=== PATIENT | male | born 1940 | race Caucasian/White ===

== ENCOUNTER 2018-02-25 00:27 | Inpatient (IN) | payer MEDICARE ==
--- NOTE | 2018-02-25 01:09 | ED ---
General Adult HPI - General Chief complaint: Chest Pain Stated complaint: Chest Pain Time Seen by Provider: 02/25/18 00:28 Source: patient, EMS, RN notes reviewed, old records reviewed Mode of arrival: EMS Limitations: no limitations - History of Present Illness Initial comments: This is a 77-year-old male to the ER today. Patient's surgery for evaluation regards to chest pain left-sided chest pain. Patient has a long medical history. Patient has history of heart disease. Patient's concern is having heart attack. No diaphoresis no shortness of breath. No recent travel history or sick contacts. No recent fevers cough or congestion. No modifying factors for patient's pain. Patient is continued pain here in the emergency room - Related Data Home Medications Medication Instructions Recorded Confirmed Digoxin [Lanoxin] 125 mcg PO DAILY 06/25/14 07/10/14 Levothyroxine Sodium [Synthroid] 275 mcg PO DAILY 06/25/14 07/10/14 Lisinopril [Zestril] 2.5 mg PO BID 06/25/14 07/10/14 Metoprolol Tartrate [Lopressor] 50 mg PO DAILY 06/25/14 07/10/14 Multivitamin [Children's 1 each PO DAILY 06/25/14 07/10/14 Multivitamins] Nitroglycerin [Nitro-Time] 2.5 mg PO BID 06/25/14 07/10/14 Warfarin [Coumadin] 7.5 mg PO DAILY 06/25/14 07/10/14 Allergies Allergy/AdvReac Type Severity Reaction Status Date / Time iodine Allergy Unknown Verified 07/10/14 10:05 Review of Systems ROS Statement: Those systems with pertinent positive or pertinent negative responses have been documented in the HPI. ROS Other: All systems not noted in ROS Statement are negative. Past Medical History Past Medical History: Atrial Fibrillation, Hyperlipidemia, Hypertension Additional Past Medical History / Comment(s): kidney cancer, atrial fibrillation History of Any Multi-Drug Resistant Organisms: None Reported Past Surgical History: Heart Catheterization With Stent Additional Past Surgical History / Comment(s): left nephrectomy Past Anesthesia/Blood Transfusion Reactions: No Reported Reaction Date of Last Stent Placement:: 2009 Past Psychological History: No Psychological Hx Reported Smoking Status: Current every day smoker Past Alcohol Use History: None Reported Past Drug Use History: None Reported General Exam Limitations: no limitations General appearance: alert, in no apparent distress Head exam: Present: atraumatic, normocephalic, normal inspection Eye exam: Present: normal appearance, PERRL, EOMI. Absent: scleral icterus, conjunctival injection, periorbital swelling ENT exam: Present: normal exam, mucous membranes moist Neck exam: Present: normal inspection. Absent: tenderness, meningismus, lymphadenopathy Respiratory exam: Present: normal lung sounds bilaterally. Absent: respiratory distress, wheezes, rales, rhonchi, stridor Cardiovascular Exam: Present: regular rate, normal rhythm, normal heart sounds. Absent: systolic murmur, diastolic murmur, rubs, gallop, clicks GI/Abdominal exam: Present: soft, normal bowel sounds. Absent: distended, tenderness, guarding, rebound, rigid Extremities exam: Present: normal inspection, full ROM, normal capillary refill. Absent: tenderness, pedal edema, joint swelling, calf tenderness Back exam: Present: normal inspection Neurological exam: Present: alert, oriented X3, CN II-XII intact Psychiatric exam: Present: normal affect, normal mood Skin exam: Present: warm, dry, intact, normal color. Absent: rash Course Vital Signs 02/25/18 02/25/18 02/25/18 00:33 01:00 02:18 Temperature 98.0 F 97.5 F L Pulse Rate 68 63 Pulse Rate [ 64 Bilateral Sitting Radial] Respiratory 18 20 18 Rate Blood Pressure 98/58 106/58 O2 Sat by Pulse 95 95 Oximetry - Reevaluation(s) Reevaluation #1: 02/25/18 03:10 Patient having noticeable EKG changes here in the ER, with continued chest pain. Reevaluation #2: 02/25/18 03:11 STEMI alert is paged EKG Findings - EKG Comments: EKG Findings:: EKG shows A. fib rate of 70, QRS 70, QTc 447 Medical Decision Making - Medical Decision Making 77 male the ER for evasive history of heart disease, history of A. fib, patient' s on anticoagulation. Patient does have history of heart attack and stent. Patient having positive EKG and is here in the ER. Will be admitted for cardiac observation and treatment - Lab Data Result diagrams: 02/25/18 00:44 02/25/18 00:44 Lab Results 02/25/18 02/25/18 02/25/18 Range/Units 00:44 00:44 00:44 WBC 10.3 (3.8-10.6) k/uL RBC 3.87 L (4.30-5.90) m/uL Hgb 12.9 L (13.0-17.5) gm/dL Hct 39.8 (39.0-53.0) % MCV 102.8 H (80.0-100.0) fL MCH 33.2 (25.0-35.0) pg MCHC 32.3 (31.0-37.0) g/dL RDW 13.3 (11.5-15.5) % Plt Count 216 (150-450) k/uL Neutrophils % 67 % Lymphocytes % 13 % Monocytes % 8 % Eosinophils % 9 % Basophils % 0 % Neutrophils # 6.9 (1.3-7.7) k/uL Lymphocytes # 1.4 (1.0-4.8) k/uL Monocytes # 0.9 (0-1.0) k/uL Eosinophils # 0.9 H (0-0.7) k/uL Basophils # 0.0 (0-0.2) k/uL Macrocytosis Slight PT (9.0-12.0) sec INR (<1.2) APTT (22.0-30.0) sec Sodium 142 (137-145) mmol/L Potassium 5.0 (3.5-5.1) mmol/L Chloride 108 H (98-107) mmol/L Carbon Dioxide 24 (22-30) mmol/L Anion Gap 10 mmol/L BUN 31 H (9-20) mg/dL Creatinine 1.50 H (0.66-1.25) mg/dL Est GFR (CKD-EPI)AfAm 51 (>60 ml/min/1.73 sqM) Est GFR (CKD-EPI)NonAf 44 (>60 ml/min/1.73 sqM) Glucose 168 H (74-99) mg/dL Calcium 8.5 (8.4-10.2) mg/dL Magnesium 2.0 (1.6-2.3) mg/dL Total Bilirubin 0.3 (0.2-1.3) mg/dL AST 14 L (17-59) U/L ALT 23 (21-72) U/L Alkaline Phosphatase 101 (38-126) U/L Total Creatine Kinase <20 L (55-170) U/L CK-MB (CK-2) 0.7 (0.0-2.4) ng/mL CK-MB (CK-2) Rel Index Troponin I <0.012 (0.000-0.034) ng/mL Total Protein 6.3 (6.3-8.2) g/dL Albumin 3.3 L (3.5-5.0) g/dL 02/25/18 Range/Units 00:44 WBC (3.8-10.6) k/uL RBC (4.30-5.90) m/uL Hgb (13.0-17.5) gm/dL Hct (39.0-53.0) % MCV (80.0-100.0) fL MCH (25.0-35.0) pg MCHC (31.0-37.0) g/dL RDW (11.5-15.5) % Plt Count (150-450) k/uL Neutrophils % % Lymphocytes % % Monocytes % % Eosinophils % % Basophils % % Neutrophils # (1.3-7.7) k/uL Lymphocytes # (1.0-4.8) k/uL Monocytes # (0-1.0) k/uL Eosinophils # (0-0.7) k/uL Basophils # (0-0.2) k/uL Macrocytosis PT 15.4 H (9.0-12.0) sec INR 1.7 H (<1.2) APTT 27.6 (22.0-30.0) sec Sodium (137-145) mmol/L Potassium (3.5-5.1) mmol/L Chloride (98-107) mmol/L Carbon Dioxide (22-30) mmol/L Anion Gap mmol/L BUN (9-20) mg/dL Creatinine (0.66-1.25) mg/dL Est GFR (CKD-EPI)AfAm (>60 ml/min/1.73 sqM) Est GFR (CKD-EPI)NonAf (>60 ml/min/1.73 sqM) Glucose (74-99) mg/dL Calcium (8.4-10.2) mg/dL Magnesium (1.6-2.3) mg/dL Total Bilirubin (0.2-1.3) mg/dL AST (17-59) U/L ALT (21-72) U/L Alkaline Phosphatase (38-126) U/L Total Creatine Kinase (55-170) U/L CK-MB (CK-2) (0.0-2.4) ng/mL CK-MB (CK-2) Rel Index Troponin I (0.000-0.034) ng/mL Total Protein (6.3-8.2) g/dL Albumin (3.5-5.0) g/dL - Radiology Data Radiology results: report reviewed (Chest x-rays negative for acute disease), image reviewed Critical Care Time Critical Care Time: Yes Total Critical Care Time: 31 Disposition Clinical Impression: Chest pain, Unstable angina pectoris, ACS (acute coronary syndrome) Disposition: ADMITTED IP TO THIS [facility] Condition: Serious Is patient prescribed a controlled substance at d/c from ED?: No Referrals: Teja Roche MD [Primary Care Provider] - 1-2 days
[2018-02-25] MEDS ORDERED: SODIUM CHLORIDE 0.9% 500 ML IV STA (01:25)
[2018-02-25 01:38] LABS: Basophils % (A) 0 %; Eosinophils # (A) 0.9 k/uL (0-0.7); Eosinophils % (A) 9 %; HCT 39.8 % (39.0-53.0); HGB 12.9 gm/dL (13.0-17.5); Lymphocytes # (A) 1.4 k/uL (1.0-4.8); Lymphocytes % (A) 13 %; MCH 33.2 pg (25.0-35.0); MCHC 32.3 g/dL (31.0-37.0); MCV 102.8 fL (80.0-100.0); Macrocytosis Slight; Mean Platelet Volume 7.7; Monocytes # (A) 0.9 k/uL (0-1.0); Monocytes % (A) 8 %; Neutrophils # (A) 6.9 k/uL (1.3-7.7); Neutrophils % (A) 67 %; Platelet Count 216 k/uL (150-450); RBC 3.87 m/uL (4.30-5.90); RDW 13.3 % (11.5-15.5); WBC 10.3 k/uL (3.8-10.6)
[2018-02-25 01:48] LABS: Albumin 3.3 g/dL (3.5-5.0); Calcium 8.5 mg/dL (8.4-10.2); Total Bilirubin 0.3 mg/dL (0.2-1.3); Total Protein 6.3 g/dL (6.3-8.2)
[2018-02-25 01:49] LABS: INR 1.7 (<1.2); Partial Thromboplastin Time 27.6 sec (22.0-30.0); Prothrombin Time 15.4 sec (9.0-12.0)
[2018-02-25 02:03] LABS: Creatine Kinase <20 U/L (55-170)
[2018-02-25 02:15] LABS: Creatine Kinase MB 0.7 ng/mL (0.0-2.4); Troponin I <0.012 ng/mL (0.000-0.034)
--- NOTE | 2018-02-25 02:15 | XR ---
EXAMINATION TYPE: XR chest 2V DATE OF EXAM: 02/25/2018 COMPARISON: 01/11/2011 HISTORY: Left side chest pain TECHNIQUE: Frontal and lateral views of the chest are obtained. FINDINGS: Heart is enlarged. There is pulmonary edema. There is some blunting of the costophrenic an gle on the right side. There is some fluid in the fissures on the right side. There are chest leads. IMPRESSION: Congestive heart failure. There is increased pleural fluid on the right side and signifi cant decreased fluid on the left side compared to old exam. Pneumonia is possible.
[2018-02-25] MEDS ORDERED: HEPARIN SODIUM,PORCINE 5,000 UNIT/ML 1 ML VIAL IV ONE (03:07)
[2018-02-25] MEDS ORDERED: HEPARIN SODIUM,PORCINE 5,000 UNIT/ML 1 ML VIAL IV PRN (03:07)
[2018-02-25] MEDS ORDERED: NITROGLYCERIN SL TABS 0.4 MG TAB SUBLINGUAL PRN ×2 (03:09→04:41)
[2018-02-25] MEDS ORDERED: HEPARIN SOD,PORK IN 0.45% NACL 25,000 UNIT in 0.45% NACL 1 500ML.BAG IV SCH (03:15)
[2018-02-25] MEDS ORDERED: IV FLUID CONTINUATION 1,000 ML IV ONE (03:35)
[2018-02-25] MEDS ORDERED: diphenhydrAMINE 50 MG/ML 1 ML VIAL ONE (03:40)
[2018-02-25] MEDS ORDERED: methylPREDNISolone SOD SUCCI 125 MG/2 ML VIAL ONE (03:40)
[2018-02-25] MEDS ORDERED: methylPREDNISolone SOD SUCCI 125 MG/2 ML VIAL IV ONE (03:45)
[2018-02-25] MEDS ORDERED: diphenhydrAMINE 50 MG/ML 1 ML VIAL IVP ONE (03:45)
[2018-02-25] MEDS ORDERED: fentaNYL (PF) 50 MCG/ML 2 ML AMP ONE (03:46)
[2018-02-25] MEDS ORDERED: LIDOCAINE 1% INJ 10MG/ML (20 ML MDV) ONE ×2 (03:46→03:50)
[2018-02-25] MEDS ORDERED: LIDOCAINE 1% INJ 10MG/ML (20 ML MDV) SQ ONE (03:48)
[2018-02-25] MEDS ORDERED: fentaNYL (PF) 50 MCG/ML 2 ML AMP IV ONE (03:49)
[2018-02-25] MEDS ORDERED: BIVALIRUDIN BOLUS 250 MG/50 ML IV ONE (04:00)
[2018-02-25] MEDS ORDERED: BIVALIRUDIN 250 MG in SODIUM CHLORIDE 0.9% 40 ML IV ONE (04:01)
[2018-02-25] MEDS ORDERED: CLOPIDOGREL 75 MG TAB ONE (04:01)
[2018-02-25] MEDS ORDERED: CLOPIDOGREL 75 MG TAB PO ONE (04:05)
--- NOTE | 2018-02-25 04:11 | P.CRDCN ---
History of Present Illness Consult date: 02/25/18 History of present illness: This is a 77-year-old gentleman with history of ischemic heart disease and previous stent placements, the last one being in 2009, being followed by Dr. Miranda, came to the emergency room with complaints of chest pain that started around 10:30 PM last night after he went to bed. The pain was precordial and fluctuating in nature. Initial EKG showed some ST elevations in the anterolateral leads and also inferior leads but less than 1 mm. Patient was treated with nitro with fluctuating chest pains. However by around 2.50 AM, his pain became more intense and repeat EKG showed more definite ST-T abnormalities suggestive of acute KS. Patient is advised to have a cardiac catheterization with the intention of percutaneous intervention. Patient doesn' t have any previous history of myocardial infarction. He is history of chronic atrial fibrillation and has been anticoagulated. His INR is 1.7. Review of Systems As per the chart Past Medical History Past Medical History: Atrial Fibrillation, Hyperlipidemia, Hypertension Additional Past Medical History / Comment(s): kidney cancer, atrial fibrillation History of Any Multi-Drug Resistant Organisms: None Reported Past Surgical History: Heart Catheterization With Stent Additional Past Surgical History / Comment(s): left nephrectomy Past Anesthesia/Blood Transfusion Reactions: No Reported Reaction Date of Last Stent Placement:: 2009 Past Psychological History: No Psychological Hx Reported Smoking Status: Current every day smoker Past Alcohol Use History: None Reported Past Drug Use History: None Reported Medications and Allergies Home Medications Medication Instructions Recorded Confirmed Type Digoxin [Lanoxin] 125 mcg PO DAILY 06/25/14 07/10/14 History Levothyroxine Sodium [Synthroid] 275 mcg PO DAILY 06/25/14 07/10/14 History Lisinopril [Zestril] 2.5 mg PO BID 06/25/14 07/10/14 History Metoprolol Tartrate [Lopressor] 50 mg PO DAILY 06/25/14 07/10/14 History Multivitamin [Children's 1 each PO DAILY 06/25/14 07/10/14 History Multivitamins] Nitroglycerin [Nitro-Time] 2.5 mg PO BID 06/25/14 07/10/14 History Warfarin [Coumadin] 7.5 mg PO DAILY 06/25/14 07/10/14 History Allergies Allergy/AdvReac Type Severity Reaction Status Date / Time iodine Allergy Unknown Verified 07/10/14 10:05 Physical Exam Vitals: Vital Signs Temp Pulse Pulse Resp BP Pulse Ox 02/25/18 03:42 77 17 110/63 96 02/25/18 03:18 64 18 110/63 96 02/25/18 03:15 81 18 115/75 94 L 02/25/18 02:18 97.5 F L 63 18 106/58 95 02/25/18 01:00 64 20 02/25/18 00:33 98.0 F 68 18 98/58 95 Intake and Output 02/24/18 02/24/18 02/25/18 14:59 22:59 06:59 Other: Weight 97.522 kg GENERAL EXAM: Patient is alert and oriented and doesn't appear to be in Mild to moderate axonal defaults accept default's distress HEENT: Normocephalic. Normal reaction of pupils, equal size, normal range of extraocular motion. No erythema or exudates in the throat. NECK: No masses, no nuchal rigidity. CHEST: No chest wall deformity. LUNGS: [Equal air entry with no crackles or wheeze.] HEART: [S1 and S2 normal with no audible mumurs or gallops. Regular rhythm, femorals equal on both sides..] ABDOMEN: No hepatosplenomegaly, normal bowel sounds, no guarding or rigidity. SKIN: No rashes CENTRAL NERVOUS SYSTEM: No focal deficits. EXTREMITIES: [No cyanosis, clubbing or edema.]Accept defaultA accept default's Results 02/25/18 00:44 02/25/18 00:44 Cardiac Enzymes 02/25/18 02/25/18 Range/Units 00:44 00:44 AST 14 L (17-59) U/L CK-MB (CK-2) 0.7 (0.0-2.4) ng/mL Troponin I <0.012 (0.000-0.034) ng/mL Coagulation 02/25/18 Range/Units 00:44 PT 15.4 H (9.0-12.0) sec APTT 27.6 (22.0-30.0) sec CBC 02/25/18 Range/Units 00:44 WBC 10.3 (3.8-10.6) k/uL RBC 3.87 L (4.30-5.90) m/uL Hgb 12.9 L (13.0-17.5) gm/dL Hct 39.8 (39.0-53.0) % Plt Count 216 (150-450) k/uL Comprehensive Metabolic Panel 02/25/18 Range/Units 00:44 Sodium 142 (137-145) mmol/L Potassium 5.0 (3.5-5.1) mmol/L Chloride 108 H (98-107) mmol/L Carbon Dioxide 24 (22-30) mmol/L BUN 31 H (9-20) mg/dL Creatinine 1.50 H (0.66-1.25) mg/dL Glucose 168 H (74-99) mg/dL Calcium 8.5 (8.4-10.2) mg/dL AST 14 L (17-59) U/L ALT 23 (21-72) U/L Alkaline Phosphatase 101 (38-126) U/L Total Protein 6.3 (6.3-8.2) g/dL Albumin 3.3 L (3.5-5.0) g/dL Current Medications Generic Name Dose Route Start Last Admin Trade Name Freq PRN Reason Stop Dose Admin Aspirin 325 mg 02/26/18 09:00 Aspirin PO DAILY [facility] Atorvastatin Calcium 80 mg 02/25/18 09:00 02/25/18 03:14 Lipitor PO 80 mg DAILY [facility] Administration Heparin Sodium (Porcine) 0 unit 02/25/18 03:07 Heparin IV PER PROTOCOL PRN Low PTT Protocol Heparin Sodium/Sodium Chloride 500 mls @ 19.5 mls/hr 02/25/18 03:15 25,000 unit/ Sodium Chloride IV .Q24H [facility] Protocol 10 UNITS/KG/HR Metoprolol Tartrate 25 mg 02/25/18 09:00 Lopressor PO BID [facility] Nitroglycerin 0.4 mg 02/25/18 03:09 02/25/18 03:18 Nitrostat SUBLINGUAL 0.4 mg Q5M PRN Administration Chest Pain Intake and Output 02/24/18 02/24/18 02/25/18 14:59 22:59 06:59 Other: Weight 97.522 kg Patient Weight 02/25/18 06:59 Weight 97.522 kg 02/25/18 00:44 02/25/18 00:44 EKG Interpretations (text) Sinus rhythm with ST elevations in inferior and also anterolateral leads Assessment and Plan (1) Acute myocardial infarction Current Visit: Yes Status: Acute Code(s): I21.9 - ACUTE MYOCARDIAL INFARCTION, UNSPECIFIED SNOMED Code(s): 11627690 (2) Hypertension Current Visit: Yes Status: Acute Code(s): I10 - ESSENTIAL (PRIMARY) HYPERTENSION SNOMED Code(s): 96828685 (3) Diabetes mellitus type 2 in nonobese Current Visit: Yes Status: Acute Code(s): E11.9 - TYPE 2 DIABETES MELLITUS WITHOUT COMPLICATIONS SNOMED Code(s): 872762670 (4) Diabetes mellitus type 2 in obese Current Visit: Yes Status: Acute Code(s): E11.69 - TYPE 2 DIABETES MELLITUS WITH OTHER SPECIFIED COMPLICATION; E66.9 - OBESITY, UNSPECIFIED SNOMED Code(s) : 73215918 (5) History of coronary artery disease Current Visit: Yes Status: Acute Code(s): Z86.79 - PERSONAL HISTORY OF OTHER DISEASES OF THE CIRCULATORY SYSTEM SNOMED Code(s): 332676208 (6) Chronic atrial fibrillation Current Visit: Yes Status: Acute Code(s): I48.2 - CHRONIC ATRIAL FIBRILLATION SNOMED Code(s): 880388736 Plan: Will proceed with cardiac catheterization with intention of primary intervention.
[2018-02-25] MEDS ORDERED: IOPAMIDOL-370 125ML BTL INJ ONE (04:12)
--- NOTE | 2018-02-25 04:17 | P.CARDCATH ---
Date of Procedure: 02/25/18 Preoperative Diagnosis: Acute anterolateral myocardial infarction and possible inferior wall MA Postoperative Diagnosis: The same Procedure(s) Performed: Left heart catheterization without left ventriculography Description of Procedure: HISTORY: This is a 77-year-old gentleman with history of hypertension, chronic atrial fibrillation and known ischemic heart disease with previous stent placement who came to the emergency room with complaints of chest pain and EKG changes of acute anterolateral lateral wall myocardial infarction and possibly inferior wall extension. Patient is explained the risks and benefits of the procedure. CONSENT:I have discussed the risks, benefits and alternative therapies for the above-mentioned procedure and for both sedation/analgesia as well as necessary blood product administration, if indicated, as they pertain to this patient. The patient has indicated understanding and acceptance of the risks and procedures discussed. PROCEDURE: Patient was brought to the lab in a fasting state. Patient was given some IV sedation. The right groin is infiltrated with lidocaine and right femoral artery was entered using Seldinger technique. A 6-Danish catheter was left in place and selective coronary arteriography was performed. Patient tolerated the procedure well. . No immediate complications were noted .Patient went on to have stent placement of the LAD by Dr. Kingston . Conscious Sedation: Versed 0mg Fentanyl 50 g Duration 14minutes HEMODYNAMICS: The aortic pressure is about 100/60. End-diastolic pressures are not measured SELECTIVE CORONARY ARTERIOGRAPHY: LEFT MAIN: Long and free of occlusive disease. THE LEFT ANTERIOR DESCENDING CORONARY ARTERY: This vessel is totally occluded in the midportion after the diagonal branch. The diagonal branch has moderate disease THE LEFT CIRCUMFLEX AND IS CORONARY ARTERY: This is a good caliber vessel which is totally occluded in the midportion after giving rise to good-sized OM branch. There are collaterals from the right coronary artery filling the distal circumflex THE RIGHT CORONARY ARTERY: Small to moderate caliber vessel free of occlusive disease. LEFT VENTRICULOGRAPHY: Not performed FINAL IMPRESSION: Total occlusion of the LAD in the midportion. Total occlusion of the circumflex in the midportion. Collateral from the right to the circumflex. PLAN: Stent placement of the LAD being done by Dr. Kingston. The circumflex stenosis appears to be chronic. PROGNOSIS:Guarded
[2018-02-25] MEDS ORDERED: IOPAMIDOL-370 100ML BTL INJ ONE (04:24)
[2018-02-25] MEDS ORDERED: HEPARIN SODIUM 1,000 UN/ML (10ML VL) ONE (04:29)
[2018-02-25] MEDS ORDERED: ZOLPIDEM 5 MG TAB PO PRN (04:41)
[2018-02-25] MEDS ORDERED: ATROPINE SULFATE 0.1 MG/ML 10ML SYRINGE IV PRN (04:41)
[2018-02-25] MEDS ORDERED: RX INFO: IV CONTRAST WAS GIVEN 1 EACH MISC MISCELLANE PRN (04:41)
[2018-02-25] MEDS ORDERED: MAG HYDROX/AL HYDROX/SIMETH 30 ML CUP PO PRN (04:41)
[2018-02-25] MEDS ORDERED: SODIUM CHLORIDE 0.9% 1,000 ML IV SCH (04:45)
--- NOTE | 2018-02-25 05:18 | PTCA ---
PERCUTANEOUSTRANS CORORONARY ANGIOGRAPHY Mr. Hill is a 77-year-old male with known history of coronary artery disease, status post percutaneous revascularization done by Dr. Medina, history of persistent atrial fibrillation, diabetes, chronic kidney disease, who presented with evidence of an acute anterior myocardial infarction, underwent cardiac catheterization by Dr. Sanchez, was found to have totally occluded proximal LAD. In view of that, recommendation was made regarding coronary angioplasty and stenting. The procedure as well as the risks and the complications were discussed with the patient who is in full understanding and agreement. PROCEDURE: A 6-Armenian FR4 guiding catheter was introduced in the system after cannulating the left main a 0.014 balanced medium weight J-wire was advanced across the lesion, positioned distally. Then a 2.5 x 12 mm Trek balloon was advanced and 3 inflations maximum of 8 atmospheres were done. Following that, the balloon was removed and an Guttenberg catheter was introduced and one pass was done with removal of thrombus from the distal segment of the artery. Following that, a 3.0 x 15 mm Xience Alpine stent was deployed, postdilated at 16 atmospheres. After the last inflation, after appropriate wait, the balloon and the guidewire were withdrawn back in the guiding catheter. Images were obtained and repeated. Those images reveal stable successful stenting. At that point, the guiding catheter, the balloon and the guidewire were removed and a 6-Armenian tight pigtail catheter was introduced left ventricle and pressures were calculated. Following that, catheter was removed. Sheath was sutured in place. The patient was returned to his room in stable condition. Of note, the patient received Angiomax per protocol as well as oral loading dose of clopidogrel. His chest discomfort and EKG changes improved at the end of the procedure. RESULTS: Successful stenting of the proximal left anterior descending artery with reduction of stenosis from 100% to 0%. RECOMMENDATION: Patient will be continued on clopidogrel and Coumadin. The findings as well as recommendation were discussed with the patient and he was in full understanding and agreement. Duration of procedure is 31 minutes. MMODL / IJN: [id number] /
[2018-02-25 05:21] LABS: Glucose,Whole Blood 163 mg/dL (75-99)
[2018-02-25] MEDS: LEVOTHYROXINE 100 MCG TAB PO SCH (06:52)
[2018-02-25] MEDS: LEVOTHYROXINE 75 MCG TAB PO SCH (06:53)
--- NOTE | 2018-02-25 07:05 | P.HPIM ---
History of Present Illness H&P Date: 02/25/18 Chief Complaint: chest pain 77 year old male with history of CAD s/p stents. patient presented due to sudden acute chest pain when he was about to go to bed , he did not feel well over the past few days, but could not identify any physical activity that could have precipitated his chest pain. he described left sided chest pain, dull pressure like 10/10 in severity non radiating, no associated N/V, or SOB, or diaphoresis , he decided to call 911 and go to the hospital and get evaluated as he was concerned for heart attack . In the emergency department he was found to have ST changes in the precordial leads and anterolateral, mineral ore processing labourer was activated for possible STEMI. Patient had the left heart cath through a right femoral approach, a stent was deployed in LAD. He was found to have total occlusion of the LAD and circumflex at the midportion. He tolerated procedure well currently denies any further chest pain or trouble breathing. Sheath was removed with no immediate complications. Currently patient denies any shortness of breath or chest pain, denies any nausea or vomiting, denies any headache or changes in his vision or hearing, denies any focal neurologic deficit. Patient denies any GI bleeding or abdominal pain. Patient takes Coumadin for chronic A. fib. Patient was diagnosed with diabetes with A1c in the range of 7, he takes oral hypoglycemic agent he could not identify it. He is refusing insulin while in the hospital. Review of Systems Pertinent positives as noted in HPI. All other systems were reviewed and are negative Past Medical History Past Medical History: Atrial Fibrillation, Diabetes Mellitus, Hyperlipidemia, Hypertension Additional Past Medical History / Comment(s): kidney cancer, atrial fibrillation History of Any Multi-Drug Resistant Organisms: None Reported Past Surgical History: Heart Catheterization With Stent Additional Past Surgical History / Comment(s): left nephrectomy Past Anesthesia/Blood Transfusion Reactions: No Reported Reaction Date of Last Stent Placement:: 2009 Past Psychological History: No Psychological Hx Reported Smoking Status: Current every day smoker Past Alcohol Use History: None Reported Past Drug Use History: None Reported - Past Family History Family Additional Family Medical History / Comment(s): Patient reports history of heart disease Medications and Allergies Home Medications Medication Instructions Recorded Confirmed Type Digoxin [Lanoxin] 125 mcg PO DAILY 06/25/14 07/10/14 History Levothyroxine Sodium [Synthroid] 275 mcg PO DAILY 06/25/14 07/10/14 History Lisinopril [Zestril] 2.5 mg PO BID 06/25/14 07/10/14 History Metoprolol Tartrate [Lopressor] 50 mg PO DAILY 06/25/14 07/10/14 History Multivitamin [Children's 1 each PO DAILY 06/25/14 07/10/14 History Multivitamins] Nitroglycerin [Nitro-Time] 2.5 mg PO BID 06/25/14 07/10/14 History Warfarin [Coumadin] 7.5 mg PO DAILY 06/25/14 07/10/14 History Allergies Allergy/AdvReac Type Severity Reaction Status Date / Time iodine Allergy Unknown Verified 07/10/14 10:05 Physical Exam Vitals: Vital Signs Temp Pulse Pulse Resp BP Pulse Ox 02/25/18 03:42 77 17 110/63 96 02/25/18 03:18 64 18 110/63 96 02/25/18 03:15 81 18 115/75 94 L 02/25/18 02:18 97.5 F L 63 18 106/58 95 02/25/18 01:00 64 20 02/25/18 00:33 98.0 F 68 18 98/58 95 Intake and Output 02/24/18 02/24/18 02/25/18 14:59 22:59 06:59 Intake Total 179.4 Balance 179.4 Intake: IV 179.4 Other: Weight 97.522 kg Constitutional: No acute distress, conversant, pleasant Eyes: Anicteric sclerae, moist conjunctiva, no lid-lag Pupils equal round reactive to light ENMT: NC/AT Oropharynx clear, no erythema, or exudates Neck: Supple, FROM, no masses, or JVD No carotid bruits No thyromegaly Lungs: Good breath sounds bilaterally, scattered expiratory wheezes Clear to percussion Normal respiratory effort, no accessory muscle use Cardiovascular: Heart irregular No murmurs, gallops, or rubs No peripheral edema Abdominal: Soft Nontender, no guarding, rebound or rigidity Abdomen moving with respiration Normoactive bowel sounds No hepatomegaly, No splenomegaly No palpable mass No abdominal wall hernia noted Skin: Normal temperature, tone, texture, turgor No induration No subcutaneous nodules No rash, lesions No ulcers Extremities: No digital cyanosis No clubbing Pedal pulses intact and symmetrical Radial pulses intact and symmetrical No calf tenderness Psychiatric: Alert and oriented to person, place and time Appropriate affect fair judgment Neuro Muscles Strength 5/5 in all 4 extremities Sensation to light touch grossly present throughout Cranial nerves II-XII grossly intact No focal sensory deficits Lymphatics: no palpable cervical or supraclavicular , or inguinal lymph nodes Results CBC & Chem 7: 02/25/18 00:44 02/25/18 00:44 Labs: Abnormal Lab Results - Last 24 Hours (Table) 02/25/18 02/25/18 02/25/18 Range/Units 00:44 00:44 00:44 RBC 3.87 L (4.30-5.90) m/uL Hgb 12.9 L (13.0-17.5) gm/dL MCV 102.8 H (80.0-100.0) fL Eosinophils # 0.9 H (0-0.7) k/uL PT (9.0-12.0) sec INR (<1.2) Chloride 108 H (98-107) mmol/L BUN 31 H (9-20) mg/dL Creatinine 1.50 H (0.66-1.25) mg/dL Glucose 168 H (74-99) mg/dL POC Glucose (mg/dL) (75-99) mg/dL AST 14 L (17-59) U/L Total Creatine Kinase <20 L (55-170) U/L Albumin 3.3 L (3.5-5.0) g/dL 02/25/18 02/25/18 Range/Units 00:44 05:18 RBC (4.30-5.90) m/uL Hgb (13.0-17.5) gm/dL MCV (80.0-100.0) fL Eosinophils # (0-0.7) k/uL PT 15.4 H (9.0-12.0) sec INR 1.7 H (<1.2) Chloride (98-107) mmol/L BUN (9-20) mg/dL Creatinine (0.66-1.25) mg/dL Glucose (74-99) mg/dL POC Glucose (mg/dL) 163 H (75-99) mg/dL AST (17-59) U/L Total Creatine Kinase (55-170) U/L Albumin (3.5-5.0) g/dL Assessment and Plan Assessment: 77 year old male with history of CAD s/p stents, chronic afib, patient admitted with anticipated length of stay of more than 2 days for acute STEMI, patient presented with acute chest pain and found to have ST elevation on his EKG, he was taken to mineral ore processing labourer due to suspected SD. Plan: # STEMI # H/O CAD s/p stents patient was taken to mineral ore processing labourer, s/p stent placement in LAD patient found to have total occlusion of LAD and circumflex at midportion continue aspirin, statin, Plavix, RACHEL inhibitor, beta armida #. CK D stage III, patient status post unilateral nephrectomy due to history of cancer avoid nephrotoxic meds monitor renal function #/ chronic afib on anticoagulation on coumadin , currently rate controlled Continue Coumadin dosing by pharmacy #. Hypertension Currently controlled Continue beta armida #. Diabetes mellitus2 Check A1c level Patient refusing insulin while in the hospital Awaiting A1c level # hypothyroidism stable continue levothyroxin #. DVT PPx on coumadin for chronic afib Surrogate decision-maker: Patient's Asiya CODE STATUS: full code Discussed with: Patient, ER Anticipated discharge: 48-[address]: pending clinical course A total of 50 minutes was spent on the care of this complex patient more than 50 % of the time was spent in counseling and care coordination.
--- NOTE | 2018-02-25 08:40 | P.PN ---
Subjective Progress Note Date: 02/25/18 Principal diagnosis: Acute coronary syndrome This is a pleasant 77-year-old gentleman who sees a interior design teacher out of the town with a past medical history significant for coronary artery disease, chronic atrial fibrillation, and significant history of smoking, presented to the emergency room with chest discomfort but was diagnosed with acute anterior ST elevation myocardial infarction. He underwent an emergent heart catheterization by Dr. Sanchez and was found to have an acute total occlusion of the mid LAD with chronic total occlusion of the left circumflex. The patient underwent successful stenting of the mid LAD by Dr. Kingston. On follow-up with the patient this morning, he denies having any chest pain or discomfort. He still have some shortness of breath which is likely to be chronic and related to COPD and smoking. The right groin is soft and nontender and without any bruises. The patient is on dual antiplatelet therapy and Coumadin was reinitiated earlier today. He is on beta armida as well. He is not on any statin and I would add 80 mg Lipitor daily. Objective - Vital Signs Vital signs: Vital Signs Temp 97.1 F L 02/25/18 05:15 Pulse 80 02/25/18 07:13 Resp 27 H 02/25/18 07:13 BP 102/65 02/25/18 07:13 Pulse Ox 92 L 02/25/18 07:13 Intake & Output 02/24/18 02/25/18 02/25/18 18:59 06:59 18:59 Intake Total 279.4 100 Output Total 0 Balance 279.4 100 Weight 97.522 kg Intake: IV 279.4 100 Sodium Chloride 0.9% 1, 100 100 000 ml @ 100 mls/hr IV . Q10H YOSHI Rx#:[id number] Output: Urine 0 Other: # Voids 0 - Constitutional General appearance: Present: no acute distress - Respiratory Respiratory: bilateral: wheezing - Cardiovascular Rhythm: irregularly irregular Heart sounds: normal: S1, S2 - Labs CBC & Chem 7: 02/25/18 00:44 02/25/18 00:44 Labs: Abnormal Lab Results - Last 24 Hours (Table) 02/25/18 02/25/18 02/25/18 Range/Units 00:44 00:44 00:44 RBC 3.87 L (4.30-5.90) m/uL Hgb 12.9 L (13.0-17.5) gm/dL MCV 102.8 H (80.0-100.0) fL Eosinophils # 0.9 H (0-0.7) k/uL PT (9.0-12.0) sec INR (<1.2) Chloride 108 H (98-107) mmol/L BUN 31 H (9-20) mg/dL Creatinine 1.50 H (0.66-1.25) mg/dL Glucose 168 H (74-99) mg/dL POC Glucose (mg/dL) (75-99) mg/dL AST 14 L (17-59) U/L Total Creatine Kinase <20 L (55-170) U/L Albumin 3.3 L (3.5-5.0) g/dL 02/25/18 02/25/18 Range/Units 00:44 05:18 RBC (4.30-5.90) m/uL Hgb (13.0-17.5) gm/dL MCV (80.0-100.0) fL Eosinophils # (0-0.7) k/uL PT 15.4 H (9.0-12.0) sec INR 1.7 H (<1.2) Chloride (98-107) mmol/L BUN (9-20) mg/dL Creatinine (0.66-1.25) mg/dL Glucose (74-99) mg/dL POC Glucose (mg/dL) 163 H (75-99) mg/dL AST (17-59) U/L Total Creatine Kinase (55-170) U/L Albumin (3.5-5.0) g/dL Assessment and Plan Assessment: Assessment #[address] patient myocardial infarction and status post PCI of the LAD #2 severe residual coronary artery disease with known chronic total occlusion of the left circumflex #3 chronic atrial fibrillation was controlled heart rate #4 significant history of smoking Plan #1 follow-up on the serial cardiac enzymes #2 follow-up on the echocardiogram to evaluate the LV function next #3 continue dual antiplatelet therapy #4 the Coumadin was restarted #5 add statin to the current medical regimen #6 follow-up with the patient
[2018-02-25] MEDS ORDERED: ATORVASTATIN 80 MG TAB PO SCH (09:00)
[2018-02-25 09:02] LABS: Creatine Kinase MB 67.1 ng/mL (0.0-2.4)
[2018-02-25 09:04] LABS: Troponin I 90.1 ng/mL (0.000-0.034)
[2018-02-25] MEDS: METOPROLOL TARTRATE 25 MG TAB PO SCH ×2 (09:08→20:28)
[2018-02-25] MEDS: ASPIRIN 81 MG PO SCH (09:09)
--- NOTE | 2018-02-25 09:59 | P.PN ---
Progress Note - Text Progress Note Date: 02/25/18 The patient is a 77-year-old male was admitted with chest pain found to have acute ST elevation [place], he will underwent urgent cardiac catheterization and was found acute total occlusion of the mid LAD with chronic total occlusion of the left circumflex. The patient underwent successful stenting of the mid LAD by Dr. Kingston. The patient is seen in the treatment room doing well , Without any chest pain or shortness of breath. He's maintained on antiplatelet therapy with Plavix, continued on statin therapy with Lipitor and on metoprolol and Coumadin.
--- NOTE | 2018-02-25 10:53 | ECHOF ---
Referral Reason:mi MEASUREMENTS -------- HEIGHT: 182.9 cm WEIGHT: 97.5 kg BP: 121/69 RVIDd: 3.4 cm (< 3.3) IVSd: 1.6 cm (0.6 - 1.1) LVIDd: 4.8 cm (3.9 - 5.3) LVPWd: 1.3 cm (0.6 - 1.1) IVSs: 1.8 cm LVIDs: 3.8 cm LVPWs: 1.9 cm LA Diam: 4.9 cm (2.7 - 3.8) LAESV Index (A-L): 54.29 ml/m Ao Diam: 3.6 cm (2.0 - 3.7) AV Cusp: 1.8 cm (1.5 - 2.6) MV EXCURSION: 22.560 mm (> 18.000) MV EF SLOPE: 185 mm/s (70 - 150) EPSS: 1.1 cm RAP: 15.00 mmHg RVSP: 63.70 mmHg FINDINGS -------- This was a technically adequate study. The left ventricular size is normal. There is moderate concentric left ventricular hypertrophy. T here is mild global hypokinesis of LV . Overall left ventricular systolic function is mild-moderate ly impaired with, an EF between 40 - 45 %. Mid inferior LV wall motion is hypokinetic. Mid infer oseptal LV wall motion is hypokinetic. Apical inferior LV wall motion is hypokinetic. Apical se ptum LV wall motion is hypokinetic. The right ventricle is mildly enlarged. LA is severely dilated >40 ml/m2 The right atrium is normal in size. There is mild aortic valve sclerosis. The mitral valve leaflets are mildly thickened. Mild mitral annular calcification present. Mild m itral regurgitation is present. Mild tricuspid regurgitation present. There is severe pulmonary hypertension. The right ventricul ar systolic pressure, as measured by Doppler, is 63.70mmHg. There is no pulmonic regurgitation present. The aortic root size is normal. The inferior vena cava is dilated with no significant inspiratory collapse which is consistent estima tracy right atrial pressure of >15 mmHg. There is no pericardial effusion. CONCLUSIONS -------- 1. This was a technically adequate study. 2. The left ventricular size is normal. 3. There is moderate concentric left ventricular hypertrophy. 4. Overall left ventricular systolic function is mild-moderately impaired with, an EF between 40 - 45 %. 5. Mid inferior LV wall motion is hypokinetic. 6. Mid inferoseptal LV wall motion is hypokinetic. 7. Apical inferior LV wall motion is hypokinetic. 8. Apical septum LV wall motion is hypokinetic. 9. The right ventricle is mildly enlarged. 10. LA is severely dilated >40 ml/m2 11. The right atrium is normal in size. 12. There is mild aortic valve sclerosis. 13. The mitral valve leaflets are mildly thickened. 14. Mild mitral annular calcification present. 15. Mild mitral regurgitation is present. 16. Mild tricuspid regurgitation present. 17. There is severe pulmonary hypertension. 18. The right ventricular systolic pressure, as measured by Doppler, is 63.70mmHg. 19. There is no pulmonic regurgitation present. 20. The aortic root size is normal. 21. The inferior vena cava is dilated with no significant inspiratory collapse which is consistent es timated right atrial pressure of >15 mmHg. 22. There is no pericardial effusion. SHAKE LOADER: Priscila Christie RDCS
[2018-02-25] MEDS: TAMSULOSIN 0.4 MG CAP.ER.24H PO SCH (12:00)
[2018-02-25] MEDS: LISINOPRIL 2.5 MG TAB PO SCH ×2 (12:00→21:23)
[2018-02-25] MEDS: FINASTERIDE 5 MG TAB PO SCH (12:00)
[2018-02-25 12:16] LABS: Hemoglobin A1C 6.6 % (4.0-6.0)
[2018-02-25 13:58] LABS: Creatine Kinase MB 71.7 ng/mL (0.0-2.4)
[2018-02-25 17:57] LABS: Appearance,Urine Turbid (Clear); Bilirubin,Urine Negative (Negative); Blood,Urine Large (Negative); Color,Urine Red; Glucose,Urine (UA) Negative (Negative); Ketones,Urine Trace (Negative); Leukocyte Esterase,Urine Large (Negative); Nitrite,Urine Negative (Negative); PH, Urine 5.5 (5.0-8.0); Protein,Urine 2+ (Negative); RBC,Urine >182 /hpf (0-5); Urobilinogen,Urine <2.0 mg/dL (<2.0); WBC,Urine >182 /hpf (0-5)
[2018-02-25] MEDS ORDERED: WARFARIN 7.5 MG TAB PO ONE (18:00)
[2018-02-25] MEDS: ATORVASTATIN 80 MG TAB PO SCH (20:28)
[2018-02-26] MEDS ORDERED: LIDOCAINE (PF) 10 MG/ML 5ML AMP ONE (00:36)
[2018-02-26 05:02] LABS: Calcium 8.8 mg/dL (8.4-10.2); Magnesium 2.3 mg/dL (1.6-2.3); Potassium 5.6 mmol/L (3.5-5.1)
[2018-02-26 05:11] LABS: Basophils % (A) 0 %; Eosinophils % (A) 0 %; HCT 40.5 % (39.0-53.0); HGB 12.6 gm/dL (13.0-17.5); Lymphocytes # (A) 0.7 k/uL (1.0-4.8); Lymphocytes % (A) 6 %; MCH 32.6 pg (25.0-35.0); MCHC 31.1 g/dL (31.0-37.0); MCV 104.8 fL (80.0-100.0); Macrocytosis Slight; Mean Platelet Volume 7.3; Monocytes # (A) 0.9 k/uL (0-1.0); Monocytes % (A) 8 %; Neutrophils # (A) 9.2 k/uL (1.3-7.7); Neutrophils % (A) 84 %; Platelet Count 227 k/uL (150-450); RBC 3.86 m/uL (4.30-5.90); RDW 13.3 % (11.5-15.5); WBC 10.9 k/uL (3.8-10.6)
[2018-02-26 05:32] LABS: Prothrombin Time 27.1 sec (9.0-12.0)
[2018-02-26 05:36] LABS: Calcium 8.8 mg/dL (8.4-10.2); Magnesium 2.3 mg/dL (1.6-2.3); Potassium 5.8 mmol/L (3.5-5.1)
[2018-02-26] MEDS: LEVOTHYROXINE 100 MCG TAB PO SCH (06:28)
[2018-02-26] MEDS: LEVOTHYROXINE 75 MCG TAB PO SCH (06:28)
[2018-02-26] MEDS: CLOPIDOGREL 75 MG TAB PO SCH ×2 (06:29→09:16)
[2018-02-26] MEDS ORDERED: LIDOCAINE-D5W PMX 2G/500ML 2,000 MG in DEXTROSE/WATER 1 500ML.BAG IV SCH (06:30)
[2018-02-26] MEDS ORDERED: SODIUM CHLORIDE 0.9% 1,000 ML IV SCH (06:30)
[2018-02-26] MEDS: ASPIRIN 81 MG PO SCH (08:26)
[2018-02-26] MEDS: METOPROLOL TARTRATE 25 MG TAB PO SCH ×2 (08:26→20:08)
[2018-02-26] MEDS: LISINOPRIL 2.5 MG TAB PO SCH ×2 (08:27→20:08)
[2018-02-26] MEDS: FINASTERIDE 5 MG TAB PO SCH (08:27)
[2018-02-26] MEDS: TAMSULOSIN 0.4 MG CAP.ER.24H PO SCH (08:28)
[2018-02-26] MEDS ORDERED: SODIUM POLYSTYRENE SULFONATE 15 GM/60 ML BOTTLE PO STA (08:56)
[2018-02-26] MEDS ORDERED: ALBUTEROL NEBULIZED 2.5 MG/3 ML INHALATION PRN (08:56)
[2018-02-26] MEDS ORDERED: NON-FORMULARY DRUG (Levothyroxine Sodium [Synthroid] 200 MCG) PO SCH (09:00)
[2018-02-26] MEDS ORDERED: LEVOTHYROXINE 75 MCG TAB PO SCH (09:00)
[2018-02-26] MEDS ORDERED: ASPIRIN 325 MG TAB PO SCH (09:00)
--- NOTE | 2018-02-26 09:40 | XR ---
EXAMINATION TYPE: XR chest 1V portable DATE OF EXAM: 02/26/2018 COMPARISON: Prior chest 02/25/2018 HISTORY: Shortness of breath TECHNIQUE: Single frontal view of the chest is obtained. FINDINGS: The heart remains enlarged. Interstitium and central vascularity are prominent. There is b lunting of the costophrenic angles. No pneumothorax. There are overlying cardiac leads. IMPRESSION: Correlate for congestive heart failure.
--- NOTE | 2018-02-26 12:21 | P.PN ---
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 He underwent an emergent heart catheterization by Dr. Sanchez and was found to have an acute total occlusion of the mid LAD with chronic total occlusion of the left circumflex. The patient underwent successful stenting of the mid LAD by Dr. Kingston. On follow-up with the patient this morning, he denies having any chest pain or discomfort. History have shortness of breath and also diminished breathing sounds over the left lung. The chest x-ray showed findings consistent with CHF. The blood pressure and heart rate are under good control. He is in A. fib with controlled heart rate. The creatinine continues to be stable around 1.5. The EF by echo came in to be around 40-45%. I am going to hold the Coumadin today in view of the INR which is a 3. Check INR tomorrow. Continue the current medical treatment including dual antiplatelet therapy. Start the patient on Lasix by mouth 40 mg daily and continue monitor the kidney function and electrolytes. Objective - Vital Signs Vital signs: Vital Signs Temp 98.1 F 02/26/18 08:00 Pulse 63 02/26/18 11:00 Resp 20 02/26/18 11:00 BP 100/72 02/26/18 11:00 Pulse Ox 93 L 02/26/18 11:00 Intake & Output 02/25/18 02/26/18 02/26/18 18:59 06:59 18:59 Intake Total 1100 910 510 Output Total 550 100 250 Balance 550 810 260 Weight 102.5 kg Intake: IV 1100 270 510 0.9 normal saline @ 75ml/ 225 450 hr Sodium Chloride 0.9% 1, 1100 000 ml @ 100 mls/hr IV . Q10H YOSHI Rx#:[id number] lidocaine 45 60 Oral 640 Output: Urine 550 100 250 Other: Voiding Method Urinal Urinal Urinal # Voids 0 1 - Constitutional General appearance: Present: no acute distress - Respiratory Respiratory: bilateral: diminished - Cardiovascular Rhythm: irregularly irregular Heart sounds: normal: S1, S2 - Labs CBC & Chem 7: 02/26/18 04:53 02/26/18 04:53 Labs: Abnormal Lab Results - Last 24 Hours (Table) 02/25/18 02/25/18 02/25/18 Range/Units 07:07 12:54 17:40 WBC (3.8-10.6) k/uL RBC (4.30-5.90) m/uL Hgb (13.0-17.5) gm/dL MCV (80.0-100.0) fL Neutrophils # (1.3-7.7) k/uL Lymphocytes # (1.0-4.8) k/uL PT (9.0-12.0) sec INR (<1.2) Potassium (3.5-5.1) mmol/L Chloride (98-107) mmol/L Carbon Dioxide (22-30) mmol/L BUN (9-20) mg/dL Creatinine (0.66-1.25) mg/dL Glucose (74-99) mg/dL Hemoglobin A1c 6.6 H (4.0-6.0) % Total Creatine Kinase 1077 H (55-170) U/L CK-MB (CK-2) 71.7 H* (0.0-2.4) ng/mL Troponin I 101.000 H* (0.000-0.034) ng/mL HDL Cholesterol (40-60) mg/dL Urine Protein 2+ H (Negative) Urine Ketones Trace H (Negative) Urine Blood Large H (Negative) Ur Leukocyte Esterase Large H (Negative) Urine RBC >182 H (0-5) /hpf Urine WBC >182 H (0-5) /hpf Urine WBC Clumps Many H (None) /hpf 02/26/18 02/26/18 02/26/18 Range/Units 00:02 04:53 04:53 WBC (3.8-10.6) k/uL RBC (4.30-5.90) m/uL Hgb (13.0-17.5) gm/dL MCV (80.0-100.0) fL Neutrophils # (1.3-7.7) k/uL Lymphocytes # (1.0-4.8) k/uL PT 27.1 H (9.0-12.0) sec INR 3.0 H (<1.2) Potassium 5.6 H 5.8 H (3.5-5.1) mmol/L Chloride 109 H 110 H (98-107) mmol/L Carbon Dioxide 21 L 20 L (22-30) mmol/L BUN 40 H 43 H (9-20) mg/dL Creatinine 1.60 H 1.70 H (0.66-1.25) mg/dL Glucose 206 H 167 H (74-99) mg/dL Hemoglobin A1c (4.0-6.0) % Total Creatine Kinase (55-170) U/L CK-MB (CK-2) (0.0-2.4) ng/mL Troponin I (0.000-0.034) ng/mL HDL Cholesterol 28 L (40-60) mg/dL Urine Protein (Negative) Urine Ketones (Negative) Urine Blood (Negative) Ur Leukocyte Esterase (Negative) Urine RBC (0-5) /hpf Urine WBC (0-5) /hpf Urine WBC Clumps (None) /hpf 02/26/18 Range/Units 04:53 WBC 10.9 H (3.8-10.6) k/uL RBC 3.86 L (4.30-5.90) m/uL Hgb 12.6 L (13.0-17.5) gm/dL MCV 104.8 H (80.0-100.0) fL Neutrophils # 9.2 H (1.3-7.7) k/uL Lymphocytes # 0.7 L (1.0-4.8) k/uL PT (9.0-12.0) sec INR (<1.2) Potassium (3.5-5.1) mmol/L Chloride (98-107) mmol/L Carbon Dioxide (22-30) mmol/L BUN (9-20) mg/dL Creatinine (0.66-1.25) mg/dL Glucose (74-99) mg/dL Hemoglobin A1c (4.0-6.0) % Total Creatine Kinase (55-170) U/L CK-MB (CK-2) (0.0-2.4) ng/mL Troponin I (0.000-0.034) ng/mL HDL Cholesterol (40-60) mg/dL Urine Protein (Negative) Urine Ketones (Negative) Urine Blood (Negative) Ur Leukocyte Esterase (Negative) Urine RBC (0-5) /hpf Urine WBC (0-5) /hpf Urine WBC Clumps (None) /hpf Assessment and Plan Assessment: Assessment #[address] patient myocardial infarction and status post PCI of the LAD #2 severe residual coronary artery disease with known chronic total occlusion of the left circumflex #3 chronic atrial fibrillation was controlled heart rate #4 significant history of smoking Plan #1 continue the current medical treatment including dual antiplatelet therapy #2 add Lasix to the current medical regimen #3 the elevated potassium was treated by Kayexalate #4 monitor the kidney function and electrolytes and hemoglobin #5 the echocardiogram was reviewed and showed an EF of 40-45% #6 from the cardiovascular standpoint of view the patient can be transferred to selective unit
--- NOTE | 2018-02-26 13:05 | P.PN ---
Subjective Progress Note Date: 02/26/18 Principal diagnosis: STEMI Patient was having sob when he got up this am. O2 sats dropped to the 80s. Objective - Vital Signs Vital signs: Vital Signs Temp 98.1 F 02/26/18 08:00 Pulse 63 02/26/18 11:00 Resp 20 02/26/18 11:00 BP 100/72 02/26/18 11:00 Pulse Ox 93 L 02/26/18 11:00 Intake & Output 02/25/18 02/26/18 02/26/18 18:59 06:59 18:59 Intake Total 1100 910 510 Output Total 550 100 250 Balance 550 810 260 Weight 102.5 kg Intake: IV 1100 270 510 0.9 normal saline @ 75ml/ 225 450 hr Sodium Chloride 0.9% 1, 1100 000 ml @ 100 mls/hr IV . Q10H YOSHI Rx#:[id number] lidocaine 45 60 Oral 640 Output: Urine 550 100 250 Other: Voiding Method Urinal Urinal Urinal # Voids 0 1 - Exam Constitutional: No acute distress, conversant, pleasant Eyes:Anicteric sclerae, moist conjunctiva, no lid-lag, PERRLA, ENMT: Oropharynx clear, no erythema, exudates Neck: Supple, FROM, no masses, or JVD, No carotid bruits, No thyromegaly Lungs: Clear to auscultation, Clear to percussion, Normal respiratory effort, no accessory muscle use Cardiovascular: Irregularly irregular, No murmurs, gallops, or rubs, trace peripheral edema Abdominal: Soft, Nontender, no guarding, rebound or rigidity, Normoactive bowel sounds, No hepatomegaly, No splenomegaly, No palpable mass Skin: Normal temperature, tone, texture, turgor, no induration, No subcutaneous nodules, No rash, lesions, No ulcers Extremities: No digital cyanosis, No clubbing, Pedal pulses intact and symmetrical, Radial pulses intact and symmetrical, No calf tenderness Psychiatric: Alert and oriented to person, place and time, appropriate affect, intact judgement Neuro: Muscles Strength 5/5 in all 4 extremities, Sensation to light touch grossly present throughout, Cranial nerves II-XII grossly intact, no focal sensory deficits - Labs CBC & Chem 7: 02/26/18 04:53 02/26/18 04:53 Labs: Abnormal Lab Results - Last 24 Hours (Table) 02/25/18 02/25/18 02/25/18 Range/Units 07:07 12:54 17:40 WBC (3.8-10.6) k/uL RBC (4.30-5.90) m/uL Hgb (13.0-17.5) gm/dL MCV (80.0-100.0) fL Neutrophils # (1.3-7.7) k/uL Lymphocytes # (1.0-4.8) k/uL PT (9.0-12.0) sec INR (<1.2) Potassium (3.5-5.1) mmol/L Chloride (98-107) mmol/L Carbon Dioxide (22-30) mmol/L BUN (9-20) mg/dL Creatinine (0.66-1.25) mg/dL Glucose (74-99) mg/dL Hemoglobin A1c 6.6 H (4.0-6.0) % Total Creatine Kinase 1077 H (55-170) U/L CK-MB (CK-2) 71.7 H* (0.0-2.4) ng/mL Troponin I 101.000 H* (0.000-0.034) ng/mL HDL Cholesterol (40-60) mg/dL Urine Protein 2+ H (Negative) Urine Ketones Trace H (Negative) Urine Blood Large H (Negative) Ur Leukocyte Esterase Large H (Negative) Urine RBC >182 H (0-5) /hpf Urine WBC >182 H (0-5) /hpf Urine WBC Clumps Many H (None) /hpf 02/26/18 02/26/18 02/26/18 Range/Units 00:02 04:53 04:53 WBC (3.8-10.6) k/uL RBC (4.30-5.90) m/uL Hgb (13.0-17.5) gm/dL MCV (80.0-100.0) fL Neutrophils # (1.3-7.7) k/uL Lymphocytes # (1.0-4.8) k/uL PT 27.1 H (9.0-12.0) sec INR 3.0 H (<1.2) Potassium 5.6 H 5.8 H (3.5-5.1) mmol/L Chloride 109 H 110 H (98-107) mmol/L Carbon Dioxide 21 L 20 L (22-30) mmol/L BUN 40 H 43 H (9-20) mg/dL Creatinine 1.60 H 1.70 H (0.66-1.25) mg/dL Glucose 206 H 167 H (74-99) mg/dL Hemoglobin A1c (4.0-6.0) % Total Creatine Kinase (55-170) U/L CK-MB (CK-2) (0.0-2.4) ng/mL Troponin I (0.000-0.034) ng/mL HDL Cholesterol 28 L (40-60) mg/dL Urine Protein (Negative) Urine Ketones (Negative) Urine Blood (Negative) Ur Leukocyte Esterase (Negative) Urine RBC (0-5) /hpf Urine WBC (0-5) /hpf Urine WBC Clumps (None) /hpf 02/26/18 Range/Units 04:53 WBC 10.9 H (3.8-10.6) k/uL RBC 3.86 L (4.30-5.90) m/uL Hgb 12.6 L (13.0-17.5) gm/dL MCV 104.8 H (80.0-100.0) fL Neutrophils # 9.2 H (1.3-7.7) k/uL Lymphocytes # 0.7 L (1.0-4.8) k/uL PT (9.0-12.0) sec INR (<1.2) Potassium (3.5-5.1) mmol/L Chloride (98-107) mmol/L Carbon Dioxide (22-30) mmol/L BUN (9-20) mg/dL Creatinine (0.66-1.25) mg/dL Glucose (74-99) mg/dL Hemoglobin A1c (4.0-6.0) % Total Creatine Kinase (55-170) U/L CK-MB (CK-2) (0.0-2.4) ng/mL Troponin I (0.000-0.034) ng/mL HDL Cholesterol (40-60) mg/dL Urine Protein (Negative) Urine Ketones (Negative) Urine Blood (Negative) Ur Leukocyte Esterase (Negative) Urine RBC (0-5) /hpf Urine WBC (0-5) /hpf Urine WBC Clumps (None) /hpf Assessment and Plan Plan: # STEMI With h/o CAD s/p stents S/P cardiac cath with stent placement in LAD, also found to have total occlusion of LAD and circumflex at midportion continue aspirin, statin, Plavix, RACHEL inhibitor, beta armida # SOB with hypoxia/acute exacerbation of systolic CHF: Start lasix 40mg p.o daily CXR showing pulm vascular congestion # CKD stage III, patient status post unilateral nephrectomy due to history of cancer Avoid nephrotoxic meds monitor renal function # Chronic afib, currently rate controlled Continue Coumadin dosing by pharmacy # Hypertension Currently controlled Continue beta armida #. Diabetes mellitus2 A1c 6.6 BS slightly up, patient refusing insulin while in the hospital # Hypothyroidism stable continue levothyroxin #. DVT PPx on coumadin for chronic afib
[2018-02-26] MEDS ORDERED: FUROSEMIDE 10 MG/ML 2 ML VIAL IV STA (13:06)
[2018-02-26 13:44] VITALS: BMI 30.6
[2018-02-26] MEDS ORDERED: WARFARIN 5 MG TAB PO ONE (18:00)
[2018-02-26] MEDS: ATORVASTATIN 80 MG TAB PO SCH (20:08)
[2018-02-27 05:16] VITALS: RESP 18
[2018-02-27 06:12] LABS: Basophils % (A) 0 %; Eosinophils # (A) 0.2 k/uL (0-0.7); Eosinophils % (A) 2 %; HCT 41.6 % (39.0-53.0); HGB 13.1 gm/dL (13.0-17.5); Lymphocytes # (A) 0.9 k/uL (1.0-4.8); Lymphocytes % (A) 9 %; MCH 33.5 pg (25.0-35.0); MCHC 31.4 g/dL (31.0-37.0); MCV 106.6 fL (80.0-100.0); Macrocytosis Moderate; Mean Platelet Volume 7.1; Monocytes # (A) 0.7 k/uL (0-1.0); Monocytes % (A) 8 %; Neutrophils # (A) 7.7 k/uL (1.3-7.7); Neutrophils % (A) 79 %; Platelet Count 241 k/uL (150-450); RDW 13.6 % (11.5-15.5); WBC 9.8 k/uL (3.8-10.6)
[2018-02-27 06:17] LABS: INR 2.4 (<1.2); Prothrombin Time 21.9 sec (9.0-12.0)
[2018-02-27] MEDS: LEVOTHYROXINE 100 MCG TAB PO SCH (06:28)
[2018-02-27] MEDS: LEVOTHYROXINE 75 MCG TAB PO SCH (06:28)
[2018-02-27 06:29] LABS: Calcium 8.7 mg/dL (8.4-10.2); Magnesium 2.3 mg/dL (1.6-2.3); Potassium 5.4 mmol/L (3.5-5.1)
[2018-02-27] MEDS: CLOPIDOGREL 75 MG TAB PO SCH (08:33)
[2018-02-27] MEDS: ASPIRIN 81 MG PO SCH (08:33)
[2018-02-27] MEDS: LISINOPRIL 2.5 MG TAB PO SCH (08:33)
[2018-02-27] MEDS: METOPROLOL TARTRATE 25 MG TAB PO SCH (08:34)
[2018-02-27] MEDS: FINASTERIDE 5 MG TAB PO SCH (08:34)
[2018-02-27] MEDS: TAMSULOSIN 0.4 MG CAP.ER.24H PO SCH (08:34)
[2018-02-27 08:58] VITALS: BP 121/67; PULSE 98; TEMP 96.9
[2018-02-27] MEDS ORDERED: FUROSEMIDE 40 MG TAB PO SCH (09:00)
--- NOTE | 2018-02-27 10:26 | P.PN ---
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 He underwent an emergent heart catheterization by Dr. Sanchez and was found to have an acute total occlusion of the mid LAD with chronic total occlusion of the left circumflex. The patient underwent successful stenting of the mid LAD by Dr. Kingston. On follow-up with the patient this morning, he denies having any chest pain or discomfort. History have shortness of breath and also diminished breathing sounds over the left lung. The chest x-ray showed findings consistent with CHF. The blood pressure and heart rate are under good control. He is in A. fib with controlled heart rate. The creatinine continues to be stable around 1.5. The EF by echo came in to be around 40-45%. On follow-up with the patient today, he seems to be doing better. He would like to be discharged home. The blood pressure and heart rate are well controlled. He is on dual antiplatelet therapy along with a statin. These also , then for A. fib. Objective - Vital Signs Vital signs: Vital Signs Temp 96.9 F L 02/27/18 08:00 Pulse 98 02/27/18 08:00 Resp 18 02/27/18 08:00 BP 121/67 02/27/18 08:00 Pulse Ox 92 L 02/27/18 08:00 Intake & Output 02/26/18 02/27/18 02/27/18 18:59 06:59 18:59 Intake Total 510 0 Output Total 250 Balance 260 0 Weight 102.5 kg 105.2 kg Intake: IV 510 0.9 normal saline @ 75ml/ 450 hr lidocaine 60 Intake, IV Titration 0 Amount Sodium Chloride 0.9% 1, 0 000 ml @ 75 mls/hr IV CONTINUOUS YOSHI Rx#: [id number] Output: Urine 250 Other: Voiding Method Urinal Toilet Diaper Urinal Diaper # Voids 1 0 - Constitutional General appearance: Present: no acute distress - Respiratory Respiratory: bilateral: CTA - Cardiovascular Rhythm: irregularly irregular Heart sounds: normal: S1, S2 - Labs CBC & Chem 7: 02/27/18 05:30 02/27/18 05:30 Labs: Abnormal Lab Results - Last 24 Hours (Table) 02/27/18 02/27/18 02/27/18 Range/Units 05:30 05:30 05:30 RBC 3.90 L (4.30-5.90) m/uL MCV 106.6 H (80.0-100.0) fL Lymphocytes # 0.9 L (1.0-4.8) k/uL PT 21.9 H (9.0-12.0) sec INR 2.4 H (<1.2) Potassium 5.4 H (3.5-5.1) mmol/L Chloride 109 H (98-107) mmol/L Carbon Dioxide 21 L (22-30) mmol/L BUN 53 H (9-20) mg/dL Creatinine 1.70 H (0.66-1.25) mg/dL Glucose 136 H (74-99) mg/dL Assessment and Plan Assessment: Assessment #[address] patient myocardial infarction and status post PCI of the LAD #2 severe residual coronary artery disease with known chronic total occlusion of the left circumflex #3 chronic atrial fibrillation was controlled heart rate #4 significant history of smoking Plan #1 continue the current medical treatment including dual antiplatelet therapy #2 the patient wants to be discharged home.
[2018-02-27] MEDS ORDERED: SODIUM POLYSTYRENE SULFONATE 15 GM/60 ML BOTTLE PO STA (10:28)
[2018-02-27] MEDS ORDERED: cefTRIAXone IN SWFI 1,000 MG/10 ML SYRINGE IVP SCH (10:30)
--- NOTE | 2018-02-27 15:53 | P.DS ---
Providers Date of admission: 02/25/18 03:09 Expected date of discharge: 02/27/18 Attending physician: Kayla Cornell MD Consults: 02/25/18 03:09 Consult Physician Urgent Consulting Provider: Jolie Sanchez Consult Reason/Comments: acs Do you want consulting provider notified?: Yes 02/25/18 04:41 Consult Physician Routine Consulting Provider: [facility] Consult Reason/Comments: Post Interventional patient Do you want consulting provider notified?: Already Contacted Primary care physician: [facility] Course: 77 year old male with history of CAD s/p stents presented to the hospital due to sudden acute chest pain when he was about to go to bed. He was not feeling well over the past few days. The pain was left sided, felt like dull pressure, 10/10 in severity, non radiating, no associated N/V, or SOB, or diaphoresis. No changes in his vision or hearing, denied any focal neurologic deficit. No GI bleeding or abdominal pain. Patient takes Coumadin for chronic A. fib. Of note patient was recently diagnosed with diabetes with A1c in the range of 7, he currently takes metformin. In the emergency department he was found to have ST elevation in the anterolateral leads, clinical lab technologist was activated for possible STEMI. Patient had the left heart cath through a right femoral approach, a stent was deployed in LAD. He was found to have total occlusion of the LAD and circumflex at the midportion. He tolerated procedure well. After the cath he denied any further chest pain or trouble breathing. During the hospitalization with pulse ox was low and he became tachycardic, chest x-ray was obtained and that showed some pulmonary vascular congestion. After that he was started on Lasix. He felt better. He was also started on Plavix. Today feeling much better, is off oxygen. He did have echocardiogram that showed ejection fraction 40-45%. That also showed severe pulmonary hypertension. His urinalysis was significantly positive for pyuria, he does have symptoms of urgency and slight burning with those symptoms have been occurring over the past several weeks/months. According to him he underwent several courses of antibiotics for urinary infection. He is currently seeing a urologist for prostate enlargement. He was started on antibiotics treatment for UTI.. Patient be discharged home in stable condition. He was instructed to follow-up with his primary care physician as well as the managed care nurse and the urologist. Discharge diagnoses Acute STEMI Urinary tract infection Pulmonary edema, likely secondary to #1 Acute exacerbation of chronic systolic congestive heart failure Patient Condition at Discharge: Stable Plan - Discharge Summary Discharge Rx Participant: Yes New Discharge Prescriptions: New Aspirin 81 mg PO DAILY #30 chew Atorvastatin [Lipitor] 80 mg PO HS #30 tab Clopidogrel [Plavix] 75 mg PO DAILY #30 tab Lisinopril [Zestril] 2.5 mg PO BID #30 tab Nitroglycerin Sl Tabs [Nitrostat] 0.4 mg SUBLINGUAL Q5M PRN #60 tab PRN Reason: Chest Pain Cefdinir [Omnicef] 300 mg PO Q12HR #20 capsule Continue Warfarin [Coumadin] 7.5 mg PO DAILY Nitroglycerin [Nitro-Time] 2.5 mg PO BID metFORMIN HCL ER [Glucophage Xr] 500 mg PO BID Tamsulosin [Flomax] 0.4 mg PO DAILY Metoprolol Tartrate [Lopressor] 25 mg PO BID Levothyroxine Sodium [Synthroid] 200 mcg PO DAILY Levothyroxine Sodium [Synthroid] 75 mcg PO DAILY Finasteride [Proscar] 5 mg PO DAILY Discharge Medication List Nitroglycerin [Nitro-Time] 2.5 mg PO BID 06/25/14 [History] Warfarin [Coumadin] 7.5 mg PO DAILY 06/25/14 [History] Finasteride [Proscar] 5 mg PO DAILY 02/25/18 [History] Levothyroxine Sodium [Synthroid] 75 mcg PO DAILY 02/25/18 [History] Levothyroxine Sodium [Synthroid] 200 mcg PO DAILY 02/25/18 [History] Metoprolol Tartrate [Lopressor] 25 mg PO BID 02/25/18 [History] Tamsulosin [Flomax] 0.4 mg PO DAILY 02/25/18 [History] metFORMIN HCL ER [Glucophage Xr] 500 mg PO BID 02/25/18 [History] Aspirin 81 mg PO DAILY #30 chew 02/27/18 [Rx] Atorvastatin [Lipitor] 80 mg PO HS #30 tab 02/27/18 [Rx] Cefdinir [Omnicef] 300 mg PO Q12HR #20 capsule 02/27/18 [Rx] Clopidogrel [Plavix] 75 mg PO DAILY #30 tab 02/27/18 [Rx] Lisinopril [Zestril] 2.5 mg PO BID #30 tab 02/27/18 [Rx] Nitroglycerin Sl Tabs [Nitrostat] 0.4 mg SUBLINGUAL Q5M PRN #60 tab 02/27/18 [Rx ] Follow up Appointment(s)/Referral(s): Teja Roche MD [Primary Care Provider] - 1-2 days (Pt has to schedule his own appointment per lacrosse player) Aston Campos MD [REFERRING] - 03/07/18 1:00 pm (Saturday [phone]) Patient Instructions/Handouts: *[facility] - After Heart Catheterization - [employer] Operator Instructions, How to Stop Smoking (DC), Heart Healthy Diet (DC) Discharge Disposition: HOME SELF-CARE
[2018-02-27] MEDS ORDERED: WARFARIN 5 MG TAB PO ONE (18:00)
== END 2018-02-27 12:42 | disposition home or self-care (01) | DRG 246 ==
LOC: EC 00:27 → 6ICU 03:09 → 6SEL 02-26 21:30
PROVIDERS: ADMIT Internal Medicine; ATTEND Internal Medicine
PROC: 4A023N7 Measurement of Cardiac Sampling and Pressure, Left Heart, Percutaneous Approach (ICD-10-PCS; 2018-02-25)
PROC: B211YZZ Fluoroscopy of Multiple Coronary Arteries using Other Contrast (ICD-10-PCS; 2018-02-25)
PROC: 027034Z Dilation of Coronary Artery, One Artery with Drug-eluting Intraluminal Device, Percutaneous Approach (ICD-10-PCS; principal; 2018-02-25 03:30)
PROC: 02C03ZZ Extirpation of Matter from Coronary Artery, One Artery, Percutaneous Approach (ICD-10-PCS; 2018-02-25 03:30)
DX: I21.09 ST elevation (STEMI) myocardial infarction involving other coronary artery of anterior wall (principal); I50.23 Acute on chronic systolic (congestive) heart failure; I13.0 Hypertensive heart and chronic kidney disease with heart failure and stage 1 through stage 4 chronic kidney disease, or unspecified chronic kidney disease; N39.0 Urinary tract infection, site not specified; J44.9 Chronic obstructive pulmonary disease, unspecified; I27.20 Pulmonary hypertension, unspecified; I48.2 Chronic atrial fibrillation; N18.3 Chronic kidney disease, stage 3 (moderate); E11.9 Type 2 diabetes mellitus without complications; I25.10 Atherosclerotic heart disease of native coronary artery without angina pectoris; E03.9 Hypothyroidism, unspecified; N40.0 Benign prostatic hyperplasia without lower urinary tract symptoms; Z95.5 Presence of coronary angioplasty implant and graft; E78.5 Hyperlipidemia, unspecified; E66.9 Obesity, unspecified; Z68.31 Body mass index [BMI] 31.0-31.9, adult; F17.200 Nicotine dependence, unspecified, uncomplicated; Z71.6 Tobacco abuse counseling; Z79.01 Long term (current) use of anticoagulants; Z79.84 Long term (current) use of oral hypoglycemic drugs; Z79.890 Hormone replacement therapy; Z79.899 Other long term (current) drug therapy; Z85.528 Personal history of other malignant neoplasm of kidney; Z71.3 Dietary counseling and surveillance; Z90.5 Acquired absence of kidney; Z88.8 Allergy status to other drugs, medicaments and biological substances; Z82.49 Family history of ischemic heart disease and other diseases of the circulatory system
CPT/HCPCS: 36415; 71045; 71046; 80048; 80053; 80061; 81001; 82272; 82550; 82553; 83036; 83735; 83880; 84484; 85025; 85610; 85730; 93005; 93306; 93458; 94640; 96361; 96374; 99291

== ENCOUNTER → 2018-03-27 | Outpatient (CLI) | payer MEDICARE ==
--- NOTE | 2018-03-27 14:13 | XR ---
Right RIBS HISTORY: Abnormal bone scan, rule out metastatic disease 4 views of the right ribs correlated to bone scan from outside institution 03/05/2018. The posterior right sixth rib shows a possible contour abnormality at the superior aspect, questionab le lucency seen on the frontal exam at the proximal extent. Incidental note made of a pleural effusio n and associated probable atelectatic change versus pneumonia or edema. Surgical clips present in the upper abdomen. IMPRESSION: Possible posterior right sixth rib deformity corresponding to bone scan abnormality, CT s can would be of increased sensitivity and specificity or alternatively MRI for improved tissue resolu tion and attention to marrow signal change. Additional findings above.
== END | disposition home or self-care (01) ==
LOC: RADXRMAIN 11:05
PROVIDERS: ATTEND Radiology Radiation Oncology
DX: C61 Malignant neoplasm of prostate (principal); C79.51 Secondary malignant neoplasm of bone

== ENCOUNTER 2018-08-04 23:30 | Inpatient (IN) | payer OTHER, MEDICARE ==
[2018-08-04] MEDS ORDERED: SODIUM CHLORIDE 0.9% 1,000 ML IV ONE ×2 (23:50)
[2018-08-04] MEDS ORDERED: fentaNYL (PF) 50 MCG/ML 2 ML AMP IV STA (23:53)
[2018-08-05 00:23] LABS: Basophils % (A) 0 %; Eosinophils % (A) 11 %; HCT 39.3 % (39.0-53.0); HGB 12.5 gm/dL (13.0-17.5); Lymphocytes # (A) 0.6 k/uL (1.0-4.8); Lymphocytes % (A) 7 %; MCH 33.3 pg (25.0-35.0); MCHC 31.9 g/dL (31.0-37.0); MCV 104.3 fL (80.0-100.0); Macrocytosis Slight; Mean Platelet Volume 6.9; Monocytes # (A) 0.7 k/uL (0-1.0); Monocytes % (A) 8 %; Neutrophils # (A) 6.1 k/uL (1.3-7.7); Neutrophils % (A) 71 %; Platelet Count 182 k/uL (150-450); RBC 3.76 m/uL (4.30-5.90); RDW 13.4 % (11.5-15.5); WBC 8.5 k/uL (3.8-10.6)
[2018-08-05 00:36] LABS: Albumin 3.5 g/dL (3.5-5.0); Calcium 9.4 mg/dL (8.4-10.2); Potassium 4.5 mmol/L (3.5-5.1); Total Bilirubin 0.5 mg/dL (0.2-1.3); Total Protein 6.9 g/dL (6.3-8.2)
[2018-08-05 00:48] LABS: INR 1.1 (<1.2); Prothrombin Time 11.3 sec (9.0-12.0)
--- NOTE | 2018-08-05 00:50 | ED ---
Fall HPI - General Chief Complaint: Fall Stated Complaint: fall-hip injury Time Seen by Provider: 08/04/18 23:41 Source: patient, EMS Mode of arrival: EMS - History of Present Illness Initial Comments: This 77-year-old white male presents with a complaint of some right hip pain after falling. This apparently occurred just shortly prior to arrival. He states that he stood up, got very dizzy, and fell. He presents hypotensive. He also said some nausea as well as some vomiting. He complains of fairly severe pain to his right hip. He does receive Zofran 4 mg as well as fentanyl intravenously prior to arrival. He denies any other injuries. He is very adamant that he did not hit his head and does not have any neck pain. He also complains of some cough and shortness of breath which is somewhat chronic for him but worse in the last several days. He denies any significant production with his cough. He still does utilize tobacco. He does relate that he had some occlusion of his cardiac stent several months ago. He is unsure if he's ever had congestive heart failure in the past. He does relate a history of prostate cancer in 2011 which spread to his liver lung and kidney. He apparently went through some type of chemotherapeutic regimen that seemed to resolve his cancer. He states that he only has an x-ray now every year. He is not aware of any recurrence of his lung cancer. No other complaints or modifying factors. - Related Data Home Medications Medication Instructions Recorded Confirmed Nitroglycerin [Nitro-Time] 2.5 mg PO BID 06/25/14 02/25/18 Warfarin [Coumadin] 7.5 mg PO DAILY 06/25/14 02/25/18 Finasteride [Proscar] 5 mg PO DAILY 02/25/18 02/25/18 Levothyroxine Sodium [Synthroid] 75 mcg PO DAILY 02/25/18 02/25/18 Levothyroxine Sodium [Synthroid] 200 mcg PO DAILY 02/25/18 02/25/18 Metoprolol Tartrate [Lopressor] 25 mg PO BID 02/25/18 02/25/18 Tamsulosin [Flomax] 0.4 mg PO DAILY 02/25/18 02/25/18 metFORMIN HCL ER [Glucophage Xr] 500 mg PO BID 02/25/18 02/25/18 Previous Rx's Medication Instructions Recorded Aspirin 81 mg PO DAILY #30 chew 02/27/18 Atorvastatin [Lipitor] 80 mg PO HS #30 tab 02/27/18 Cefdinir [Omnicef] 300 mg PO Q12HR #20 capsule 02/27/18 Clopidogrel [Plavix] 75 mg PO DAILY #30 tab 02/27/18 Lisinopril [Zestril] 2.5 mg PO BID #30 tab 02/27/18 Nitroglycerin Sl Tabs [Nitrostat] 0.4 mg SUBLINGUAL Q5M PRN #60 tab 02/27/18 Allergies Allergy/AdvReac Type Severity Reaction Status Date / Time iodine Allergy Unknown Verified 07/10/14 10:05 Review of Systems ROS Statement: Those systems with pertinent positive or pertinent negative responses have been documented in the HPI. ROS Other: All systems not noted in ROS Statement are negative. Past Medical History Past Medical History: Atrial Fibrillation, Diabetes Mellitus, Hyperlipidemia, Hypertension Additional Past Medical History / Comment(s): kidney cancer, atrial fibrillation History of Any Multi-Drug Resistant Organisms: None Reported Past Surgical History: Heart Catheterization With Stent Additional Past Surgical History / Comment(s): left nephrectomy Past Anesthesia/Blood Transfusion Reactions: No Reported Reaction Date of Last Stent Placement:: 2009 Past Psychological History: No Psychological Hx Reported Smoking Status: Current every day smoker Past Alcohol Use History: None Reported Past Drug Use History: None Reported - Past Family History Family Additional Family Medical History / Comment(s): Patient reports history of heart disease General Exam - General Exam Comments Initial Comments: GENERAL: The patient is well nourished and well hydrated. VITAL SIGNS: Heart rate, blood pressure, respiratory rate reviewed as recorded in nurse's notes. EYES: Pupils are round and reactive. Extraocular movements are intact. No conjunctival / lid redness or swelling. ENT: No external evidence of injury, swelling, or ecchymosis. Airway is patent. Throat is clear. NECK: Nontender. No swelling or evidence of injury. No subcutaneous emphysema. Trachea is midline. No thyroid mass. HEART: Regular rate and rhythm. Good peripheral pulses. LUNGS/CHEST: There are mild Rales noted bilaterally. No ecchymosis, subcutaneous emphysema, or tenderness. ABDOMEN: Abdomen soft without tenderness. No palpable masses or organomegaly. No peritoneal signs. No abdominal wall swelling or ecchymosis. EXTREMITIES: There is significant tenderness noted present to the right hip. There is some shortening and external rotation of the right hip. There is significant pain with any attempted movement of the right hip. No thoracolumbar tenderness. NEUROLOGIC: Sensation is grossly intact. Cranial nerve exam reveals face is symmetrical, tongue is midline, speech is clear. SKIN: No abrasions or ecchymosis is noted. No induration or masses noted. PSYCHIATRIC: Alert and oriented. Appropriate behavior and judgment. Limitations: no limitations Course Vital Signs 08/04/18 08/05/18 08/05/18 23:32 00:11 01:12 Temperature 97.7 F Pulse Rate 86 95 80 Respiratory 16 16 16 Rate Blood Pressure 79/67 135/78 147/82 O2 Sat by Pulse 90 L 93 L Oximetry Medical Decision Making - Medical Decision Making The patient was seen and examined. All diagnostics were reviewed. The EKG shows a atrial fibrillation at a rate of 86. There is no acute ST-T wave changes identified. The QRS duration is 86, and the QTC intervals 452. She barely does have a history of chronic atrial fibrillation and is on blood thinners. The x-ray of the right hip and femur does show evidence of a femoral neck fracture. The chest x-ray does show evidence of congestive heart failure which is somewhat worse as compared to previous. He has had multiple episodes of nausea and vomiting. He receives Reglan as well as Zofran intravenously. He received fentanyl for pain. It is felt as though he would require admission to the hospital for further treatment of both his right hip fracture as well as his congestive heart failure. The case is discussed with Dr. Yoder and he is agreeable to admission. Additional laboratories added on for troponin, BNP, and cardiac profile. He has been unable to urinate thus far but this is pending as well. - Lab Data Result diagrams: 08/05/18 00:10 08/05/18 00:10 Lab Results 08/05/18 08/05/18 08/05/18 Range/Units 00:10 00:10 00:10 WBC 8.5 (3.8-10.6) k/uL RBC 3.76 L (4.30-5.90) m/uL Hgb 12.5 L (13.0-17.5) gm/dL Hct 39.3 (39.0-53.0) % MCV 104.3 H (80.0-100.0) fL MCH 33.3 (25.0-35.0) pg MCHC 31.9 (31.0-37.0) g/dL RDW 13.4 (11.5-15.5) % Plt Count 182 (150-450) k/uL Neutrophils % 71 % Lymphocytes % 7 % Monocytes % 8 % Eosinophils % 11 % Basophils % 0 % Neutrophils # 6.1 (1.3-7.7) k/uL Lymphocytes # 0.6 L (1.0-4.8) k/uL Monocytes # 0.7 (0-1.0) k/uL Eosinophils # 1.0 H (0-0.7) k/uL Basophils # 0.0 (0-0.2) k/uL Macrocytosis Slight PT 11.3 (9.0-12.0) sec INR 1.1 (<1.2) APTT 20.0 L (22.0-30.0) sec Sodium 139 (137-145) mmol/L Potassium 4.5 (3.5-5.1) mmol/L Chloride 109 H (98-107) mmol/L Carbon Dioxide 26 (22-30) mmol/L Anion Gap 4 mmol/L BUN 23 H (9-20) mg/dL Creatinine 1.29 H (0.66-1.25) mg/dL Est GFR (CKD-EPI)AfAm 61 (>60 ml/min/1.73 sqM) Est GFR (CKD-EPI)NonAf 53 (>60 ml/min/1.73 sqM) Glucose 134 H (74-99) mg/dL Plasma Lactic Acid Amado (0.7-2.0) mmol/L Calcium 9.4 (8.4-10.2) mg/dL Total Bilirubin 0.5 (0.2-1.3) mg/dL AST 18 (17-59) U/L ALT 24 (21-72) U/L Alkaline Phosphatase 120 (38-126) U/L Total Protein 6.9 (6.3-8.2) g/dL Albumin 3.5 (3.5-5.0) g/dL 08/05/18 Range/Units 00:10 WBC (3.8-10.6) k/uL RBC (4.30-5.90) m/uL Hgb (13.0-17.5) gm/dL Hct (39.0-53.0) % MCV (80.0-100.0) fL MCH (25.0-35.0) pg MCHC (31.0-37.0) g/dL RDW (11.5-15.5) % Plt Count (150-450) k/uL Neutrophils % % Lymphocytes % % Monocytes % % Eosinophils % % Basophils % % Neutrophils # (1.3-7.7) k/uL Lymphocytes # (1.0-4.8) k/uL Monocytes # (0-1.0) k/uL Eosinophils # (0-0.7) k/uL Basophils # (0-0.2) k/uL Macrocytosis PT (9.0-12.0) sec INR (<1.2) APTT (22.0-30.0) sec Sodium (137-145) mmol/L Potassium (3.5-5.1) mmol/L Chloride (98-107) mmol/L Carbon Dioxide (22-30) mmol/L Anion Gap mmol/L BUN (9-20) mg/dL Creatinine (0.66-1.25) mg/dL Est GFR (CKD-EPI)AfAm (>60 ml/min/1.73 sqM) Est GFR (CKD-EPI)NonAf (>60 ml/min/1.73 sqM) Glucose (74-99) mg/dL Plasma Lactic Acid Amado 1.5 (0.7-2.0) mmol/L Calcium (8.4-10.2) mg/dL Total Bilirubin (0.2-1.3) mg/dL AST (17-59) U/L ALT (21-72) U/L Alkaline Phosphatase (38-126) U/L Total Protein (6.3-8.2) g/dL Albumin (3.5-5.0) g/dL Disposition Clinical Impression: Closed right hip fracture, Fall, Hypotension, Chronic atrial fibrillation, Congestive heart failure, Renal insufficiency, History of coronary artery disease, Intractable nausea and vomiting Disposition: ADMITTED IP TO THIS [facility] Condition: Fair Is patient prescribed a controlled substance at d/c from ED?: No Time of Disposition: 34 Decision Date: 08/05/18 Decision Time: :34
--- NOTE | 2018-08-05 00:56 | XR ---
EXAMINATION TYPE: XR chest 1V DATE OF EXAM: 08/05/2018 COMPARISON: 02/26/2018 HISTORY: Short of breath. Hypoxemia. TECHNIQUE: Single frontal view of the chest is obtained. FINDINGS: There is pulmonary edema. There is blunting of right costophrenic angle. Heart is enlarged . There are chest leads. IMPRESSION: Congestive heart failure with pleural effusions and pulmonary edema that is slightly wor se than old exam.
--- NOTE | 2018-08-05 00:57 | XR ---
EXAMINATION TYPE: XR femur RT DATE OF EXAM: 08/05/2018 COMPARISON: NONE HISTORY: Fall. Pain. TECHNIQUE: 5 views FINDINGS: There is impacted subcapital fracture of the right femur. There is no dislocation. Knee melani nt is intact. IMPRESSION: Acute impacted subcapital fracture right femur.
[2018-08-05] MEDS ORDERED: ONDANSETRON 4 MG/2 ML VIAL IVP STA (01:03)
[2018-08-05] MEDS ORDERED: NITROGLYCERIN OINT 1 INCH/GM PACKET TOPICAL STA (01:29)
[2018-08-05] MEDS ORDERED: ASPIRIN 81 MG PO STA (01:29)
[2018-08-05] MEDS ORDERED: FUROSEMIDE 10 MG/ML 4 ML VIAL IV STA ×2 (01:29→09:48)
[2018-08-05] MEDS ORDERED: ACETAMINOPHEN TAB 325 MG TAB PO PRN (01:35)
[2018-08-05] MEDS ORDERED: ONDANSETRON 4 MG/2 ML VIAL IVP PRN (01:35)
[2018-08-05] MEDS ORDERED: NALOXONE 0.4 MG/ML 1 ML VIAL IV PRN (01:35)
[2018-08-05] MEDS ORDERED: METOCLOPRAMIDE 5 MG/ML 2 ML VIAL IVP PRN (01:39)
[2018-08-05 01:41] LABS: Creatine Kinase 22 U/L (55-170); Creatine Kinase MB 1.1 ng/mL (0.0-2.4); Troponin I <0.012 ng/mL (0.000-0.034)
--- NOTE | 2018-08-05 01:46 | XR ---
EXAMINATION TYPE: XR pelvis AP view DATE OF EXAM: 08/05/2018 COMPARISON: NONE HISTORY: Pain TECHNIQUE: Single view FINDINGS: Pelvic ring is intact. There is impacted subcapital fracture of the right femur. There is 2 .5 cm impaction. There is no dislocation. Sacroiliac joints are intact. IMPRESSION: Impacted subcapital fracture right femur.
[2018-08-05] MEDS: HYDROmorphone 1 MG/ML 1 ML SYRINGE IVP PRN ×5 (05:38→19:15)
[2018-08-05 07:02] LABS: Creatine Kinase <20 U/L (55-170)
[2018-08-05 07:15] LABS: Creatine Kinase MB 0.8 ng/mL (0.0-2.4); Troponin I <0.012 ng/mL (0.000-0.034)
[2018-08-05] MEDS ORDERED: ASPIRIN 81 MG PO SCH (09:00)
[2018-08-05] MEDS ORDERED: CLOPIDOGREL 75 MG TAB PO SCH (09:00)
[2018-08-05] MEDS ORDERED: NITROGLYCERIN EXTENDED RELEASE 2.5 MG CAPSULE.ER PO SCH (09:00)
[2018-08-05] MEDS ORDERED: ENOXAPARIN 40 MG/0.4 ML SYRINGE SQ SCH (09:00)
--- NOTE | 2018-08-05 09:50 | P.CRDCN ---
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 Sanchez and subsequently underwent successful stenting of the proximal LAD by Dr. Kingston he did have an echocardiogram with Doppler study performed on that visit which revealed an ejection fraction of 40-45% severe pulmonary hypertension. Patient also has history of hypertension, hyperlipidemia, hypothyroidism, history of prostate cancer, diabetes, According to the patient, over the past few days he states that he has felt very tired. He got up from a lying down, stood up and became extremely dizzy, the next thing he recalls is falling to the floor. He states that he tried to hang onto something as he was falling, but was unable to. Patient does state that he has been more short of breath at home than usual. The patient does not think that he lost consciousness just became extremely dizzy. He denies any recent chest discomfort. An x-ray of the right femur was performed on arrival here which revealed an acute impacted subcapital fracture of the right femur. Chest x-ray showed congestive heart failure with pleural effusions and pulmonary edema, worse as compared with prior exam. EKG on arrival here showed atrial fibrillation with a controlled ventricular response and nonspecific ST-T wave changes. White blood cell count 8.5, hemoglobin 12.5, platelet count 182. Sodium 139, potassium 4.5, BUN 23, creatinine 1.2. Troponins [id number]. BNP level 6110. At the time of my examination this morning, patient is complaining of some mild pain in his right hip area, denies any chest pain in his breathing is stable. He was given one dose of IV Lasix in the emergency room. Past Medical History Past Medical History: Atrial Fibrillation, Diabetes Mellitus, Hyperlipidemia, Hypertension, Myocardial Infarction ([place]), Thyroid Disorder Additional Past Medical History / Comment(s): kidney cancer, atrial fibrillation Last Myocardial Infarction Date:: History of Any Multi-Drug Resistant Organisms: None Reported Past Surgical History: Heart Catheterization With Stent Additional Past Surgical History / Comment(s): left nephrectomy Past Anesthesia/Blood Transfusion Reactions: No Reported Reaction Date of Last Stent Placement:: 2009 Smoking Status: Current every day smoker - Past Family History Family Additional Family Medical History / Comment(s): Patient reports history of heart disease Medications and Allergies Home Medications Medication Instructions Recorded Confirmed Type Finasteride [Proscar] 5 mg PO DAILY 02/25/18 08/05/18 History Levothyroxine Sodium [Synthroid] 75 mcg PO DAILY 02/25/18 08/05/18 History Levothyroxine Sodium [Synthroid] 200 mcg PO DAILY 02/25/18 08/05/18 History Metoprolol Tartrate [Lopressor] 25 mg PO BID 02/25/18 08/05/18 History Tamsulosin [Flomax] 0.4 mg PO DAILY 02/25/18 08/05/18 History metFORMIN HCL ER [Glucophage Xr] 500 mg PO BID 02/25/18 08/05/18 History Aspirin 81 mg PO DAILY #30 chew 02/27/18 08/05/18 Rx Clopidogrel [Plavix] 75 mg PO DAILY #30 tab 02/27/18 08/05/18 Rx Nitroglycerin Sl Tabs [Nitrostat] 0.4 mg SUBLINGUAL Q5M PRN #60 tab 02/27/18 Rx Isosorbide Mononitrate [Isosorbide 30 mg PO DAILY 08/05/18 08/05/18 History Mononitrate ER] Allergies Allergy/AdvReac Type Severity Reaction Status Date / Time iodine Allergy Unknown Verified 08/05/18 08:36 Physical Exam Vitals: Vital Signs Temp Pulse Pulse Resp BP BP Pulse Ox 08/05/18 08:36 98.2 F 99 18 113/73 92 L 08/05/18 05:34 105 H 16 116/71 92 L 08/05/18 02:41 129/71 08/05/18 01:12 80 16 147/82 08/05/18 00:11 95 16 135/78 93 L 08/04/18 23:32 97.7 F 86 16 79/67 90 L Intake and Output 08/04/18 08/05/18 08/05/18 22:59 06:59 14:59 Intake Total 100 Balance 100 Intake: IV 100 Sodium Chloride 0.9% 1, 100 000 ml @ 100 mls/hr IV . Q10H ONE Rx#:[id number] Other: Weight 90.718 kg 90.718 kg PHYSICAL EXAMINATION: GENERAL: 77-year-old gentleman in no acute distress at the time of my examination HEENT: Head is atraumatic, normocephalic. Pupils equal, round. Sclera anicteric. Conjunctiva are clear. Mucous membranes of the mouth are moist. Neck is supple. There is no elevated jugular venous pressure. No carotid bruit is heard. HEART EXAMINATION: Heart S1 and S2 irregularly irregular systolic murmur is heard. CHEST EXAMINATION: Lungs reveal diminished air entry to bilateral bases. ABDOMEN: Soft, nontender. Bowel sounds are heard. No organomegaly noted. EXTREMITIES: 2+ peripheral pulses with trace evidence of peripheral edema and no calf tenderness noted. NEUROLOGIC patient is awake, alert and oriented 3 . . Results 08/05/18 00:10 08/05/18 00:10 Cardiac Enzymes 08/05/18 08/05/18 08/05/18 Range/Units 00:10 00:10 06:30 AST 18 (17-59) U/L CK-MB (CK-2) 1.1 0.8 (0.0-2.4) ng/mL Troponin I <0.012 <0.012 (0.000-0.034) ng/mL Coagulation 08/05/18 Range/Units 00:10 PT 11.3 (9.0-12.0) sec APTT 20.0 L (22.0-30.0) sec CBC 08/05/18 Range/Units 00:10 WBC 8.5 (3.8-10.6) k/uL RBC 3.76 L (4.30-5.90) m/uL Hgb 12.5 L (13.0-17.5) gm/dL Hct 39.3 (39.0-53.0) % Plt Count 182 (150-450) k/uL Comprehensive Metabolic Panel 08/05/18 Range/Units 00:10 Sodium 139 (137-145) mmol/L Potassium 4.5 (3.5-5.1) mmol/L Chloride 109 H (98-107) mmol/L Carbon Dioxide 26 (22-30) mmol/L BUN 23 H (9-20) mg/dL Creatinine 1.29 H (0.66-1.25) mg/dL Glucose 134 H (74-99) mg/dL Calcium 9.4 (8.4-10.2) mg/dL AST 18 (17-59) U/L ALT 24 (21-72) U/L Alkaline Phosphatase 120 (38-126) U/L Total Protein 6.9 (6.3-8.2) g/dL Albumin 3.5 (3.5-5.0) g/dL Current Medications Generic Name Dose Route Start Last Admin Trade Name Freq PRN Reason Stop Dose Admin Acetaminophen 650 mg 08/05/18 01:35 Tylenol Tab PO Q6HR PRN Mild Pain or Fever > 100.5 Hydrocodone Bitart/Acetaminophen 1 each 08/05/18 01:35 [place] 5-325 PO Q4HR PRN Moderate Pain Aspirin 81 mg 08/05/18 09:00 Aspirin PO DAILY [facility] Atorvastatin Calcium 80 mg 08/05/18 21:00 Lipitor PO HS [facility] Clopidogrel Bisulfate 75 mg 08/05/18 09:00 Plavix PO DAILY [facility] Enoxaparin Sodium 40 mg 08/05/18 09:00 Lovenox SQ DAILY [facility] Finasteride 5 mg 08/05/18 09:00 Proscar PO DAILY [facility] Hydromorphone HCl 1 mg 08/05/18 01:35 08/05/18 09:03 Dilaudid IVP 1 mg Q3HR PRN Administration Severe Pain Sodium Chloride 1,000 mls @ 100 mls/hr 08/04/18 23:50 08/05/18 02:57 Saline 0.9% IV 08/05/18 09:49 100 mls/hr .Q10H ONE Administration Levothyroxine Sodium 200 mcg 08/05/18 06:30 Synthroid PO DAILY@0630 [facility] Lisinopril 2.5 mg 08/05/18 09:00 Zestril PO BID [facility] Metformin HCl 500 mg 08/05/18 09:00 Glucophage PO BID [facility] Metoclopramide HCl 10 mg 08/05/18 01:39 Reglan IVP Q6H PRN Nausea Naloxone HCl 0.2 mg 08/05/18 01:35 Narcan IV Q2M PRN Opioid Reversal Nitroglycerin 2.5 mg 08/05/18 09:00 08/05/18 09:10 Nitro-Bid PO Not Given BID YOSHI Ondansetron HCl 4 mg 08/05/18 01:35 Zofran IVP Q4H PRN Nausea And Vomiting Pantoprazole Sodium 40 mg 08/05/18 09:00 Protonix IV DAILY YOSHI Tamsulosin HCl 0.4 mg 08/05/18 09:00 Flomax PO DAILY YOSHI Warfarin Sodium 7.5 mg 08/05/18 18:00 Coumadin PO DAILY@1800 YOSHI Intake and Output 08/04/18 08/05/18 08/05/18 22:59 06:59 14:59 Intake Total 100 Balance 100 Intake: IV 100 Sodium Chloride 0.9% 1, 100 000 ml @ 100 mls/hr IV . Q10H ONE Rx#:[id number] Other: Weight 90.718 kg 90.718 kg Patient Weight 08/06/18 06:59 Weight 90.718 kg 08/05/18 00:10 08/05/18 00:10 EKG Interpretations (text) EKG shows atrial fibrillation with a controlled ventricular response Assessment and Plan Plan: Assessment and plan #1 symptoms of dizziness with subsequent fall, no evidence of syncope, possible orthostatic hypotension. #2 acute right femur fracture #3 recent non-Q-wave myocardial infarction in February of this year at which time patient underwent angioplasty and stenting of the proximal LAD, on Plavix #4 echocardiogram with Doppler study performed in February revealed an ejection fraction of 40-45% mid apical inferior and inferior septal hypokinesia noted at that time. Severe pulmonary hypertension #5 chronic persistent atrial fibrillation, on Coumadin for anticoagulation, INR 1.1 #6 hypertension #7 hyperlipidemia #8 history of prostate and kidney cancer, status post left nephrectomy #9 nicotine dependence #10 systolic congestive heart failure acute on chronic Plan We will repeat an echocardiogram with Doppler study. Coumadin is currently on hold and patient is on Lovenox. Awaiting consultation from orthopedic surgery. We will give the patient another dose of IV Lasix. Further recommendations to follow. DNP note has been reviewed, I agree with a documented findings and plan of care. Patient was seen and examined.
[2018-08-05] MEDS: FINASTERIDE 5 MG TAB PO SCH (10:01)
[2018-08-05] MEDS: metFORMIN 500 MG TAB PO SCH ×2 (10:01→20:41)
[2018-08-05] MEDS: LISINOPRIL 2.5 MG TAB PO SCH (10:01)
[2018-08-05] MEDS: TAMSULOSIN 0.4 MG CAP.ER.24H PO SCH (10:01)
[2018-08-05] MEDS: LEVOTHYROXINE 100 MCG TAB PO SCH (10:01)
--- NOTE | 2018-08-05 10:10 | P.CNOR ---
History of Present Illness - [facility] Consult date: 08/05/18 Requesting physician: Ar Orozco Consult reason: fracture History of present illness: Patient is a 77-year-old male seen at bedside this morning in consultation for right hip pain/fracture. He was admitted to the emergency department late last evening after a fall at home. He states he went to get up from a sitting position and felt dizzy and fell to his right side. He developed immediate right hip and leg pain and was unable to ambulate. He was transported to the emergency department via EMS. X-rays of the pelvis showed a right subcapital impacted femur fracture. Further x-rays of the femur were negative. He has a history of chronic atrial fibrillation and has had congestive heart failure along with diabetes mellitus type 2 . He takes Plavix and Coumadin which is last dose of Plavix was yesterday. His INR is 1.1. He denies any numbness or tingling. He has no calf pain. No fever, chills, chest pain. He has no other complaints. Review of Systems All systems: negative Constitutional: Denies chills, Denies fever Eyes: denies blurred vision, denies pain Ears, nose, mouth and throat: Denies headache, Denies sore throat Cardiovascular: Denies chest pain, Denies shortness of breath Respiratory: Denies cough Gastrointestinal: Denies abdominal pain, Denies diarrhea, Denies nausea, Denies vomiting Musculoskeletal: Denies myalgias Integumentary: Denies pruritus, Denies rash Neurological: Denies numbness, Denies weakness Psychiatric: Denies anxiety, Denies depression Endocrine: Denies fatigue, Denies weight change Past Medical History Past Medical History: Atrial Fibrillation, Diabetes Mellitus, Hyperlipidemia, Hypertension, Myocardial Infarction ([place]), Thyroid Disorder Additional Past Medical History / Comment(s): kidney cancer, atrial fibrillation Last Myocardial Infarction Date:: History of Any Multi-Drug Resistant Organisms: None Reported Past Surgical History: Heart Catheterization With Stent Additional Past Surgical History / Comment(s): left nephrectomy Past Anesthesia/Blood Transfusion Reactions: No Reported Reaction Date of Last Stent Placement:: 2009 Smoking Status: Current every day smoker - Past Family History Family Additional Family Medical History / Comment(s): Patient reports history of heart disease Medications and Allergies Home Medications Medication Instructions Recorded Confirmed Type Finasteride [Proscar] 5 mg PO DAILY 02/25/18 08/05/18 History Levothyroxine Sodium [Synthroid] 75 mcg PO DAILY 02/25/18 08/05/18 History Levothyroxine Sodium [Synthroid] 200 mcg PO DAILY 02/25/18 08/05/18 History Metoprolol Tartrate [Lopressor] 25 mg PO BID 02/25/18 08/05/18 History Tamsulosin [Flomax] 0.4 mg PO DAILY 02/25/18 08/05/18 History metFORMIN HCL ER [Glucophage Xr] 500 mg PO BID 02/25/18 08/05/18 History Aspirin 81 mg PO DAILY #30 chew 02/27/18 08/05/18 Rx Clopidogrel [Plavix] 75 mg PO DAILY #30 tab 02/27/18 08/05/18 Rx Nitroglycerin Sl Tabs [Nitrostat] 0.4 mg SUBLINGUAL Q5M PRN #60 tab 02/27/18 Rx Isosorbide Mononitrate [Isosorbide 30 mg PO DAILY 08/05/18 08/05/18 History Mononitrate ER] Allergies Allergy/AdvReac Type Severity Reaction Status Date / Time iodine Allergy Unknown Verified 08/05/18 08:36 Physical Examination Inspection of the right lower extremity shows no erythema, edema or ecchymoses. There are no wounds or lacerations. The right leg is shortened and externally rotated. Range of motion of the right hip is not tested due to the fracture. Neurovascular status is grossly intact with motor and sensation throughout the right lower extremity. The calf is soft and nontender. He does have some tenderness at the lateral aspect of his right lower leg. There is no deformity. 2+ dorsalis pedis pulse and less than 2 second capillary refill is present. Results X-rays of the pelvis show an impacted shortened right subcapital femur fracture. - Labs Labs: Abnormal Lab Results - Last 24 Hours (Table) 08/05/18 08/05/18 08/05/18 Range/Units 00:10 00:10 00:10 RBC 3.76 L (4.30-5.90) m/uL Hgb 12.5 L (13.0-17.5) gm/dL MCV 104.3 H (80.0-100.0) fL Lymphocytes # 0.6 L (1.0-4.8) k/uL Eosinophils # 1.0 H (0-0.7) k/uL APTT 20.0 L (22.0-30.0) sec Chloride 109 H (98-107) mmol/L BUN 23 H (9-20) mg/dL Creatinine 1.29 H (0.66-1.25) mg/dL Glucose 134 H (74-99) mg/dL Total Creatine Kinase (55-170) U/L 08/05/18 08/05/18 Range/Units 00:10 06:30 RBC (4.30-5.90) m/uL Hgb (13.0-17.5) gm/dL MCV (80.0-100.0) fL Lymphocytes # (1.0-4.8) k/uL Eosinophils # (0-0.7) k/uL APTT (22.0-30.0) sec Chloride (98-107) mmol/L BUN (9-20) mg/dL Creatinine (0.66-1.25) mg/dL Glucose (74-99) mg/dL Total Creatine Kinase 22 L <20 L (55-170) U/L H & H 08/05/18 Range/Units 00:10 Hgb 12.5 L (13.0-17.5) gm/dL Hct 39.3 (39.0-53.0) % Coagulation 08/05/18 Range/Units 00:10 INR 1.1 (<1.2) Result Diagrams: 08/05/18 00:10 08/05/18 00:10 Assessment and Plan (1) Chronic atrial fibrillation Current Visit: Yes Status: Acute Code(s): I48.2 - CHRONIC ATRIAL FIBRILLATION SNOMED Code(s): 643161976 (2) Closed right hip fracture Narrative/Plan: Patient has been reviewed with Dr. Orozco. The patient will require surgical intervention including a right hip hemiarthroplasty. He is admitted to internal medicine and cardiology has been consulted. We'll plan on proceeding with surgical intervention once cleared by cardiology, Possibly today. Orders have been placed for schedule procedure and consent today at 12 PM. He has been nothing by mouth. His last Plavix dose was yesterday and INR was 1.1 regarding his coumadin. He will need placement postoperatively. Current Visit: Yes Status: Acute Code(s): S72.001A - FRACTURE OF UNSP PART OF NECK OF RIGHT FEMUR, INIT SNOMED Code(s): 936503609 (3) Congestive heart failure Current Visit: Yes Status: Acute Code(s): I50.9 - HEART FAILURE, UNSPECIFIED SNOMED Code(s): 16281565 (4) Fall Current Visit: Yes Status: Acute Code(s): W19.XXXA - UNSPECIFIED FALL, INITIAL ENCOUNTER SNOMED Code(s): 4131025 (5) History of coronary artery disease Current Visit: Yes Status: Acute Code(s): Z86.79 - PERSONAL HISTORY OF OTHER DISEASES OF THE CIRCULATORY SYSTEM SNOMED Code(s): 962271643
[2018-08-05] MEDS: PANTOPRAZOLE 40 MG/10 ML VIAL IV SCH (10:21)
[2018-08-05] MEDS ORDERED: NITROGLYCERIN SL TABS 0.4 MG TAB SUBLINGUAL PRN (10:28)
[2018-08-05] MEDS ORDERED: SPIRONOLACTONE 25 MG TAB PO STA (10:35)
[2018-08-05 10:42] LABS: Appearance,Urine Clear (Clear); Bilirubin,Urine Negative (Negative); Blood,Urine Trace (Negative); Color,Urine Light Yellow; Glucose,Urine (UA) Negative (Negative); Ketones,Urine Negative (Negative); Leukocyte Esterase,Urine Negative (Negative); Nitrite,Urine Negative (Negative); Protein,Urine Negative (Negative); RBC,Urine 9 /hpf (0-5); Specific Gravity,Urine 1.007 (1.001-1.035); Urobilinogen,Urine <2.0 mg/dL (<2.0); WBC,Urine <1 /hpf (0-5)
[2018-08-05] MEDS: FUROSEMIDE 10 MG/ML 4 ML VIAL IV SCH ×2 (10:47→20:47)
--- NOTE | 2018-08-05 11:19 | ECHOF ---
Referral Reason:chf MEASUREMENTS -------- HEIGHT: 182.9 cm WEIGHT: 90.7 kg BP: 116/71 RVIDd: 4.2 cm (< 3.3) IVSd: 1.5 cm (0.6 - 1.1) LVIDd: 3.9 cm (3.9 - 5.3) LVPWd: 1.5 cm (0.6 - 1.1) IVSs: 2.0 cm LVIDs: 3.1 cm LVPWs: 2.0 cm LA Diam: 4.9 cm (2.7 - 3.8) LAESV Index (A-L): 54.06 ml/m Ao Diam: 3.8 cm (2.0 - 3.7) AV Cusp: 1.7 cm (1.5 - 2.6) MV EXCURSION: 25.813 mm (> 18.000) MV EF SLOPE: 160 mm/s (70 - 150) EPSS: 1.1 cm RAP: 15.00 mmHg RVSP: 73.74 mmHg FINDINGS -------- Atrial fibrillation. This was a technically adequate study. The left ventricular size is normal. There is moderate concentric left ventricular hypertrophy. O verall left ventricular systolic function is moderately impaired with, an EF between 35 - 40 %. Api ismael inferior LV wall motion is hypokinetic. Apical septum LV wall motion is hypokinetic. The right ventricle is severely enlarged. LA is severely dilated >40 ml/m2 There is mild to moderate aortic valve sclerosis. The mitral valve leaflets are moderately thickened. Moderate mitral annular calcification present. Dncp-eo-xdyfgent mitral regurgitation is present. Moderate to severe tricuspid regurgitation present. There is severe pulmonary hypertension. The r ight ventricular systolic pressure, as measured by Doppler, is 73.74mmHg. The pulmonic valve was not well visualized. The aortic root is dilated measuring 3.8cm. The inferior vena cava is dilated with no significant inspiratory collapse which is consistent estima tracy right atrial pressure of >20 mmHg. There is no pericardial effusion. CONCLUSIONS -------- 1. Atrial fibrillation. 2. This was a technically adequate study. 3. The left ventricular size is normal. 4. There is moderate concentric left ventricular hypertrophy. 5. Overall left ventricular systolic function is moderately impaired with, an EF between 35 - 40 %. 6. Apical inferior LV wall motion is hypokinetic. 7. Apical septum LV wall motion is hypokinetic. 8. The right ventricle is severely enlarged. 9. LA is severely dilated >40 ml/m2 10. There is mild to moderate aortic valve sclerosis. 11. The mitral valve leaflets are moderately thickened. 12. Moderate mitral annular calcification present. 13. Pijc-hu-wfwemdtx mitral regurgitation is present. 14. Moderate to severe tricuspid regurgitation present. 15. There is severe pulmonary hypertension. 16. The right ventricular systolic pressure, as measured by Doppler, is 73.74mmHg. 17. The pulmonic valve was not well visualized. 18. The aortic root is dilated measuring 3.8cm. 19. The inferior vena cava is dilated with no significant inspiratory collapse which is consistent es timated right atrial pressure of >20 mmHg. 20. There is no pericardial effusion. CAR INSPECTOR: Priscila Christie RDCS
[2018-08-05] MEDS ORDERED: ceFAZolin 2,000 MG in DEXTROSE/WATER 1 50ML.BAG IVPB SCH (11:30)
[2018-08-05 12:06] LABS: Creatine Kinase 28 U/L (55-170)
[2018-08-05 12:20] LABS: Creatine Kinase MB 0.9 ng/mL (0.0-2.4); Troponin I <0.012 ng/mL (0.000-0.034)
[2018-08-05] MEDS: ceFAZolin IN SWFI 2 GM/20 ML SYRINGE IVP SCH ×2 (12:31→22:05)
--- NOTE | 2018-08-05 12:46 | XR ---
EXAMINATION TYPE: XR tibia fibula RT DATE OF EXAM: 08/05/2018 COMPARISON: NONE HISTORY: Pain TECHNIQUE: 4 views are submitted FINDINGS: There is severe arthropathy of the knee with a greater lateral compartment involvement. Dif fuse osteopenia noted. No definite acute fracture or dislocation. Arthropathy of the patellofemoral j oint noted. Soft tissue calcifications appear vascular. IMPRESSION: Severe arthropathy of the knee
[2018-08-05] MEDS: METOPROLOL TARTRATE 50 MG TAB PO SCH (13:45)
--- NOTE | 2018-08-05 15:38 | HP ---
HISTORY AND PHYSICAL CHIEF COMPLAINT: Fall with right hip fracture. HISTORY OF PRESENT ILLNESS: This gentleman presented to the emergency room after he fell. He cannot remember all the details. He is not sure if he passed out or not. He came to emergency room where he had no chest pain, focal neurologic deficits. He was found to have a right hip fracture. He is oriented and alert. He believes that he just became dizzy. He has a long-standing history of cardiac disease with congestive heart failure in atrial fibrillation. In the emergency room, in addition to the hip x-ray, he had a chest x- ray which demonstrated massive cardiomegaly and congestive heart failure. He has had an echocardiogram which demonstrates ejection fraction of about 35% to 40%. X-ray of the right knee was normal without fracture. Laboratory studies were essentially unremarkable with a BUN 23 and creatinine 1.29. Blood sugar is 134. Urine was essentially negative, but there were occasional red cells. REVIEW OF SYSTEMS: He denies any headaches, neurologic changes, problems with vision or hearing, chest pain, abdominal pain, nausea, vomiting, urinary complaints, fever, chills, etc. Past medical history, family history, personal and social histories reveal he is allergic to IODINE. He has had numerous surgeries in the past including removal of left kidney for carcinoma. He smokes cigars occasionally. PHYSICAL EXAM: Blood pressure 116/71 with a pulse of 105, respiratory rate of 16, he is afebrile. GENERAL: He appeared to be well developed, well nourished, well preserved. Skin color is normal and skin is warm, dry. Head, ears, eyes, nose, mouth, and throat were normal and gaze is conjugate. Pupils equal, round. Carotids were normal. Neck veins not distended. The chest is clear. Cardiac exam sounded as though he was in atrial fibrillation. The abdomen is soft and nontender. Extremities are normal except for the right hip. Admitted to the hospital with diagnosis: 1. Fracture right hip. 2. Acute congestive heart failure. 3. History of chronic congestive heart failure. 4. Atrial fibrillation. 5. History of carcinoma of the kidney. 6. Renal failure. PLAN: 1. Bed rest. 2. IV fluids. 3. Consult Cardiology. 4. Control congestive heart failure before surgery. 5. Orthopedic consult. MMODL / IJN: [id number] /
[2018-08-05] MEDS: ENOXAPARIN 100 MG/ML SYRINGE SQ SCH ×2 (16:23→20:43)
[2018-08-05] MEDS ORDERED: WARFARIN 7.5 MG TAB PO SCH (18:00)
[2018-08-05 20:51] LABS: Glucose,Whole Blood 145 mg/dL (75-99)
[2018-08-05] MEDS ORDERED: METOPROLOL TARTRATE 25 MG TAB PO SCH (21:00)
[2018-08-06] MEDS: METOPROLOL TARTRATE 50 MG TAB PO SCH ×3 (01:41→20:33)
[2018-08-06] MEDS: LISINOPRIL 2.5 MG TAB PO SCH ×2 (01:41→12:54)
[2018-08-06] MEDS: ATORVASTATIN 80 MG TAB PO SCH ×2 (01:41→20:33)
[2018-08-06] MEDS: LEVOTHYROXINE 100 MCG TAB PO SCH (05:19)
[2018-08-06 05:49] LABS: Glucose,Whole Blood 144 mg/dL (75-99)
[2018-08-06] MEDS: ceFAZolin IN SWFI 2 GM/20 ML SYRINGE IVP SCH ×3 (07:04→21:41)
[2018-08-06] MEDS: HYDROmorphone 1 MG/ML 1 ML SYRINGE IVP PRN ×4 (08:38→20:32)
[2018-08-06] MEDS: ENOXAPARIN 100 MG/ML SYRINGE SQ SCH (10:58)
[2018-08-06] MEDS ORDERED: IV FLUID CONTINUATION 1,000 ML IV ONE (11:15)
--- NOTE | 2018-08-06 11:58 | CDI ---
Documentation Clarification Form Date: 08/06/2018 11:33:00 AM From: Blanche Camacho CCS, CCDS Admit Date: 08/05/2018 1:34:00 AM Patient Name: Kamar Hill Visit Number: [id number] Discharge Date: ATTENTION: The Clinical Documentation Specialists (CDI) and [facility] Coding Staff appreciate your assistance in clarifying documentation. Please respond to the clarification below the line at the bottom and electronically sign. The CDI & [facility] Coding staff will review the response and follow-up if needed. Please note: Queries are made part of the Legal Health Record. If you have any questions, please contact the author of this message via ITS. Dr. Isaac Yoder: Per the History & Physical: "renal failure" is documented without specificity. History/Risk Factors: Hypertension, Systolic CHF, Chronic Atrial Fibrillation, [place] of the kidney sp lt nephrectomy. Patients baseline BUN/CR/GFR: Unknown or not documented, no nephrology consult. Clinical Indicators: Presented with a right hip fracture after a fall at home, pending hemiarthroplasty. Current BUN/Cr/GFR: BUN 23^, Cr 1.29^, GFR 53 Treatment: IV fluid boluses, IV fl 100, IV Zofran, IV Lasix In order to capture the severity of condition, please clarify if the condition signifies: Acute renal failure, Please specify etiology (if known): o Cortical Necrosis o Medullary Necrosis o Tubular Necrosis Acute on chronic renal failure o CKD Stage 1 GFR >90 o CKD Stage 2 GFR 60-89 o CKD Stage 3 GFR 30-59 Chronic Chronic Kidney disease (CKD) please stage (if known): o CKD Stage 1 GFR >90 o CKD Stage 2 GFR 60-89 o CKD Stage 3 GFR 30-59 Other, please specify: Unable to determine (Last Revision: November 2017) MTDD
--- NOTE | 2018-08-06 12:39 | P.PN ---
Subjective Progress Note Date: 08/06/18 Principal diagnosis: Right Hip Fracture Patient is seen in pre op today. He was scheduled to undergo right hip rosalio arthroplasty for his right hip fracture today. He was given lovenox prior to preop unfortunately and thus unable to proceed with surgery. He continues to have pain at hip as expected. No new complaints. Objective - Vital Signs Vital signs: Vital Signs Temp 98.6 F 08/06/18 11:07 Pulse 102 H 08/06/18 11:07 Resp 18 08/06/18 11:07 BP 111/60 08/06/18 11:07 Pulse Ox 91 L 08/06/18 11:07 Intake & Output 08/05/18 08/06/18 08/06/18 18:59 06:59 18:59 Intake Total 100 400 Output Total 1800 750 Balance -1700 -750 400 Weight 90.718 kg 89 kg Intake: IV 100 400 Sodium Chloride 0.9% 1, 100 000 ml @ 100 mls/hr IV . Q10H [facility] Rx#:[id number] Output: Urine 1800 750 - Exam Inspection of the right lower extremity shows no erythema, edema or ecchymoses. There are no wounds or lacerations. The right leg is shortened and externally rotated. Range of motion of the right hip is not tested due to the fracture. Neurovascular status is grossly intact with motor and sensation throughout the right lower extremity. The calf is soft and nontender. He does have some tenderness at the lateral aspect of his right lower leg. There is no deformity. 2+ dorsalis pedis pulse and less than 2 second capillary refill is present. 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 No fractures Assessment and Plan (1) Chronic atrial fibrillation Current Visit: Yes Status: Acute Code(s): I48.2 - CHRONIC ATRIAL FIBRILLATION SNOMED Code(s): 622226252 (2) Closed right hip fracture Narrative/Plan: Plan is to proceed with surgery tomorrow. Orders for procedure and consent, NPO after MN and D/C antioagulants have been placed. Current Visit: Yes Status: Acute Code(s): S72.001A - FRACTURE OF UNSP PART OF NECK OF RIGHT FEMUR, INIT SNOMED Code(s): 734669198 (3) Congestive heart failure Current Visit: Yes Status: Acute Code(s): I50.9 - HEART FAILURE, UNSPECIFIED SNOMED Code(s): 87869996 (4) Fall Current Visit: Yes Status: Acute Code(s): W19.XXXA - UNSPECIFIED FALL, INITIAL ENCOUNTER SNOMED Code(s): 2712107 (5) History of coronary artery disease Current Visit: Yes Status: Acute Code(s): Z86.79 - PERSONAL HISTORY OF OTHER DISEASES OF THE CIRCULATORY SYSTEM SNOMED Code(s): 547444876
[2018-08-06 12:50] LABS: Glucose,Whole Blood 126 mg/dL (75-99)
[2018-08-06] MEDS: TAMSULOSIN 0.4 MG CAP.ER.24H PO SCH (12:54)
[2018-08-06] MEDS: ISOSORBIDE MONONITRATE ER 30 MG TAB.ER.24H PO SCH (12:54)
[2018-08-06] MEDS: metFORMIN 500 MG TAB PO SCH ×2 (12:54→21:41)
[2018-08-06] MEDS: SPIRONOLACTONE 25 MG TAB PO SCH (12:54)
[2018-08-06] MEDS: PANTOPRAZOLE 40 MG/10 ML VIAL IV SCH (12:55)
[2018-08-06] MEDS: FUROSEMIDE 10 MG/ML 4 ML VIAL IV SCH ×2 (12:55→20:33)
[2018-08-06] MEDS: FINASTERIDE 5 MG TAB PO SCH (12:55)
[2018-08-06] MEDS: HYDROcodone/APAP 5-325MG 1 EACH TAB PO PRN (13:56)
[2018-08-06 16:28] LABS: Glucose,Whole Blood 183 mg/dL (75-99)
--- NOTE | 2018-08-06 16:57 | PN ---
PROGRESS NOTE CHIEF COMPLAINT: Fracture of the right hip and CHF. HISTORY OF PRESENT ILLNESS: This gentleman is doing well. He is going for surgery today. PHYSICAL EXAM: He is awake and alert. Chest demonstrates good breath sounds bilaterally and cardiac exam is unchanged. ABDOMEN: Soft nontender. IMPRESSION: 1. Fracture right hip. 2. Congestive heart failure. PLAN: Surgery today. MMODL / IJN: [id number] /
[2018-08-06 20:53] LABS: Glucose,Whole Blood 124 mg/dL (75-99)
[2018-08-07] MEDS: LISINOPRIL 2.5 MG TAB PO SCH ×3 (00:32→22:36)
[2018-08-07] MEDS: HYDROmorphone 1 MG/ML 1 ML SYRINGE IVP PRN (02:47)
[2018-08-07] MEDS: ceFAZolin IN SWFI 2 GM/20 ML SYRINGE IVP SCH ×3 (03:51→20:26)
[2018-08-07] MEDS ORDERED: TRANEXAMIC ACID 1,000 MG in SODIUM CHLORIDE 0.9% 50 ML IVPB ONE ×4 (05:00)
[2018-08-07] MEDS ORDERED: HYDROmorphone 0.5 MG/0.5 ML SYRINGE IVP PRN ×3 (05:57→13:13)
[2018-08-07] MEDS ORDERED: LIDOCAINE 1% 20 ML VIAL (10MG/ML) FOR IV START INTRADERMA PRN (05:57)
[2018-08-07] MEDS ORDERED: SCOPOLAMINE 1.5MG/72HR PATCH TRANSDERM ONE (05:57)
[2018-08-07 06:17] LABS: Glucose,Whole Blood 108 mg/dL (75-99)
[2018-08-07] MEDS: LEVOTHYROXINE 100 MCG TAB PO SCH (06:48)
[2018-08-07] MEDS: ISOSORBIDE MONONITRATE ER 30 MG TAB.ER.24H PO SCH (06:49)
[2018-08-07] MEDS: PANTOPRAZOLE 40 MG/10 ML VIAL IV SCH (06:49)
[2018-08-07] MEDS: TAMSULOSIN 0.4 MG CAP.ER.24H PO SCH (06:49)
[2018-08-07] MEDS: FINASTERIDE 5 MG TAB PO SCH (06:49)
[2018-08-07 07:16] LABS: Basophils % (A) 0 %; Eosinophils # (A) 0.5 k/uL (0-0.7); Eosinophils % (A) 6 %; HCT 38.7 % (39.0-53.0); Hypochromasia Slight; Lymphocytes # (A) 0.6 k/uL (1.0-4.8); Lymphocytes % (A) 6 %; MCH 33.3 pg (25.0-35.0); MCHC 31.2 g/dL (31.0-37.0); MCV 106.9 fL (80.0-100.0); Macrocytosis Moderate; Mean Platelet Volume 7.3; Monocytes # (A) 0.8 k/uL (0-1.0); Monocytes % (A) 8 %; Neutrophils % (A) 77 %; Platelet Count 143 k/uL (150-450); RBC 3.62 m/uL (4.30-5.90); RDW 13.2 % (11.5-15.5); WBC 9.1 k/uL (3.8-10.6)
[2018-08-07 07:28] LABS: Potassium 5.4 mmol/L (3.5-5.1)
[2018-08-07] MEDS: metFORMIN 500 MG TAB PO SCH ×2 (08:16→20:26)
[2018-08-07] MEDS: METOPROLOL TARTRATE 50 MG TAB PO SCH ×2 (08:28→20:26)
[2018-08-07] MEDS: HYDROcodone/APAP 5-325MG 1 EACH TAB PO PRN ×2 (08:29→22:36)
[2018-08-07] MEDS: FUROSEMIDE 10 MG/ML 4 ML VIAL IV SCH ×2 (08:30→20:26)
[2018-08-07] MEDS: LACTATED RINGERS 1,000 ML IV SCH (08:31)
[2018-08-07] MEDS: ONDANSETRON 4 MG/2 ML VIAL IVP ONE ×2 (10:41→17:17)
[2018-08-07] MEDS: DEXAMETHASONE SOD PHOSPHATE 10 MG/ML 1 ML VIAL IV ONE ×2 (10:41→17:16)
[2018-08-07 10:49] LABS: Glucose,Whole Blood 95 mg/dL (75-99)
[2018-08-07] MEDS ORDERED: ALBUMIN HUMAN 5% 250 ML BOTTLE IVPB ONE (11:01)
[2018-08-07] MEDS ORDERED: SODIUM CHLORIDE 0.9% 100 ML BAG ONE (11:01)
[2018-08-07] MEDS ORDERED: TRANEXAMIC ACID 1,000 MG/10 ML VIAL ONE (11:01)
[2018-08-07] MEDS ORDERED: MIDAZOLAM 2 MG/2 ML VIAL ONE (11:01)
[2018-08-07] MEDS ORDERED: PHENYLEPHRINE-0.9% NACL SYG 1 MG/10 ML SYRINGE ONE (11:01)
[2018-08-07] MEDS ORDERED: KETAMINE 10 MG/ML 20 ML VIAL ONE (11:01)
[2018-08-07] MEDS ORDERED: fentaNYL (PF) 50 MCG/ML 2 ML AMP ONE (11:01)
[2018-08-07] MEDS ORDERED: TRANEXAMIC ACID 1,000 MG in SODIUM CHLORIDE 0.9% 100 ML IV STA (11:39)
[2018-08-07] MEDS ORDERED: TRANEXAMIC ACID 1,000 MG/10 ML VIAL IRRIGATION ONE (11:41)
[2018-08-07] MEDS ORDERED: ceFAZolin 3,000 MG in SODIUM CHLORIDE 0.9% IRRIGATIO 3,000 ML IRRIGATION ONE (11:45)
[2018-08-07] MEDS ORDERED: LACTATED RINGERS 1,000 ML IV ONE (11:47)
[2018-08-07] MEDS ORDERED: SODIUM CHLORIDE 0.9% 50 ML with ceFAZolin 2,000 MG IV ONE ×4 (12:32)
[2018-08-07] MEDS ORDERED: DIAZEPAM 5 MG TAB PO PRN (13:13)
[2018-08-07] MEDS ORDERED: MAGNESIUM HYDROXIDE 2,400 MG/10 ML CUP PO PRN (13:13)
[2018-08-07] MEDS ORDERED: traMADol 50 MG TAB PO PRN (13:13)
[2018-08-07 13:41] LABS: Glucose,Whole Blood 127 mg/dL (75-99)
--- NOTE | 2018-08-07 14:03 | P.PN ---
Subjective Progress Note Date: 08/07/18 This is a pleasant 77-year-old gentleman who follows with Dr. Terry as his head silverman, he was in the hospital here in February of this year with a non -Q-wave myocardial infarction, he was taken to the cardiac catheterization lab on that visit by Dr. Sanchez and subsequently underwent successful stenting of the proximal LAD by Dr. Kingston he did have an echocardiogram with Doppler study performed on that visit which revealed an ejection fraction of 40-45% severe pulmonary hypertension. Patient also has history of hypertension, hyperlipidemia, hypothyroidism, history of prostate cancer, diabetes, According to the patient, over the past few days he states that he has felt very tired. He got up from a lying down, stood up and became extremely dizzy, the next thing he recalls is falling to the floor. He states that he tried to hang onto something as he was falling, but was unable to. Patient does state that he has been more short of breath at home than usual. The patient does not think that he lost consciousness just became extremely dizzy. He denies any recent chest discomfort. An x-ray of the right femur was performed on arrival here which revealed an acute impacted subcapital fracture of the right femur. Chest x-ray showed congestive heart failure with pleural effusions and pulmonary edema, worse as compared with prior exam. EKG on arrival here showed atrial fibrillation with a controlled ventricular response and nonspecific ST-T wave changes. White blood cell count 8.5, hemoglobin 12.5, platelet count 182. Sodium 139, potassium 4.5, BUN 23, creatinine 1.2. Troponins [id number]. BNP level 6110. At the time of my examination this morning, patient is complaining of some mild pain in his right hip area, denies any chest pain in his breathing is stable. He was given one dose of IV Lasix in the emergency room. 08/07/2018 Patient was initially scheduled to undergo hip surgery yesterday but because he received Lovenox this was held off until today. He is doing well overall today , going down for surgery today. Hemodynamically stable. Objective - Vital Signs Vital signs: Vital Signs Temp 97.6 F 08/07/18 13:10 Pulse 88 08/07/18 13:55 Resp 16 08/07/18 13:55 BP 98/50 08/07/18 13:55 Pulse Ox 96 08/07/18 13:55 Intake & Output 08/06/18 08/07/18 08/07/18 18:59 06:59 18:59 Intake Total 566 585 1603 Output Total 182 253 4640 Balance -100 -250 150 Weight 89 kg 87.5 kg Intake: IV 400 1850 Oral 250 Output: Urine 500 500 400 Estimated Blood Loss 1300 Other: Voiding Method Indwelling Catheter # Voids 1 - Exam PHYSICAL EXAMINATION: GENERAL: 77-year-old gentleman in no acute distress at the time of my examination HEENT: Head is atraumatic, normocephalic. Pupils equal, round. Sclera anicteric. Conjunctiva are clear. Mucous membranes of the mouth are moist. Neck is supple. There is no elevated jugular venous pressure. No carotid bruit is heard. HEART EXAMINATION: Heart S1 and S2 irregularly irregular systolic murmur is heard. CHEST EXAMINATION: Lungs reveal diminished air entry to bilateral bases. ABDOMEN: Soft, nontender. Bowel sounds are heard. No organomegaly noted. EXTREMITIES: 2+ peripheral pulses with trace evidence of peripheral edema and no calf tenderness noted. NEUROLOGIC patient is awake, alert and oriented 3 . . - Labs CBC & Chem 7: 08/07/18 06:32 08/07/18 06:32 Labs: Abnormal Lab Results - Last 24 Hours (Table) 08/05/18 08/06/18 08/06/18 Range/Units 00:10 16:26 20:52 RBC (4.30-5.90) m/uL Hgb (13.0-17.5) gm/dL Hct (39.0-53.0) % MCV (80.0-100.0) fL Plt Count (150-450) k/uL Lymphocytes # (1.0-4.8) k/uL Potassium (3.5-5.1) mmol/L BUN (9-20) mg/dL Creatinine (0.66-1.25) mg/dL Glucose (74-99) mg/dL POC Glucose (mg/dL) 183 H 124 H (75-99) mg/dL Hemoglobin A1c 7.0 H (4.0-6.0) % 08/07/18 08/07/18 08/07/18 Range/Units 06:15 06:32 06:32 RBC 3.62 L (4.30-5.90) m/uL Hgb 12.0 L (13.0-17.5) gm/dL Hct 38.7 L (39.0-53.0) % MCV 106.9 H (80.0-100.0) fL Plt Count 143 L (150-450) k/uL Lymphocytes # 0.6 L (1.0-4.8) k/uL Potassium 5.4 H (3.5-5.1) mmol/L BUN 44 H (9-20) mg/dL Creatinine 2.07 H (0.66-1.25) mg/dL Glucose 114 H (74-99) mg/dL POC Glucose (mg/dL) 108 H (75-99) mg/dL Hemoglobin A1c (4.0-6.0) % 08/07/18 Range/Units 13:38 RBC (4.30-5.90) m/uL Hgb (13.0-17.5) gm/dL Hct (39.0-53.0) % MCV (80.0-100.0) fL Plt Count (150-450) k/uL Lymphocytes # (1.0-4.8) k/uL Potassium (3.5-5.1) mmol/L BUN (9-20) mg/dL Creatinine (0.66-1.25) mg/dL Glucose (74-99) mg/dL POC Glucose (mg/dL) 127 H (75-99) mg/dL Hemoglobin A1c (4.0-6.0) % Microbiology - Last 24 Hours (Table) 08/05/18 03:06 Blood Culture - Preliminary Blood No Growth after 48 hours 08/05/18 09:00 Urine Culture - Final Urine,Voided Assessment and Plan Plan: Assessment and plan #1 symptoms of dizziness with subsequent fall, no evidence of syncope, possible orthostatic hypotension. #2 acute right femur fracture #3 recent non-Q-wave myocardial infarction in February of this year at which time patient underwent angioplasty and stenting of the proximal LAD, on Plavix #4 echocardiogram with Doppler study performed in February revealed an ejection fraction of 40-45% mid apical inferior and inferior septal hypokinesia noted at that time. Severe pulmonary hypertension #5 chronic persistent atrial fibrillation, on Coumadin for anticoagulation, INR 1.1 #6 hypertension #7 hyperlipidemia #8 history of prostate and kidney cancer, status post left nephrectomy #9 nicotine dependence #10 systolic congestive heart failure acute on chronic Plan Patient will go down for hip surgery today, we will continue to follow along with you. DNP note has been reviewed, I agree with a documented findings and plan of care. Patient was seen and examined.
--- NOTE | 2018-08-07 14:05 | XR ---
EXAMINATION TYPE: XR Hip Limited RT DATE OF EXAM: 08/07/2018 COMPARISON: NONE HISTORY: Postop TECHNIQUE: One view submitted. FINDINGS: There is a prosthetic hip in near anatomic alignment. There is soft tissue edema and emphysema. IMPRESSION: 1. Postoperative change. Appears in near-anatomic alignment.
[2018-08-07 14:59] LABS: Basophils % (A) 0 %; Eosinophils # (A) 0.1 k/uL (0-0.7); Eosinophils % (A) 1 %; HCT 34.3 % (39.0-53.0); HGB 10.9 gm/dL (13.0-17.5); Lymphocytes # (A) 0.2 k/uL (1.0-4.8); Lymphocytes % (A) 2 %; MCH 33.3 pg (25.0-35.0); MCHC 31.7 g/dL (31.0-37.0); MCV 105.2 fL (80.0-100.0); Macrocytosis Slight; Mean Platelet Volume 7.7; Monocytes # (A) 0.3 k/uL (0-1.0); Monocytes % (A) 3 %; Neutrophils # (A) 8.5 k/uL (1.3-7.7); Neutrophils % (A) 93 %; Platelet Count 145 k/uL (150-450); RBC 3.26 m/uL (4.30-5.90); RDW 13.2 % (11.5-15.5); WBC 9.1 k/uL (3.8-10.6)
[2018-08-07 16:34] LABS: Glucose,Whole Blood 158 mg/dL (75-99)
[2018-08-07] MEDS: SPIRONOLACTONE 25 MG TAB PO SCH (17:17)
--- NOTE | 2018-08-07 17:43 | PN ---
PROGRESS NOTE CHIEF COMPLAINT: Fracture of the right hip. HISTORY OF PRESENT ILLNESS: This gentleman is going to the operating room today. He did not go yesterday. He has had no problems with shortness of breath, pain, etc. He has been cleared by Cardiology. PHYSICAL EXAM: He has poor breath sounds with occasional rales at both bases. Cardiac exam is normal. Abdomen is soft, nontender. IMPRESSION: 1. Congestive heart failure. 2. Fracture right hip. PLAN: Surgery today. MMODL / IJN: [id number] /
--- NOTE | 2018-08-07 19:04 | OP ---
OPERATIVE REPORT DATE OF PROCEDURE: 08/07/2018. PREOPERATIVE DIAGNOSIS: Right displaced femoral neck fracture. POSTOPERATIVE DIAGNOSIS: Right displaced femoral neck fracture. PROCEDURE PERFORMED: Right hip hemiarthroplasty. SURGEON: Ar Orozco MD. ANIMAL TREATMENT INVESTIGATOR: Claude Erwin PA-C. ANESTHESIA: Spinal with sedation. ESTIMATED BLOOD LOSS: 1300 mL. DRAINS: None. COMPLICATIONS: None apparent. DISPOSITION: Post-Anesthesia Care Unit. INDICATIONS: Mr. Hill is a pleasant 77-year-old male. He is a household ambulator. He does carry a medical diagnosis of atrial fibrillation, diabetes mellitus, hyperlipidemia, hypertension, myocardial infarction and congestive heart failure. He is a current an everyday smoker. He was ambulating at home when he fell onto his right side. Workup including x-rays revealed a right displaced femoral neck fracture. Secondary to his multiple severe medical comorbidities, he was admitted to the medical service. We were consulted. Due to his being a household ambulator, recommendation was for right hip hemiarthroplasty. He wished to proceed. The risks of procedure were discussed with him in detail. These risks include but are not limited to risk of infection, nerve damage, bleeding, pain, and a small risk of deep vein thrombosis which could lead to fatal pulmonary embolism. Certainly he is a very high perioperative risk secondary to his significant multiple medical comorbidities. He was seen preoperatively by both Medicine and Cardiology and cleared as high risk for surgery. Further risks include periprosthetic fracture and dislocation. All of his questions with regards to the risks of the procedure were answered to his satisfaction. Appropriate informed consent was obtained. DESCRIPTION OF THE PROCEDURE: Patient was identified in the preoperative holding area. Surgical site was marked by both the patient and myself. He was given 2 grams of Ancef IV for prophylactic purposes. He was then transported to the operative suite. He was placed supine on the operating room table. A spinal anesthetic was then administered and dosed per the anesthesia department without apparent complication. The patient was then placed in the left lateral decubitus position, well padded in preparation for surgery. His legs were appropriately padded and a well-padded axillary roll was placed as well. The patient's right lower extremity was then prepped and draped in the usual sterile fashion. Standard surgical pause was undertaken to ensure that we were operating on the correct site and that appropriate preoperative antibiotics had been given. All staff in the room were in agreement we proceeded. The tip of the greater trochanter was then identified with a surgical pen. A planned 10-12 cm incision centered over the tip of the greater trochanter in line with the shaft of the femur was then marked with a surgical pen. Incision was then made with a 10 blade scalpel. Dissection was carried down sharply to the tensor fascia. Hemostasis was achieved with electrocautery. The tensor fascia was then incised in line with the incision. A Charnley retractor was then placed. This exposed the underlying trochanteric bursa as well as the gluteus medius musculature. The raphae of the anterior one third of the gluteus medius and the posterior two thirds of the gluteus medius were identified. I then performed a Cortez type anterolateral approach. The anterior third of the abductors and capsule were taken off in a sleeve and retracted anteriorly. This exposed the underlying femoral neck fracture with a significant fracture hematoma. This was suctioned. I then utilized the guide to make a freshened femoral neck cut. This was made with a reciprocating saw. I then removed the platinum femoral head with the corkscrew. The acetabulum was inspected. The cartilage of the acetabulum was in good condition. I then measured the femoral head for size: a size 52 head. The 52 trial head was then placed onto the lollipop and we had a good suction fit in the acetabulum. The proximal femur was then delivered out of the wound with the leg externally rotated and flexed anteriorly. The box blank machine operator helper was used to gain access to the proximal femur. I then started with the starting reamer and reamed up to a size 12; a good cortical chatter with a size 12. I then began with the broach. I started with a size 8 broach and increased incrementally up to a size 12 broach. I had a decent fit, although he did have fairly significant osteopenia and an eggshell-type proximal femur. I made a decision at that point to cement the stem. A plug was then placed distally. I had the containers sales representative open a Biomet 12 Bimetric collared stem. We utilized antibiotic- impregnated cement. The femoral canal was thoroughly irrigated and then dried. The cement was then placed with the cement gun. I pressurized only with my thumb secondary to his congestive heart failure. The stem was then placed in approximately 10-15 degrees of anteversion. Pressure was held onto the stem until the cement had dried. When the cement had dried, we proceeded with trialing. A trial with a -3 neck and a 52 head. The hip was then reduced. The hip was taken through full range of motion. It was stable. The leg lengths were approximately equal. There was minimal shuck. I decided to proceed with a -3 neck and a 52 head. We then had the containers sales representative open a -3 neck and a 52 head on the back table. This was then placed onto the Ponce taper and impacted into place. The hip was again reduced. The hip was again taken through full range of motion. It was stable, with minimal shuck, and the leg lengths were approximately equal. At this point we proceeded with closure. The wound was thoroughly irrigated with sterile saline solution with antibiotic added. The gluteus medius, gluteus minimus and anterior capsule were repaired back to the greater trochanter via a #5 Ethibond transosseous suture. The raphae between the anterior one third and posterior two thirds of the gluteus medius were then repaired with 0 Vicryl interrupted suture. Again the wound was thoroughly irrigated. The tensor fascia was then closed with a running #2 Quill suture. Again it was thoroughly irrigated. The subcutaneous tissue was closed with 2-0 Vicryl interrupted suture. The skin was closed with a running 3-0 Quill suture. Dermabond was applied to the incision. A sterile compressive dressing was applied. The patient was placed into a hip abductor brace. All sponge and needle counts were deemed correct prior to closure. The patient tolerated the procedure without apparent complication. He was transferred to the recovery room in stable condition. MMODL / IJN: [id number] /
[2018-08-07] MEDS: ATORVASTATIN 80 MG TAB PO SCH (20:26)
[2018-08-07] MEDS: SENNOSIDES-DOCUSATE SODIUM 1 EACH TAB PO SCH (20:27)
[2018-08-08 00:38] LABS: Glucose,Whole Blood 256 mg/dL (75-99)
[2018-08-08] MEDS: ceFAZolin IN SWFI 2 GM/20 ML SYRINGE IVP SCH ×3 (02:49→20:36)
[2018-08-08] MEDS: ENOXAPARIN 30 MG/0.3 ML SYRINGE SQ SCH ×2 (02:49→12:03)
[2018-08-08] MEDS: LACTATED RINGERS 1,000 ML IV SCH (02:55)
[2018-08-08] MEDS: LEVOTHYROXINE 100 MCG TAB PO SCH (05:36)
[2018-08-08] MEDS: HYDROcodone/APAP 5-325MG 1 EACH TAB PO PRN ×2 (05:39→12:13)
[2018-08-08 06:13] LABS: Glucose,Whole Blood 211 mg/dL (75-99)
[2018-08-08 06:40] LABS: Basophils % (A) 0 %; Eosinophils # (A) 0.1 k/uL (0-0.7); Eosinophils % (A) 1 %; HGB 10.3 gm/dL (13.0-17.5); Lymphocytes # (A) 0.3 k/uL (1.0-4.8); Lymphocytes % (A) 3 %; MCH 32.7 pg (25.0-35.0); MCHC 31.2 g/dL (31.0-37.0); MCV 104.8 fL (80.0-100.0); Macrocytosis Slight; Mean Platelet Volume 7.6; Monocytes # (A) 0.7 k/uL (0-1.0); Monocytes % (A) 8 %; Neutrophils # (A) 8.3 k/uL (1.3-7.7); Neutrophils % (A) 86 %; Platelet Count 164 k/uL (150-450); RBC 3.15 m/uL (4.30-5.90); RDW 13.3 % (11.5-15.5); WBC 9.6 k/uL (3.8-10.6)
[2018-08-08] MEDS: HYDROmorphone 0.5 MG/0.5 ML SYRINGE IVP PRN (09:32)
[2018-08-08] MEDS: ISOSORBIDE MONONITRATE ER 30 MG TAB.ER.24H PO SCH (10:10)
[2018-08-08] MEDS: metFORMIN 500 MG TAB PO SCH ×2 (10:10→21:16)
[2018-08-08] MEDS: FINASTERIDE 5 MG TAB PO SCH (10:10)
[2018-08-08] MEDS: LISINOPRIL 2.5 MG TAB PO SCH ×2 (10:10→20:37)
[2018-08-08] MEDS: TAMSULOSIN 0.4 MG CAP.ER.24H PO SCH (10:11)
[2018-08-08] MEDS: METOPROLOL TARTRATE 50 MG TAB PO SCH ×2 (10:11→20:37)
[2018-08-08] MEDS: SPIRONOLACTONE 25 MG TAB PO SCH (10:11)
[2018-08-08] MEDS: MULTIVITAMINS, THERA 1 EACH TAB PO SCH (10:12)
[2018-08-08] MEDS: FUROSEMIDE 10 MG/ML 4 ML VIAL IV SCH ×2 (10:15→20:37)
[2018-08-08] MEDS: PANTOPRAZOLE 40 MG/10 ML VIAL IV SCH (10:19)
[2018-08-08 12:22] LABS: Glucose,Whole Blood 189 mg/dL (75-99)
[2018-08-08 12:49] LABS: Calcium 8.9 mg/dL (8.4-10.2); Potassium 4.9 mmol/L (3.5-5.1)
--- NOTE | 2018-08-08 15:32 | PN ---
PROGRESS NOTE CHIEF COMPLAINT: Fracture of the right hip. HISTORY OF PRESENT ILLNESS: This gentleman is doing well. He is having no problems with chest pain, shortness of breath, orthopnea, etc. PHYSICAL EXAMINATION: Color is good. Chest is fairly clear with occasional rales. Cardiac exam is unremarkable. Abdomen is soft, nontender. Dressing is dry. IMPRESSION: 1. Status post right hip fracture. 2. Congestive heart failure. PLAN: No change in program. He would like to have his diet advanced to regular, and this will be ordered. MMODL / IJN: [id number] /
[2018-08-08 17:11] LABS: Glucose,Whole Blood 206 mg/dL (75-99)
--- NOTE | 2018-08-08 17:17 | PN ---
PROGRESS NOTE Mr. Hill is doing much better today. This gentleman has chronic atrial fibrillation, has had previous stenting, known cardiomyopathy, probably a combination of ischemic and nonischemic. He underwent right hip hemiarthroplasty uneventfully. I am recommending that he should be on Coumadin, and the goal should be to keep INR between 2.0 and 2.5. We will reduce the lisinopril to 2.5 mg at bedtime, Lipitor to 40 mg daily. Patient seems to have some intolerance to statin. S1-S2 heard normally. Short systolic murmur noted. Lungs reveal improved entry. Abdomen and lower extremity exam is unchanged. Plan is to resume Coumadin with a goal of INR between 2.0 and 2.5. MMODL / IJN: [id number] /
--- NOTE | 2018-08-08 17:26 | P.PN ---
Subjective Progress Note Date: 08/08/18 Principal diagnosis: Right Hip Fracture Patient is seen at bedside this morning. He is postop day #1 from right hip hemiarthroplasty for hip fracture. He has pain at the surgical site as expected but denies any new complaints. He denies numbness, tingling or calf pain. Review of systems is negative for fever, chills, chest pain, new shortness of breath or other Objective - Vital Signs Vital signs: Vital Signs Temp 97.4 F L 08/08/18 09:25 Pulse 86 08/08/18 09:25 Resp 16 08/08/18 09:25 BP 104/60 08/08/18 09:25 Pulse Ox 93 L 08/08/18 09:25 Intake & Output 08/07/18 08/08/18 08/08/18 18:59 06:59 18:59 Intake Total 2010 920 240 Output Total 1700 1000 Balance 311 -80 240 Weight 86.5 kg Intake: IV 1851 Intake, IV Titration 160 Amount Lactated Ringers 1,000 ml 160 @ 20 mls/hr IV .[facility]H [facility] Rx#:[id number] Oral 920 240 Output: Urine 400 1000 Estimated Blood Loss 1300 Other: Voiding Method Indwelling Catheter Indwelling Catheter Indwelling Catheter - Exam Inspection reveals a benign surgical wound. There is no active bleeding or drainage. Neurovascular status is intact throughout the lower extremity with motor and sensation fully intact. Calf is soft and nontender. 2+ dorsalis pedis pulse and less than 2 second cap refill is present. - Constitutional General appearance: Present: no acute distress - Labs CBC & Chem 7: 08/08/18 05:55 08/08/18 05:55 Labs: Abnormal Lab Results - Last 24 Hours (Table) 08/07/18 08/07/18 08/07/18 Range/Units 13:38 14:44 16:33 RBC 3.26 L (4.30-5.90) m/uL Hgb 10.9 L (13.0-17.5) gm/dL Hct 34.3 L (39.0-53.0) % MCV 105.2 H (80.0-100.0) fL Plt Count 145 L (150-450) k/uL Neutrophils # 8.5 H (1.3-7.7) k/uL Lymphocytes # 0.2 L (1.0-4.8) k/uL POC Glucose (mg/dL) 127 H 158 H (75-99) mg/dL 08/08/18 08/08/18 08/08/18 Range/Units 00:36 05:55 06:11 RBC 3.15 L (4.30-5.90) m/uL Hgb 10.3 L (13.0-17.5) gm/dL Hct 33.0 L (39.0-53.0) % MCV 104.8 H (80.0-100.0) fL Plt Count (150-450) k/uL Neutrophils # 8.3 H (1.3-7.7) k/uL Lymphocytes # 0.3 L (1.0-4.8) k/uL POC Glucose (mg/dL) 256 H 211 H (75-99) mg/dL Microbiology - Last 24 Hours (Table) 08/05/18 03:06 Blood Culture - Preliminary Blood No Growth after 72 hours Assessment and Plan (1) Chronic atrial fibrillation Current Visit: Yes Status: Acute Code(s): I48.2 - CHRONIC ATRIAL FIBRILLATION SNOMED Code(s): 847693572 (2) Closed right hip fracture Narrative/Plan: He will continue with routine postop orthopedic protocol including pain management, wound care, PT, DVT prophylaxis and cardiology/medical management. Expect he will transfer to [facility] in next few days pending primary team approval. Current Visit: Yes Status: Acute Priority: Medium Code(s): S72.001A - FRACTURE OF UNSP PART OF NECK OF RIGHT FEMUR, INIT SNOMED Code(s): 516685662 (3) Congestive heart failure Current Visit: Yes Status: Acute Code(s): I50.9 - HEART FAILURE, UNSPECIFIED SNOMED Code(s): 39840814 (4) Fall Current Visit: Yes Status: Acute Code(s): W19.XXXA - UNSPECIFIED FALL, INITIAL ENCOUNTER SNOMED Code(s): 8118225 (5) History of coronary artery disease Current Visit: Yes Status: Acute Code(s): Z86.79 - PERSONAL HISTORY OF OTHER DISEASES OF THE CIRCULATORY SYSTEM SNOMED Code(s): 652407204
[2018-08-08] MEDS: ATORVASTATIN 40 MG TAB PO SCH (20:36)
[2018-08-08] MEDS: SENNOSIDES-DOCUSATE SODIUM 1 EACH TAB PO SCH (20:37)
[2018-08-08] MEDS: WARFARIN 5 MG TAB PO SCH (20:39)
[2018-08-08 21:11] LABS: Glucose,Whole Blood 195 mg/dL (75-99)
[2018-08-09] MEDS: HYDROcodone/APAP 5-325MG 1 EACH TAB PO PRN ×2 (00:22→21:10)
[2018-08-09] MEDS: ENOXAPARIN 30 MG/0.3 ML SYRINGE SQ SCH ×2 (03:04→14:03)
[2018-08-09] MEDS: ceFAZolin IN SWFI 2 GM/20 ML SYRINGE IVP SCH ×3 (03:04→21:10)
[2018-08-09] MEDS: LACTATED RINGERS 1,000 ML IV SCH (06:04)
[2018-08-09] MEDS: LEVOTHYROXINE 100 MCG TAB PO SCH (06:08)
[2018-08-09 06:36] LABS: Glucose,Whole Blood 137 mg/dL (75-99)
[2018-08-09 06:55] LABS: INR 1.2 (<1.2)
[2018-08-09 06:56] LABS: Prothrombin Time 12.8 sec (9.0-12.0)
[2018-08-09] MEDS: FINASTERIDE 5 MG TAB PO SCH (08:05)
[2018-08-09] MEDS: SPIRONOLACTONE 25 MG TAB PO SCH (08:05)
[2018-08-09] MEDS: metFORMIN 500 MG TAB PO SCH (08:05)
[2018-08-09] MEDS: ISOSORBIDE MONONITRATE ER 30 MG TAB.ER.24H PO SCH (08:05)
[2018-08-09] MEDS: TAMSULOSIN 0.4 MG CAP.ER.24H PO SCH (08:05)
[2018-08-09] MEDS: MULTIVITAMINS, THERA 1 EACH TAB PO SCH (08:05)
[2018-08-09] MEDS: PANTOPRAZOLE 40 MG/10 ML VIAL IV SCH (08:06)
[2018-08-09] MEDS: FUROSEMIDE 10 MG/ML 4 ML VIAL IV SCH ×2 (08:06→21:10)
[2018-08-09] MEDS: METOPROLOL TARTRATE 50 MG TAB PO SCH ×2 (08:06→21:10)
--- NOTE | 2018-08-09 12:08 | P.PN ---
Progress Note - Text Progress Note Date: 08/09/18 Patient is a very pleasant 77-year-old male who is seen and examined at bedside for follow-up evaluation of his right hip. He is status post right hip hemiarthroplasty performed by Dr. Ar Orozco on 08/07/2018. He continues to have some pain at the right hip. He has been working with physical therapy to increase ambulation and mobility. An abductor pillow remains intact. He is currently admitted to medicine and continues to be seen by medicine. They're planning for discharge to extended care facility the time of discharge. Patient has some pain at the right hip but states his pain has been fairly well controlled. Patient has a history of congestive heart failure. Physical Exam Hip Hemiarthroplasty: Status post surgical day number 2 Patient is examined lying in bed Patient is awake, alert, and oriented 3 Vital signs stable Good chest excursion with deep inspiration and expiration No signs or symptoms of DVT; no calf pain Lower extremity cuffs in place bilaterally Abductor pillow intact Dressing of the right hip is clean, dry, and intact; no erythema, purulence, or signs of infection Full range of motion of ankles bilaterally Dorsiflexion, plantarflexion, and extensor hallucis longus positive sustained bilaterally Neurovascularly intact bilateral lower extremities Capillary refill less than 2 seconds bilateral lower extremities Assessment: Status post right hip hemiarthroplasty for right displaced femoral neck fracture status post fall Right hip pain History of congestive heart failure Plan: 1. Patient may continue to weight-bear as tolerated on the lower extremity; patient may work with physical therapy to increase mobility and ambulation 2. Continue pain control [place] and Dilaudid as prescribed as needed for pain control 3. Abductor pillow to remain in place at all times except while working with therapy and while sitting in a bedside chair 4. Medicine to continue following the patient for their other medical issues 5. Continue with with anticoagulation therapy with Coumadin as prescribed by cardiology 5. We'll continue to follow the patient 6. Patient will most likely remain in the hospital over the weekend with plans to discharge to rehab facility this coming Saturday, once cleared by medicine and cardiology 7. Patient can follow-up with Dr. Ar Orozco at [facility] in 2-3 weeks following discharge
[2018-08-09 12:11] LABS: Glucose,Whole Blood 197 mg/dL (75-99)
--- NOTE | 2018-08-09 13:39 | PN ---
PROGRESS NOTE CHIEF COMPLAINT: Status post right hip fracture. HISTORY OF PRESENT ILLNESS: This gentleman is doing fairly well. He has had no problems with shortness of breath. He is having quite a bit difficulty with ambulation. PHYSICAL EXAM: CHEST: Clear. Cardiac exam is unchanged. IMPRESSION: 1. Fracture right hip. 2. Congestive heart failure. PLAN: Continue rehab. ROSSANA / TAYLOR: [id number] /
--- NOTE | 2018-08-09 13:56 | P.PN ---
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 Sanchez and subsequently underwent successful stenting of the proximal LAD by Dr. Kingston he did have an echocardiogram with Doppler study performed on that visit which revealed an ejection fraction of 40-45% severe pulmonary hypertension. Patient also has history of hypertension, hyperlipidemia, hypothyroidism, history of prostate cancer, diabetes, According to the patient, over the past few days he states that he has felt very tired. He got up from a lying down, stood up and became extremely dizzy, the next thing he recalls is falling to the floor. He states that he tried to hang onto something as he was falling, but was unable to. Patient does state that he has been more short of breath at home than usual. The patient does not think that he lost consciousness just became extremely dizzy. He denies any recent chest discomfort. An x-ray of the right femur was performed on arrival here which revealed an acute impacted subcapital fracture of the right femur. Chest x-ray showed congestive heart failure with pleural effusions and pulmonary edema, worse as compared with prior exam. EKG on arrival here showed atrial fibrillation with a controlled ventricular response and nonspecific ST-T wave changes. White blood cell count 8.5, hemoglobin 12.5, platelet count 182. Sodium 139, potassium 4.5, BUN 23, creatinine 1.2. Troponins [id number]. BNP level 6110. At the time of my examination this morning, patient is complaining of some mild pain in his right hip area, denies any chest pain in his breathing is stable. He was given one dose of IV Lasix in the emergency room. 08/07/2018 Patient was initially scheduled to undergo hip surgery yesterday but because he received Lovenox this was held off until today. He is doing well overall today , going down for surgery today. Hemodynamically stable. 08/09 2018 Patient was seen and examined this morning, sitting up in the chair at bedside. Overall doing well. Let pressure 106/60 with a heart rate in the 80s , 92% on 2 L of oxygen. INR today 1.2. Objective - Vital Signs Vital signs: Vital Signs Temp 98.1 F 08/09/18 12:00 Pulse 88 08/09/18 12:00 Resp 18 08/09/18 12:00 BP 106/62 08/09/18 12:00 Pulse Ox 92 L 08/09/18 12:00 Intake & Output 08/08/18 08/09/18 08/09/18 18:59 06:59 18:59 Intake Total 240 240 70 Output Total 375 2000 Balance -135 -1760 70 Weight 99.5 kg Intake: Intake, IV Titration 70 Amount Lactated Ringers 1,000 ml 20 @ 0 mls/hr IV .[facility] Rx#:[id number] Sodium Chloride 0.9% 50 50 ml @ 0 mls/hr IV .[facility] with ceFAZolin 2,000 mg Rx#:[id number] Oral 240 240 Output: Urine 375 2000 Other: Voiding Method Indwelling Catheter Indwelling Catheter Indwelling Catheter - Exam PHYSICAL EXAMINATION: GENERAL: 77-year-old gentleman in no acute distress at the time of my examination HEENT: Head is atraumatic, normocephalic. Pupils equal, round. Sclera anicteric. Conjunctiva are clear. Mucous membranes of the mouth are moist. Neck is supple. There is no elevated jugular venous pressure. No carotid bruit is heard. HEART EXAMINATION: Heart S1 and S2 irregularly irregular systolic murmur is heard. CHEST EXAMINATION: Lungs reveal diminished air entry to bilateral bases. ABDOMEN: Soft, nontender. Bowel sounds are heard. No organomegaly noted. EXTREMITIES: 2+ peripheral pulses with trace evidence of peripheral edema and no calf tenderness noted. NEUROLOGIC patient is awake, alert and oriented 3 . . - Labs CBC & Chem 7: 08/08/18 05:55 08/08/18 05:55 Labs: Abnormal Lab Results - Last 24 Hours (Table) 08/08/18 08/08/18 08/09/18 Range/Units 16:55 21:09 05:58 PT 12.8 H (9.0-12.0) sec INR 1.2 H (<1.2) POC Glucose (mg/dL) 206 H 195 H (75-99) mg/dL 08/09/18 08/09/18 Range/Units 06:34 11:57 PT (9.0-12.0) sec INR (<1.2) POC Glucose (mg/dL) 137 H 197 H (75-99) mg/dL Microbiology - Last 24 Hours (Table) 08/05/18 03:06 Blood Culture - Preliminary Blood No Growth after 96 hours Assessment and Plan Plan: Assessment and plan #1 symptoms of dizziness with subsequent fall, no evidence of syncope, possible orthostatic hypotension. #2 acute right femur fracture #3 recent non-Q-wave myocardial infarction in February of this year at which time patient underwent angioplasty and stenting of the proximal LAD, on Plavix #4 echocardiogram with Doppler study performed in February revealed an ejection fraction of 40-45% mid apical inferior and inferior septal hypokinesia noted at that time. Severe pulmonary hypertension #5 chronic persistent atrial fibrillation, on Coumadin for anticoagulation, INR 1.1 #6 hypertension #7 hyperlipidemia #8 history of prostate and kidney cancer, status post left nephrectomy #9 nicotine dependence #10 systolic congestive heart failure acute on chronic Plan We'll continue current dose of Coumadin, monitor the INR to keep it in the range of 2-2.5. DNP note has been reviewed, I agree with a documented findings and plan of care. Patient was seen and examined.
[2018-08-09] MEDS: HYDROmorphone 1 MG/ML 1 ML SYRINGE IVP PRN (14:03)
[2018-08-09] MEDS: WARFARIN 5 MG TAB PO SCH (14:03)
[2018-08-09 17:48] LABS: Glucose,Whole Blood 158 mg/dL (75-99)
[2018-08-09 20:40] LABS: Glucose,Whole Blood 194 mg/dL (75-99)
[2018-08-09] MEDS: ATORVASTATIN 40 MG TAB PO SCH (21:10)
[2018-08-09] MEDS: LISINOPRIL 2.5 MG TAB PO SCH (21:10)
[2018-08-09] MEDS: SENNOSIDES-DOCUSATE SODIUM 1 EACH TAB PO SCH (21:10)
[2018-08-10] MEDS: HYDROmorphone 0.5 MG/0.5 ML SYRINGE IVP PRN ×2 (03:33→15:49)
[2018-08-10] MEDS: ENOXAPARIN 30 MG/0.3 ML SYRINGE SQ SCH ×2 (03:34→13:02)
[2018-08-10] MEDS: ceFAZolin IN SWFI 2 GM/20 ML SYRINGE IVP SCH ×3 (03:34→22:58)
[2018-08-10 06:25] LABS: Basophils % (A) 0 %; Eosinophils # (A) 0.4 k/uL (0-0.7); Eosinophils % (A) 6 %; HCT 35.6 % (39.0-53.0); HGB 11.2 gm/dL (13.0-17.5); Lymphocytes # (A) 0.3 k/uL (1.0-4.8); Lymphocytes % (A) 5 %; MCH 32.7 pg (25.0-35.0); MCHC 31.5 g/dL (31.0-37.0); MCV 103.6 fL (80.0-100.0); Macrocytosis Slight; Mean Platelet Volume 7.9; Monocytes # (A) 0.5 k/uL (0-1.0); Monocytes % (A) 7 %; Neutrophils # (A) 4.9 k/uL (1.3-7.7); Neutrophils % (A) 78 %; Platelet Count 190 k/uL (150-450); RBC 3.44 m/uL (4.30-5.90); RDW 13.3 % (11.5-15.5); WBC 6.3 k/uL (3.8-10.6)
[2018-08-10 06:52] LABS: Glucose,Whole Blood 158 mg/dL (75-99)
[2018-08-10] MEDS: LEVOTHYROXINE 100 MCG TAB PO SCH (06:53)
[2018-08-10] MEDS: PANTOPRAZOLE 40 MG TABLET PO SCH (06:54)
[2018-08-10] MEDS: LACTATED RINGERS 1,000 ML IV SCH ×2 (06:56→23:14)
[2018-08-10] MEDS: METOPROLOL TARTRATE 50 MG TAB PO SCH ×2 (08:33→20:41)
[2018-08-10] MEDS: ISOSORBIDE MONONITRATE ER 30 MG TAB.ER.24H PO SCH (08:33)
[2018-08-10] MEDS: FUROSEMIDE 10 MG/ML 4 ML VIAL IV SCH ×2 (08:33→20:41)
[2018-08-10] MEDS: MULTIVITAMINS, THERA 1 EACH TAB PO SCH (08:33)
[2018-08-10] MEDS: FINASTERIDE 5 MG TAB PO SCH (08:33)
[2018-08-10] MEDS: SPIRONOLACTONE 25 MG TAB PO SCH (08:33)
[2018-08-10] MEDS: TAMSULOSIN 0.4 MG CAP.ER.24H PO SCH (08:33)
--- NOTE | 2018-08-10 10:09 | P.PN ---
Progress Note - Text Progress Note Date: 08/10/18 Patient is a very pleasant 77-year-old male who is seen and examined at bedside for follow-up evaluation of his right hip. He is status post right hip hemiarthroplasty performed by Dr. Ar Orozco on 08/07/2018. He continues to have some pain at the right hip. He has been working with physical therapy to increase ambulation and mobility. An abductor pillow remains intact. He is currently admitted to medicine and continues to be seen by medicine and cardiology. They're planning for discharge to extended care facility the time of discharge. He is planning to be discharged to [facility] tomorrow, 08/11/2018. Patient has some pain at the right hip but states his pain has been fairly well controlled. Patient has a history of congestive heart failure. He is in good spirits today and is looking forward to discharge to rehab. Physical Exam Hip Hemiarthroplasty: Status post surgical day number 3 Patient is examined lying in bed Patient is awake, alert, and oriented 3 Vital signs stable Good chest excursion with deep inspiration and expiration No signs or symptoms of DVT; no calf pain Lower extremity cuffs in place bilaterally Abductor pillow intact Dressing of the right hip is clean, dry, and intact; no erythema, purulence, or signs of infection Full range of motion of ankles bilaterally Dorsiflexion, plantarflexion, and extensor hallucis longus positive sustained bilaterally Neurovascularly intact bilateral lower extremities Capillary refill less than 2 seconds bilateral lower extremities Assessment: Status post right hip hemiarthroplasty for right displaced femoral neck fracture status post fall Right hip pain History of congestive heart failure Plan: 1. Patient may continue to weight-bear as tolerated on the lower extremity; patient may work with physical therapy to increase mobility and ambulation 2. Continue pain control Rudy and Dilaudid as prescribed as needed for pain control 3. Abductor pillow to remain in place at all times except while working with therapy and while sitting in a bedside chair 4. Medicine and cardiology will continue following the patient for their other medical issues 5. Continue with with anticoagulation therapy with Coumadin as prescribed by cardiology 6. We'll continue to follow the patient 7. Patient will most likely remain in the hospital over the weekend with plans to discharge to [facility] rehab facility this coming 08/11/2018, once cleared by medicine and cardiology 8. Patient can follow-up with Dr. Ar Orozco at [facility] in 2-3 weeks following discharge
[2018-08-10 13:08] LABS: Glucose,Whole Blood 135 mg/dL (75-99)
--- NOTE | 2018-08-10 13:13 | PN ---
PROGRESS NOTE DATE OF SERVICE: 08/10/2018 CHIEF COMPLAINT: Status post right hip replacement. HISTORY OF PRESENT ILLNESS: This gentleman is doing well. He is not having as much discomfort. PHYSICAL EXAM: Vital signs are normal. Chest is clear. Cardiac exam is normal. IMPRESSION: 1. Status post right hip fracture. 2. Congestive heart failure. PLAN: Continue with current program and he is doing well. MMODL / IJN: [id number] /
[2018-08-10 16:23] LABS: Glucose,Whole Blood 223 mg/dL (75-99)
[2018-08-10] MEDS: WARFARIN 5 MG TAB PO SCH (17:28)
[2018-08-10] MEDS: LISINOPRIL 2.5 MG TAB PO SCH (20:41)
[2018-08-10] MEDS: ATORVASTATIN 40 MG TAB PO SCH (20:41)
[2018-08-10] MEDS: SENNOSIDES-DOCUSATE SODIUM 1 EACH TAB PO SCH (20:41)
[2018-08-10 21:16] LABS: Glucose,Whole Blood 291 mg/dL (75-99)
[2018-08-11] MEDS: ENOXAPARIN 30 MG/0.3 ML SYRINGE SQ SCH ×3 (01:36→21:26)
[2018-08-11 05:52] LABS: Glucose,Whole Blood 198 mg/dL (75-99)
[2018-08-11] MEDS: LEVOTHYROXINE 100 MCG TAB PO SCH (06:10)
[2018-08-11] MEDS: PANTOPRAZOLE 40 MG TABLET PO SCH (06:10)
[2018-08-11 07:51] LABS: Prothrombin Time 61.4 sec (9.0-12.0)
[2018-08-11 08:11] LABS: Calcium 8.8 mg/dL (8.4-10.2)
[2018-08-11 08:17] LABS: INR 6.3 (<1.2)
--- NOTE | 2018-08-11 09:10 | P.PN ---
Progress Note - Text Progress Note Date: 08/11/18 Patient is a very pleasant 77-year-old male who is seen and examined at bedside for follow-up evaluation of his right hip. He is status post right hip hemiarthroplasty performed by Dr. Ar Orozco on 08/07/2018. He continues to have some pain at the right hip. He has been working with physical therapy to increase ambulation and mobility. An abductor pillow remains intact. He is currently admitted to medicine and continues to be seen by medicine and cardiology. They're planning for discharge to extended care facility the time of discharge. He is planning to be discharged to [facility] today, 08/11/2018. Patient has some pain at the right hip but states his pain has been fairly well controlled. Patient has a history of congestive heart failure. He is in good spirits today and is looking forward to discharge to rehab. Overton catheter has remained intact. Physical Exam Hip Hemiarthroplasty: Status post surgical day number 4 Patient is examined lying in bed Patient is awake, alert, and oriented 3 Vital signs stable Good chest excursion with deep inspiration and expiration No signs or symptoms of DVT; no calf pain Lower extremity cuffs in place bilaterally Abductor pillow intact Dressing of the right hip is clean, dry, and intact; no erythema, purulence, or signs of infection Full range of motion of ankles bilaterally Dorsiflexion, plantarflexion, and extensor hallucis longus positive sustained bilaterally Neurovascularly intact bilateral lower extremities Capillary refill less than 2 seconds bilateral lower extremities Overton catheter intact Assessment: Status post right hip hemiarthroplasty for right displaced femoral neck fracture status post fall Right hip pain History of congestive heart failure Plan: 1. Patient may continue to weight-bear as tolerated on the lower extremity; patient may work with physical therapy to increase mobility and ambulation 2. Continue pain control Thida and Dilaudid as prescribed as needed for pain control; we will plan for medicine to prescribe pain medications at discharge 3. Abductor pillow to remain in place at all times except while working with therapy and while sitting in a bedside chair 4. Medicine and cardiology will continue following the patient for their other medical issues 5. Continue with with anticoagulation therapy with Coumadin as prescribed by cardiology 6. Discontinue Overton catheter 7. We'll continue to follow the patient; patient is clear for discharge from orthopedic standpoint 8. Patient will most likely remain in the hospital over the weekend with plans to discharge to [facility] rehab facility today, 08/11/2018, once cleared by medicine and cardiology 9. Patient can follow-up with Dr. Ar Orozco at [facility] in 2-3 weeks following discharge
[2018-08-11] MEDS: TAMSULOSIN 0.4 MG CAP.ER.24H PO SCH (09:29)
[2018-08-11] MEDS: METOPROLOL TARTRATE 50 MG TAB PO SCH ×2 (09:29→20:53)
[2018-08-11] MEDS: ISOSORBIDE MONONITRATE ER 30 MG TAB.ER.24H PO SCH (09:29)
[2018-08-11] MEDS: FUROSEMIDE 10 MG/ML 4 ML VIAL IV SCH ×2 (09:29→20:52)
[2018-08-11] MEDS: FINASTERIDE 5 MG TAB PO SCH (09:29)
[2018-08-11] MEDS: MULTIVITAMINS, THERA 1 EACH TAB PO SCH (09:29)
[2018-08-11] MEDS: SPIRONOLACTONE 25 MG TAB PO SCH (09:29)
[2018-08-11 11:11] LABS: Prothrombin Time 72.8 sec (9.0-12.0)
[2018-08-11 11:15] LABS: INR 7.5 (<1.2)
[2018-08-11 11:32] LABS: Glucose,Whole Blood 229 mg/dL (75-99)
[2018-08-11] MEDS ORDERED: PHYTONADIONE ORAL 5 MG/5 ML ORAL.SYRG PO STA (11:41)
[2018-08-11] MEDS: HYDROcodone/APAP 5-325MG 1 EACH TAB PO PRN ×2 (13:10→20:53)
--- NOTE | 2018-08-11 15:13 | P.PN ---
Subjective Progress Note Date: 08/11/18 This is a 69-year-old gentleman who was admitted to the hospital with a fall and possible syncope related to orthostatic hypotension. Patient had a right femoral fracture. Patient is status post surgery. His echo Cardigan showed an ejection fraction of 40-45% with inferior wall hypokinesia. Patient also has history of chronic atrial fibrillation. He is on Coumadin. His INR is in the range of 7. We'll discontinue Coumadin and give vitamin K. We'll follow his INRs. He doesn't complain of any chest pain. Denies any shortness of breath. Overall, his clinical status seems to be stable Objective - Vital Signs Vital signs: Vital Signs Temp 97.9 F 08/11/18 12:00 Pulse 80 08/11/18 12:00 Resp 18 08/11/18 12:00 BP 98/53 08/11/18 12:00 Pulse Ox 96 08/11/18 12:00 Intake & Output 08/10/18 08/11/18 08/11/18 18:59 06:59 18:59 Intake Total 240 920 Output Total 1900 1775 Balance -1660 -855 Weight 80.5 kg Intake: Intake, IV Titration 220 Amount Lactated Ringers 1,000 ml 220 @ 20 mls/hr IV .Q24H [facility] Rx#:[id number] Oral 240 700 Output: Urine 1900 1775 Other: Voiding Method Indwelling Catheter Indwelling Catheter Indwelling Catheter # Voids 1 - Exam GENERAL EXAM: Patient is alert and oriented and doesn't appear to be in any acute distress HEENT: Normocephalic. Normal reaction of pupils, equal size, normal range of extraocular motion. No erythema or exudates in the throat. NECK: No masses, no nuchal rigidity. CHEST: No chest wall deformity. LUNGS: Mildly diminished breath sounds HEART: Irregular rhythm ABDOMEN: No hepatosplenomegaly, normal bowel sounds, no guarding or rigidity. CENTRAL NERVOUS SYSTEM: No focal deficits. EXTREMITIES: No cyanosis, clubbing or edema. - Labs CBC & Chem 7: 08/10/18 06:05 08/11/18 06:29 Labs: Abnormal Lab Results - Last 24 Hours (Table) 08/10/18 08/10/18 08/11/18 Range/Units 16:20 21:14 05:31 PT (9.0-12.0) sec INR (<1.2) Carbon Dioxide (22-30) mmol/L BUN (9-20) mg/dL Creatinine (0.66-1.25) mg/dL Glucose (74-99) mg/dL POC Glucose (mg/dL) 223 H 291 H 198 H (75-99) mg/dL 08/11/18 08/11/18 08/11/18 Range/Units 06:29 06:29 10:27 PT 61.4 H 72.8 H (9.0-12.0) sec INR 6.3 H* 7.5 H* (<1.2) Carbon Dioxide 31 H (22-30) mmol/L BUN 70 H (9-20) mg/dL Creatinine 2.00 H (0.66-1.25) mg/dL Glucose 227 H (74-99) mg/dL POC Glucose (mg/dL) (75-99) mg/dL 08/11/18 Range/Units 11:30 PT (9.0-12.0) sec INR (<1.2) Carbon Dioxide (22-30) mmol/L BUN (9-20) mg/dL Creatinine (0.66-1.25) mg/dL Glucose (74-99) mg/dL POC Glucose (mg/dL) 229 H (75-99) mg/dL Microbiology - Last 24 Hours (Table) 08/05/18 03:06 Blood Culture - Final Blood No Growth after 144 hours Assessment and Plan (1) Chronic atrial fibrillation Current Visit: Yes Status: Acute Code(s): I48.2 - CHRONIC ATRIAL FIBRILLATION SNOMED Code(s): 704099697 (2) Closed right hip fracture Current Visit: Yes Status: Acute Priority: Medium Code(s): S72.001A - FRACTURE OF UNSP PART OF NECK OF RIGHT FEMUR, INIT SNOMED Code(s): 524901464 (3) Congestive heart failure Current Visit: Yes Status: Acute Code(s): I50.9 - HEART FAILURE, UNSPECIFIED SNOMED Code(s): 70259518 (4) History of coronary artery disease Current Visit: Yes Status: Acute Code(s): Z86.79 - PERSONAL HISTORY OF OTHER DISEASES OF THE CIRCULATORY SYSTEM SNOMED Code(s): 537942159 Plan: His INR is high. We'll going to hold the Coumadin. Follow-up PT/INR. He she also received vitamin K 5 mg
[2018-08-11 16:36] LABS: Glucose,Whole Blood 299 mg/dL (75-99)
[2018-08-11] MEDS: metFORMIN 500 MG TAB PO SCH (18:01)
[2018-08-11 20:38] LABS: Glucose,Whole Blood 236 mg/dL (75-99)
[2018-08-11] MEDS: LISINOPRIL 2.5 MG TAB PO SCH (20:53)
[2018-08-11] MEDS: SENNOSIDES-DOCUSATE SODIUM 1 EACH TAB PO SCH (20:53)
[2018-08-11] MEDS: INSULIN ASPART 100 UNIT/ML 1 ML 10 ML VIAL SQ SCH (20:53)
[2018-08-11] MEDS: ATORVASTATIN 40 MG TAB PO SCH (20:53)
--- NOTE | 2018-08-11 21:08 | PN ---
PROGRESS NOTE CHIEF COMPLAINT: Fracture of the right hip. HISTORY OF PRESENT ILLNESS: This gentleman is doing well. He is complaining of pain, but he does not seem to tolerate pain well. It is planned that he will go to [facility]. PHYSICAL EXAM: Chest is clear. Cardiac exam is normal. Abdomen is soft, nontender. IMPRESSION: 1. Fracture of the right hip. 2. Chronic congestive heart failure. PLAN: Continue postoperative management until he can be discharged to [facility]. MMODL / IJN: [id number] /
[2018-08-11] MEDS: LACTATED RINGERS 1,000 ML IV SCH (21:26)
[2018-08-12] MEDS: LEVOTHYROXINE 100 MCG TAB PO SCH (05:34)
[2018-08-12] MEDS: HYDROcodone/APAP 5-325MG 1 EACH TAB PO PRN ×2 (05:34→22:37)
[2018-08-12] MEDS: METOPROLOL TARTRATE 50 MG TAB PO SCH ×2 (07:51→22:36)
[2018-08-12] MEDS: FUROSEMIDE 10 MG/ML 4 ML VIAL IV SCH ×2 (07:51→22:35)
[2018-08-12] MEDS: ISOSORBIDE MONONITRATE ER 30 MG TAB.ER.24H PO SCH (07:51)
[2018-08-12] MEDS: TAMSULOSIN 0.4 MG CAP.ER.24H PO SCH (07:51)
[2018-08-12] MEDS: metFORMIN 500 MG TAB PO SCH ×2 (07:51→17:10)
[2018-08-12 08:39] LABS: Basophils % (A) 0 %; Eosinophils # (A) 0.7 k/uL (0-0.7); Eosinophils % (A) 7 %; HCT 35.5 % (39.0-53.0); HGB 11.6 gm/dL (13.0-17.5); Lymphocytes # (A) 0.5 k/uL (1.0-4.8); Lymphocytes % (A) 6 %; MCH 33.6 pg (25.0-35.0); MCHC 32.7 g/dL (31.0-37.0); Macrocytosis Slight; Mean Platelet Volume 7.6; Monocytes # (A) 0.7 k/uL (0-1.0); Monocytes % (A) 8 %; Neutrophils # (A) 6.9 k/uL (1.3-7.7); Neutrophils % (A) 77 %; Platelet Count 232 k/uL (150-450); RBC 3.44 m/uL (4.30-5.90); RDW 13.2 % (11.5-15.5)
[2018-08-12 08:44] LABS: INR 1.5 (<1.2); Prothrombin Time 15.5 sec (9.0-12.0)
[2018-08-12] MEDS: FINASTERIDE 5 MG TAB PO SCH (09:00)
[2018-08-12] MEDS: MULTIVITAMINS, THERA 1 EACH TAB PO SCH (09:00)
[2018-08-12] MEDS: SPIRONOLACTONE 25 MG TAB PO SCH (09:00)
[2018-08-12] MEDS: PANTOPRAZOLE 40 MG TABLET PO SCH (11:02)
[2018-08-12 11:26] LABS: Glucose,Whole Blood 224 mg/dL (75-99)
[2018-08-12] MEDS: INSULIN ASPART 100 UNIT/ML 1 ML 10 ML VIAL SQ SCH ×4 (12:42→22:35)
--- NOTE | 2018-08-12 14:00 | P.PN ---
Progress Note - Text Progress Note Date: 08/12/18 Patient is a very pleasant 77-year-old male who is seen and examined at bedside for follow-up evaluation of his right hip. He is status post right hip hemiarthroplasty performed by Dr. Ar Orozco on 08/07/2018. He continues to have some pain at the right hip. He has been working with physical therapy to increase ambulation and mobility. An abductor pillow remains intact. He is currently admitted to medicine and continues to be seen by medicine and cardiology. They're planning for discharge to extended care facility the time of discharge. He was planning to be discharged to [facility] yesterday, 08/11/2018 , but discharge was held as his INR was elevated at 7.5. His anticoagulation was held and he was started on vitamin K. His INR has reduced 1.5 today. Patient has some pain at the right hip but states his pain has been fairly well controlled. Patient has a history of congestive heart failure. He is in good spirits today and is looking forward to discharge to rehab. Overton catheter has remained intact. Physical Exam Hip Hemiarthroplasty: Status post surgical day number 5 Patient is examined lying in bed Patient is awake, alert, and oriented 3 Vital signs stable Good chest excursion with deep inspiration and expiration No signs or symptoms of DVT; no calf pain Lower extremity cuffs in place bilaterally Abductor pillow intact Dressing of the right hip is clean, dry, and intact; no erythema, purulence, or signs of infection Full range of motion of ankles bilaterally Dorsiflexion, plantarflexion, and extensor hallucis longus positive sustained bilaterally Neurovascularly intact bilateral lower extremities Capillary refill less than 2 seconds bilateral lower extremities Assessment: Status post right hip hemiarthroplasty for right displaced femoral neck fracture status post fall Right hip pain History of congestive heart failure Elevated INR at 7.5 has improved to 1.5 today Plan: 1. Patient may continue to weight-bear as tolerated on the lower extremity; patient may work with physical therapy to increase mobility and ambulation 2. Continue pain control Kasson and Dilaudid as prescribed as needed for pain control; we will plan for medicine to prescribe pain medications at discharge 3. Abductor pillow to remain in place at all times except while working with therapy and while sitting in a bedside chair 4. Medicine and cardiology will continue following the patient for their other medical issues 5. Medicine and cardiology will continue to monitor her anticoagulation therapy postoperatively 6. We'll continue to follow the patient; patient is clear for discharge from orthopedic standpoint 7. Patient will most likely remain in the hospital over the weekend with plans to discharge to [facility] rehab facility [place], 08/13/2018, once cleared by medicine and cardiology 8. Patient can follow-up with Dr. Ar Orozco at [facility] in 2-3 weeks following discharge
[2018-08-12] MEDS: ENOXAPARIN 30 MG/0.3 ML SYRINGE SQ SCH (14:07)
[2018-08-12 17:29] LABS: Glucose,Whole Blood 227 mg/dL (75-99)
[2018-08-12 20:12] LABS: Glucose,Whole Blood 262 mg/dL (75-99)
[2018-08-12] MEDS: ATORVASTATIN 40 MG TAB PO SCH (22:35)
[2018-08-12] MEDS: LISINOPRIL 2.5 MG TAB PO SCH (22:35)
[2018-08-12] MEDS: SENNOSIDES-DOCUSATE SODIUM 1 EACH TAB PO SCH (22:37)
[2018-08-12] MEDS: LACTATED RINGERS 1,000 ML IV SCH (22:41)
[2018-08-13] MEDS: ENOXAPARIN 30 MG/0.3 ML SYRINGE SQ SCH ×2 (00:49→14:01)
[2018-08-13] MEDS: LEVOTHYROXINE 100 MCG TAB PO SCH (06:23)
[2018-08-13 07:21] LABS: Glucose,Whole Blood 155 mg/dL (75-99)
[2018-08-13] MEDS: INSULIN ASPART 100 UNIT/ML 1 ML 10 ML VIAL SQ SCH ×4 (07:48→20:47)
[2018-08-13] MEDS: FUROSEMIDE 10 MG/ML 4 ML VIAL IV SCH ×2 (07:49→20:47)
[2018-08-13] MEDS: PANTOPRAZOLE 40 MG TABLET PO SCH (07:49)
[2018-08-13] MEDS: metFORMIN 500 MG TAB PO SCH ×2 (07:49→17:40)
[2018-08-13] MEDS: TAMSULOSIN 0.4 MG CAP.ER.24H PO SCH (07:49)
[2018-08-13] MEDS: ISOSORBIDE MONONITRATE ER 30 MG TAB.ER.24H PO SCH (07:49)
[2018-08-13] MEDS: FINASTERIDE 5 MG TAB PO SCH (07:49)
[2018-08-13] MEDS: METOPROLOL TARTRATE 50 MG TAB PO SCH ×2 (07:49→20:47)
[2018-08-13] MEDS: SPIRONOLACTONE 25 MG TAB PO SCH (07:55)
[2018-08-13] MEDS: HYDROcodone/APAP 5-325MG 1 EACH TAB PO PRN ×3 (07:58→20:46)
[2018-08-13 12:00] LABS: Glucose,Whole Blood 179 mg/dL (75-99)
[2018-08-13] MEDS: MULTIVITAMINS, THERA 1 EACH TAB PO SCH (12:33)
[2018-08-13 15:14] VITALS: BMI 25.1
--- NOTE | 2018-08-13 15:33 | P.PN ---
Subjective Progress Note Date: 08/13/18 Principal diagnosis: Right Hip Fracture Patient is seen at bedside this morning. He is postop from right hip hemiarthroplasty for hip fracture done on 08/07/18. He has pain at the surgical site as expected but denies any new complaints. He denies numbness, tingling or calf pain. Review of systems is negative for fever, chills, chest pain, new shortness of breath or other Objective - Vital Signs Vital signs: Vital Signs Temp 98.3 F 08/13/18 15:00 Pulse 66 08/13/18 15:00 Resp 16 08/13/18 15:00 BP 103/59 08/13/18 15:00 Pulse Ox 94 L 08/13/18 15:00 Intake & Output 08/12/18 08/13/18 08/13/18 18:59 06:59 18:59 Intake Total 528 260 Output Total 1 1 Balance 527 260 -1 Weight 84 kg 84 kg Intake: Intake, IV Titration 160 260 Amount Lactated Ringers 1,000 ml 160 260 @ 20 mls/hr IV .Q24H [facility] Rx#:[id number] Oral 368 Output: Stool 1 1 Other: Voiding Method Diaper Diaper Incontinent Incontinent # Voids 3 1 3 - Exam Inspection reveals a benign surgical wound. There is no active bleeding or drainage. Neurovascular status is intact throughout the lower extremity with motor and sensation fully intact. Calf is soft and nontender. 2+ dorsalis pedis pulse and less than 2 second cap refill is present. - Constitutional General appearance: Present: no acute distress - Labs CBC & Chem 7: 08/12/18 07:43 08/11/18 06:29 Labs: Abnormal Lab Results - Last 24 Hours (Table) 08/12/18 08/12/18 08/13/18 Range/Units 17:17 20:00 07:03 POC Glucose (mg/dL) 227 H 262 H 155 H (75-99) mg/dL 08/13/18 Range/Units 11:39 POC Glucose (mg/dL) 179 H (75-99) mg/dL Assessment and Plan (1) Chronic atrial fibrillation Current Visit: Yes Status: Acute Code(s): I48.2 - CHRONIC ATRIAL FIBRILLATION SNOMED Code(s): 667676363 (2) Closed right hip fracture Narrative/Plan: He will continue with routine postop orthopedic protocol including pain management, wound care, PT, DVT prophylaxis and cardiology/medical management. We will defer anticoagulation recommendations to IM/cardiology. He may transfer to [facility] from orthopedic standpoint. We will sign off for now. He will f/u in office as an outpatient. Current Visit: Yes Status: Acute Priority: Medium Code(s): S72.001A - FRACTURE OF UNSP PART OF NECK OF RIGHT FEMUR, INIT SNOMED Code(s): 417655986 (3) Congestive heart failure Current Visit: Yes Status: Acute Code(s): I50.9 - HEART FAILURE, UNSPECIFIED SNOMED Code(s): 40067660 (4) Fall Current Visit: Yes Status: Acute Code(s): W19.XXXA - UNSPECIFIED FALL, INITIAL ENCOUNTER SNOMED Code(s): 0025882 (5) History of coronary artery disease Current Visit: Yes Status: Acute Code(s): Z86.79 - PERSONAL HISTORY OF OTHER DISEASES OF THE CIRCULATORY SYSTEM SNOMED Code(s): 227867396
[2018-08-13 17:30] LABS: Glucose,Whole Blood 183 mg/dL (75-99)
--- NOTE | 2018-08-13 17:31 | PN ---
PROGRESS NOTE CHIEF COMPLAINT: Fracture right hip. HISTORY OF PRESENT ILLNESS: This gentleman is doing quite well and can be discharged anytime. PHYSICAL EXAM: Chest is fairly clear. Cardiac exam is unchanged. IMPRESSION: 1. Fracture right hip. 2. Cardiomyopathy. 3. Congestive heart failure. PLAN: Prepare for discharge to rehab anytime. MMODL / IJN: [id number] /
--- NOTE | 2018-08-13 18:07 | PN ---
PROGRESS NOTE CHIEF COMPLAINT: Right hip fracture. HISTORY OF PRESENT ILLNESS: This gentleman is improving daily and doing well. He will probably go to rehab soon. PHYSICAL EXAMINATION: Chest is clear. Cardiac exam is normal. Abdomen is soft, nontender. IMPRESSION: 1. Congestive heart failure and cardiomyopathy. 2. Status post open reduction internal fixation of the right hip. PLAN: Discharge to [facility] soon. MMODL / CHRISTINAN: [id number] /
[2018-08-13 20:24] LABS: Glucose,Whole Blood 224 mg/dL (75-99)
[2018-08-13] MEDS: LISINOPRIL 2.5 MG TAB PO SCH (20:47)
[2018-08-13] MEDS: ATORVASTATIN 40 MG TAB PO SCH (20:47)
[2018-08-13] MEDS: SENNOSIDES-DOCUSATE SODIUM 1 EACH TAB PO SCH (20:47)
[2018-08-14] MEDS: ENOXAPARIN 30 MG/0.3 ML SYRINGE SQ SCH ×2 (01:07→15:39)
[2018-08-14] MEDS: HYDROcodone/APAP 5-325MG 1 EACH TAB PO PRN ×2 (03:16→20:47)
[2018-08-14] MEDS: LACTATED RINGERS 1,000 ML IV SCH (05:56)
[2018-08-14] MEDS: LEVOTHYROXINE 100 MCG TAB PO SCH (05:56)
[2018-08-14 07:50] LABS: Glucose,Whole Blood 153 mg/dL (75-99)
[2018-08-14] MEDS: INSULIN ASPART 100 UNIT/ML 1 ML 10 ML VIAL SQ SCH ×4 (08:37→20:48)
[2018-08-14] MEDS: metFORMIN 500 MG TAB PO SCH ×2 (08:37→17:39)
[2018-08-14] MEDS: FUROSEMIDE 10 MG/ML 4 ML VIAL IV SCH ×2 (08:37→20:48)
[2018-08-14] MEDS: ISOSORBIDE MONONITRATE ER 30 MG TAB.ER.24H PO SCH (08:37)
[2018-08-14] MEDS: METOPROLOL TARTRATE 50 MG TAB PO SCH ×2 (08:37→20:48)
[2018-08-14] MEDS: PANTOPRAZOLE 40 MG TABLET PO SCH (08:37)
[2018-08-14] MEDS: TAMSULOSIN 0.4 MG CAP.ER.24H PO SCH (08:38)
[2018-08-14] MEDS: MULTIVITAMINS, THERA 1 EACH TAB PO SCH (08:38)
[2018-08-14] MEDS: FINASTERIDE 5 MG TAB PO SCH (08:38)
[2018-08-14] MEDS: SPIRONOLACTONE 25 MG TAB PO SCH (08:38)
[2018-08-14 11:57] LABS: Glucose,Whole Blood 187 mg/dL (75-99)
[2018-08-14 17:39] LABS: Glucose,Whole Blood 391 mg/dL (75-99)
--- NOTE | 2018-08-14 18:59 | PN ---
PROGRESS NOTE CHIEF COMPLAINT: Fracture of right hip and CHF. HISTORY OF PRESENT ILLNESS: This gentleman is doing well and could probably be discharged to rehab any time. PHYSICAL EXAMINATION: His chest is clear. Cardiac exam is normal. Abdomen is soft, nontender. IMPRESSION: 1. Fracture of right hip. 2. Congestive heart failure. 3. Cardiomyopathy. PLAN: Patient can be discharged anytime. MMODL / IJN: [id number] /
[2018-08-14] MEDS: SENNOSIDES-DOCUSATE SODIUM 1 EACH TAB PO SCH (20:47)
[2018-08-14] MEDS: LISINOPRIL 2.5 MG TAB PO SCH (20:47)
[2018-08-14] MEDS: ATORVASTATIN 40 MG TAB PO SCH (20:48)
[2018-08-14 20:50] LABS: Glucose,Whole Blood 191 mg/dL (75-99)
[2018-08-15] MEDS: ENOXAPARIN 30 MG/0.3 ML SYRINGE SQ SCH ×2 (01:30→15:19)
[2018-08-15 03:33] VITALS: RESP 16
[2018-08-15] MEDS: HYDROcodone/APAP 5-325MG 1 EACH TAB PO PRN (03:40)
[2018-08-15] MEDS: LEVOTHYROXINE 100 MCG TAB PO SCH (05:44)
[2018-08-15] MEDS: LACTATED RINGERS 1,000 ML IV SCH (05:44)
[2018-08-15 07:30] LABS: Glucose,Whole Blood 198 mg/dL (75-99)
[2018-08-15] MEDS: FINASTERIDE 5 MG TAB PO SCH (08:07)
[2018-08-15] MEDS: TAMSULOSIN 0.4 MG CAP.ER.24H PO SCH (08:07)
[2018-08-15] MEDS: ISOSORBIDE MONONITRATE ER 30 MG TAB.ER.24H PO SCH (08:07)
[2018-08-15] MEDS: SPIRONOLACTONE 25 MG TAB PO SCH (08:07)
[2018-08-15] MEDS: metFORMIN 500 MG TAB PO SCH (08:07)
[2018-08-15] MEDS: PANTOPRAZOLE 40 MG TABLET PO SCH (08:07)
[2018-08-15] MEDS: MULTIVITAMINS, THERA 1 EACH TAB PO SCH (08:07)
[2018-08-15] MEDS: FUROSEMIDE 10 MG/ML 4 ML VIAL IV SCH (08:08)
[2018-08-15] MEDS: METOPROLOL TARTRATE 50 MG TAB PO SCH (08:08)
[2018-08-15] MEDS: INSULIN ASPART 100 UNIT/ML 1 ML 10 ML VIAL SQ SCH ×2 (08:08→12:10)
[2018-08-15 11:40] LABS: Glucose,Whole Blood 173 mg/dL (75-99)
[2018-08-15 15:29] VITALS: BP 105/52; PULSE 62; TEMP 98.2
--- NOTE | 2018-08-16 16:58 | DS ---
DISCHARGE SUMMARY CHIEF COMPLAINT: Fractured right hip. HISTORY OF PRESENT ILLNESS AND PHYSICAL EXAM: Details of this man's history and physical can be found in the initial workup. LABORATORY STUDIES: While he was in the hospital he had laboratory studies, details of which can be found in the laboratory section of his chart. COURSE IN HOSPITAL: After admission he was placed on bedrest, started on intravenous fluids and initially was managed for treatment of his congestive heart failure. After he was stabilized, he was taken the operating room where he underwent ORIF of the right hip. Postoperatively, he did well and gradually regained the ability to ambulate to a certain extent and arrangements were made for him to go to rehab on the . FINAL DIAGNOSES: 1. Fracture right hip. 2. Chronic systolic and diastolic congestive heart failure. OPERATIONS: ORIF the right hip. CONSULTATIONS: Orthopedics and cardiology. He is improved. ROSSANA / TAYLOR: [id number] /
--- NOTE | 2018-08-23 14:18 | MISC ---
MISCELLANOUS REPORT QUERY Chronic renal failure, stage 3. MMODL / IJN: [id number] /
== END 2018-08-15 16:16 | DRG 469 ==
LOC: EC 23:30 → 3SCARD 08-05 01:34 → 4SSUR 08-11 21:45
PROVIDERS: ADMIT Family Medicine; ATTEND Family Medicine
PROC: 0SRR019 Replacement of Right Hip Joint, Femoral Surface with Metal Synthetic Substitute, Cemented, Open Approach (ICD-10-PCS; principal; 2018-08-07 10:30)
DX: S72.011A Unspecified intracapsular fracture of right femur, initial encounter for closed fracture (principal); I50.43 Acute on chronic combined systolic (congestive) and diastolic (congestive) heart failure; I48.1 Persistent atrial fibrillation; I13.0 Hypertensive heart and chronic kidney disease with heart failure and stage 1 through stage 4 chronic kidney disease, or unspecified chronic kidney disease; I95.9 Hypotension, unspecified; I27.20 Pulmonary hypertension, unspecified; E11.22 Type 2 diabetes mellitus with diabetic chronic kidney disease; N18.3 Chronic kidney disease, stage 3 (moderate); I25.5 Ischemic cardiomyopathy; E78.5 Hyperlipidemia, unspecified; E03.9 Hypothyroidism, unspecified; R79.1 Abnormal coagulation profile; T45.515A Adverse effect of anticoagulants, initial encounter; M85.851 Other specified disorders of bone density and structure, right thigh; I25.10 Atherosclerotic heart disease of native coronary artery without angina pectoris; I25.2 Old myocardial infarction; F17.290 Nicotine dependence, other tobacco product, uncomplicated; Z71.6 Tobacco abuse counseling; Z79.82 Long term (current) use of aspirin; Z79.02 Long term (current) use of antithrombotics/antiplatelets; Z79.890 Hormone replacement therapy; Z79.84 Long term (current) use of oral hypoglycemic drugs; Z79.899 Other long term (current) drug therapy; Z85.528 Personal history of other malignant neoplasm of kidney; Z90.5 Acquired absence of kidney; Z95.5 Presence of coronary angioplasty implant and graft; Z85.46 Personal history of malignant neoplasm of prostate; Z88.8 Allergy status to other drugs, medicaments and biological substances; Z82.49 Family history of ischemic heart disease and other diseases of the circulatory system; W18.30XA Fall on same level, unspecified, initial encounter; Y92.002 Bathroom of unspecified non-institutional (private) residence as the place of occurrence of the external cause
CPT/HCPCS: 36415; 71045; 72170; 73501; 80048; 80053; 81001; 82550; 82553; 83036; 83605; 83880; 84484; 85025; 85610; 85730; 86850; 86900; 86901; 87040; 87086; 88305; 88311; 93005; 93306; 94760; 96361; 96372; 96374; 96375; 96376; 99285

== ENCOUNTER → 2019-03-03 | Outpatient (CLI) | payer MEDICARE ==
--- NOTE | 2019-03-03 19:02 | BD ---
EXAMINATION TYPE: Axial Bone Density DATE OF EXAM: 03/03/2019 COMPARISON: NONE CLINICAL HISTORY: Osteoporosis Height: 66.5 IN Weight: 198 LBS FRAX RISK QUESTIONS: Family History (Parent hip fracture): YES MOTHER History of Fracture in Adulthood: YES RT HIP FX AGE 79 Secondary Osteoporosis: 2. Hyperthyroidism: YES Current Tobacco Use: YES RISK FACTORS HISTORY OF: Hip Fracture (Right: YES When: AGE 77 History of Wrist Fracture: YES LT When: AGE 5 Surgery to Hip(right)Wrist (left): When: HIP AGE 77 AND WRIST AGE 5 Active: LIMITED Lost more than 2 inches in height since high school: YES 5" MEDICATIONS: Thyroid Medications: Which medication: THYROID MEDS How Lon YEARS Additional Medications: CALCIUM, VIT D, THYROID MEDS, PT DOES NOT KNOW MEDS HE TAKES Additional History: KIDNEY CANCER; PROSTATE CANCER WITH RADIATION EXAM MEASUREMENTS: Bone mineral densitometry was performed using the [employer] System. Bone mineral density as measured about the Lumbar spine is: ----- L1-L4(G/cm2): 1.188 T Score Values are as follows: ----- L2: -1.2 ----- L3: 0.5 ----- L4: 1.0 ----- L1-L4: 0.1 Bone mineral density BASELINE Bone mineral density about the L hip (g/cm2): 0.632 T Score values are as follows: -----L Neck: -2.9 -----L Total: -2.4 Bone mineral density BASELINE IMPRESSION: Osteoporosis (T Score less than -2.5). There is increased fracture risk and therapy is usually indicated based on age. Re-Screen 1-2 years. NOTE: T-SCORE=SD OF THE YOUNG ADULT MEAN.
== END | disposition home or self-care (01) ==
LOC: RADBDWWP 12:35
PROVIDERS: ATTEND Family Medicine
DX: M81.0 Age-related osteoporosis without current pathological fracture (principal)
CPT/HCPCS: 77080

== ENCOUNTER 2019-05-11 20:02 | Inpatient (IN) | payer MEDICARE ==
--- NOTE | 2019-05-11 20:31 | ED ---
General Adult HPI - General Chief complaint: Recheck/Abnormal Lab/Rx Stated complaint: Low Hemoglobin Time Seen by Provider: 05/11/19 20:04 Source: patient, EMS Mode of arrival: EMS Limitations: physical limitation - History of Present Illness Initial comments: Dictation was produced using [facility] dictation software. please excuse any g rammatical, word or spelling errors. Chief Complaint: 78-year-old male past nuchal history of atrial fibrillation, diabetes, dyslipidemia hypertension presents with abnormal labs. History of Present Illness: 78-year-old male presents with abnormal labs. Patient was sent to our emergency department from [facility] for abnormal lab. Patient had a hemoglobin that was found to be 7.0. Patient reports that he recently had a urologic procedure performed on his prostate. States that he's been having bladder spasms. He was started on unknown medication to up with the bladder spasms. Patient has multiple comorbidities. Patient has past medical history of atrial fibrillation. He takes L Oquist. He had labs performed today. Showing hemoglobin of 7.0. Patient has been having low hemoglobin levels recently. Just 5 days ago he had a hemoglobin of 7.8. 3 months ago 8 hemoglobin 13.9. She has no other complaints at this time. Denies any nausea or vomiting. No leg pain. Denies any melanotic stools. Patient denies any symptoms at this time. He states he feels well and feels like he could play football today. The ROS documented in this emergency department record has been reviewed and confirmed by me. Those systems with pertinent positive or negative responses have been documented in the HPI. All other systems are other negative and/or noncontributory. PHYSICAL EXAM: General Impression: Alert and oriented x3, not in acute distress HEENT: Normocephalic atraumatic, extra-ocular movements intact, pupils equal and reactive to light bilaterally, mucous membranes moist, mild pallor to the conjunctiva Cardiovascular: Heart regular rate and rhythm, S1&S2 audible, no murmurs, rubs or gallops Chest: Lungs clear to auscultation bilaterally, no rhonchi, no wheeze, no rales Abdomen: Bowel sounds present, abdomen soft, non-tender, non-distended, no organomegaly Musculoskeletal: Pulses present and equal in all extremities, no peripheral edema Motor: no focal deficits noted Neurological: CN II-XII grossly intact, no focal motor or sensory deficits noted Skin: Intact with no visualized rashes Psych: Normal affect and mood exam: No blood at the meatus Rectal exam: No gross blood with digital rectal exam ED course: 78-year-old male presents with a hemoglobin of 7.0 on blood tests as performed outpatient. he does take eliquis. Patient had recent urologic procedure. Laboratory evaluation obtained. Leukocytosis 13.8, hemoglobin 6.6. Patient's elevation in white blood cell count is around his baseline. Coag panel unremarkable. Metabolic panel shows creatinine 2.2 with a BUN of 83. Renal markers are at his baseline. Urinalysis shows greater than 182 red blood cells. So, blood is negative. Patient feels well. No indication for imaging at this time. At this point is unclear what is causing patient's anemia. There is suspicion that he has anemia from chronic urinary bleed. He has no other symptoms to suggest bleeding from anywhere else. Patient ordered for transfusion of packed red blood cells. He will be admitted. EKG interpretation: Ventricular rate 84, atrial fibrillation, QRS 70, QTC 427. EKG compared to 08/04/2018. Overall, this EKG is unremarkable - Related Data Home Medications Medication Instructions Recorded Confirmed Finasteride [Proscar] 5 mg PO DAILY@89902/25/18 05/11/19 Levothyroxine Sodium [Synthroid] 200 mcg PO DAILY@59902/25/18 05/11/19 Tamsulosin [Flomax] 0.4 mg PO HS@209902/25/18 05/11/19 Isosorbide Mononitrate [Isosorbide 30 mg PO DAILY@89908/05/18 05/11/19 Mononitrate ER] Levothyroxine Sodium [Synthroid] 75 mcg PO DAILY@59902/10/19 05/11/19 Metoprolol Succinate [Toprol Xl] 100 mg PO DAILY@89902/10/19 05/11/19 Allopurinol [Zyloprim] 100 mg PO DAILY@89905/11/19 05/11/19 Aspirin EC [Ecotrin Low Dose] 81 mg PO HS@209905/11/19 05/11/19 Atorvastatin [Lipitor] 40 mg PO HS@209905/11/19 05/11/19 Ferrous Sulfate [Feosol] 325 mg PO BID@899,2100 05/11/19 05/11/19 Fesoterodine Fumarate [Toviaz] 4 mg PO DAILY@0900 05/11/19 05/11/19 Furosemide [Lasix] 40 mg PO DAILY@0600 05/11/19 05/11/19 HYDROcodone/APAP 5-325MG [[place] 1 tab PO Q6H PRN 05/11/19 05/11/19 5-325] INSULIN LISPRO (HumaLOG) [HumaLOG] See Protocol SQ ACHS 05/11/19 05/11/19 Insulin Detemir [Levemir Flextouch] 20 units SQ BID@0900,2100 05/11/19 05/11/19 Ipratropium-Albuterol Nebulize 3 ml INHALATION RT-TID 05/11/19 05/11/19 [Duoneb 0.5 mg-3 mg/3 ml Soln] Oxybutynin Chloride [Ditropan XL] 5 mg PO ONCE 05/11/19 05/11/19 Phenazopyridine [Pyridium] 200 mg PO BID PRN 05/11/19 05/11/19 predniSONE See Taper PO DIRECTED 05/11/19 05/11/19 Allergies Allergy/AdvReac Type Severity Reaction Status Date / Time iodine Allergy Rash/Hives Verified 05/11/19 21:16 Review of Systems ROS Statement: Those systems with pertinent positive or pertinent negative responses have been documented in the HPI. ROS Other: All systems not noted in ROS Statement are negative. Past Medical History Past Medical History: Atrial Fibrillation, Diabetes Mellitus, Hyperlipidemia, Hypertension, Myocardial Infarction (MD), Thyroid Disorder Additional Past Medical History / Comment(s): kidney cancer, atrial fibrillation Last Myocardial Infarction Date:: History of Any Multi-Drug Resistant Organisms: None Reported Past Surgical History: Heart Catheterization With Stent Additional Past Surgical History / Comment(s): left nephrectomy Past Anesthesia/Blood Transfusion Reactions: No Reported Reaction Date of Last Stent Placement:: 2009 Past Psychological History: No Psychological Hx Reported Smoking Status: Current every day smoker Past Alcohol Use History: None Reported Past Drug Use History: None Reported - Past Family History Family Additional Family Medical History / Comment(s): Patient reports history of heart disease General Exam Limitations: physical limitation Course Vital Signs 05/11/19 05/11/19 20:06 21:30 Temperature 97.3 F L Pulse Rate 90 87 Respiratory 18 18 Rate Blood Pressure 97/52 124/78 O2 Sat by Pulse 100 100 Oximetry Medical Decision Making - Lab Data Result diagrams: 05/11/19 20:45 05/11/19 20:45 Lab Results 05/11/19 05/11/19 05/11/19 Range/Units 20:15 20:45 20:45 WBC 13.8 H (3.8-10.6) k/uL RBC 2.01 L (4.30-5.90) m/uL Hgb 6.6 L* (13.0-17.5) gm/dL Hct 20.6 L (39.0-53.0) % MCV 102.7 H (80.0-100.0) fL MCH 32.7 (25.0-35.0) pg MCHC 31.9 (31.0-37.0) g/dL RDW 17.2 H (11.5-15.5) % Plt Count 254 (150-450) k/uL Neutrophils % 91 % Lymphocytes % 4 % Monocytes % 4 % Eosinophils % 1 % Basophils % 0 % Neutrophils # 12.5 H (1.3-7.7) k/uL Lymphocytes # 0.5 L (1.0-4.8) k/uL Monocytes # 0.5 (0-1.0) k/uL Eosinophils # 0.1 (0-0.7) k/uL Basophils # 0.0 (0-0.2) k/uL Hypochromasia Slight Anisocytosis Slight Macrocytosis Moderate PT (9.0-12.0) sec INR (<1.2) APTT (22.0-30.0) sec Sodium 135 L (137-145) mmol/L Potassium 5.1 (3.5-5.1) mmol/L Chloride 100 (98-107) mmol/L Carbon Dioxide 28 (22-30) mmol/L Anion Gap 7 mmol/L BUN 83 H (9-20) mg/dL Creatinine 2.21 H (0.66-1.25) mg/dL Est GFR (CKD-EPI)AfAm 31 (>60 ml/min/1.73 sqM) Est GFR (CKD-EPI)NonAf 27 (>60 ml/min/1.73 sqM) Glucose 223 H (74-99) mg/dL Calcium 8.1 L (8.4-10.2) mg/dL Urine Color Urine Appearance (Clear) Urine RBC (0-5) /hpf Ur Squamous Epith Cells (0-4) /hpf Stool Occult Blood Negative (Negative) Blood Type Blood Type Recheck Bld Type Recheck Status Antibody Screen Crossmatch Spec Expiration Date 05/11/19 05/11/19 05/11/19 Range/Units 20:45 20:45 21:15 WBC (3.8-10.6) k/uL RBC (4.30-5.90) m/uL Hgb (13.0-17.5) gm/dL Hct (39.0-53.0) % MCV (80.0-100.0) fL MCH (25.0-35.0) pg MCHC (31.0-37.0) g/dL RDW (11.5-15.5) % Plt Count (150-450) k/uL Neutrophils % % Lymphocytes % % Monocytes % % Eosinophils % % Basophils % % Neutrophils # (1.3-7.7) k/uL Lymphocytes # (1.0-4.8) k/uL Monocytes # (0-1.0) k/uL Eosinophils # (0-0.7) k/uL Basophils # (0-0.2) k/uL Hypochromasia Anisocytosis Macrocytosis PT 11.3 (9.0-12.0) sec INR 1.1 (<1.2) APTT 23.1 (22.0-30.0) sec Sodium (137-145) mmol/L Potassium (3.5-5.1) mmol/L Chloride (98-107) mmol/L Carbon Dioxide (22-30) mmol/L Anion Gap mmol/L BUN (9-20) mg/dL Creatinine (0.66-1.25) mg/dL Est GFR (CKD-EPI)AfAm (>60 ml/min/1.73 sqM) Est GFR (CKD-EPI)NonAf (>60 ml/min/1.73 sqM) Glucose (74-99) mg/dL Calcium (8.4-10.2) mg/dL Urine Color Dark Red Urine Appearance Bloody (Clear) Urine RBC >182 H (0-5) /hpf Ur Squamous Epith Cells 16 H (0-4) /hpf Stool Occult Blood (Negative) Blood Type A Positive Blood Type Recheck A Pos Bld Type Recheck Status No Antibody Screen NEGATIVE Crossmatch See Detail Spec Expiration Date 05/14/2019 - 2346 Disposition Clinical Impression: Anemia Disposition: ADMITTED IP TO THIS [facility] Condition: Fair Referrals: Osman Dunne MD [Primary Care Provider] - 1-2 days Decision Time: 22:45
[2019-05-11 21:11] LABS: Calcium 8.1 mg/dL (8.4-10.2); Potassium 5.1 mmol/L (3.5-5.1)
[2019-05-11 21:16] LABS: Anisocytosis Slight; Basophils % (A) 0 %; Eosinophils # (A) 0.1 k/uL (0-0.7); Eosinophils % (A) 1 %; HCT 20.6 % (39.0-53.0); Hypochromasia Slight; INR 1.1 (<1.2); Lymphocytes # (A) 0.5 k/uL (1.0-4.8); Lymphocytes % (A) 4 %; MCH 32.7 pg (25.0-35.0); MCHC 31.9 g/dL (31.0-37.0); MCV 102.7 fL (80.0-100.0); Macrocytosis Moderate; Mean Platelet Volume 7.6; Monocytes # (A) 0.5 k/uL (0-1.0); Monocytes % (A) 4 %; Neutrophils # (A) 12.5 k/uL (1.3-7.7); Neutrophils % (A) 91 %; Partial Thromboplastin Time 23.1 sec (22.0-30.0); Platelet Count 254 k/uL (150-450); Prothrombin Time 11.3 sec (9.0-12.0); RBC 2.01 m/uL (4.30-5.90); RDW 17.2 % (11.5-15.5); WBC 13.8 k/uL (3.8-10.6)
[2019-05-11 21:18] LABS: HGB 6.6 gm/dL (13.0-17.5)
[2019-05-11 21:30] LABS: RBC,Urine >182 /hpf (0-5); Squamous Epithelial Cell,Urine 16 /hpf (0-4)
[2019-05-11 21:40] LABS: Appearance,Urine Bloody (Clear); Color,Urine Dark Red
[2019-05-11] MEDS ORDERED: NALOXONE 0.4 MG/ML 1 ML VIAL IV PRN (22:46)
[2019-05-12] MEDS: SODIUM CHLORIDE 0.9% 1,000 ML IV SCH ×3 (02:40→23:34)
[2019-05-12] MEDS ORDERED: PHENAZOPYRIDINE 200 MG TAB PO PRN (07:44)
[2019-05-12 08:23] LABS: Anisocytosis Slight; Basophils % (A) 0 %; Eosinophils # (A) 0.2 k/uL (0-0.7); Eosinophils % (A) 2 %; HCT 24.3 % (39.0-53.0); HGB 7.6 gm/dL (13.0-17.5); Hypochromasia Moderate; Lymphocytes # (A) 0.8 k/uL (1.0-4.8); Lymphocytes % (A) 6 %; MCHC 31.4 g/dL (31.0-37.0); MCV 102.1 fL (80.0-100.0); Macrocytosis Moderate; Mean Platelet Volume 6.9; Monocytes # (A) 0.7 k/uL (0-1.0); Monocytes % (A) 5 %; Neutrophils % (A) 86 %; Platelet Count 251 k/uL (150-450); RBC 2.38 m/uL (4.30-5.90); RDW 18.3 % (11.5-15.5); WBC 13.9 k/uL (3.8-10.6)
[2019-05-12] MEDS: LEVOTHYROXINE 100 MCG TAB PO SCH (08:50)
[2019-05-12] MEDS: INSULIN DETEMIR (LEVEMIR) 100 UNIT/ML SYR SQ SCH ×2 (08:50→21:26)
[2019-05-12] MEDS: ISOSORBIDE MONONITRATE ER 30 MG TAB.ER.24H PO SCH (08:50)
[2019-05-12] MEDS: FINASTERIDE 5 MG TAB PO SCH (08:50)
[2019-05-12] MEDS: OXYBUTYNIN XL 5 MG TAB.ER.24 PO SCH (08:51)
[2019-05-12] MEDS: LEVOTHYROXINE 75 MCG TAB PO SCH (08:51)
[2019-05-12] MEDS: FERROUS SULFATE 325 MG TAB PO SCH ×2 (08:51→20:16)
[2019-05-12] MEDS: METOPROLOL SUCCINATE (ER) 100 MG TAB.ER.24H PO SCH (08:51)
[2019-05-12] MEDS: ALLOPURINOL 100 MG TAB PO SCH (08:51)
[2019-05-12] MEDS: TROSPIUM CHLORIDE 20 MG TABLET PO SCH (08:51)
[2019-05-12 09:01] LABS: Glucose,Whole Blood 103 mg/dL (75-99)
[2019-05-12] MEDS: IPRATROPIUM-ALBUTEROL 3 ML NEB INHALATION SCH ×3 (11:09→20:26)
[2019-05-12 12:04] LABS: Glucose,Whole Blood 159 mg/dL (75-99)
[2019-05-12] MEDS: INSULIN ASPART (NovoLOG) 100 UNIT/ML VIAL SQ SCH ×3 (12:28→20:37)
[2019-05-12 16:44] LABS: Glucose,Whole Blood 204 mg/dL (75-99)
--- NOTE | 2019-05-12 18:43 | P.GSCN ---
History of Present Illness Consult date: 05/12/19 History of present illness: The patient is an 78-year-old gentleman who is in the hospital with anemia as well as hematuria. The history is taken from the patient. It appears to be relatively reliable although there are holes in the history due to the patient's memory. The patient does live at the [facility]. He states that he is placed there by his sister. He cannot tell me exactly why. The patient has been seen by Dr. Briggs couple years ago but in the last year has been seen by Dr. Zavala via the [facility]. The patient had prostate cancer with a PSA of 23 and received radiation therapy last winter. Most recently a proximally [address] Zavala did cystoscopy and biopsies of the bladder because of hematuria. Patient tells me that there is no cancer. In this period of time before and subsequently has had a lot of bladder pain and bladder spasms. He has had gross hematuria. Per The nursing staff is urine residuals only 50 mL. t he patient was admitted to the hospital because of the anemia. Much of this is due to the bladder is indeterminate as I do not have the records from [facility] or [facility]. The patient urinalysis showed red blood cells. His no evidence of infection. Per the chart the patient is on tamsulosin, finasteride, oxybutynin XL 5 mg daily no x-rays have been done. Review of Systems - Constitutional Reports chronic pain - Genitourinary Reports as per HPI Past Medical History Past Medical History: Atrial Fibrillation, Cancer, Heart Failure, Diabetes Mellitus, Hyperlipidemia, Hypertension, Myocardial Infarction (NH), Osteoarthritis (OA), Prostate Disorder, Renal Disease, Thyroid Disorder Additional Past Medical History / Comment(s): Ischemic heart disease, chronic CHF, pulmonary edema, 2011 L renal cancer with L nephrectomy-pt states he had mets to his liver and R lower lobe of his lung-treated by a "special" medication that worked with his immune system and was cured, 2017 had prostate cancer with 2 months of radiation therapy and eventual TURP-pt states cured, has been having bladder spasms for one month, IDDM type II, CKD stage III, muscle weakness, hypothyroid Last Myocardial Infarction Date:: History of Any Multi-Drug Resistant Organisms: None Reported Past Surgical History: Heart Catheterization With Stent Additional Past Surgical History / Comment(s): left nephrectomy, TURP, cystoscopies/cauterization and evacuation of clots, ORIF R hip, Past Anesthesia/Blood Transfusion Reactions: No Reported Reaction Date of Last Stent Placement:: 2017 Smoking Status: Current every day smoker - Past Family History Father Family Medical History: Cancer Additional Family Medical History / Comment(s): Father had prostate cancer. He lived to be 92 yrs old. Mother Family Medical History: Diabetes Mellitus Additional Family Medical History / Comment(s): Mother lived to be 84 yrs old. Family Additional Family Medical History / Comment(s): Patient reports history of heart disease Medications and Allergies Home Medications Medication Instructions Recorded Confirmed Type Finasteride [Proscar] 5 mg PO DAILY@89902/25/18 05/11/19 History Levothyroxine Sodium [Synthroid] 200 mcg PO DAILY@59902/25/18 05/11/19 History Tamsulosin [Flomax] 0.4 mg PO HS@209902/25/18 05/11/19 History Isosorbide Mononitrate [Isosorbide 30 mg PO DAILY@89908/05/18 05/11/19 History Mononitrate ER] Levothyroxine Sodium [Synthroid] 75 mcg PO DAILY@59902/10/19 05/11/19 History Metoprolol Succinate [Toprol Xl] 100 mg PO DAILY@89902/10/19 05/11/19 History Allopurinol [Zyloprim] 100 mg PO DAILY@89905/11/19 05/11/19 History Aspirin EC [Ecotrin Low Dose] 81 mg PO HS@209905/11/19 05/11/19 History Atorvastatin [Lipitor] 40 mg PO HS@209905/11/19 05/11/19 History Ferrous Sulfate [Feosol] 325 mg PO BID@899,209905/11/19 05/11/19 History Fesoterodine Fumarate [Toviaz] 4 mg PO DAILY@89905/11/19 05/11/19 History Furosemide [Lasix] 40 mg PO DAILY@59905/11/19 05/11/19 History HYDROcodone/APAP 5-325MG [[place] 1 tab PO Q6H PRN 05/11/19 05/11/19 History 5-325] INSULIN LISPRO (HumaLOG) [HumaLOG] See Protocol SQ ACHS 05/11/19 05/11/19 History Insulin Detemir [Levemir Flextouch] 20 units SQ BID@0900,2100 05/11/19 05/11/19 History Ipratropium-Albuterol Nebulize 3 ml INHALATION RT-TID 05/11/19 05/11/19 History [Duoneb 0.5 mg-3 mg/3 ml Soln] Oxybutynin Chloride [Ditropan XL] 5 mg PO ONCE 05/11/19 05/11/19 History Phenazopyridine [Pyridium] 200 mg PO BID PRN 05/11/19 05/11/19 History predniSONE See Taper PO DIRECTED 05/11/19 05/11/19 History Allergies Allergy/AdvReac Type Severity Reaction Status Date / Time iodine Allergy Rash/Hives Verified 05/11/19 21:16 Surgical - Exam Vital Signs Temp Pulse Resp BP Pulse Ox 97.3 F L 90 18 97/52 100 05/11/19 20:06 05/11/19 20:06 05/11/19 20:06 05/11/19 20:06 05/11/19 20:06 - General well developed, well nourished, moderate distress - Eyes PERRL - ENT no hearing loss - Neck no masses - Respiratory normal expansion, normal respiratory effort - Cardiovascular Rhythm: regular - Abdomen Abdomen: soft, non tender - Genitourinary Prostate is slightly enlarged and benign to palpation normal penis with no external lesions, testicles present - Integumentary no rash, no growths - Neurologic normal coordination, normal sensation - Musculoskeletal normal posture - Psychiatric oriented to time, oriented to person, oriented to place, speech is normal, memory intact Results - Labs 05/12/19 07:31 05/11/19 20:45 Abnormal Lab Results - Last 24 Hours (Table) 05/11/19 05/11/19 05/11/19 Range/Units 20:45 20:45 20:45 WBC 13.8 H (3.8-10.6) k/uL RBC 2.01 L (4.30-5.90) m/uL Hgb 6.6 L* (13.0-17.5) gm/dL Hct 20.6 L (39.0-53.0) % MCV 102.7 H (80.0-100.0) fL RDW 17.2 H (11.5-15.5) % Neutrophils # 12.5 H (1.3-7.7) k/uL Lymphocytes # 0.5 L (1.0-4.8) k/uL Sodium 135 L (137-145) mmol/L BUN 83 H (9-20) mg/dL Creatinine 2.21 H (0.66-1.25) mg/dL Glucose 223 H (74-99) mg/dL POC Glucose (mg/dL) (75-99) mg/dL Calcium 8.1 L (8.4-10.2) mg/dL Urine RBC (0-5) /hpf Ur Squamous Epith Cells (0-4) /hpf Crossmatch See Detail 05/11/19 05/12/19 05/12/19 Range/Units 21:15 07:31 08:49 WBC 13.9 H (3.8-10.6) k/uL RBC 2.38 L (4.30-5.90) m/uL Hgb 7.6 L (13.0-17.5) gm/dL Hct 24.3 L (39.0-53.0) % MCV 102.1 H (80.0-100.0) fL RDW 18.3 H (11.5-15.5) % Neutrophils # 12.0 H (1.3-7.7) k/uL Lymphocytes # 0.8 L (1.0-4.8) k/uL Sodium (137-145) mmol/L BUN (9-20) mg/dL Creatinine (0.66-1.25) mg/dL Glucose (74-99) mg/dL POC Glucose (mg/dL) 103 H (75-99) mg/dL Calcium (8.4-10.2) mg/dL Urine RBC >182 H (0-5) /hpf Ur Squamous Epith Cells 16 H (0-4) /hpf Crossmatch 05/12/19 05/12/19 Range/Units 11:44 16:42 WBC (3.8-10.6) k/uL RBC (4.30-5.90) m/uL Hgb (13.0-17.5) gm/dL Hct (39.0-53.0) % MCV (80.0-100.0) fL RDW (11.5-15.5) % Neutrophils # (1.3-7.7) k/uL Lymphocytes # (1.0-4.8) k/uL Sodium (137-145) mmol/L BUN (9-20) mg/dL Creatinine (0.66-1.25) mg/dL Glucose (74-99) mg/dL POC Glucose (mg/dL) 159 H 204 H (75-99) mg/dL Calcium (8.4-10.2) mg/dL Urine RBC (0-5) /hpf Ur Squamous Epith Cells (0-4) /hpf Crossmatch Diabetes panel 05/11/19 Range/Units 20:45 Sodium 135 L (137-145) mmol/L Potassium 5.1 (3.5-5.1) mmol/L Chloride 100 (98-107) mmol/L Carbon Dioxide 28 (22-30) mmol/L BUN 83 H (9-20) mg/dL Creatinine 2.21 H (0.66-1.25) mg/dL Glucose 223 H (74-99) mg/dL Calcium 8.1 L (8.4-10.2) mg/dL Calcium panel 05/11/19 Range/Units 20:45 Calcium 8.1 L (8.4-10.2) mg/dL Pituitary panel 05/11/19 Range/Units 20:45 Sodium 135 L (137-145) mmol/L Potassium 5.1 (3.5-5.1) mmol/L Chloride 100 (98-107) mmol/L Carbon Dioxide 28 (22-30) mmol/L BUN 83 H (9-20) mg/dL Creatinine 2.21 H (0.66-1.25) mg/dL Glucose 223 H (74-99) mg/dL Calcium 8.1 L (8.4-10.2) mg/dL Adrenal panel 05/11/19 Range/Units 20:45 Sodium 135 L (137-145) mmol/L Potassium 5.1 (3.5-5.1) mmol/L Chloride 100 (98-107) mmol/L Carbon Dioxide 28 (22-30) mmol/L BUN 83 H (9-20) mg/dL Creatinine 2.21 H (0.66-1.25) mg/dL Glucose 223 H (74-99) mg/dL Calcium 8.1 L (8.4-10.2) mg/dL Assessment and Plan Assessment: Impression: 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 Prostate cancer treated radiation therapy. Anemia possibly related to prostate bleeding and prostate cancer. Recommendations: I will give him ditropan for his bladder spasms. I'll notify Dr. Briggs of his admission. He would be best treated by returning to his urologist who is treated him most recently.
[2019-05-12] MEDS: ATORVASTATIN 40 MG TAB PO SCH (20:16)
[2019-05-12] MEDS: TAMSULOSIN 0.4 MG CAP.ER.24H PO SCH (20:16)
[2019-05-12] MEDS: BELLADONNA-OPIUM 16.2-60 MG 1 EACH SUPP RECTAL PRN (20:17)
[2019-05-12 20:20] LABS: Glucose,Whole Blood 190 mg/dL (75-99)
--- NOTE | 2019-05-12 23:24 | P.HPIM ---
History of Present Illness H&P Date: 05/12/19 Chief Complaint: Bladder spasm History of presenting complaint: This is a 78-year-old patient with an extensive medical history. Chronic stable medical conditions include atrial fibrillation, diabetes, hyperlipidemia, hypertension, Genaro arthritis, hypothyroid, etc. Patient about 4 weeks ago was seen by urologist Dr. Zavala out of [facility]. Patient had bl adder scraping done. Since then progressively patient is having hematuria and more and more bladder spasms. Patient's status writhing in pain sometimes she describes. Because hematuria has pain persistent, his [facility] sent him down here for further evaluation by urology. They were consulted earlier today. Patient only on Ditropan. Appetite is fair. No fever no chills. Patient's hemoglobin had dropped down to 7. A unit of blood have been given. No fever no chills Review of systems: GEN.: Tired EYES: None HEENT: Decreased hearing NECK: None RESPIRATORY: None CARDIOVASCULAR: None GASTROINTESTINAL: None GENITOURINARY: As above MUSCULOSKELETAL: Pain in joints LYMPHATICS: None HEMATOLOGICAL: None PSYCHIATRY: [Anxious NEUROLOGICAL: None Social history: Lives at [facility]. Became a 4 weeks ago. Does use a cane. Was a heavy drinker 10/07/1998. Has been smoking small cigars since 1952 Physical examination: VITAL SIGNS: 97.3, 90, 18, 97/52, 100% on 3 L GENERAL: BMI 31.7 laying in bed a bit anxious. EYES: Pupils equal. Conjunctiva normal. HEENT: External appearance of nose and ears normal, oral cavity grossly normal. NECK: JVD not raised; masses not palpable. HEART: First and second heart sounds are normal; no edema. LUNGS: Respiratory rate increased, decreased breath sounds. ABDOMEN: Soft, nontender, liver spleen not palpable, no masses palpable. PSYCH: Alert and oriented x3; mood and affect anxiousl. NEUROLOGICAL: Cranial nerves grossly intact; no facial asymmetry, power and sensation grossly intact. LYMPHATICS: No lymph nodes palpable in the axilla and neck MUSCULAR skeletal: Evidence of OA in the hands INVESTIGATIONS, reviewed in the clinical context: . White count 13.8 hemoglobin 6.6 potassium 5.1 BUN 83 creatinine 2.21 BUN and creatinine was 67/2.42 and January this year hemoglobin was 13.9 in Diana of this year Assessment: -Acute symptomatic blood loss anemia secondary to persistent hematuria. Patient did get a unit of blood earlier this morning. 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 Blood pressure now running low down to the 70s secondary to blood will be given. Home medications are renewed. Urology was consulted. Patient is oriented to for bladder spasm. We will also add by radium 200 mg 3 times a day. Await input from neurology. Options at this point are probably limited. Repeat hemoglobin in the morning. Care was discussed with the patient. Past Medical History Past Medical History: Atrial Fibrillation, Cancer, Heart Failure, Diabetes Mellitus, Hyperlipidemia, Hypertension, Myocardial Infarction (RI), Osteoarthritis (OA), Prostate Disorder, Renal Disease, Thyroid Disorder Additional Past Medical History / Comment(s): Ischemic heart disease, chronic CHF, pulmonary edema, 2011 L renal cancer with L nephrectomy-pt states he had mets to his liver and R lower lobe of his lung-treated by a "special" medication that worked with his immune system and was cured, 2018 had prostate cancer with 2 months of radiation therapy and eventual TURP-pt states cured, has been having bladder spasms for one month, IDDM type II, CKD stage III, muscle weakness, hypothyroid Last Myocardial Infarction Date:: History of Any Multi-Drug Resistant Organisms: None Reported Past Surgical History: Heart Catheterization With Stent Additional Past Surgical History / Comment(s): left nephrectomy, TURP, cystoscopies/cauterization and evacuation of clots, ORIF R hip, Past Anesthesia/Blood Transfusion Reactions: No Reported Reaction Date of Last Stent Placement:: 2017 Smoking Status: Current every day smoker - Past Family History Father Family Medical History: Cancer Additional Family Medical History / Comment(s): Father had prostate cancer. He lived to be 92 yrs old. Mother Family Medical History: Diabetes Mellitus Additional Family Medical History / Comment(s): Mother lived to be 84 yrs old. Family Additional Family Medical History / Comment(s): Patient reports history of heart disease Medications and Allergies Home Medications Medication Instructions Recorded Confirmed Type Finasteride [Proscar] 5 mg PO DAILY@89902/25/18 05/11/19 History Levothyroxine Sodium [Synthroid] 200 mcg PO DAILY@59902/25/18 05/11/19 History Tamsulosin [Flomax] 0.4 mg PO HS@209902/25/18 05/11/19 History Isosorbide Mononitrate [Isosorbide 30 mg PO DAILY@89908/05/18 05/11/19 History Mononitrate ER] Levothyroxine Sodium [Synthroid] 75 mcg PO DAILY@59902/10/19 05/11/19 History Metoprolol Succinate [Toprol Xl] 100 mg PO DAILY@89902/10/19 05/11/19 History Allopurinol [Zyloprim] 100 mg PO DAILY@89905/11/19 05/11/19 History Aspirin EC [Ecotrin Low Dose] 81 mg PO HS@209905/11/19 05/11/19 History Atorvastatin [Lipitor] 40 mg PO HS@209905/11/19 05/11/19 History Ferrous Sulfate [Feosol] 325 mg PO BID@09,209905/11/19 05/11/19 History Fesoterodine Fumarate [Toviaz] 4 mg PO DAILY@89905/11/19 05/11/19 History Furosemide [Lasix] 40 mg PO DAILY@59905/11/19 05/11/19 History HYDROcodone/APAP 5-325MG [[place] 1 tab PO Q6H PRN 05/11/19 05/11/19 History 5-325] INSULIN LISPRO (HumaLOG) [HumaLOG] See Protocol SQ ACHS 05/11/19 05/11/19 History Insulin Detemir [Levemir Flextouch] 20 units SQ BID@09,209905/11/19 05/11/19 History Ipratropium-Albuterol Nebulize 3 ml INHALATION RT-TID 05/11/19 05/11/19 History [Duoneb 0.5 mg-3 mg/3 ml Soln] Oxybutynin Chloride [Ditropan XL] 5 mg PO ONCE 05/11/19 05/11/19 History Phenazopyridine [Pyridium] 200 mg PO BID PRN 05/11/19 05/11/19 History predniSONE See Taper PO DIRECTED 05/11/19 05/11/19 History Allergies Allergy/AdvReac Type Severity Reaction Status Date / Time iodine Allergy Rash/Hives Verified 05/11/19 21:16 Physical Exam Vitals: Vital Signs Temp Pulse Pulse Resp BP BP Pulse Ox 05/12/19 22:33 88/54 05/12/19 21:22 98.2 F 99 93/52 92 L 05/12/19 12:39 88 05/12/19 12:25 88 05/12/19 11:45 97.7 F 90 18 119/74 92 L 05/12/19 06:24 97.8 F 86 17 102/54 97 05/12/19 02:37 79 18 103/65 97 05/12/19 00:19 92 18 93/56 100 05/11/19 23:49 97.6 F 85 18 106/59 100 05/11/19 23:19 97.4 F L 74 18 95/66 100 Intake and Output 05/12/19 05/12/19 05/13/19 14:59 22:59 06:59 Output Total 54 Balance -54 Output: Post Void Residual 54 Other: Voiding Method Diaper Incontinent # Voids 1 2 # Bowel Movements 1 Results CBC & Chem 7: 05/12/19 07:31 05/11/19 20:45 Labs: Abnormal Lab Results - Last 24 Hours (Table) 05/11/19 05/12/19 05/12/19 Range/Units 20:45 07:31 08:49 WBC 13.9 H (3.8-10.6) k/uL RBC 2.38 L (4.30-5.90) m/uL Hgb 7.6 L (13.0-17.5) gm/dL Hct 24.3 L (39.0-53.0) % MCV 102.1 H (80.0-100.0) fL RDW 18.3 H (11.5-15.5) % Neutrophils # 12.0 H (1.3-7.7) k/uL Lymphocytes # 0.8 L (1.0-4.8) k/uL POC Glucose (mg/dL) 103 H (75-99) mg/dL Crossmatch See Detail 05/12/19 05/12/19 05/12/19 Range/Units 11:44 16:42 20:18 WBC (3.8-10.6) k/uL RBC (4.30-5.90) m/uL Hgb (13.0-17.5) gm/dL Hct (39.0-53.0) % MCV (80.0-100.0) fL RDW (11.5-15.5) % Neutrophils # (1.3-7.7) k/uL Lymphocytes # (1.0-4.8) k/uL POC Glucose (mg/dL) 159 H 204 H 190 H (75-99) mg/dL Crossmatch Thrombosis Risk Factor Assmnt - Choose All That Apply Any of the Below Risk Factors Present?: Yes Each Factor Represents 1 point: Obesity (BMI >25) Other Risk Factors: Yes Each Risk Factor Represents 2 Points: Malignancy Each Risk Factor Represents 3 Points: Age 75 years or older Other congenital or acquired thrombophilia - If yes, enter type in comment: No Thrombosis Risk Factor Assessment Total Risk Factor Score: 6 Thrombosis Risk Factor Assessment Level: High Risk
[2019-05-12] MEDS: PHENAZOPYRIDINE 100 MG TAB PO SCH (23:40)
[2019-05-13] MEDS: BELLADONNA-OPIUM 16.2-60 MG 1 EACH SUPP RECTAL PRN ×3 (03:40→20:55)
[2019-05-13] MEDS: LEVOTHYROXINE 100 MCG TAB PO SCH (05:39)
[2019-05-13] MEDS: LEVOTHYROXINE 75 MCG TAB PO SCH (05:39)
[2019-05-13 06:52] LABS: Glucose,Whole Blood 180 mg/dL (75-99)
[2019-05-13 07:34] LABS: Anisocytosis Moderate; Basophils % (A) 0 %; Eosinophils # (A) 0.1 k/uL (0-0.7); Eosinophils % (A) 1 %; HCT 27.6 % (39.0-53.0); HGB 8.9 gm/dL (13.0-17.5); Hypochromasia Slight; Lymphocytes # (A) 0.7 k/uL (1.0-4.8); Lymphocytes % (A) 5 %; MCH 32.1 pg (25.0-35.0); MCHC 32.2 g/dL (31.0-37.0); MCV 99.7 fL (80.0-100.0); Macrocytosis Moderate; Mean Platelet Volume 6.9; Monocytes # (A) 0.7 k/uL (0-1.0); Monocytes % (A) 5 %; Neutrophils # (A) 13.2 k/uL (1.3-7.7); Neutrophils % (A) 88 %; Platelet Count 228 k/uL (150-450); Poikilocytosis Slight; RBC 2.77 m/uL (4.30-5.90); RDW 20.1 % (11.5-15.5); WBC 14.9 k/uL (3.8-10.6)
[2019-05-13] MEDS: INSULIN ASPART (NovoLOG) 100 UNIT/ML VIAL SQ SCH ×4 (08:28→21:21)
[2019-05-13] MEDS: INSULIN DETEMIR (LEVEMIR) 100 UNIT/ML SYR SQ SCH (08:29)
[2019-05-13] MEDS: METOPROLOL SUCCINATE (ER) 100 MG TAB.ER.24H PO SCH (08:30)
[2019-05-13] MEDS: FINASTERIDE 5 MG TAB PO SCH (08:30)
[2019-05-13] MEDS: FERROUS SULFATE 325 MG TAB PO SCH ×2 (08:30→22:34)
[2019-05-13] MEDS: ISOSORBIDE MONONITRATE ER 30 MG TAB.ER.24H PO SCH (08:30)
[2019-05-13] MEDS: ALLOPURINOL 100 MG TAB PO SCH (08:30)
[2019-05-13] MEDS: OXYBUTYNIN XL 5 MG TAB.ER.24 PO SCH (08:30)
[2019-05-13] MEDS: TROSPIUM CHLORIDE 20 MG TABLET PO SCH (08:30)
[2019-05-13] MEDS: PHENAZOPYRIDINE 100 MG TAB PO SCH ×3 (08:31→22:34)
[2019-05-13] MEDS ORDERED: OXYBUTYNIN XL 5 MG TAB.ER.24 PO STA (10:00)
[2019-05-13] MEDS: IPRATROPIUM-ALBUTEROL 3 ML NEB INHALATION SCH ×3 (10:15→20:12)
[2019-05-13 11:54] LABS: Glucose,Whole Blood 167 mg/dL (75-99)
--- NOTE | 2019-05-13 16:11 | P.PN ---
Progress Note - Text Progress Note Date: 05/13/19 The patient is afebrile. He continues to have intermittent lower abdominal cramps consistent with bladder spasms but says that this is somewhat less since he has been treated with oxybutynin and B&O suppositories. He continues to have some blood in the urine however the amount of gross hematuria has apparently decreased somewhat. The patient's bowels have been moving normally. He has received 2 units of packed red blood cells and his hemoglobin this morning is 8.9. The patient's gross hematuria is most likely partly related to previous radiation therapy to his prostate and recent bladder biopsies. I discussed reinserting a Overton catheter but the patient says that he could not tolerate this previously and for that reason I believe that further observation would be reasonable. If the patient's urine continues to clear he could be released tomorrow.
[2019-05-13 16:56] LABS: Glucose,Whole Blood 60 mg/dL (75-99)
[2019-05-13 16:56] LABS: Glucose,Whole Blood 61 mg/dL (75-99)
[2019-05-13 17:08] LABS: Glucose,Whole Blood 59 mg/dL (75-99)
[2019-05-13 17:41] LABS: Glucose,Whole Blood 68 mg/dL (75-99)
[2019-05-13 17:43] LABS: Glucose,Whole Blood 62 mg/dL (75-99)
[2019-05-13] MEDS ORDERED: GLUCAGON 1 MG/ML VIAL SQ STA (17:52)
[2019-05-13] MEDS: DEXTROSE 10% IN WATER 500 ML in EMPTY BAG 1 BAG IV SCH ×2 (18:29→22:36)
[2019-05-13 18:34] LABS: Glucose,Whole Blood 94 mg/dL (75-99)
[2019-05-13 19:04] LABS: Glucose,Whole Blood 141 mg/dL (75-99)
[2019-05-13 19:48] LABS: Glucose,Whole Blood 165 mg/dL (75-99)
--- NOTE | 2019-05-13 22:20 | P.PN ---
Progress Note - Text Progress Note Date: 05/13/19 Chief Complaint: Bladder spasm History of presenting complaint: This is a 78-year-old patient with an extensive medical history. Chronic stable medical conditions include atrial fibrillation, diabetes, hyperlipidemia, hypertension, Genaro arthritis, hypothyroid, etc. Patient about 4 weeks ago was seen by urologist Dr. Zavala out of [facility]. Patient had bladder scraping done. Since then progressively patient is having hematuria and more and more bladder spasms. Patient's status writhing in pain sometimes she describes. Because hematuria has pain persistent, his [facility] sent him down here for further evaluation by urology. They were consulted earlier today. Patient only on Ditropan. Appetite is fair. No fever no chills. Patient's hemoglobin had dropped down to 7. A unit of blood have been given. No fever no chills patient admitted with postop hematuria and severe bladder spasms. Today-patient dropped his blood pressure yesterday and because of anemia from hematuria another unit of blood was given. Patient also put on scheduled Pyri dium. Patient's lungs some blood clots from his penis this morning. The cord and bedrest day went along. Less bladder spasms. Review of systems: Was done for constitutional, cardiovascular, GI, pulmonary. relevant finding as above Active Medications Hydrocodone Bitart/Acetaminophen ([place] 5-325) 1 each PO Q6H PRN PRN Reason: Pain Albuterol/Ipratropium (Duoneb 0.5 Mg-3 Mg/3 Ml Soln) 3 ml INHALATION RT-TID [facility] Last Admin: 05/13/19 20:12 Dose: Not Given Documented by: Allopurinol (Zyloprim) 100 mg PO DAILY@0900 [facility] Last Admin: 05/13/19 08:30 Dose: 100 mg Documented by: Atorvastatin Calcium (Lipitor) 40 mg PO HS@2100 [facility] Last Admin: 05/12/19 20:16 Dose: 40 mg Documented by: Belladonna Alkaloids/Opium (B&O Suppository) 1 each RECTAL QID PRN PRN Reason: bladder spasm Last Admin: 05/13/19 20:55 Dose: 1 each Documented by: Ferrous Sulfate (Feosol) 325 mg PO BID@0900,2100 [facility] Last Admin: 05/13/19 08:30 Dose: 325 mg Documented by: Finasteride (Proscar) 5 mg PO DAILY@0900 [facility] Last Admin: 05/13/19 08:30 Dose: 5 mg Documented by: Sodium Chloride (Saline 0.9%) 1,000 mls @ 50 mls/hr IV .Q20H [facility] Last Admin: 05/12/19 23:34 Dose: 50 mls/hr Documented by: Dextrose/Water 500 ml/ IV (Solution) 500 mls @ 100 mls/hr IV .Q5H [facility] Last Admin: 05/13/19 18:29 Dose: 100 mls/hr Documented by: Insulin Aspart (Novolog) 0 unit SQ ACHS [facility]; Protocol Last Admin: 05/13/19 21:21 Dose: Not Given Documented by: Isosorbide Mononitrate (Imdur) 30 mg PO DAILY@09 [facility] Last Admin: 05/13/19 08:30 Dose: 30 mg Documented by: Levothyroxine Sodium (Synthroid) 75 mcg PO DAILY@0600 [facility] Last Admin: 05/13/19 05:39 Dose: 75 mcg Documented by: Levothyroxine Sodium (Synthroid) 200 mcg PO DAILY@06 [facility] Last Admin: 05/13/19 05:39 Dose: 200 mcg Documented by: Metoprolol Succinate (Toprol Xl) 100 mg PO DAILY@09 [facility] Last Admin: 05/13/19 08:30 Dose: 100 mg Documented by: Naloxone HCl (Narcan) 0.2 mg IV Q2M PRN PRN Reason: Opioid Reversal Oxybutynin Chloride (Ditropan Xl) 10 mg PO DAILY [facility] Phenazopyridine HCl (Pyridium) 100 mg PO TID [facility] Last Admin: 05/13/19 17:58 Dose: 100 mg Documented by: Tamsulosin HCl (Flomax) 0.4 mg PO HS@2100 [facility] Last Admin: 05/12/19 20:16 Dose: 0.4 mg Documented by: Trospium (Sanctura) 20 mg PO DAILY@0900 [facility] Last Admin: 05/13/19 08:30 Dose: 20 mg Documented by: Physical examination: VITAL SIGNS:97.7, 103, 15, 96/58, 93% room air GENERAL:laying in bed, but tired EYES: Pupils equal. Conjunctiva pale HEENT: External appearance of nose and ears normal, oral cavity grossly normal. NECK: JVD not raised; masses not palpable. HEART: First and second heart sounds are normal; no edema. LUNGS: Respiratory rate increased, decreased breath sounds. ABDOMEN: Soft, nontender, liver spleen not palpable, no masses palpable. bloodstained diaper PSYCH: Alert and oriented x3; mood and affect anxiousl. INVESTIGATIONS, reviewed in the clinical context: Accu-Cheks 68, 62, 94, 141 Hemoglobin 8.9 Previous labs . White count 13.8 hemoglobin 6.6 potassium 5.1 BUN 83 creatinine 2.21 BUN and creatinine was 67/2.42 and January of this year hemoglobin was 13.9 in January this year Assessment: -Acute symptomatic blood loss anemia secondary to persistent hematuria. patient will receive total of 2 units of blood. 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 Was offered a Overton catheter. Urology but patient declined the same. If patient hemoglobin drops again or becomeshypotensive then required blood transfusion. Repeat hemoglobin in the morning.care was discussed with the patient.
[2019-05-13] MEDS: ATORVASTATIN 40 MG TAB PO SCH (22:34)
[2019-05-13] MEDS: TAMSULOSIN 0.4 MG CAP.ER.24H PO SCH (22:34)
[2019-05-13] MEDS: SODIUM CHLORIDE 0.9% 1,000 ML IV SCH (22:35)
[2019-05-13] MEDS: HYDROcodone/APAP 5-325MG 1 EACH TAB PO PRN (23:09)
[2019-05-14] MEDS: BELLADONNA-OPIUM 16.2-60 MG 1 EACH SUPP RECTAL PRN (03:06)
[2019-05-14] MEDS: DEXTROSE 10% IN WATER 500 ML in EMPTY BAG 1 BAG IV SCH ×4 (04:58→22:36)
[2019-05-14 06:49] LABS: Glucose,Whole Blood 61 mg/dL (75-99)
[2019-05-14] MEDS: LEVOTHYROXINE 100 MCG TAB PO SCH (07:14)
[2019-05-14] MEDS: LEVOTHYROXINE 75 MCG TAB PO SCH (07:14)
[2019-05-14] MEDS: INSULIN ASPART (NovoLOG) 100 UNIT/ML VIAL SQ SCH ×4 (07:14→22:29)
[2019-05-14] MEDS: HYDROcodone/APAP 5-325MG 1 EACH TAB PO PRN (07:16)
[2019-05-14 07:22] LABS: Anisocytosis Slight; HCT 25.4 % (39.0-53.0); Hypochromasia Moderate; MCHC 31.6 g/dL (31.0-37.0); MCV 101.1 fL (80.0-100.0); Macrocytosis Moderate; Mean Platelet Volume 6.8; Platelet Count 196 k/uL (150-450); Poikilocytosis Slight; RBC 2.51 m/uL (4.30-5.90); RDW 19.9 % (11.5-15.5)
[2019-05-14] MEDS: METOPROLOL SUCCINATE (ER) 100 MG TAB.ER.24H PO SCH (08:57)
[2019-05-14] MEDS: ALLOPURINOL 100 MG TAB PO SCH (08:59)
[2019-05-14] MEDS: FERROUS SULFATE 325 MG TAB PO SCH ×2 (08:59→22:35)
[2019-05-14] MEDS: FINASTERIDE 5 MG TAB PO SCH (08:59)
[2019-05-14] MEDS: PHENAZOPYRIDINE 100 MG TAB PO SCH ×3 (09:00→22:40)
[2019-05-14] MEDS: ISOSORBIDE MONONITRATE ER 30 MG TAB.ER.24H PO SCH (09:00)
[2019-05-14] MEDS: OXYBUTYNIN 10 MG TAB.ER.24 PO SCH (09:00)
[2019-05-14] MEDS: TROSPIUM CHLORIDE 20 MG TABLET PO SCH (09:00)
[2019-05-14] MEDS: IPRATROPIUM-ALBUTEROL 3 ML NEB INHALATION SCH ×3 (09:19→20:11)
[2019-05-14 09:25] LABS: Glucose,Whole Blood 117 mg/dL (75-99)
[2019-05-14 11:59] LABS: Glucose,Whole Blood 126 mg/dL (75-99)
--- NOTE | 2019-05-14 12:52 | P.PN ---
Progress Note - Text Progress Note Date: 05/14/19 The patient continues to have gross hematuria with passage of blood clots. His hemoglobin has fallen to 8.0. I discussed cystoscopy under anesthesia with evacuation of any blood clots and cautery of bleeding vessels with the patient and this will be set up later today.
[2019-05-14] MEDS ORDERED: MORPHINE SULFATE 4 MG/ML SYRINGE IVP STA (13:40)
--- NOTE | 2019-05-14 14:08 | CDI ---
Documentation Clarification Form Date: 05/14/2019 1:47:31 PM From: Suma Palmer RN, CCDS Admit Date: 05/11/2019 10:46:00 PM Patient Name: Kamar Hill Visit Number: [id number] Discharge Date: ATTENTION: The Clinical Documentation Specialists (CDI) and [facility] Coding Staff appreciate your assistance in clarifying documentation. Please respond to the clarification below the line at the bottom and electronically sign. The CDI & [facility] Coding staff will review the response and follow-up if needed. Please note: Queries are made part of the Legal Health Record. If you have any questions, please contact the author of this message via ITS. Dr. Alexy Titus Chronic CHF is documented in the H & P history. History/Risk Factors: 78-year-old male presents to the ED for hematuria and persistent abdominal pain. Medical history Atrial fib; DM; Hyperlipidemia; HTN; CKD 3; Left renal cancer with left Nephrectomy. Clinical Indicators: VS/Pulse OX: 97/52 90 97.3 18 100% 3L Treatment: Imdur 30mg po daily; Toprol XL 100mg po daily; In your professional opinion, can you please clarify the acuity and type of CHF if known? Chronic Systolic Heart Failure Chronic Diastolic Heart Failure Chronic Systolic & Diastolic Heart Failure Unable to Determine Other, please specify (Last Revision: November 2017) Acute congestive heart exacerbation from both systolic and diastolic heart failure EF 40-45%. There is no chronic component. MTDD
[2019-05-14] MEDS ORDERED: LACTATED RINGERS 1,000 ML IV ONE (14:27)
[2019-05-14 14:48] LABS: Glucose,Whole Blood 107 mg/dL (75-99)
[2019-05-14] MEDS ORDERED: ONDANSETRON 4 MG/2 ML VIAL IVP ONE (15:05)
[2019-05-14] MEDS ORDERED: fentaNYL (PF) 50 MCG/ML 2 ML AMP IVP ONE (15:24)
[2019-05-14] MEDS ORDERED: SUCCINYLCHOLINE CHLORIDE 100 MG/5 ML SYR IV ONE (15:36)
[2019-05-14] MEDS ORDERED: PHENYLEPHRINE-0.9% NACL SYG 1 MG/10 ML SYRINGE ONE (15:36)
[2019-05-14] MEDS ORDERED: MIDAZOLAM 2 MG/2 ML VIAL ONE (15:36)
[2019-05-14] MEDS ORDERED: ETOMIDATE 2 MG/ML 10 ML VIAL ONE (15:36)
[2019-05-14] MEDS ORDERED: fentaNYL (PF) 50 MCG/ML 2 ML AMP ONE (15:36)
--- NOTE | 2019-05-14 16:33 | P.OP ---
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 He has a history of prostate cancer treated with radiation therapy approximately 10 months ago. He also underwent cystoscopy with bladder biopsies at [facility] 4-6 weeks ago and has had intermittent gross hematuria ever since then. Cystoscopy under anesthesia is planned as the patient continues to pass large blood clots and has refused an indwelling catheter. Description of Procedure: The patient was taken to the operating suite where adequate general anesthesia via orotracheal intubation was instituted. He was placed in the dorsal lithotomy position with his legs suspended from padded Antonio stirrups. Pneumatic compression stockings were applied to the lower legs. The genitalia was prepped with Betadine solution and draped in sterile fashion. The external genitalia and urethral meatus were unremarkable. The [place] cystoscope sheath with 30 lens was passed through the urethra under direct vision. The anterior urethra was free of inflammatory lesion tumor and stricture. The prosthetic urethra showed evidence of necrotic tissue within the urethra but there was no active bleeding. The bladder was examined. Multiple large clots w ere present within the bladder and these were irrigated from the bladder using the Ellik evacuator. The bladder was reinspected. Neither ureteral orifice could be identified due to relatively severe edema and erythema presumably related to previous irradiation. The bladder was trabeculated. There was no evidence of tumor, foreign body or active bleeding. The bladder was irrigated multiple times to ensure that no adherent clots were present within the bladder. The bladder was reinspected and there was no active bleeding and in view of that no one area could be cauterized. The bladder was drained and the cystoscope was withdrawn. Patient tolerated the procedure well and left the operative room awake and in satisfactory condition. There was no blood loss other than the removal of old blood clots.
[2019-05-14 17:57] LABS: Glucose,Whole Blood 111 mg/dL (75-99)
--- NOTE | 2019-05-14 20:23 | P.PN ---
Progress Note - Text Progress Note Date: 05/14/19 Chief Complaint: Bladder spasm History of presenting complaint: This is a 78-year-old patient with an extensive medical history. Chronic stable medical conditions include atrial fibrillation, diabetes, hyperlipidemia, hypertension, Genaro arthritis, hypothyroid, etc. Patient about 4 weeks ago was seen by urologist Dr. Zavala out of [facility]. Patient had bladder scraping done. Since then progressively patient is having hematuria and more and more bladder spasms. Patient's status writhing in pain sometimes she describes. Because hematuria has pain persistent, his ECF sent him down here for further evaluation by urology. They were consulted earlier today. Patient only on Ditropan. Appetite is fair. No fever no chills. Patient's hemoglobin had dropped down to 7. A unit of blood have been given. No fever no chills patient admitted with postop hematuria and severe bladder spasms. Today-patient has Continued to put out blood clots and bleeding. And getting intermittent severe bladder spasm and pain. Urology has decided to take the patient out of the OR later today.. Review of systems: Was done for constitutional, cardiovascular, GI, pulmonary. relevant finding as above Active Medications Hydrocodone Bitart/Acetaminophen ([place] 5-325) 1 each PO Q6H PRN PRN Reason: Pain Last Admin: 05/14/19 07:16 Dose: 1 each Documented by: Albuterol/Ipratropium (Duoneb 0.5 Mg-3 Mg/3 Ml Soln) 3 ml INHALATION RT-TID [facility] Last Admin: 05/14/19 20:11 Dose: Not Given Documented by: Allopurinol (Zyloprim) 100 mg PO DAILY@0900 [facility] Last Admin: 05/14/19 08:59 Dose: Not Given Documented by: Atorvastatin Calcium (Lipitor) 40 mg PO HS@2100 [facility] Last Admin: 05/13/19 22:34 Dose: 40 mg Documented by: Belladonna Alkaloids/Opium (B&O Suppository) 1 each RECTAL QID PRN PRN Reason: bladder spasm Last Admin: 05/14/19 03:06 Dose: 1 each Documented by: Ferrous Sulfate (Feosol) 325 mg PO BID@0900,2100 [facility] Last Admin: 05/14/19 08:59 Dose: Not Given Documented by: Finasteride (Proscar) 5 mg PO DAILY@09 [facility] Last Admin: 05/14/19 08:59 Dose: Not Given Documented by: Sodium Chloride (Saline 0.9%) 1,000 mls @ 50 mls/hr IV .Q20H [facility] Last Admin: 05/13/19 22:35 Dose: 50 mls/hr Documented by: Dextrose/Water 500 ml/ IV (Solution) 500 mls @ 100 mls/hr IV .Q5H [facility] Last Admin: 05/14/19 18:08 Dose: Not Given Documented by: Insulin Aspart (Novolog) 0 unit SQ ACHS [facility]; Protocol Last Admin: 05/14/19 18:09 Dose: Not Given Documented by: Isosorbide Mononitrate (Imdur) 30 mg PO DAILY@899 [facility] Last Admin: 05/14/19 09:00 Dose: Not Given Documented by: Levothyroxine Sodium (Synthroid) 75 mcg PO DAILY@06 [facility] Last Admin: 05/14/19 07:14 Dose: 75 mcg Documented by: Levothyroxine Sodium (Synthroid) 200 mcg PO DAILY@599 [facility] Last Admin: 05/14/19 07:14 Dose: 200 mcg Documented by: Metoprolol Succinate (Toprol Xl) 100 mg PO DAILY@899 [facility] Last Admin: 05/14/19 08:57 Dose: 100 mg Documented by: Naloxone HCl (Narcan) 0.2 mg IV Q2M PRN PRN Reason: Opioid Reversal Oxybutynin Chloride (Ditropan Xl) 10 mg PO DAILY [facility] Last Admin: 05/14/19 09:00 Dose: Not Given Documented by: Phenazopyridine HCl (Pyridium) 100 mg PO TID [facility] Last Admin: 05/14/19 18:10 Dose: Not Given Documented by: Tamsulosin HCl (Flomax) 0.4 mg PO HS@2100 [facility] Last Admin: 05/13/19 22:34 Dose: 0.4 mg Documented by: Trospium (Sanctura) 20 mg PO DAILY@899 [facility] Last Admin: 05/14/19 09:00 Dose: Not Given Documented by: Physical examination: VITAL SIGNS: 97.3, 85, 16, 104/65, 95% on 2 L GENERAL:laying in bed, awake EYES: Pupils equal. Conjunctiva pale HEENT: External appearance of nose and ears normal, oral cavity grossly normal. NECK: JVD not raised; masses not palpable. HEART: First and second heart sounds are normal; no edema. LUNGS: Respiratory rate increased, decreased breath sounds. ABDOMEN: Soft, nontender, liver spleen not palpable, no masses palpable. bloodstained diaper PSYCH: Alert and oriented x3; mood and affect anxiousl. INVESTIGATIONS, reviewed in the clinical context: Hemoglobin 8 Previous labs . White count 13.8 hemoglobin 6.6 potassium 5.1 BUN 83 creatinine 2.21 BUN and creatinine was 67/2.42 and January of this year hemoglobin was 13.9 in January this Assessment: -Acute symptomatic blood loss anemia secondary to persistent hematuria. 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 Cystoscopy was done. Several blood clots were removed. The prostatic urethra was necrotic. We'll repeat CBC in the morning
[2019-05-14 20:47] LABS: Glucose,Whole Blood 105 mg/dL (75-99)
[2019-05-14] MEDS: SODIUM CHLORIDE 0.9% 1,000 ML IV SCH (22:35)
[2019-05-14] MEDS: TAMSULOSIN 0.4 MG CAP.ER.24H PO SCH (22:35)
[2019-05-14] MEDS: ATORVASTATIN 40 MG TAB PO SCH (22:35)
[2019-05-15 02:31] LABS: Glucose,Whole Blood 81 mg/dL (75-99)
[2019-05-15] MEDS: DEXTROSE 10% IN WATER 500 ML in EMPTY BAG 1 BAG IV SCH ×5 (03:42→21:04)
[2019-05-15] MEDS: SODIUM CHLORIDE 0.9% 1,000 ML IV SCH ×2 (03:42→20:46)
[2019-05-15] MEDS: MORPHINE SULFATE 2 MG/ML SYRINGE IVP PRN (04:51)
[2019-05-15] MEDS: LEVOTHYROXINE 100 MCG TAB PO SCH (04:52)
[2019-05-15] MEDS: LEVOTHYROXINE 75 MCG TAB PO SCH (04:52)
[2019-05-15 05:26] LABS: Glucose,Whole Blood 100 mg/dL (75-99)
[2019-05-15 06:59] LABS: Anisocytosis Slight; HCT 26.3 % (39.0-53.0); HGB 8.3 gm/dL (13.0-17.5); Hypochromasia Marked; MCH 32.4 pg (25.0-35.0); MCHC 31.5 g/dL (31.0-37.0); MCV 102.6 fL (80.0-100.0); Macrocytosis Moderate; Mean Platelet Volume 6.3; Platelet Count 219 k/uL (150-450); RBC 2.56 m/uL (4.30-5.90); RDW 19.1 % (11.5-15.5); WBC 10.6 k/uL (3.8-10.6)
[2019-05-15 07:06] LABS: Glucose,Whole Blood 129 mg/dL (75-99)
[2019-05-15] MEDS: INSULIN ASPART (NovoLOG) 100 UNIT/ML VIAL SQ SCH ×4 (07:19→20:44)
[2019-05-15] MEDS ORDERED: LACTATED RINGERS 250 ML IV ONE (08:15)
[2019-05-15] MEDS: TROSPIUM CHLORIDE 20 MG TABLET PO SCH (09:00)
[2019-05-15] MEDS: FERROUS SULFATE 325 MG TAB PO SCH ×2 (09:00→20:45)
[2019-05-15] MEDS: FINASTERIDE 5 MG TAB PO SCH (09:00)
[2019-05-15] MEDS: ALLOPURINOL 100 MG TAB PO SCH (09:00)
[2019-05-15] MEDS: ISOSORBIDE MONONITRATE ER 30 MG TAB.ER.24H PO SCH (09:00)
[2019-05-15] MEDS: METOPROLOL SUCCINATE (ER) 100 MG TAB.ER.24H PO SCH (09:00)
[2019-05-15] MEDS: OXYBUTYNIN 10 MG TAB.ER.24 PO SCH (09:00)
[2019-05-15] MEDS: PHENAZOPYRIDINE 100 MG TAB PO SCH ×3 (09:00→20:45)
--- NOTE | 2019-05-15 09:33 | CDI ---
Documentation Clarification Form Date: 05/15/2019 8:52:16 AM From: Suma Palmer RN CCDS Admit Date: 05/11/2019 10:46:00 PM Patient Name: Kamar Hill Visit Number: [id number] Discharge Date: ATTENTION: The Clinical Documentation Specialists (CDI) and [facility] Coding Staff appreciate your assistance in clarifying documentation. Please respond to the clarification below the line at the bottom and electronically sign. The CDI & [facility] Coding staff will review the response and follow-up if needed. Please note: Queries are made part of the Legal Health Record. If you have any questions, please contact the author of this message via ITS. Dr. 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 Urology Consult 05/12/2019 . History/Risk Factors: 78-year-old male presents to the ED from [facility] for abnormal lab. Medical Hx of Atrial Fibrillation; DM; Dyslipidemia; HTN; Clinical Indicators: Urology consult Treatment: 2 units PRBC; lab monitoring, Cystoscopy with blood clot evacuation In your opinion what is the most clinically appropriate diagnosis for this patient? 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
--- NOTE | 2019-05-15 09:33 | XR ---
EXAMINATION TYPE: XR chest 1V DATE OF EXAM: 05/15/2019 COMPARISON: 08/05/2018 HISTORY: Shortness of breath TECHNIQUE: Single frontal view of the chest is obtained. FINDINGS: There is a large right pleural effusion and small left effusion with bilateral consolidati on, cardiomegaly and diffuse interstitial pattern. No pneumothorax. Diffuse osteopenia and arthropath y of the shoulders. Atherosclerotic change aorta. IMPRESSION: 1. Diffuse pleural-parenchymal changes correlate for CHF versus pneumonia.
[2019-05-15] MEDS: IPRATROPIUM-ALBUTEROL 3 ML NEB INHALATION SCH ×3 (09:39→21:34)
[2019-05-15] MEDS: PIPERACILLIN-TAZOBACTAM 3.375 GM in SODIUM CHLORIDE 0.9% 100 ML IVPB SCH ×2 (11:12→20:45)
--- NOTE | 2019-05-15 11:41 | P.PN ---
Progress Note - Text Progress Note Date: 05/15/19 The patient is afebrile. He has had increased congestion this morning and was given furosemide as he has been presumed to have fluid overload. His systolic blood pressure this morning is in the 80 to 90s. The patient is alert. He actually denies any shortness of breath. He says that his lower abdominal pain and bladder spasms are much improved from yesterday. His urine is still blood tinged but much clearer than yesterday. Hemoglobin this morning is 8.3 which is slightly higher than yesterday. From my standpoint as long as the patient's urine continues to clear no further urologic evaluation will be necessary.
[2019-05-15 11:53] LABS: Glucose,Whole Blood 130 mg/dL (75-99)
[2019-05-15] MEDS ORDERED: FUROSEMIDE 10 MG/ML 10 ML VIAL IV ONE (12:00)
[2019-05-15 12:32] LABS: Anisocytosis Slight; HCT 25.2 % (39.0-53.0); HGB 7.8 gm/dL (13.0-17.5); Hypochromasia Marked; MCH 31.9 pg (25.0-35.0); Macrocytosis Moderate; Mean Platelet Volume 6.2; Platelet Count 204 k/uL (150-450); RBC 2.45 m/uL (4.30-5.90); RDW 18.8 % (11.5-15.5); WBC 10.2 k/uL (3.8-10.6)
[2019-05-15 13:20] LABS: Potassium 5.2 mmol/L (3.5-5.1)
[2019-05-15 17:08] LABS: Glucose,Whole Blood 167 mg/dL (75-99)
[2019-05-15 20:15] LABS: Glucose,Whole Blood 244 mg/dL (75-99)
[2019-05-15] MEDS: ATORVASTATIN 40 MG TAB PO SCH (20:45)
[2019-05-15] MEDS: TAMSULOSIN 0.4 MG CAP.ER.24H PO SCH (20:45)
--- NOTE | 2019-05-15 22:48 | P.PN ---
Progress Note - Text Progress Note Date: 05/15/19 Chief Complaint: Bladder spasm Interval history: This is a 78-year-old patient with an extensive medical history. Chronic stable medical conditions include atrial fibrillation, diabetes, hyperlipidemia, hypertension, Genaro arthritis, hypothyroid, etc. Patient about 4 weeks ago was seen by urologist Dr. Zavala out of [facility]. Patient had bladder scraping done. Since then progressively patient is having hematuria and more and more bladder spasms. Patient's status writhing in pain sometimes she describes. Because hematuria has pain persistent, his ECF sent him down here for further evaluation by urology. They were consulted earlier today. Patient only on Ditropan. Appetite is fair. No fever no chills. Patient's hemoglobin had dropped down to 7. A unit of blood have been given. No fever no chills patient admitted with postop hematuria and severe bladder spasms. Patient was taken to the OR on May 14. Several blood clots evacuated. 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 Today-laying in bed short of breath slight cough. Review of systems: Was done for constitutional, cardiovascular, GI, pulmonary. relevant finding as above Active Medications Hydrocodone Bitart/Acetaminophen ([place] 5-325) 1 each PO Q6H PRN PRN Reason: Pain Last Admin: 05/14/19 07:16 Dose: 1 each Documented by: Albuterol/Ipratropium (Duoneb 0.5 Mg-3 Mg/3 Ml Soln) 3 ml INHALATION RT-TID [facility] Last Admin: 05/15/19 21:34 Dose: Not Given Documented by: Allopurinol (Zyloprim) 100 mg PO DAILY@09 [facility] Last Admin: 05/15/19 09:00 Dose: 100 mg Documented by: Atorvastatin Calcium (Lipitor) 40 mg PO HS@2100 [facility] Last Admin: 05/15/19 20:45 Dose: 40 mg Documented by: Belladonna Alkaloids/Opium (B&O Suppository) 1 each RECTAL QID PRN PRN Reason: bladder spasm Last Admin: 05/14/19 03:06 Dose: 1 each Documented by: Ferrous Sulfate (Feosol) 325 mg PO BID@0900,2100 [facility] Last Admin: 05/15/19 20:45 Dose: 325 mg Documented by: Finasteride (Proscar) 5 mg PO DAILY@0900 [facility] Last Admin: 05/15/19 09:00 Dose: 5 mg Documented by: Sodium Chloride (Saline 0.9%) 1,000 mls @ 50 mls/hr IV .Q20H [facility] Last Admin: 05/15/19 20:46 Dose: 50 mls/hr Documented by: Dextrose/Water 500 ml/ IV (Solution) 500 mls @ 100 mls/hr IV .Q5H [facility] Last Admin: 05/15/19 21:04 Dose: Not Given Documented by: Piperacillin Sod/Tazobactam (Sod 3.375 gm/ Sodium Chloride) 100 mls @ 25 mls/hr IVPB Q8H [facility] Last Admin: 05/15/19 20:45 Dose: 25 mls/hr Documented by: Insulin Aspart (Novolog) 0 unit SQ ACHS [facility]; Protocol Last Admin: 05/15/19 20:44 Dose: 3 unit Documented by: Isosorbide Mononitrate (Imdur) 30 mg PO DAILY@0900 [facility] Last Admin: 05/15/19 09:00 Dose: 30 mg Documented by: Levothyroxine Sodium (Synthroid) 75 mcg PO DAILY@06 [facility] Last Admin: 05/15/19 04:52 Dose: 75 mcg Documented by: Levothyroxine Sodium (Synthroid) 200 mcg PO DAILY@0600 [facility] Last Admin: 05/15/19 04:52 Dose: 200 mcg Documented by: Metoprolol Succinate (Toprol Xl) 100 mg PO DAILY@0900 [facility] Last Admin: 05/15/19 09:00 Dose: Not Given Documented by: Morphine Sulfate (Morphine Sulfate (Inj)) 2 mg IVP Q3H PRN PRN Reason: Pain/Discomfort Last Admin: 05/15/19 04:51 Dose: 2 mg Documented by: Naloxone HCl (Narcan) 0.2 mg IV Q2M PRN PRN Reason: Opioid Reversal Oxybutynin Chloride (Ditropan Xl) 10 mg PO DAILY [facility] Last Admin: 05/15/19 09:00 Dose: 10 mg Documented by: Phenazopyridine HCl (Pyridium) 100 mg PO TID [facility] Last Admin: 05/15/19 20:45 Dose: 100 mg Documented by: Tamsulosin HCl (Flomax) 0.4 mg PO HS@2100 [facility] Last Admin: 05/15/19 20:45 Dose: 0.4 mg Documented by: Trospium (Sanctura) 20 mg PO DAILY@0900 [facility] Last Admin: 05/15/19 09:00 Dose: 20 mg Documented by: Physical examination: VITAL SIGNS: 98.8, 95, 15, 85 and 41, 93% 2 L GENERAL:laying in bed, awake EYES: Pupils equal. Conjunctiva pale HEENT: External appearance of nose and ears normal, oral cavity grossly normal. NECK: JVD not raised; masses not palpable. HEART: First and second heart sounds are normal; no edema. LUNGS: Respiratory rate increased, decreased breath sounds. ABDOMEN: Soft, nontender, liver spleen not palpable, no masses palpable. bloodstained diaper PSYCH: Alert and oriented x3; mood and affect anxiousl. INVESTIGATIONS, reviewed in the clinical context: Hemoglobin 7.8 Chest x-ray shows infiltrate possible effusion Previous labs . White count 13.8 hemoglobin 6.6 potassium 5.1 BUN 83 creatinine 2.21 BUN and creatinine was 67/2.42 and January of this year hemoglobin was 13.9 in January this year Assessment: -Acute symptomatic blood loss anemia secondary to persistent hematuria. 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 On dose of IV Lasix was given. Continue other treatment plan. Hematuria/blood clots have greatly improved
[2019-05-16] MEDS: DEXTROSE 10% IN WATER 500 ML in EMPTY BAG 1 BAG IV SCH ×6 (04:26→23:36)
[2019-05-16 04:32] LABS: Glucose,Whole Blood 177 mg/dL (75-99)
[2019-05-16 06:47] LABS: Glucose,Whole Blood 194 mg/dL (75-99)
[2019-05-16 06:52] LABS: Anisocytosis Slight; HCT 27.6 % (39.0-53.0); HGB 9.1 gm/dL (13.0-17.5); Hypochromasia Slight; MCH 31.5 pg (25.0-35.0); MCHC 32.9 g/dL (31.0-37.0); Macrocytosis Slight; Mean Platelet Volume 6.4; Platelet Count 190 k/uL (150-450); Poikilocytosis Slight; RBC 2.87 m/uL (4.30-5.90); RDW 19.7 % (11.5-15.5)
[2019-05-16 07:05] LABS: MCV 95.9 fL (80.0-100.0)
[2019-05-16] MEDS: PIPERACILLIN-TAZOBACTAM 3.375 GM in SODIUM CHLORIDE 0.9% 100 ML IVPB SCH ×3 (07:06→17:53)
[2019-05-16] MEDS: LEVOTHYROXINE 75 MCG TAB PO SCH (07:07)
[2019-05-16] MEDS: LEVOTHYROXINE 100 MCG TAB PO SCH (07:07)
[2019-05-16] MEDS: MORPHINE SULFATE 2 MG/ML SYRINGE IVP PRN ×2 (07:08→11:46)
[2019-05-16 07:10] LABS: Calcium 7.9 mg/dL (8.4-10.2); Potassium 4.8 mmol/L (3.5-5.1)
[2019-05-16] MEDS: ALLOPURINOL 100 MG TAB PO SCH (08:01)
[2019-05-16] MEDS: OXYBUTYNIN 10 MG TAB.ER.24 PO SCH (08:01)
[2019-05-16] MEDS: ISOSORBIDE MONONITRATE ER 30 MG TAB.ER.24H PO SCH (08:01)
[2019-05-16] MEDS: METOPROLOL SUCCINATE (ER) 100 MG TAB.ER.24H PO SCH (08:01)
[2019-05-16] MEDS: FINASTERIDE 5 MG TAB PO SCH (08:01)
[2019-05-16] MEDS: FERROUS SULFATE 325 MG TAB PO SCH ×2 (08:01→22:03)
[2019-05-16] MEDS: PHENAZOPYRIDINE 100 MG TAB PO SCH ×2 (08:02→17:49)
[2019-05-16] MEDS: TROSPIUM CHLORIDE 20 MG TABLET PO SCH (08:06)
[2019-05-16] MEDS: INSULIN ASPART (NovoLOG) 100 UNIT/ML VIAL SQ SCH ×4 (08:09→21:58)
[2019-05-16] MEDS: HYDROcodone/APAP 5-325MG 1 EACH TAB PO PRN (08:13)
[2019-05-16] MEDS: IPRATROPIUM-ALBUTEROL 3 ML NEB INHALATION SCH ×3 (08:45→19:47)
--- NOTE | 2019-05-16 11:24 | P.PN ---
Subjective Progress Note Date: 05/16/19 S/P cysto clot Evac, still complaining of bladder spasms, hematuria improving, Objective - Vital Signs Vital signs: Vital Signs Temp 98.7 F 05/16/19 07:00 Pulse 83 05/16/19 07:00 Resp 14 05/16/19 07:00 BP 90/55 05/16/19 07:00 Pulse Ox 94 L 05/16/19 07:00 Intake & Output 05/15/19 05/16/19 05/16/19 18:59 06:59 18:59 Intake Total 1300 620 Balance 1300 620 Intake: Intake, IV Titration 900 Amount Dextrose 10% in Water 500 300 ml In Empty Bag 1 bag @ 100 mls/hr IV .Q5H [facility]END[facility] TO [facility] Rx #:[id number] Lactated Ringers 250 ml @ 250 999 mls/hr IV .Q16M ONE Rx#:[id number] Piperacillin-Tazobactam 3 100 .375 gm In Sodium Chloride 0.9% 100 ml @ 25 mls/hr IVPB Q8H [facility] Rx#: [id number] Sodium Chloride 0.9% 1, 250 000 ml @ 50 mls/hr IV . Q20H [facility] Rx#:[id number] Oral 400 Blood Product 0 620 Rc As-1 Unit 310 [id number] Rc As-3 Unit 0 310 [id number] Other: Voiding Method Diaper Diaper Diaper Incontinent Incontinent # Voids 4 2 2 - Constitutional General appearance: Present: mild distress - Gastrointestinal General gastrointestinal: Present: soft. Absent: tenderness - Psychiatric Psychiatric: Present: A&O x's 3 - Labs CBC & Chem 7: 05/16/19 06:27 05/16/19 06:27 Labs: Abnormal Lab Results - Last 24 Hours (Table) 05/15/19 05/15/19 05/15/19 Range/Units 11:34 11:34 11:34 RBC 2.45 L (4.30-5.90) m/uL Hgb 7.8 L (13.0-17.5) gm/dL Hct 25.2 L (39.0-53.0) % MCV 103.0 H (80.0-100.0) fL RDW 18.8 H (11.5-15.5) % Sodium 136 L (137-145) mmol/L Potassium 5.2 H (3.5-5.1) mmol/L Chloride 110 H (98-107) mmol/L Carbon Dioxide 21 L (22-30) mmol/L BUN 69 H (9-20) mg/dL Creatinine 2.00 H (0.66-1.25) mg/dL Glucose 108 H (74-99) mg/dL POC Glucose (mg/dL) (75-99) mg/dL Calcium 8.0 L (8.4-10.2) mg/dL Procalcitonin 2.62 H (0.02-0.09) ng/mL Crossmatch 05/15/19 05/15/19 05/15/19 Range/Units 11:51 13:06 17:05 RBC (4.30-5.90) m/uL Hgb (13.0-17.5) gm/dL Hct (39.0-53.0) % MCV (80.0-100.0) fL RDW (11.5-15.5) % Sodium (137-145) mmol/L Potassium (3.5-5.1) mmol/L Chloride (98-107) mmol/L Carbon Dioxide (22-30) mmol/L BUN (9-20) mg/dL Creatinine (0.66-1.25) mg/dL Glucose (74-99) mg/dL POC Glucose (mg/dL) 130 H 167 H (75-99) mg/dL Calcium (8.4-10.2) mg/dL Procalcitonin (0.02-0.09) ng/mL Crossmatch See Detail 05/15/19 05/16/19 05/16/19 Range/Units 20:06 04:29 06:27 RBC 2.87 L (4.30-5.90) m/uL Hgb 9.1 L (13.0-17.5) gm/dL Hct 27.6 L (39.0-53.0) % MCV (80.0-100.0) fL RDW 19.7 H (11.5-15.5) % Sodium (137-145) mmol/L Potassium (3.5-5.1) mmol/L Chloride (98-107) mmol/L Carbon Dioxide (22-30) mmol/L BUN (9-20) mg/dL Creatinine (0.66-1.25) mg/dL Glucose (74-99) mg/dL POC Glucose (mg/dL) 244 H 177 H (75-99) mg/dL Calcium (8.4-10.2) mg/dL Procalcitonin (0.02-0.09) ng/mL Crossmatch 05/16/19 05/16/19 Range/Units 06:27 06:43 RBC (4.30-5.90) m/uL Hgb (13.0-17.5) gm/dL Hct (39.0-53.0) % MCV (80.0-100.0) fL RDW (11.5-15.5) % Sodium (137-145) mmol/L Potassium (3.5-5.1) mmol/L Chloride (98-107) mmol/L Carbon Dioxide (22-30) mmol/L BUN 69 H (9-20) mg/dL Creatinine 2.26 H (0.66-1.25) mg/dL Glucose 165 H (74-99) mg/dL POC Glucose (mg/dL) 194 H (75-99) mg/dL Calcium 7.9 L (8.4-10.2) mg/dL Procalcitonin (0.02-0.09) ng/mL Crossmatch Assessment and Plan Assessment: S/P Cysto Clot Evac, complaining of bladder spasms Plan: -Continue B&O, ditropan for bladder spasms. Hgb stable -Obtain a PVR
[2019-05-16 11:38] LABS: Glucose,Whole Blood 184 mg/dL (75-99)
[2019-05-16] MEDS: BELLADONNA-OPIUM 16.2-60 MG 1 EACH SUPP RECTAL PRN ×2 (12:50→22:02)
[2019-05-16 16:35] LABS: Glucose,Whole Blood 160 mg/dL (75-99)
[2019-05-16 21:13] LABS: Glucose,Whole Blood 139 mg/dL (75-99)
--- NOTE | 2019-05-16 21:24 | P.PN ---
Progress Note - Text Progress Note Date: 05/16/19 Chief Complaint: Bladder spasm Interval history: This is a 78-year-old patient with an extensive medical history. Chronic stable medical conditions include atrial fibrillation, diabetes, hyperlipidemia, hypertension, Genaro arthritis, hypothyroid, etc. Patient about 4 weeks ago was seen by urologist Dr. Zavala out of [facility]. Patient had bladder scraping done. Since then progressively patient is having hematuria and more and more bladder spasms. Patient's status writhing in pain sometimes she describes. Because hematuria has pain persistent, his ECF sent him down here for further evaluation by urology. They were consulted earlier today. Patient only on Ditropan. Appetite is fair. No fever no chills. Patient's hemoglobin had dropped down to 7. A unit of blood have been given. No fever no chills patient admitted with postop hematuria and severe bladder spasms. Patient was taken to the OR on May 14. Several blood clots evacuated. 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 Patient having significant bladder spasm. Medications were adjusted by urology. Subsequently patient underwent pneumonia. Started and IV Zosyn. Hematuria is improving. Today-Laying in bed. Breathing better. Less cough. Did tolerate some diet. Bladder spasms were present but Review of systems: Was done for constitutional, cardiovascular, GI, pulmonary. relevant finding as above Active Medications Hydrocodone Bitart/Acetaminophen ([place] 5-325) 1 each PO Q6H PRN PRN Reason: Pain Last Admin: 05/16/19 08:13 Dose: 1 each Documented by: Albuterol/Ipratropium (Duoneb 0.5 Mg-3 Mg/3 Ml Soln) 3 ml INHALATION RT-TID [facility] Last Admin: 05/16/19 19:47 Dose: 3 ml Documented by: Allopurinol (Zyloprim) 100 mg PO DAILY@0900 [facility] Last Admin: 05/16/19 08:01 Dose: 100 mg Documented by: Atorvastatin Calcium (Lipitor) 40 mg PO HS@2100 [facility] Last Admin: 05/15/19 20:45 Dose: 40 mg Documented by: Belladonna Alkaloids/Opium (B&O Suppository) 1 each RECTAL QID PRN PRN Reason: bladder spasm Last Admin: 05/16/19 12:50 Dose: 1 each Documented by: Ferrous Sulfate (Feosol) 325 mg PO BID@0900,2100 [facility] [place] Last Admin: 05/16/19 08:01 Dose: 325 mg Documented by: Finasteride (Proscar) 5 mg PO DAILY@0900 [facility] Last Admin: 05/16/19 08:01 Dose: 5 mg Documented by: Dextrose/Water 500 ml/ IV (Solution) 500 mls @ 100 mls/hr IV .Q5H [facility] Last Admin: 05/16/19 17:52 Dose: Not Given Documented by: Piperacillin Sod/Tazobactam (Sod 3.375 gm/ Sodium Chloride) 100 mls @ 25 mls/hr IVPB Q8HR [facility] Last Admin: 05/16/19 15:58 Dose: 25 mls/hr Documented by: Insulin Aspart (Novolog) 0 unit SQ ACHS [facility]; Protocol Last Admin: 05/16/19 17:48 Dose: 1 unit Documented by: Isosorbide Mononitrate (Imdur) 30 mg PO DAILY@09 [facility] Last Admin: 05/16/19 08:01 Dose: 30 mg Documented by: Levothyroxine Sodium (Synthroid) 75 mcg PO DAILY@06 [facility] Last Admin: 05/16/19 07:07 Dose: 75 mcg Documented by: Levothyroxine Sodium (Synthroid) 200 mcg PO DAILY@06 [facility] Last Admin: 05/16/19 07:07 Dose: 200 mcg Documented by: Metoprolol Succinate (Toprol Xl) 100 mg PO DAILY@0900 [facility] Last Admin: 05/16/19 08:01 Dose: 100 mg Documented by: Naloxone HCl (Narcan) 0.2 mg IV Q2M PRN PRN Reason: Opioid Reversal Oxybutynin Chloride (Ditropan Xl) 10 mg PO DAILY [facility] Last Admin: 05/16/19 08:01 Dose: 10 mg Documented by: Tamsulosin HCl (Flomax) 0.4 mg PO HS@2100 [facility] Last Admin: 05/15/19 20:45 Dose: 0.4 mg Documented by: Trospium (Sanctura) 20 mg PO DAILY@0900 [facility] Last Admin: 05/16/19 08:06 Dose: 20 mg Documented by: Physical examination: VITAL SIGNS: 98.7, 83, 14, 90/55, 94% on 2 L GENERAL:laying in bed, awake, breathing better today EYES: Pupils equal. Conjunctiva pale HEENT: External appearance of nose and ears normal, oral cavity grossly normal. NECK: JVD not raised; masses not palpable. HEART: First and second heart sounds are normal; no edema. LUNGS: Respiratory rate increased, decreased breath sounds. ABDOMEN: Soft, nontender, liver spleen not palpable, no masses palpable. bloodstained diaper PSYCH: Alert and oriented x3; mood and affect anxiousl. INVESTIGATIONS, reviewed in the clinical context: Hemoglobin 9.1 bun 69 crit and 2.26 Previous labs . White count 13.8 hemoglobin 6.6 potassium 5.1 BUN 83 creatinine 2.21 BUN and creatinine was 67/2.42 and January of this year hemoglobin was 13.9 in January this year Assessment: -Acute symptomatic blood loss anemia secondary to persistent hematuria. 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 Looks clinically better. For local pain control will use ice pack, repeat back and see what is more comfortable for the patient. Told the nurse to keep the patient will propped up. Discussed with the patient. Repeat checks x-ray in the morning.
[2019-05-16] MEDS: ATORVASTATIN 40 MG TAB PO SCH (22:02)
[2019-05-16] MEDS: TAMSULOSIN 0.4 MG CAP.ER.24H PO SCH (22:03)
[2019-05-17] MEDS: PIPERACILLIN-TAZOBACTAM 3.375 GM in SODIUM CHLORIDE 0.9% 100 ML IVPB SCH ×4 (00:07→23:59)
[2019-05-17] MEDS: HYDROcodone/APAP 5-325MG 1 EACH TAB PO PRN (00:08)
[2019-05-17] MEDS: BELLADONNA-OPIUM 16.2-60 MG 1 EACH SUPP RECTAL PRN ×2 (04:17→11:18)
[2019-05-17] MEDS: LEVOTHYROXINE 100 MCG TAB PO SCH (06:09)
[2019-05-17] MEDS: LEVOTHYROXINE 75 MCG TAB PO SCH (06:09)
[2019-05-17 06:57] LABS: Glucose,Whole Blood 97 mg/dL (75-99)
[2019-05-17 07:13] LABS: Calcium 8.4 mg/dL (8.4-10.2); Potassium 5.2 mmol/L (3.5-5.1)
[2019-05-17] MEDS ORDERED: IPRATROPIUM-ALBUTEROL 3 ML NEB INHALATION PRN (07:27)
[2019-05-17 07:40] LABS: Anisocytosis Slight; HCT 31.5 % (39.0-53.0); HGB 10.1 gm/dL (13.0-17.5); Hypochromasia Marked; MCH 32.1 pg (25.0-35.0); MCHC 31.9 g/dL (31.0-37.0); MCV 100.6 fL (80.0-100.0); Macrocytosis Moderate; Mean Platelet Volume 6.6; Platelet Count 186 k/uL (150-450); RBC 3.14 m/uL (4.30-5.90); RDW 19.6 % (11.5-15.5); WBC 7.6 k/uL (3.8-10.6)
--- NOTE | 2019-05-17 08:14 | XR ---
EXAMINATION TYPE: XR chest 2V DATE OF EXAM: 05/17/2019 HISTORY: Follow-up pneumonia. REFERENCE: Previous study dated 05/15/2019. FINDINGS: There is continuing bilateral airspace disease, worse in the right the left. There is vascu lar congestion and interstitial change. Heart size is largely obscured. IMPRESSION: 1. CONTINUING CHANGES OF CONGESTIVE HEART FAILURE. 2. I CANNOT EXCLUDE SOME SUPERIMPOSED PNEUMONIA ON THE RIGHT
[2019-05-17] MEDS: INSULIN ASPART (NovoLOG) 100 UNIT/ML VIAL SQ SCH ×4 (08:17→21:00)
[2019-05-17] MEDS: ISOSORBIDE MONONITRATE ER 30 MG TAB.ER.24H PO SCH (09:24)
[2019-05-17] MEDS: TROSPIUM CHLORIDE 20 MG TABLET PO SCH (09:24)
[2019-05-17] MEDS: FERROUS SULFATE 325 MG TAB PO SCH ×2 (09:24→20:31)
[2019-05-17] MEDS: FINASTERIDE 5 MG TAB PO SCH (09:24)
[2019-05-17] MEDS: ALLOPURINOL 100 MG TAB PO SCH (09:24)
[2019-05-17] MEDS: OXYBUTYNIN 10 MG TAB.ER.24 PO SCH (09:25)
[2019-05-17] MEDS: METOPROLOL SUCCINATE (ER) 100 MG TAB.ER.24H PO SCH (09:25)
[2019-05-17 11:57] LABS: Glucose,Whole Blood 135 mg/dL (75-99)
[2019-05-17] MEDS: DEXTROSE 10% IN WATER 500 ML in EMPTY BAG 1 BAG IV SCH ×4 (12:31→22:40)
[2019-05-17 16:48] LABS: Glucose,Whole Blood 211 mg/dL (75-99)
--- NOTE | 2019-05-17 17:19 | P.PN ---
Progress Note - Text Progress Note Date: 05/17/19 continues to have elevated PVR. PVR this am 608, mariano catheter placed. bladder spasms improving -Keep mariano in place -D/C Ditropan -Continue B&O for bladder spasms
[2019-05-17] MEDS ORDERED: FUROSEMIDE 10 MG/ML 2 ML VIAL IV STA (20:03)
[2019-05-17] MEDS: ATORVASTATIN 40 MG TAB PO SCH (20:31)
[2019-05-17 20:39] LABS: Glucose,Whole Blood 133 mg/dL (75-99)
[2019-05-17] MEDS: TAMSULOSIN 0.4 MG CAP.ER.24H PO SCH (21:29)
--- NOTE | 2019-05-17 21:38 | P.PN ---
Progress Note - Text Progress Note Date: 05/17/19 Chief Complaint: Bladder spasm Interval history: This is a 78-year-old patient with an extensive medical history. Chronic stable medical conditions include atrial fibrillation, diabetes, hyperlipidemia, hypertension, Genaro arthritis, hypothyroid, etc. Patient about 4 weeks ago was seen by urologist Dr. Zavala out of [facility]. Patient had bladder scraping done. Since then progressively patient is having hematuria and more and more bladder spasms. Patient's status writhing in pain sometimes she describes. Because hematuria has pain persistent, his ECF sent him down here for further evaluation by urology. They were consulted earlier today. Patient only on Ditropan. Appetite is fair. No fever no chills. Patient's hemoglobin had dropped down to 7. A unit of blood have been given. No fever no chills patient admitted with postop hematuria and severe bladder spasms. Patient was taken to the OR on May 14. Several blood clots evacuated. 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 Patient having significant bladder spasm. Medications were adjusted by urology. Subsequently patient underwent pneumonia. Started and IV Zosyn. Hematuria is improving. Today-No new issues. Retired. Did tolerate her diet. Slight cough. Blood pressure remains on the lower side. Review of systems: Was done for constitutional, cardiovascular, GI, pulmonary. relevant finding as above Active Medications Hydrocodone Bitart/Acetaminophen ([place] 5-325) 1 each PO Q6H PRN PRN Reason: Pain Last Admin: 05/17/19 00:08 Dose: 1 each Documented by: Albuterol/Ipratropium (Duoneb 0.5 Mg-3 Mg/3 Ml Soln) 3 ml INHALATION RT-QID PRN PRN Reason: Shortness Of Breath Or Wheezing Last Admin: 05/17/19 19:53 Dose: 3 ml Documented by: Allopurinol (Zyloprim) 100 mg PO DAILY@0900 REPLACED BY [facility] Last Admin: 05/17/19 09:24 Dose: 100 mg Documented by: Atorvastatin Calcium (Lipitor) 40 mg PO HS@2100 [facility] Last Admin: 05/17/19 20:31 Dose: 40 mg Documented by: Belladonna Alkaloids/Opium (B&O Suppository) 1 each RECTAL QID PRN PRN Reason: bladder spasm Last Admin: 05/17/19 11:18 Dose: 1 each Documented by: Ferrous Sulfate (Feosol) 325 mg PO BID@899,2099 REPLACED BY [facility] Last Admin: 05/17/19 20:31 Dose: 325 mg Documented by: Finasteride (Proscar) 5 mg PO DAILY@899 REPLACED BY [facility] Last Admin: 05/17/19 09:24 Dose: 5 mg Documented by: Dextrose/Water 500 ml/ IV (Solution) 500 mls @ 100 mls/hr IV .Q5H REPLACED BY [facility] Last Admin: 05/17/19 13:39 Dose: Not Given Documented by: Piperacillin Sod/Tazobactam (Sod 3.375 gm/ Sodium Chloride) 100 mls @ 25 mls/hr IVPB Q8HR REPLACED BY [facility] Last Admin: 05/17/19 17:05 Dose: 25 mls/hr Documented by: Insulin Aspart (Novolog) 0 unit SQ ACHS REPLACED BY [facility]; Protocol Last Admin: 05/17/19 17:05 Dose: 3 unit Documented by: Isosorbide Mononitrate (Imdur) 30 mg PO DAILY@899 REPLACED BY [facility] Last Admin: 05/17/19 09:24 Dose: 30 mg Documented by: Levothyroxine Sodium (Synthroid) 75 mcg PO DAILY@599 REPLACED BY [facility] Last Admin: 05/17/19 06:09 Dose: 75 mcg Documented by: Levothyroxine Sodium (Synthroid) 200 mcg PO DAILY@599 REPLACED BY [facility] Last Admin: 05/17/19 06:09 Dose: 200 mcg Documented by: Metoprolol Succinate (Toprol Xl) 100 mg PO DAILY@899 REPLACED BY [facility] Last Admin: 05/17/19 09:25 Dose: 100 mg Documented by: Naloxone HCl (Narcan) 0.2 mg IV Q2M PRN PRN Reason: Opioid Reversal Tamsulosin HCl (Flomax) 0.4 mg PO HS@2099 REPLACED BY [facility] Last Admin: 05/17/19 21:29 Dose: 0.4 mg Documented by: Trospium (Sanctura) 20 mg PO DAILY@899 REPLACED BY [facility] Last Admin: 05/17/19 09:24 Dose: 20 mg Documented by: Physical examination: VITAL SIGNS: 97.7, 90, 20, 96/57, 96% on 2 L GENERAL:laying in bed, awake, breathing better EYES: Pupils equal. Conjunctiva pale HEENT: External appearance of nose and ears normal, oral cavity grossly normal. NECK: JVD not raised; masses not palpable. HEART: First and second heart sounds are normal; no edema. LUNGS: Respiratory rate increased, decreased breath sounds. ABDOMEN: Soft, nontender, liver spleen not palpable, no masses palpable. bloodstained diaper PSYCH: Alert and oriented x3; mood and affect anxiousl. INVESTIGATIONS, reviewed in the clinical context: White count 7.6 hemoglobin 10.1 potassium 5.2 bun 67 creatinine 2.40 Chest x-ray film personally reviewed by me shows pulmonary edema Previous labs . White count 13.8 hemoglobin 6.6 potassium 5.1 BUN 83 creatinine 2.21 BUN and creatinine was 67/2.42 and January of this year hemoglobin was 13.9 in January this year Assessment: -Acute symptomatic blood loss anemia secondary to persistent hematuria. 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 Have to be careful given that the blood pressures running low. We'll get a 2-D echocardiogram also consult cardiology. Prognosis guarded. Strict I's and O's
[2019-05-18] MEDS: DEXTROSE 10% IN WATER 500 ML in EMPTY BAG 1 BAG IV SCH ×2 (04:24→14:25)
[2019-05-18 06:04] LABS: Glucose,Whole Blood 147 mg/dL (75-99)
[2019-05-18] MEDS: LEVOTHYROXINE 100 MCG TAB PO SCH (06:15)
[2019-05-18] MEDS: INSULIN ASPART (NovoLOG) 100 UNIT/ML VIAL SQ SCH ×4 (06:16→21:07)
[2019-05-18] MEDS: LEVOTHYROXINE 75 MCG TAB PO SCH (06:16)
[2019-05-18] MEDS: PIPERACILLIN-TAZOBACTAM 3.375 GM in SODIUM CHLORIDE 0.9% 100 ML IVPB SCH ×2 (07:59→16:24)
[2019-05-18] MEDS: ALLOPURINOL 100 MG TAB PO SCH (07:59)
[2019-05-18] MEDS: FINASTERIDE 5 MG TAB PO SCH (07:59)
[2019-05-18] MEDS: FUROSEMIDE 10 MG/ML 2 ML VIAL IV SCH ×2 (07:59→16:24)
[2019-05-18] MEDS: METOPROLOL TARTRATE 12.5 MG TAB PO SCH ×4 (07:59→20:56)
[2019-05-18] MEDS: FERROUS SULFATE 325 MG TAB PO SCH ×2 (07:59→20:56)
[2019-05-18] MEDS: ISOSORBIDE MONONITRATE ER 30 MG TAB.ER.24H PO SCH (08:21)
[2019-05-18] MEDS: TROSPIUM CHLORIDE 20 MG TABLET PO SCH (08:56)
--- NOTE | 2019-05-18 10:33 | ECHOF ---
Referral Reason:Assess LV function MEASUREMENTS -------- HEIGHT: 182.9 cm WEIGHT: 108.4 kg BP: 95/59 RVIDd: 3.8 cm (< 3.3) IVSd: 1.3 cm (0.6 - 1.1) LVIDd: 4.6 cm (3.9 - 5.3) LVPWd: 1.5 cm (0.6 - 1.1) IVSs: 1.8 cm LVIDs: 3.8 cm LVPWs: 2.1 cm LA Diam: 5.8 cm (2.7 - 3.8) LAESV Index (A-L): 51.61 ml/m Ao Diam: 3.4 cm (2.0 - 3.7) AV Cusp: 1.4 cm (1.5 - 2.6) LA Diam: 5.7 cm (2.7 - 3.8) MV EXCURSION: 27.722 mm (> 18.000) MV EF SLOPE: 145 mm/s (70 - 150) EPSS: 0.7 cm MV E Stoney: 1.11 m/s MV DecT: 103 ms MV A Stoney: 0.23 m/s MV E/A Ratio: 4.92 RAP: 15.00 mmHg RVSP: 66.71 mmHg TAPSE: 15.79 mm FINDINGS -------- Sinus rhythm. This was a technically adequate study. The left ventricular size is normal. There is mild concentric left ventricular hypertrophy. Overa ll left ventricular systolic function is mild-moderately impaired with, an EF between 40 - 45 %. Re strictive LV filling pattern, consistent with elevated LA pressure 15.09. Mid inferior LV wall mot ion is hypokinetic. Apical inferior LV wall motion is hypokinetic. Apical septum LV wall motion is hypokinetic. The right ventricle is moderate to severely enlarged. LA is severely dilated >40 ml/m2 The right atrial size is normal. There is moderate aortic valve sclerosis. There is no evidence of aortic regurgitation. Mild mitral annular calcification present. Moderate mitral regurgitation is present. Moderate tricuspid regurgitation present. There is moderate pulmonary hypertension. The right venkat tricular systolic pressure, as measured by Doppler, is 66.71mmHg. There is no pulmonic regurgitation present. There is no pericardial effusion. CONCLUSIONS -------- 1. Sinus rhythm. 2. This was a technically adequate study. 3. The left ventricular size is normal. 4. There is mild concentric left ventricular hypertrophy. 5. Overall left ventricular systolic function is mild-moderately impaired with, an EF between 40 - 45 %. 6. Restrictive LV filling pattern, consistent with elevated LA pressure 15.09. 7. Mid inferior LV wall motion is hypokinetic. 8. Apical inferior LV wall motion is hypokinetic. 9. Apical septum LV wall motion is hypokinetic. 10. The right ventricle is moderate to severely enlarged. 11. LA is severely dilated >40 ml/m2 12. The right atrial size is normal. 13. There is moderate aortic valve sclerosis. 14. Mild mitral annular calcification present. 15. Moderate mitral regurgitation is present. 16. Moderate tricuspid regurgitation present. 17. There is moderate pulmonary hypertension. 18. There is no pulmonic regurgitation present. 19. There is no pericardial effusion. EDITOR CONTINUITY AND SCRIPT: Aleena Lemons RDCS
[2019-05-18] MEDS: CALCIUM CARBONATE 500 MG CHEWABLE PO PRN ×3 (10:47→21:03)
[2019-05-18 11:52] LABS: Glucose,Whole Blood 128 mg/dL (75-99)
[2019-05-18] MEDS ORDERED: LACTULOSE 20 GM/30 ML CUP PO ONE (14:45)
[2019-05-18] MEDS ORDERED: MAG HYDROX/AL HYDROX/SIMETH 30 ML CUP PO PRN (16:15)
[2019-05-18 16:52] LABS: Glucose,Whole Blood 142 mg/dL (75-99)
[2019-05-18 20:38] LABS: Glucose,Whole Blood 148 mg/dL (75-99)
[2019-05-18] MEDS: ATORVASTATIN 40 MG TAB PO SCH (20:56)
[2019-05-18] MEDS: TAMSULOSIN 0.4 MG CAP.ER.24H PO SCH (20:56)
--- NOTE | 2019-05-18 21:32 | P.PN ---
Progress Note - Text Progress Note Date: 05/18/19 Chief Complaint: Bladder spasm Interval history: This is a 78-year-old patient with an extensive medical history. Chronic stable medical conditions include atrial fibrillation, diabetes, hyperlipidemia, hypertension, Genaro arthritis, hypothyroid, etc. Patient about 4 weeks ago was seen by urologist Dr. Zavala out of [facility]. Patient had bladder scraping done. Since then progressively patient is having hematuria and more and more bladder spasms. Patient's status writhing in pain sometimes she describes. Because hematuria has pain persistent, his ECF sent him down here for further evaluation by urology. They were consulted earlier today. Patient only on Ditropan. Appetite is fair. No fever no chills. Patient's hemoglobin had dropped down to 7. A unit of blood have been given. No fever no chills patient admitted with postop hematuria and severe bladder spasms. Patient was taken to the OR on May 14. Several blood clots evacuated. 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 Patient having significant bladder spasm. Medications were adjusted by urology. Subsequently patient underwent pneumonia. Started and IV Zosyn. Hematuria is improving. patient went into congestive heart failure. Was started on IV Lasix. Today-I move the patient to telemetry cardiac floor yesterday evening. Patient was put on IV Lasix 20 mg every 8. Breathing a bit better this morning. 2-D echo showed decreased LV function. Patient is a Overton catheter. Very slight hematuria. Bladder spasms greatly improved. Review of systems: Was done for constitutional, cardiovascular, GI, pulmonary. relevant finding as above Active Medications Hydrocodone Bitart/Acetaminophen ([place] 5-325) 1 each PO Q6H PRN PRN Reason: Pain Last Admin: 05/17/19 00:08 Dose: 1 each Documented by: Al Hydroxide/Mg Hydroxide (Maalox) 30 ml PO Q4HR PRN PRN Reason: GI Upset Last Admin: 05/18/19 16:24 Dose: 30 ml Documented by: Albuterol/Ipratropium (Duoneb 0.5 Mg-3 Mg/3 Ml Soln) 3 ml INHALATION RT-QID PRN PRN Reason: Shortness Of Breath Or Wheezing Last Admin: 05/17/19 19:53 Dose: 3 ml Documented by: Allopurinol (Zyloprim) 100 mg PO DAILY@00 [facility] Last Admin: 05/18/19 07:59 Dose: 100 mg Documented by: Atorvastatin Calcium (Lipitor) 40 mg PO HS@2099 [facility] Last Admin: 05/18/19 20:56 Dose: 40 mg Documented by: Belladonna Alkaloids/Opium (B&O Suppository) 1 each RECTAL QID PRN PRN Reason: bladder spasm Last Admin: 05/17/19 11:18 Dose: 1 each Documented by: Calcium Carbonate/Glycine (Tums) 500 mg PO QID PRN PRN Reason: Heartburn Last Admin: 05/18/19 21:03 Dose: 500 mg Documented by: Ferrous Sulfate (Feosol) 325 mg PO BID@899,2099 [facility] Last Admin: 05/18/19 20:56 Dose: 325 mg Documented by: Finasteride (Proscar) 5 mg PO DAILY@09 [facility] Last Admin: 05/18/19 07:59 Dose: 5 mg Documented by: Furosemide (Lasix) 40 mg IV Q12HR [facility] Piperacillin Sod/Tazobactam (Sod 3.375 gm/ Sodium Chloride) 100 mls @ 25 mls/hr IVPB Q8HR [facility] Last Admin: 05/18/19 16:24 Dose: 25 mls/hr Documented by: Insulin Aspart (Novolog) 0 unit SQ [facility]; Protocol Last Admin: 05/18/19 21:07 Dose: Not Given Documented by: Isosorbide Mononitrate (Imdur) 30 mg PO DAILY@0900 [facility] Last Admin: 05/18/19 08:21 Dose: Not Given Documented by: Levothyroxine Sodium (Synthroid) 75 mcg PO DAILY@06 [facility] Last Admin: 05/18/19 06:16 Dose: 75 mcg Documented by: Levothyroxine Sodium (Synthroid) 200 mcg PO DAILY@0600 [facility] Last Admin: 05/18/19 06:15 Dose: 200 mcg Documented by: Metoprolol Tartrate (Lopressor) 12.5 mg PO TID [facility] Last Admin: 05/18/19 20:56 Dose: 12.5 mg Documented by: Naloxone HCl (Narcan) 0.2 mg IV Q2M PRN PRN Reason: Opioid Reversal Tamsulosin HCl (Flomax) 0.4 mg PO HS@2099 [facility] Last Admin: 05/18/19 20:56 Dose: 0.4 mg Documented by: Trospium (Sanctura) 20 mg PO DAILY@0900 [facility] Last Admin: 05/18/19 08:56 Dose: 20 mg Documented by: Physical examination: VITAL SIGNS: 97.3, 84, 20, 96 x 54, 97% on 2 L GENERAL:laying in bed, awake, breathing better EYES: Pupils equal. Conjunctiva pale HEENT: External appearance of nose and ears normal, oral cavity grossly normal. NECK: JVD not raised; masses not palpable. HEART: First and second heart sounds are normal; no edema. LUNGS: Respiratory rate increased, decreased breath sounds. ABDOMEN: Soft, nontender, liver spleen not palpable, no masses palpable. Overton catheter, with light pink urine PSYCH: Alert and oriented x3; mood and affect anxiousl. INVESTIGATIONS, reviewed in the clinical context: no labs from today 2-D echo-EF 40-45%, restrictive LV filling pattern, some wall motion abnormality , moderate aortic valve sclerosis, moderate mitral regurgitation, moderate tricuspid regurgitation, moderate pulmonary hypertension. Chest x-ray film personally reviewed by me shows pulmonary edema Previous labs . White count 13.8 hemoglobin 6.6 potassium 5.1 BUN 83 creatinine 2.21 BUN and creatinine was 67/2.42 and January of this year hemoglobin was 13.9 in January this year Assessment: -Acute symptomatic blood loss anemia secondary to persistent hematuria. Patient has received 4 units of blood -Severe bladder spasms in a patient who recently had bladder intervention -Persistent recurrent hematuria in a patient with recent bladder intervention -Acute congestive heart failure exacerbationfrom systolic and diastolic,dysfunction EF 40-45%. 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 Switched the patient Lasix 40 mg every 12. Repeat a chest x-ray in the morning. Overall patient looking better.possible discharge in 1-2 days
[2019-05-18] MEDS: HYDROcodone/APAP 5-325MG 1 EACH TAB PO PRN (21:41)
[2019-05-18] MEDS: FUROSEMIDE 10 MG/ML 4 ML VIAL IV SCH (21:50)
[2019-05-19] MEDS: PIPERACILLIN-TAZOBACTAM 3.375 GM in SODIUM CHLORIDE 0.9% 100 ML IVPB SCH ×3 (00:25→16:24)
[2019-05-19 06:01] LABS: Calcium 8.9 mg/dL (8.4-10.2); Potassium 4.5 mmol/L (3.5-5.1)
[2019-05-19 06:19] LABS: Glucose,Whole Blood 149 mg/dL (75-99)
[2019-05-19] MEDS: LEVOTHYROXINE 100 MCG TAB PO SCH (06:40)
[2019-05-19] MEDS: INSULIN ASPART (NovoLOG) 100 UNIT/ML VIAL SQ SCH ×4 (06:41→20:58)
[2019-05-19] MEDS: LEVOTHYROXINE 75 MCG TAB PO SCH (06:41)
[2019-05-19] MEDS: METOPROLOL TARTRATE 12.5 MG TAB PO SCH ×3 (08:48→20:58)
[2019-05-19] MEDS: ISOSORBIDE MONONITRATE ER 30 MG TAB.ER.24H PO SCH (08:49)
[2019-05-19] MEDS: TROSPIUM CHLORIDE 20 MG TABLET PO SCH (08:49)
[2019-05-19] MEDS: FINASTERIDE 5 MG TAB PO SCH (08:49)
[2019-05-19] MEDS: FERROUS SULFATE 325 MG TAB PO SCH ×2 (08:49→20:58)
[2019-05-19] MEDS: ALLOPURINOL 100 MG TAB PO SCH (08:49)
[2019-05-19] MEDS: FUROSEMIDE 10 MG/ML 4 ML VIAL IV SCH (08:49)
[2019-05-19 12:06] LABS: Glucose,Whole Blood 176 mg/dL (75-99)
--- NOTE | 2019-05-19 16:03 | P.PN ---
Progress Note - Text Progress Note Date: 05/19/19 The patient is afebrile. He apparently has had some episodes of confusion over the last day or two but seems lucid at the present time. His urine is minimally blood tinged. A catheter was inserted over the weekend due to persistently elevated postvoid residuals. The patient's urinary retention may have been part related to the rapid diuresis when he was given furosemide on 05/15. His hemoglobin is 10.1 and the rise in hemoglobin is consistent with the response to the diuretic. BUN/creatinine have also risen and are probably related to this also. The patient's catheter may be able to be removed tomorrow morning provided that his urine is clear.
--- NOTE | 2019-05-19 16:42 | P.CRDCN ---
History of Present Illness Consult date: 05/19/19 Requesting physician: Alexy Titus Consult reason: shortness of breath Chief complaint: Shortness of breath History of present illness: Is an 78-year-old gentleman with known history of chronic persistent atrial fibrillation, renal cancer for which the patient only has one kidney at t his time, diastolic heart failure, diabetes, hypertension, hyperlipidemia, prostate cancer history, hypothyroidism, who came to the hospital because of significant anemia, patient was also having significant hematuria passing blood clots and having spasms in his bladder. He resides at [facility] and was also noted to have some issues with his memory. did undergo a cystoscopy with evacuation of blood clots. Patient had some symptoms of shortness of breath, was initiated on IV Lasix and has been on IV Lasix since Saturday. A cardiology consultation was requested for possible congestive cardiac failure. Patient was seen in consultation today by Dr. STEVE Lewis, who felt that the patient was not in any major heart failure at this time. Blood pressure today 102/60 with a heart rate in the 80s, 93% on 2 L of oxygen. Sodium 140, potassium 4.5, BUN 64 creatinine 2.5, BNP level had not been obtained, we had requested one to be performed today and came back at 13,200. Overall the patient states he does not feel short of breath, he is lying flat in bed at the time of our examination. Cardiac gram with Doppler study was performed which revealed an ejection fraction of 40-45%, LA is severely dilated, moderate aortic valve sclerosis moderate mitral regurg and moderate tricuspid regurg and moderate pulmonary hypertension. Past Medical History Past Medical History: Atrial Fibrillation, Cancer, Heart Failure, Diabetes Mellitus, Hyperlipidemia, Hypertension, Myocardial Infarction (OH), Osteoarthritis (OA), Prostate Disorder, Renal Disease, Thyroid Disorder Additional Past Medical History / Comment(s): Ischemic heart disease, chronic CHF, pulmonary edema, 2011 L renal cancer with L nephrectomy-pt states he had mets to his liver and R lower lobe of his lung-treated by a "special" medication that worked with his immune system and was cured, 2017 had prostate cancer with 2 months of radiation therapy and eventual TURP-pt states cured, has been having bladder spasms for one month, IDDM type II, CKD stage III, muscle weakness, hypothyroid Last Myocardial Infarction Date:: History of Any Multi-Drug Resistant Organisms: None Reported Past Surgical History: Heart Catheterization With Stent Additional Past Surgical History / Comment(s): left nephrectomy, TURP, cystoscopies/cauterization and evacuation of clots, ORIF R hip, Past Anesthesia/Blood Transfusion Reactions: No Reported Reaction Date of Last Stent Placement:: 2017 Smoking Status: Current every day smoker - Past Family History Father Family Medical History: Cancer Additional Family Medical History / Comment(s): Father had prostate cancer. He lived to be 92 yrs old. Mother Family Medical History: Diabetes Mellitus Additional Family Medical History / Comment(s): Mother lived to be 84 yrs old. Family Additional Family Medical History / Comment(s): Patient reports history of heart disease Medications and Allergies Home Medications Medication Instructions Recorded Confirmed Type Finasteride [Proscar] 5 mg PO DAILY@89902/25/18 05/11/19 History Levothyroxine Sodium [Synthroid] 200 mcg PO DAILY@59902/25/18 05/11/19 History Tamsulosin [Flomax] 0.4 mg PO HS@209902/25/18 05/11/19 History Isosorbide Mononitrate [Isosorbide 30 mg PO DAILY@89908/05/18 05/11/19 History Mononitrate ER] Levothyroxine Sodium [Synthroid] 75 mcg PO DAILY@59902/10/19 05/11/19 History Metoprolol Succinate [Toprol Xl] 100 mg PO DAILY@89902/10/19 05/11/19 History Allopurinol [Zyloprim] 100 mg PO DAILY@89905/11/19 05/11/19 History Aspirin EC [Ecotrin Low Dose] 81 mg PO HS@209905/11/19 05/11/19 History Atorvastatin [Lipitor] 40 mg PO HS@209905/11/19 05/11/19 History Ferrous Sulfate [Feosol] 325 mg PO BID@899,209905/11/19 05/11/19 History Fesoterodine Fumarate [Toviaz] 4 mg PO DAILY@89905/11/19 05/11/19 History Furosemide [Lasix] 40 mg PO DAILY@59905/11/19 05/11/19 History HYDROcodone/APAP 5-325MG [[place] 1 tab PO Q6H PRN 05/11/19 05/11/19 History 5-325] INSULIN LISPRO (HumaLOG) [HumaLOG] See Protocol SQ ACHS 05/11/19 05/11/19 History Insulin Detemir [Levemir Flextouch] 20 units SQ BID@0900,2100 05/11/19 05/11/19 History Ipratropium-Albuterol Nebulize 3 ml INHALATION RT-TID 05/11/19 05/11/19 History [Duoneb 0.5 mg-3 mg/3 ml Soln] Oxybutynin Chloride [Ditropan XL] 5 mg PO ONCE 05/11/19 05/11/19 History Phenazopyridine [Pyridium] 200 mg PO BID PRN 05/11/19 05/11/19 History predniSONE See Taper PO DIRECTED 05/11/19 05/11/19 History Allergies Allergy/AdvReac Type Severity Reaction Status Date / Time iodine Allergy Rash/Hives Verified 05/11/19 21:16 Physical Exam Vitals: Vital Signs Temp Pulse Pulse Resp BP BP Pulse Ox 05/19/19 15:40 98.3 F 87 18 103/63 93 L 05/19/19 15:06 20 05/19/19 11:42 98.3 F 86 86 20 110/57 96 05/19/19 08:38 98.1 F 91 20 117/67 98 05/19/19 04:00 98.8 F 80 86 18 101/60 94 L 05/19/19 00:00 98.1 F 88 86 16 102/56 93 L 05/18/19 20:00 98.4 F 84 86 16 111/59 92 L Intake and Output 05/19/19 05/19/19 05/19/19 06:59 14:59 22:59 Intake Total 200 200 Output Total 950 1250 Balance -950 200 -1050 Intake: Intake, IV Titration 100 Amount Piperacillin-Tazobactam 3 100 .375 gm In Sodium Chloride 0.9% 100 ml @ 25 mls/hr IVPB Q8HR [facility] Rx# :[id number] Oral 200 100 Output: Urine 950 1250 Other: Voiding Method Indwelling Catheter Indwelling Catheter Indwelling Catheter # Voids 2 Weight 107.3 kg PHYSICAL EXAMINATION: GENERAL: 78-year-old gentleman in no acute distress at the time of my examination HEENT: Head is atraumatic, normocephalic. Pupils equal, round. Sclera anicteric. Conjunctiva are clear. Mucous membranes of the mouth are moist. Neck is supple. There is no elevated jugular venous pressure. No carotid bruit is heard. HEART EXAMINATION: S1 and S2 irregularly irregular systolic murmur is heard CHEST EXAMINATION:'s reveal diminished air entry to bilateral bases with crackles at the bases bilaterally. ABDOMEN: Soft, nontender. Bowel sounds are heard. No organomegaly noted. EXTREMITIES: 2+ peripheral pulses with no evidence of peripheral edema and no calf tenderness noted. NEUROLOGIC patient is awake, alert and oriented 3 . . Results 05/17/19 05:43 05/19/19 05:25 Comprehensive Metabolic Panel 05/19/19 Range/Units 05:25 Sodium 140 (137-145) mmol/L Potassium 4.5 (3.5-5.1) mmol/L Chloride 108 H (98-107) mmol/L Carbon Dioxide 24 (22-30) mmol/L BUN 64 H (9-20) mg/dL Creatinine 2.53 H (0.66-1.25) mg/dL Glucose 147 H (74-99) mg/dL Calcium 8.9 (8.4-10.2) mg/dL Current Medications Generic Name Dose Route Start Last Admin Trade Name Freq PRN Reason Stop Dose Admin Hydrocodone Bitart/Acetaminophen 1 each 05/12/19 07:44 05/18/19 21:41 [place] 5-325 PO 1 each Q6H PRN Administration Pain Al Hydroxide/Mg Hydroxide 30 ml 05/18/19 16:15 05/18/19 16:24 Maalox PO 30 ml Q4HR PRN Administration GI Upset Albuterol/Ipratropium 3 ml 05/17/19 07:27 05/17/19 19:53 Duoneb 0.5 Mg-3 Mg/3 Ml Soln INHALATION 3 ml RT-QID PRN Administration Shortness Of Breath Or Wheezing Allopurinol 100 mg 05/12/19 09:00 05/19/19 08:49 Zyloprim PO 100 mg DAILY@0900 YOSHI Administration Atorvastatin Calcium 40 mg 05/12/19 21:00 05/18/19 20:56 Lipitor PO 40 mg HS@2100 [facility] Administration Belladonna Alkaloids/Opium 1 each 05/12/19 18:43 05/17/19 11:18 B&O Suppository RECTAL 1 each QID PRN Administration bladder spasm Calcium Carbonate/Glycine 500 mg 05/18/19 08:59 05/18/19 21:03 Tums PO 500 mg QID PRN Administration Heartburn Ferrous Sulfate 325 mg 05/12/19 09:00 05/19/19 08:49 Feosol PO 325 mg BID@0900,2100 [facility] Administration Finasteride 5 mg 05/12/19 09:00 05/19/19 08:49 Proscar PO 5 mg DAILY@0900 [facility] Administration Furosemide 40 mg 05/18/19 21:30 05/19/19 08:49 Lasix IV 40 mg Q12HR [facility] Administration Piperacillin Sod/Tazobactam 100 mls @ 25 mls/hr 05/16/19 16:00 05/19/19 06:43 Sod 3.375 gm/ Sodium Chloride IVPB 25 mls/hr Q8HR [facility] Administration Insulin Aspart 0 unit 05/12/19 12:30 05/19/19 12:21 Novolog SQ 2 unit ACHS [facility] Administration Protocol Isosorbide Mononitrate 30 mg 05/12/19 09:00 05/19/19 08:49 Imdur PO 30 mg DAILY@0900 [facility] Administration Levothyroxine Sodium 75 mcg 05/12/19 09:00 05/19/19 06:41 Synthroid PO 75 mcg DAILY@0600 YOSHI Administration Levothyroxine Sodium 200 mcg 05/12/19 09:00 05/19/19 06:40 Synthroid PO 200 mcg DAILY@0600 [facility] Administration Metoprolol Tartrate 12.5 mg 05/18/19 08:00 05/19/19 08:48 Lopressor PO 12.5 mg TID [facility] Administration Naloxone HCl 0.2 mg 05/11/19 22:46 Narcan IV Q2M PRN Opioid Reversal Tamsulosin HCl 0.4 mg 05/12/19 21:00 05/18/19 20:56 Flomax PO 0.4 mg HS@2100 [facility] Administration Trospium 20 mg 05/12/19 09:00 05/19/19 08:49 Sanctura PO 20 mg DAILY@0900 [facility] Administration Intake and Output 05/19/19 05/19/19 05/19/19 06:59 14:59 22:59 Intake Total 200 200 Output Total 950 1250 Balance -950 200 -1050 Intake: Intake, IV Titration 100 Amount Piperacillin-Tazobactam 3 100 .375 gm In Sodium Chloride 0.9% 100 ml @ 25 mls/hr IVPB Q8HR [facility] Rx# :[id number] Oral 200 100 Output: Urine 950 1250 Other: Voiding Method Indwelling Catheter Indwelling Catheter Indwelling Catheter # Voids 2 Weight 107.3 kg 05/17/19 05:43 05/19/19 05:25 EKG Interpretations (text) EKG shows atrial fibrillation with a controlled ventricular response Assessment and Plan Plan: Assessment and plan #1 acute blood loss anemia secondary to hematuria, status post blood transfusion, status post cystoscopy with blood clot removal #2 history of kidney cancer with prior nephrectomy #3 history of severe bladder spasms #4 systolic congestive heart failure acute on chronic #5 diabetes #6 hypertension #7 hyperlipidemia #8 hypothyroidism #9 acute on chronic kidney disease #10 nicotine dependence #11 pneumonia, with elevated pro calcitonin level Plan From cardiology's perspective, we will discontinue the IV Lasix today and from tomorrow start the patient on oral diuretics. Recommend to continue antibiotics for pneumonia. DNP note has been reviewed, I agree with a documented findings and plan of care. Patient was seen and examined.
[2019-05-19 17:23] LABS: Glucose,Whole Blood 165 mg/dL (75-99)
[2019-05-19 20:29] LABS: Glucose,Whole Blood 203 mg/dL (75-99)
[2019-05-19] MEDS: ATORVASTATIN 40 MG TAB PO SCH (20:58)
[2019-05-19] MEDS: TAMSULOSIN 0.4 MG CAP.ER.24H PO SCH (20:58)
--- NOTE | 2019-05-19 21:26 | XR ---
EXAMINATION: XR chest 1V DATE AND TIME: 05/19/2019 6:57 PM CLINICAL INDICATION: PHH; CHF TECHNIQUE: Departmental protocol COMPARISON: 05/17/2019 at 7:00 AM FINDINGS: Extensive right pleural effusion and right hemithorax airlessness throughout the right midd le and lower lung zones is unchanged when compared the prior study. The right upper lung zone may hav e a fine interstitial pattern, but no consolidation. The mediastinum is midline. There is marked enlargement of the cardiac silhouette, unchanged. Examination of the left upper and mid and lower lung zones shows a diffuse fine interstitial pattern, but no consolidation. The left pleural space is negative. IMPRESSION: 1. Mild interstitial phase pulmonary edema. 2. Extensive severe right hemithorax pleural-parenchymal changes redemonstrated.
--- NOTE | 2019-05-19 22:05 | P.PN ---
Progress Note - Text Progress Note Date: 05/19/19 Chief Complaint: Bladder spasm Interval history: This is a 78-year-old patient with an extensive medical history. Chronic stable medical conditions include atrial fibrillation, diabetes, hyperlipidemia, hypertension, [place] arthritis, hypothyroid, etc. Patient about 4 weeks ago was seen by urologist Dr. Zavala out of [facility]. Patient had bladder scraping done. Since then progressively patient is having hematuria and more and more bladder spasms. Patient's status writhing in pain sometimes she describes. Because hematuria has pain persistent, his [facility] sent him down here for further evaluation by urology. They were consulted earlier today. Patient only on Ditropan. Appetite is fair. No fever no chills. Patient's hemoglobin had dropped down to 7. A unit of blood have been given. No fever no chills patient admitted with postop hematuria and severe bladder spasms. Patient was taken to the OR on May 14. Several blood clots evacuated. 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 Patient having significant bladder spasm. Medications were adjusted by urology. Subsequently patient underwent pneumonia. Started and IV Zosyn. Hematuria is improving. patient went into congestive heart failure. Was started on IV Lasix. Today-on cardiology floor. Seen by Dr. STEVE Lewis. Being so short oral Lasix. Breathing better. Light pink color urine and the urine bag.. Review of systems: Was done for constitutional, cardiovascular, GI, pulmonary. relevant finding as above Active Medications Hydrocodone Bitart/Acetaminophen ([place] 5-325) 1 each PO Q6H PRN PRN Reason: Pain Last Admin: 05/18/19 21:41 Dose: 1 each Documented by: Al Hydroxide/Mg Hydroxide (Maalox) 30 ml PO Q4HR PRN PRN Reason: GI Upset Last Admin: 05/18/19 16:24 Dose: 30 ml Documented by: Albuterol/Ipratropium (Duoneb 0.5 Mg-3 Mg/3 Ml Soln) 3 ml INHALATION RT-QID PRN PRN Reason: Shortness Of Breath Or Wheezing Last Admin: 05/17/19 19:53 Dose: 3 ml Documented by: Allopurinol (Zyloprim) 100 mg PO DAILY@0900 YOSHI Last Admin: 05/19/19 08:49 Dose: 100 mg Documented by: Atorvastatin Calcium (Lipitor) 40 mg PO HS@2100 [facility] Last Admin: 05/19/19 20:58 Dose: 40 mg Documented by: Belladonna Alkaloids/Opium (B&O Suppository) 1 each RECTAL QID PRN PRN Reason: bladder spasm Last Admin: 05/17/19 11:18 Dose: 1 each Documented by: Calcium Carbonate/Glycine (Tums) 500 mg PO QID PRN PRN Reason: Heartburn Last Admin: 05/18/19 21:03 Dose: 500 mg Documented by: Ferrous Sulfate (Feosol) 325 mg PO BID@0900,2100 [facility] Last Admin: 05/19/19 20:58 Dose: 325 mg Documented by: Finasteride (Proscar) 5 mg PO DAILY@0900 [facility] Last Admin: 05/19/19 08:49 Dose: 5 mg Documented by: Piperacillin Sod/Tazobactam (Sod 3.375 gm/ Sodium Chloride) 100 mls @ 25 mls/hr IVPB Q8HR [facility] Last Admin: 05/19/19 16:24 Dose: 25 mls/hr Documented by: Insulin Aspart (Novolog) 0 unit SQ [facility]; Protocol Last Admin: 05/19/19 20:58 Dose: 2 unit Documented by: Isosorbide Mononitrate (Imdur) 30 mg PO DAILY@0900 [facility] Last Admin: 05/19/19 08:49 Dose: 30 mg Documented by: Levothyroxine Sodium (Synthroid) 75 mcg PO DAILY@0600 [facility] Last Admin: 05/19/19 06:41 Dose: 75 mcg Documented by: Levothyroxine Sodium (Synthroid) 200 mcg PO DAILY@0600 [facility] Last Admin: 05/19/19 06:40 Dose: 200 mcg Documented by: Metoprolol Tartrate (Lopressor) 12.5 mg PO TID [facility] Last Admin: 05/19/19 20:58 Dose: 12.5 mg Documented by: Naloxone HCl (Narcan) 0.2 mg IV Q2M PRN PRN Reason: Opioid Reversal Tamsulosin HCl (Flomax) 0.4 mg PO HS@2100 [facility] Last Admin: 05/19/19 20:58 Dose: 0.4 mg Documented by: Trospium (Sanctura) 20 mg PO DAILY@0900 [facility] Last Admin: 10/01/19 08:49 Dose: 20 mg Documented by: Physical examination: VITAL SIGNS: 98.3, 86, 20, 110/57, 96% 3 L GENERAL:laying in bed, awake, breathing better EYES: Pupils equal. Conjunctiva pale HEENT: External appearance of nose and ears normal, oral cavity grossly normal. NECK: JVD not raised; masses not palpable. HEART: First and second heart sounds are normal; no edema. LUNGS: Respiratory rate increased, decreased breath sounds. ABDOMEN: Soft, nontender, liver spleen not palpable, no masses palpable. [place] catheter, with light pink urine PSYCH: Alert and oriented x3; mood and affect anxiousl. INVESTIGATIONS, reviewed in the clinical context: Potassium 4.5 bun 64 creatinine 2.53 Chest x-ray film-personally reviewed by me shows right-sided infiltrate with possible effusion Previous labs . White count 13.8 hemoglobin 6.6 potassium 5.1 BUN 83 creatinine 2.21 BUN and creatinine was 67/2.42 and Diana of this year hemoglobin was 13.9 in January of this year 2-D echo-EF 40-45%, restrictive LV filling pattern, some wall motion abnormality, moderate aortic valve sclerosis, moderate mitral regurgitation, moderate tricuspid regurgitation, moderate pulmonary hypertension. Assessment: -Acute symptomatic blood loss anemia secondary to persistent hematuria. Patient has received 4 units of blood -Severe bladder spasms in a patient who recently had bladder intervention, much improved -Persistent recurrent hematuria in a patient with recent bladder intervention, improving -Acute congestive heart failure exacerbationfrom systolic and diastolic,dysfunction EF 40-45%., Improved -Moderate aortic valve sclerosis, moderate mitral mitral regurgitation, moderate tricuspid regurgitation-nonrheumatic -Secondary moderate probably hypertension from CHF -Diabetes mellitus type 2 -Hypotension from blood loss anemia -Essential hypertension -hypertensive heart disease -Hyperlipidemia -Primary osteoarthritis -Hypothyroid -Left renal cancer with left nephrectomy -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 We'll get a computed tomography scan of the chest without contrast. We will also order ultrasound of the right chest to andrae for any fluid that needs to be tapped. We'll also consult pulmonary.
[2019-05-20] MEDS: PIPERACILLIN-TAZOBACTAM 3.375 GM in SODIUM CHLORIDE 0.9% 100 ML IVPB SCH ×4 (01:22→22:38)
[2019-05-20 06:11] LABS: Glucose,Whole Blood 195 mg/dL (75-99)
[2019-05-20] MEDS: LEVOTHYROXINE 75 MCG TAB PO SCH (06:13)
[2019-05-20] MEDS: INSULIN ASPART (NovoLOG) 100 UNIT/ML VIAL SQ SCH ×4 (06:13→22:38)
[2019-05-20] MEDS: LEVOTHYROXINE 100 MCG TAB PO SCH (06:13)
[2019-05-20 07:10] LABS: Calcium 8.9 mg/dL (8.4-10.2)
[2019-05-20] MEDS: METOPROLOL TARTRATE 12.5 MG TAB PO SCH ×3 (08:20→22:38)
[2019-05-20] MEDS: TROSPIUM CHLORIDE 20 MG TABLET PO SCH (08:20)
[2019-05-20] MEDS: ISOSORBIDE MONONITRATE ER 30 MG TAB.ER.24H PO SCH (08:20)
[2019-05-20] MEDS: FERROUS SULFATE 325 MG TAB PO SCH ×2 (08:20→22:38)
[2019-05-20] MEDS: ALLOPURINOL 100 MG TAB PO SCH (08:20)
[2019-05-20] MEDS: FINASTERIDE 5 MG TAB PO SCH (08:20)
--- NOTE | 2019-05-20 10:21 | US ---
EXAMINATION TYPE: US chest DATE OF EXAM: 05/20/2019 COMPARISON: NONE CLINICAL HISTORY: Marking for thoracentesis R/pleural effusion . Right pleural effusion TECHNIQUE: Targeted ultrasound of the posterior lower right hemithorax EXAM MEASUREMENTS: Right Pleural Effusion pocket size: 6.7 cm Right skin surface to fluid distance: 4.3 cm Right side MARKED for possible thoracentesis outside the dept. Pulmonologists are able to review the images in the patient?s EMR. IMPRESSIONS: Right pleural effusion.
--- NOTE | 2019-05-20 11:24 | CT ---
EXAMINATION TYPE: CT chest wo con DATE OF EXAM: 05/20/2019 COMPARISON: Chest x-ray from yesterday. Ultrasound chest from earlier today HISTORY: Right-sided pneumonia/effusion CT DLP: 629 mGycm. Automated Exposure Control for Dose Reduction was Utilized. TECHNIQUE: CT scan of the thorax is performed without IV contrast. FINDINGS: LUNGS: There is respiratory motion artifact examination making evaluation slightly suboptimal especia lly for subcentimeter nodularity. There is small left pleural effusion layering dependently. There is fairly moderate sized right pleural fluid collection which is not appear to completely layer depende ntly as it is slightly more prominent right lateral component than expected. There is associated righ t basilar atelectasis and/or focal masslike consolidation axial image 48 measuring approximately 4.7 x 3.8 cm. There is patchy peripheral anterior masslike consolidation right midlung axial image 35 thad suring 4.4 x 1.5 cm. No pneumothorax is evident bilaterally. MEDIASTINUM: Lack of IV contrast is noted to limit evaluation for mediastinal and especially hilar ad enopathy. There are prominent thoracic lymph nodes. For reference one of larger lymph nodes is 2.3 x 1.2 cm right paratracheal lymph node on image 24. Calcification at level of mitral and aortic valve. Tiny pericardial effusion is seen right lateral aspect axial image 41. Cardiomegaly with severe biat rial dilatation. Coronary artery calcification is present which is noted marked underlying coronary a rtery disease. Enlarged main pulmonary artery 4.0 cm axial image 27, CT findings consistent with unde rlying pulmonary hypertension. Thyroid gland small in size. OTHER: Bilateral lobulated subareolar gynecomastia. Slight lobulation to liver, underlying cirrhosis cannot be excluded. There is 3.7 cm simple appearing cyst anteriorly right kidney axial image 74. Mod erate multilevel thoracic spine. Moderate subcutaneous edema over the bilateral upper abdomen. Left s uprarenal surgical clips are present. IMPRESSION: Small to moderate-sized nonsimple right pleural fluid collection with areas of adjacent a telectasis and/or consolidation noted. Correlation with fluid analysis from thoracentesis advised to determine need for possible follow-up contrast enhanced CT or PET/CT imaging. Cardiomegaly with sever e biatrial dilatation and CT evidence of underlying pulmonary hypertension. Correlate to exclude unde rlying cirrhosis.
[2019-05-20 12:23] LABS: Glucose,Whole Blood 194 mg/dL (75-99)
[2019-05-20] MEDS: PANTOPRAZOLE 40 MG TABLET PO SCH (13:24)
[2019-05-20 17:14] LABS: Glucose,Whole Blood 175 mg/dL (75-99)
[2019-05-20 20:59] LABS: Glucose,Whole Blood 230 mg/dL (75-99)
--- NOTE | 2019-05-20 21:56 | CONS ---
CONSULTATION REASON FOR CONSULT: Renal failure. HISTORY OF PRESENT ILLNESS: Patient is an 78-year-old male who was initially admitted to the hospital on 05/12/2019 with complaints of abdominal pain. He recently had cystoscopy and he developed significant hematuria postprocedure was brought into the hospital. He was complaining of weakness as well. Hemoglobin was 6.6 g/dL on initial admission. Serum creatinine was 2.21. It went it did peak to 2.5. It is back down to 2.3 now. Review of previous labs shows a serum creatinine of about 2 at baseline. Blood pressure has been on the lower side with systolic around 117 to 90 mmHg. The patient is not on any nonsteroidal anti-inflammatory agents or RACHEL inhibitors. He was maintained on IV Lasix 40 mg q.12 hours, which is now changed to p.o. The patient remains with indwelling Overton catheter. 24 hour urine output charted at 1600 mL. Post hospitalization patient had cystoscopy with evacuation of blood clots by Dr. Briggs. He had radiation therapy prior to his hospital admission for prostatic cancer. PAST MEDICAL HISTORY: Prostatic cancer, atrial fibrillation, type 2 diabetes, hyperlipidemia, osteoarthritis, OH, coronary artery disease, history of renal cell cancer with left nephrectomy, history of prostatic cancer with radiation therapy, TURP, CKD stage 3, hypothyroidism. PAST SURGICAL HISTORY: Cardiac catheterization coronary stent, left nephrectomy, TURP, cystoscopies, ORIF right hip. SOCIAL HISTORY: Positive for smoking. No history of other drug abuse or alcohol abuse. MEDICATIONS: Medications prior to admission included Synthroid, Flomax, Imdur, Proscar, Synthroid, Toprol, Zyloprim, aspirin, Lipitor, iron, Lasix, [place], insulin, Ditropan, Pyridium and prednisone. ALLERGIES: INCLUDE IODINE, WHICH CAUSES RASH AND HIVES. EXAMINATION: Patient is currently comfortable, awake. He is not in any acute distress. Blood pressure is on the lower side. This morning it was 117/65, heart rate is 90 per minute. Patient is afebrile. Examination of the heart S1, S2. Examination of the lungs, bilateral breath sounds are heard. Decreased breath sounds at bases. Minimal basal crackles are heard. Abdomen is soft, nontender. Examination of lower extremities shows edema 1+ bilaterally. LABS SHOW: Sodium 139, potassium 5.0, chloride 108, BUN 65, serum creatinine 2.35, calcium 8.9. ASSESSMENT: 1. Acute kidney injury, most likely secondary to severe anemia and hypotension and hypoperfusion. Blood pressure has been on the lower side. No nephrotoxic agents on board at this time. May continue with the current dose of Lasix. 2. Chronic kidney disease, NKF stage IV secondary to most likely nephrosclerosis. No evidence of proteinuria in July of 2018. Renal function with baseline creatinine around 2-1.8 mg/dL. 3. Mild hyperkalemia associated with the acute kidney injury, currently improved. 4. 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 PLAN: Repeat chest x-ray in a.m. Continue current dose of Lasix. Avoid any other nephrotoxic agents. Avoid hypotension. Continue with Flomax. May also continue with empiric antibiotics. Thank you for this consultation. We will continue to follow the patient with you during his hospitalization. MMODL / IJN: [id number] /
--- NOTE | 2019-05-20 22:13 | P.PN ---
Progress Note - Text Progress Note Date: 05/20/19 Interval history: This is a 78-year-old patient with an extensive medical history. Chronic stable medical conditions include atrial fibrillation, diabetes, hyperlipidemia, hypertension, [place] arthritis, hypothyroid, etc. Patient about 4 weeks ago was seen by urologist Dr. Zavala out of [facility]. Patient had bladder scraping done. Since then progressively patient is having hematuria and more and more bladder spasms. Patient's status writhing in pain sometimes she describes. Because hematuria has pain persistent, his [facility] sent him down here for further evaluation by urology. They were consulted earlier today. Patient only on Ditropan. Appetite is fair. No fever no chills. Patient's hemoglobin had dropped down to 7. A unit of blood have been given. No fever no chills patient admitted with postop hematuria and severe bladder spasms. Patient was taken to the OR on May 14. Several blood clots evacuated. 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 Patient having significant bladder spasm. Medications were adjusted by urology. Subsequently patient underwent pneumonia. Started and IV Zosyn. Hematuria is improving. patient went into congestive heart failure. Was started on IV Lasix. Today-urine is clearing up quite a bit. Ultrasound is showing some fluid pockets in the right lung. Awaiting pulmonary input. Patient does complain of some pain in the middle of the chest when he eats. Review of systems: Was done for constitutional, cardiovascular, GI, pulmonary. relevant finding as above Active Medications Hydrocodone Bitart/Acetaminophen ([place] 5-325) 1 each PO Q6H PRN PRN Reason: Pain Last Admin: 05/18/19 21:41 Dose: 1 each Documented by: Al Hydroxide/Mg Hydroxide (Maalox) 30 ml PO Q4HR PRN PRN Reason: GI Upset Last Admin: 05/18/19 16:24 Dose: 30 ml Documented by: Albuterol/Ipratropium (Duoneb 0.5 Mg-3 Mg/3 Ml Soln) 3 ml INHALATION RT-QID PRN PRN Reason: Shortness Of Breath Or Wheezing Last Admin: 05/17/19 19:53 Dose: 3 ml Documented by: Allopurinol (Zyloprim) 100 mg PO DAILY@0900 YOSHI Last Admin: 05/20/19 08:20 Dose: 100 mg Documented by: Atorvastatin Calcium (Lipitor) 40 mg PO HS@2100 [facility] Last Admin: 05/19/19 20:58 Dose: 40 mg Documented by: Belladonna Alkaloids/Opium (B&O Suppository) 1 each RECTAL QID PRN PRN Reason: bladder spasm Last Admin: 05/17/19 11:18 Dose: 1 each Documented by: Calcium Carbonate/Glycine (Tums) 500 mg PO QID PRN PRN Reason: Heartburn Last Admin: 05/18/19 21:03 Dose: 500 mg Documented by: Ferrous Sulfate (Feosol) 325 mg PO BID@0900,2100 [facility] Last Admin: 05/20/19 08:20 Dose: 325 mg Documented by: Finasteride (Proscar) 5 mg PO DAILY@0900 [facility] Last Admin: 05/20/19 08:20 Dose: 5 mg Documented by: Furosemide (Lasix) 40 mg PO DAILY [facility] Piperacillin Sod/Tazobactam (Sod 3.375 gm/ Sodium Chloride) 100 mls @ 25 mls/hr IVPB Q8HR [facility] Last Admin: 05/20/19 17:20 Dose: 25 mls/hr Documented by: Insulin Aspart (Novolog) 0 unit SQ [facility]; Protocol Last Admin: 05/20/19 17:21 Dose: 2 unit Documented by: Isosorbide Mononitrate (Imdur) 30 mg PO DAILY@0900 [facility] Last Admin: 05/20/19 08:20 Dose: 30 mg Documented by: Levothyroxine Sodium (Synthroid) 75 mcg PO DAILY@0600 [facility] Last Admin: 05/20/19 06:13 Dose: 75 mcg Documented by: Levothyroxine Sodium (Synthroid) 200 mcg PO DAILY@0600 [facility] Last Admin: 05/20/19 06:13 Dose: 200 mcg Documented by: Metoprolol Tartrate (Lopressor) 12.5 mg PO TID [facility] Last Admin: 05/20/19 17:20 Dose: 12.5 mg Documented by: Naloxone HCl (Narcan) 0.2 mg IV Q2M PRN PRN Reason: Opioid Reversal Pantoprazole Sodium (Protonix) 40 mg PO AC-BID [facility] Last Admin: 05/20/19 13:24 Dose: 40 mg Documented by: Tamsulosin HCl (Flomax) 0.4 mg PO HS@2100 [facility] Last Admin: 05/19/19 20:58 Dose: 0.4 mg Documented by: Trospium (San[place]) 20 mg PO DAILY@0900 [facility] Last Admin: 05/20/19 08:20 Dose: 20 mg Documented by: Physical examination: VITAL SIGNS: 97.1, 89, 18, 90/55, 95% on 2 L GENERAL:laying in bed, awake, EYES: Pupils equal. Conjunctiva pale HEENT: External appearance of nose and ears normal, oral cavity grossly normal. NECK: JVD not raised; masses not palpable. HEART: First and second heart sounds are normal; no edema. LUNGS: Respiratory rate increased, decreased breath sounds. ABDOMEN: Soft, nontender, liver spleen not palpable, no masses palpable. Overton catheter, with light pink urine PSYCH: Alert and oriented x3; mood and affect anxiousl. INVESTIGATIONS, reviewed in the clinical context: Potassium 5 bun 65 creatinine 2.35 Chest x-ray film-personally reviewed by me shows right-sided infiltrate with possible effusion CT [id number] effusion Right ultrasound-6.7 cm pleural effusion Previous labs . White count 13.8 hemoglobin 6.6 potassium 5.1 BUN 83 creatinine 2.21 BUN and creatinine was 67/2.42 and January of this year hemoglobin was 13.9 in January of this year 2-D echo-EF 40-45%, restrictive LV filling pattern, some wall motion abnormality, moderate aortic valve sclerosis, moderate mitral regurgitation, moderate tricuspid regurgitation, moderate pulmonary hypertension. Assessment: -Acute symptomatic blood loss anemia secondary to persistent hematuria. Patient has received 4 units of blood -Severe bladder spasms in a patient who recently had bladder intervention, much improved -Persistent recurrent hematuria in a patient with recent bladder intervention, improving -Acute congestive heart failure exacerbationfrom systolic and diastolic,dysfunction EF 40-45%., Improved -Moderate aortic valve sclerosis, moderate mitral mitral regurgitation, moderate tricuspid regurgitation-nonrheumatic -Secondary moderate probably hypertension from CHF -Diabetes mellitus type 2 -Hypotension from blood loss anemia -Essential hypertension -hypertensive heart disease -Hyperlipidemia -Primary osteoarthritis -Hypothyroid -Left renal cancer with left nephrectomy -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 Plan: Awaiting pulmonary input. GI was consulted with a view to possible EGD. Possibly related symptoms from esophagitis. Also started on PPIs.
[2019-05-20] MEDS: ATORVASTATIN 40 MG TAB PO SCH (22:37)
[2019-05-20] MEDS: TAMSULOSIN 0.4 MG CAP.ER.24H PO SCH (22:38)
--- NOTE | 2019-05-21 00:02 | CONS ---
CONSULTATION DATE OF DICTATION: 05/20/2019 REASON FOR CONSULTATION: Odynophagia EGD. HISTORY OF PRESENT ILLNESS: The patient is an 78-year-old pleasant white male who was admitted to the hospital with hematuria and severe bladder spasms. He was evaluated by Dr. Martinez at the time of admission to the hospital. Apparently patient was diagnosed with prostate cancer and underwent radiation therapy. He continued to have hematuria and hence he had a cystoscopy done at [facility] by Dr. Zavala which was unremarkable. Following admission to the hospital, he continued to have hematuria. While in the hospital he has been complaining of odynophagia. He states that every time he swallows solid food he has some pain in the midsternal area. He also complains of occasional dysphagia. He denies any heartburn, reports no nausea or vomiting. He reports no abdominal pain. PAST MEDICAL HISTORY: His past medical history is significant for: 1. Atrial fibrillation. 2. Congestive heart failure. 3. Diabetes mellitus. 4. Hypertension. 5. Hyperlipidemia. 6. Degenerative joint disease. 7. Prostate cancer. 8. Chronic kidney disease. 9. Hypothyroidism. PAST SURGICAL HISTORY: 1. TURP. 2. Cardiac catheterization with stent placement. 3. Left nephrectomy. 4. Recent cystoscopy. SOCIAL HISTORY: Chronic smoker. No alcohol use. FAMILY HISTORY: Father had prostate cancer. Mother had diabetes mellitus. MEDICATIONS: Medications at home include: 1. Proscar. 2. Synthroid. 3. Isosorbide. 4. Flomax. 5. Toprol. 6. Zyloprim. 7. Ecotrin. 8. Lipitor. 9. Feosol. 10.Toviaz. 11.Lasix. 12.Insulin. 13.Hydrocodone. 14.DuoNeb. 15.Prednisone. 16.Pyridium. ALLERGIES: IODINE. REVIEW OF SYSTEMS: CARDIOPULMONARY: He denies any chest pain or shortness of breath. GENITOURINARY: No dysuria or hematuria. MUSCULOSKELETAL: Unremarkable. SKIN: Unremarkable. ENDOCRINE: Unremarkable. PSYCHIATRIC: Unremarkable. NEUROLOGY: Unremarkable. ENT/VISION: Unremarkable. CONSTITUTIONAL: No recent weight loss. No fever, chills, night sweats. PHYSICAL EXAMINATION: He appears comfortable. No apparent distress. VITAL SIGNS: Stable. Blood pressure is 109/63, pulse rate 83, temperature 97.9. HEENT examination unremarkable. Conjunctivae pink. Sclerae anicteric. Oral cavity no lesions. NECK: No JVD or lymph node enlargement. CHEST: Clear to auscultation. HEART: Regular rate and rhythm. ABDOMEN: Soft. Bowel sounds are positive. No organomegaly. EXTREMITIES: No pedal edema. SKIN: No rashes. NEUROLOGIC: He is alert and oriented x3. No focal deficits. LAB DATA: Labs done today show sodium 139, potassium 5, CO2 102, BUN 65, creatinine 2.35. IMPRESSION: 1. Dysphagia/odynophagia for the last 3 days' duration. Patient states that he had a similar episode about 3 weeks ago and he was admitted at [facility] and had an upper endoscopy done and patient states that it was all within normal limits. He does not recall any further details. No report available at the time of this dictation. Patient has no prior history of gastroesophageal reflux disease. 2. Congestive heart failure. 3. Hematuria and severe bladder spasms, being followed by Urology closely. 4. History of diabetes mellitus. 5. Valvular heart disease with aortic valve stenosis and mitral regurgitation. RECOMMENDATIONS: 1. Obtain records from [facility] about the previous upper endoscopy that was done 3 weeks ago. 2. In the meantime, he will continue on Protonix 40 mg twice daily. 3. Will start him on Carafate 1 gram 4 times daily and see if there is any resolution of his symptoms. 4. Since the patient had an upper endoscopy 3 weeks ago, I do not plan on a repeat upper endoscopy at this time. The plan was discussed with the patient. He is agreeable to it. Thank you for this consultation. MMODL / IJN: [id number] /
[2019-05-21] MEDS: PANTOPRAZOLE 40 MG TABLET PO SCH ×2 (05:47→16:36)
[2019-05-21] MEDS: LEVOTHYROXINE 75 MCG TAB PO SCH (05:47)
[2019-05-21] MEDS: LEVOTHYROXINE 100 MCG TAB PO SCH (05:47)
[2019-05-21 06:08] LABS: Glucose,Whole Blood 397 mg/dL (75-99)
[2019-05-21 06:08] LABS: Glucose,Whole Blood 479 mg/dL (75-99)
[2019-05-21] MEDS: INSULIN ASPART (NovoLOG) 100 UNIT/ML VIAL SQ SCH ×4 (06:36→19:59)
[2019-05-21 07:54] LABS: Calcium 8.9 mg/dL (8.4-10.2); Potassium 4.5 mmol/L (3.5-5.1)
--- NOTE | 2019-05-21 08:07 | P.CNPUL ---
History of Present Illness Consult date: 05/21/19 Reason for consult: dyspnea, cough, pneumonia, pleural effusion Chief complaint: Shortness of breath History of present illness: This is a 78-year-old male who was seen evaluated examined this patient originally admitted into the hospital with hematuria posterior the bladder biopsy and scraping, results of that is not available but however patient developed significant hematuria underwent cystoscopy for clots of blood were removed in [place] patient developed pneumonia on the right side a chest x-ray showed fairly large pleural effusion on the right side with some on the left side as well some evidence of air bronchograms sister pneumonia, patient is appropriately on Zosyn with presumption of healthcare associated pneumonia, he still short of breath he is on 2 L oxygen, his ultrasound showed a small to moderate pleural effusion on the right side very small effusion on the left side the thoracic wall appears to be 4 cm in size, the computed tomography scan of the chest showed early loculation cannot be excluded, possible atelectasis versus infiltrate anteriorly cannot be excluded, we'll consult interventional radiology for drainage of the pleural fluid which would be sent for cytology and culture Review of Systems All systems: negative Past Medical History Past Medical History: Atrial Fibrillation, Cancer, Heart Failure, Diabetes Mellitus, Hyperlipidemia, Hypertension, Myocardial Infarction (MA), Osteoarthritis (OA), Prostate Disorder, Renal Disease, Thyroid Disorder Additional Past Medical History / Comment(s): Ischemic heart disease, chronic CHF, pulmonary edema, 2011 L renal cancer with L nephrectomy-pt states he had mets to his liver and R lower lobe of his lung-treated by a "special" medication that worked with his immune system and was cured, 2018 had prostate cancer with 2 months of radiation therapy and eventual TURP-pt states cured, has been having bladder spasms for one month, IDDM type II, CKD stage III, muscle weakness, hypothyroid Last Myocardial Infarction Date:: History of Any Multi-Drug Resistant Organisms: None Reported Past Surgical History: Heart Catheterization With Stent Additional Past Surgical History / Comment(s): left nephrectomy, TURP, cystoscop ies/cauterization and evacuation of clots, ORIF R hip, Past Anesthesia/Blood Transfusion Reactions: No Reported Reaction Date of Last Stent Placement:: 2017 Smoking Status: Current every day smoker - Past Family History Father Family Medical History: Cancer Additional Family Medical History / Comment(s): Father had prostate cancer. He lived to be 92 yrs old. Mother Family Medical History: Diabetes Mellitus Additional Family Medical History / Comment(s): Mother lived to be 84 yrs old. Family Additional Family Medical History / Comment(s): Patient reports history of heart disease Medications and Allergies Home Medications Medication Instructions Recorded Confirmed Type Finasteride [Proscar] 5 mg PO DAILY@89902/25/18 05/11/19 History Levothyroxine Sodium [Synthroid] 200 mcg PO DAILY@59902/25/18 05/11/19 History Tamsulosin [Flomax] 0.4 mg PO HS@209902/25/18 05/11/19 History Isosorbide Mononitrate [Isosorbide 30 mg PO DAILY@89908/05/18 05/11/19 History Mononitrate ER] Levothyroxine Sodium [Synthroid] 75 mcg PO DAILY@59902/10/19 05/11/19 History Metoprolol Succinate [Toprol Xl] 100 mg PO DAILY@89902/10/19 05/11/19 History Allopurinol [Zyloprim] 100 mg PO DAILY@89905/11/19 05/11/19 History Aspirin EC [Ecotrin Low Dose] 81 mg PO HS@209905/11/19 05/11/19 History Atorvastatin [Lipitor] 40 mg PO HS@209905/11/19 05/11/19 History Ferrous Sulfate [Feosol] 325 mg PO BID@0900,209905/11/19 05/11/19 History Fesoterodine Fumarate [Toviaz] 4 mg PO DAILY@89905/11/19 05/11/19 History Furosemide [Lasix] 40 mg PO DAILY@59905/11/19 05/11/19 History HYDROcodone/APAP 5-325MG [[place] 1 tab PO Q6H PRN 05/11/19 05/11/19 History 5-325] INSULIN LISPRO (HumaLOG) [HumaLOG] See Protocol SQ ACHS 05/11/19 05/11/19 History Insulin Detemir [Levemir Flextouch] 20 units SQ BID@0900,2100 05/11/19 05/11/19 History Ipratropium-Albuterol Nebulize 3 ml INHALATION RT-TID 05/11/19 05/11/19 History [Duoneb 0.5 mg-3 mg/3 ml Soln] Oxybutynin Chloride [Ditropan XL] 5 mg PO ONCE 05/11/19 05/11/19 History Phenazopyridine [Pyridium] 200 mg PO BID PRN 05/11/19 05/11/19 History predniSONE See Taper PO DIRECTED 05/11/19 05/11/19 History Allergies Allergy/AdvReac Type Severity Reaction Status Date / Time iodine Allergy Rash/Hives Verified 05/11/19 21:16 Physical Exam Vitals: Vital Signs Temp Pulse Pulse Resp BP Pulse Ox 05/21/19 03:23 90 18 05/21/19 03:19 98.5 F 90 18 92/55 97 05/21/19 00:00 98 F 90 18 96/58 96 05/20/19 20:00 98.1 F 90 18 105/60 97 05/20/19 16:00 97.7 F 83 18 109/63 98 05/20/19 12:55 97.1 F L 89 86 18 90/55 95 05/20/19 08:00 97.6 F 90 18 117/65 96 Intake and Output 05/20/19 05/21/19 05/21/19 22:59 06:59 14:59 Intake Total 240 220 Output Total 400 Balance -160 220 Intake: Intake, IV Titration 100 Amount Piperacillin-Tazobactam 3 100 .375 gm In Sodium Chloride 0.9% 100 ml @ 25 mls/hr IVPB Q8HR [facility] Rx# :[id number] Oral 240 120 Output: Urine 400 Other: Voiding Method Indwelling Catheter Indwelling Catheter Weight 97.9 kg - Constitutional General appearance: disheveled, morbidly obese - EENT Eyes: anicteric sclerae, EOMI, PERRLA, poor dentition, normal appearance ENT: normal oropharynx Ears: bilateral: normal - Neck Carotids: bilateral: upstroke normal Thyroid: bilateral: normal size - Respiratory Respiratory: right: dullness, bilateral: diminished ([place] on the right side compared to left side), negative: rales, rhonchi, wheezing - Cardiovascular Rhythm: regular Heart sounds: normal: S1, S2 - Gastrointestinal General gastrointestinal: distended, soft - Musculoskeletal Musculoskeletal: gait normal, generalized weakness, strength equal bilaterally - Psychiatric Psychiatric: A&O x's 3, appropriate affect, intact judgment & insight Results - Laboratory Findings CBC and BMP: 05/17/19 05:43 05/21/19 06:44 PT/INR, D-dimer PT 11.3 sec (9.0-12.0) 05/11/19 20:45 INR 1.1 (<1.2) 05/11/19 20:45 Abnormal lab findings: Abnormal Labs 05/11/19 05/11/19 05/11/19 20:45 20:45 20:45 WBC 13.8 H RBC 2.01 L Hgb 6.6 L* Hct 20.6 L MCV 102.7 H RDW 17.2 H Neutrophils # 12.5 H Lymphocytes # 0.5 L Sodium 135 L Potassium Chloride Carbon Dioxide BUN 83 H Creatinine 2.21 H Glucose 223 H POC Glucose (mg/dL) Calcium 8.1 L Procalcitonin Urine RBC Ur Squamous Epith Cells Crossmatch See Detail 05/11/19 05/12/19 05/12/19 21:15 07:31 08:49 WBC 13.9 H RBC 2.38 L Hgb 7.6 L Hct 24.3 L MCV 102.1 H RDW 18.3 H Neutrophils # 12.0 H Lymphocytes # 0.8 L Sodium Potassium Chloride Carbon Dioxide BUN Creatinine Glucose POC Glucose (mg/dL) 103 H Calcium Procalcitonin Urine RBC >182 H Ur Squamous Epith Cells 16 H Crossmatch 05/12/19 05/12/19 05/12/19 11:44 16:42 20:18 WBC RBC Hgb Hct MCV RDW Neutrophils # Lymphocytes # Sodium Potassium Chloride Carbon Dioxide BUN Creatinine Glucose POC Glucose (mg/dL) 159 H 204 H 190 H Calcium Procalcitonin Urine RBC Ur Squamous Epith Cells Crossmatch 05/13/19 05/13/19 05/13/19 06:47 06:51 11:52 WBC 14.9 H RBC 2.77 L Hgb 8.9 L Hct 27.6 L MCV RDW 20.1 H Neutrophils # 13.2 H Lymphocytes # 0.7 L Sodium Potassium Chloride Carbon Dioxide BUN Creatinine Glucose POC Glucose (mg/dL) 180 H 167 H Calcium Procalcitonin Urine RBC Ur Squamous Epith Cells Crossmatch 05/13/19 05/13/19 05/13/19 16:46 16:47 17:05 WBC RBC Hgb Hct MCV RDW Neutrophils # Lymphocytes # Sodium Potassium Chloride Carbon Dioxide BUN Creatinine Glucose POC Glucose (mg/dL) 60 L 61 L 59 L Calcium Procalcitonin Urine RBC Ur Squamous Epith Cells Crossmatch 05/13/19 05/13/19 05/13/19 17:27 17:41 19:02 WBC RBC Hgb Hct MCV RDW Neutrophils # Lymphocytes # Sodium Potassium Chloride Carbon Dioxide BUN Creatinine Glucose POC Glucose (mg/dL) 68 L 62 L 141 H Calcium Procalcitonin Urine RBC Ur Squamous Epith Cells Crossmatch 05/13/19 05/14/19 05/14/19 19:47 06:43 06:45 WBC 14.0 H RBC 2.51 L Hgb 8.0 L Hct 25.4 L MCV 101.1 H RDW 19.9 H Neutrophils # Lymphocytes # Sodium Potassium Chloride Carbon Dioxide BUN Creatinine Glucose POC Glucose (mg/dL) 165 H 61 L Calcium Procalcitonin Urine RBC Ur Squamous Epith Cells Crossmatch 05/14/19 05/14/19 05/14/19 09:24 11:49 14:47 WBC RBC Hgb Hct MCV RDW Neutrophils # Lymphocytes # Sodium Potassium Chloride Carbon Dioxide BUN Creatinine Glucose POC Glucose (mg/dL) 117 H 126 H 107 H Calcium Procalcitonin Urine RBC Ur Squamous Epith Cells Crossmatch 05/14/19 05/14/19 05/15/19 17:54 20:46 05:17 WBC RBC Hgb Hct MCV RDW Neutrophils # Lymphocytes # Sodium Potassium Chloride Carbon Dioxide BUN Creatinine Glucose POC Glucose (mg/dL) 111 H 105 H 100 H Calcium Procalcitonin Urine RBC Ur Squamous Epith Cells Crossmatch 05/15/19 05/15/19 05/15/19 06:26 07:04 11:34 WBC RBC 2.56 L Hgb 8.3 L Hct 26.3 L MCV 102.6 H RDW 19.1 H Neutrophils # Lymphocytes # Sodium Potassium Chloride Carbon Dioxide BUN Creatinine Glucose POC Glucose (mg/dL) 129 H Calcium Procalcitonin 2.62 H Urine RBC Ur Squamous Epith Cells Crossmatch 05/15/19 05/15/19 05/15/19 11:34 11:34 11:51 WBC RBC 2.45 L Hgb 7.8 L Hct 25.2 L MCV 103.0 H RDW 18.8 H Neutrophils # Lymphocytes # Sodium 136 L Potassium 5.2 H Chloride 110 H Carbon Dioxide 21 L BUN 69 H Creatinine 2.00 H Glucose 108 H POC Glucose (mg/dL) 130 H Calcium 8.0 L Procalcitonin Urine RBC Ur Squamous Epith Cells Crossmatch 05/15/19 05/15/19 05/15/19 13:06 17:05 20:06 WBC RBC Hgb Hct MCV RDW Neutrophils # Lymphocytes # Sodium Potassium Chloride Carbon Dioxide BUN Creatinine Glucose POC Glucose (mg/dL) 167 H 244 H Calcium Procalcitonin Urine RBC Ur Squamous Epith Cells Crossmatch See Detail 05/16/19 05/16/19 05/16/19 04:29 06:27 06:27 WBC RBC 2.87 L Hgb 9.1 L Hct 27.6 L MCV RDW 19.7 H Neutrophils # Lymphocytes # Sodium Potassium Chloride Carbon Dioxide BUN 69 H Creatinine 2.26 H Glucose 165 H POC Glucose (mg/dL) 177 H Calcium 7.9 L Procalcitonin Urine RBC Ur Squamous Epith Cells Crossmatch 05/16/19 05/16/19 05/16/19 06:43 11:33 16:27 WBC RBC Hgb Hct MCV RDW Neutrophils # Lymphocytes # Sodium Potassium Chloride Carbon Dioxide BUN Creatinine Glucose POC Glucose (mg/dL) 194 H 184 H 160 H Calcium Procalcitonin Urine RBC Ur Squamous Epith Cells Crossmatch 05/16/19 05/17/19 05/17/19 21:02 05:43 05:43 WBC RBC 3.14 L Hgb 10.1 L Hct 31.5 L MCV 100.6 H RDW 19.6 H Neutrophils # Lymphocytes # Sodium Potassium 5.2 H Chloride 109 H Carbon Dioxide BUN 67 H Creatinine 2.40 H Glucose 105 H POC Glucose (mg/dL) 139 H Calcium Procalcitonin Urine RBC Ur Squamous Epith Cells Crossmatch 05/17/19 05/17/19 05/17/19 11:54 16:46 20:27 WBC RBC Hgb Hct MCV RDW Neutrophils # Lymphocytes # Sodium Potassium Chloride Carbon Dioxide BUN Creatinine Glucose POC Glucose (mg/dL) 135 H 211 H 133 H Calcium Procalcitonin Urine RBC Ur Squamous Epith Cells Crossmatch 05/18/19 05/18/19 05/18/19 06:02 11:49 16:51 WBC RBC Hgb Hct MCV RDW Neutrophils # Lymphocytes # Sodium Potassium Chloride Carbon Dioxide BUN Creatinine Glucose POC Glucose (mg/dL) 147 H 128 H 142 H Calcium Procalcitonin Urine RBC Ur Squamous Epith Cells Crossmatch 05/18/19 05/19/19 05/19/19 20:37 05:25 06:16 WBC RBC Hgb Hct MCV RDW Neutrophils # Lymphocytes # Sodium Potassium Chloride 108 H Carbon Dioxide BUN 64 H Creatinine 2.53 H Glucose 147 H POC Glucose (mg/dL) 148 H 149 H Calcium Procalcitonin Urine RBC Ur Squamous Epith Cells Crossmatch 05/19/19 05/19/19 05/19/19 12:00 17:21 20:27 WBC RBC Hgb Hct MCV RDW Neutrophils # Lymphocytes # Sodium Potassium Chloride Carbon Dioxide BUN Creatinine Glucose POC Glucose (mg/dL) 176 H 165 H 203 H Calcium Procalcitonin Urine RBC Ur Squamous Epith Cells Crossmatch 05/20/19 05/20/19 05/20/19 06:00 06:16 12:23 WBC RBC Hgb Hct MCV RDW Neutrophils # Lymphocytes # Sodium Potassium Chloride 108 H Carbon Dioxide BUN 65 H Creatinine 2.35 H Glucose 169 H POC Glucose (mg/dL) 195 H 194 H Calcium Procalcitonin Urine RBC Ur Squamous Epith Cells Crossmatch 05/20/19 05/20/19 05/21/19 17:09 20:58 06:05 WBC RBC Hgb Hct MCV RDW Neutrophils # Lymphocytes # Sodium Potassium Chloride Carbon Dioxide BUN Creatinine Glucose POC Glucose (mg/dL) 175 H 230 H 479 H Calcium Procalcitonin Urine RBC Ur Squamous Epith Cells Crossmatch 05/21/19 05/21/19 06:07 06:44 WBC RBC Hgb Hct MCV RDW Neutrophils # Lymphocytes # Sodium Potassium Chloride 108 H Carbon Dioxide BUN 57 H Creatinine 2.07 H Glucose 164 H POC Glucose (mg/dL) 397 H Calcium Procalcitonin Urine RBC Ur Squamous Epith Cells Crossmatch - Diagnostic Findings Chest x-ray: report reviewed, image reviewed CT scan - chest: report reviewed, image reviewed (Findings as dictated above) Assessment and Plan Assessment: Healthcare associated pneumonia right side Of pleural based mass anteriorly on the right side cannot be excluded Bilateral pleural effusion right more than the left Hematuria Morbid obesity Likely sleep disorder breathing and sleep apnea Plan: Agree with broad-spectrum antibiotic Deep breathing exercise incentive spirometry Reviewed x-rays computed tomography scan and ultrasound hard copies and report Consult interventional radiology for right thoracentesis fluid should be sent for culture and cytology Further recommendations pending plan of care as per clinical response of the patient Time with Patient: Greater than 30
[2019-05-21] MEDS: PIPERACILLIN-TAZOBACTAM 3.375 GM in SODIUM CHLORIDE 0.9% 100 ML IVPB SCH ×3 (09:28→23:32)
[2019-05-21] MEDS: FUROSEMIDE 40 MG TAB PO SCH (09:31)
[2019-05-21] MEDS: TROSPIUM CHLORIDE 20 MG TABLET PO SCH (09:31)
[2019-05-21] MEDS: ALLOPURINOL 100 MG TAB PO SCH (09:31)
[2019-05-21] MEDS: METOPROLOL TARTRATE 12.5 MG TAB PO SCH ×3 (09:31→20:15)
[2019-05-21] MEDS: ISOSORBIDE MONONITRATE ER 30 MG TAB.ER.24H PO SCH (09:31)
[2019-05-21] MEDS: FERROUS SULFATE 325 MG TAB PO SCH ×2 (09:31→20:15)
[2019-05-21] MEDS: FINASTERIDE 5 MG TAB PO SCH (09:32)
[2019-05-21] MEDS: HYDROcodone/APAP 5-325MG 1 EACH TAB PO PRN (09:32)
[2019-05-21 13:16] LABS: Glucose,Whole Blood 150 mg/dL (75-99)
[2019-05-21] MEDS: SUCRALFATE 1 GM TAB PO SCH ×2 (13:17→16:36)
--- NOTE | 2019-05-21 14:07 | PN ---
PROGRESS NOTE DATE OF SERVICE: 05/21/2019 Patient is an 78-year-old pleasant white male admitted to hospital with severe hematuria and bladder spasms for the last 1-week duration. [place] catheter pulled out yesterday and he developed difficulty urination and hence it has to be replaced today. He has large amount of clots in the [place] catheter. In the meantime, he continues to have dysphagia and odynophagia. He initially stated that he had an upper endoscopy done 3 weeks ago, but records from all three hospitals were requested but there was no upper endoscopy that was done recently. He still continues to complain of dysphagia, odynophagia with food especially in the mid-sternal area. He denies any heartburn. He was started on Carafate 1 g 4 times daily with no relief yet. PHYSICAL EXAMINATION: He appears comfortable, in no apparent distress. Vital signs are stable. Blood pressure 120/88, pulse rate 86 per minute and afebrile. HEENT: Examination unremarkable. Conjunctivae are pink. Sclerae nonicteric. Oral cavity no lesions. NECK: No JVD or lymph node enlargement. CHEST: Clear to auscultation. HEART: Regular rate and rhythm. ABDOMEN: Soft. Bowel sounds are positive. No organomegaly. EXTREMITIES: No pedal edema. SKIN: No rashes. NEURO: He is alert and oriented x3. No focal deficits. LABS: From today, BUN is 57, creatinine 2.07. Rest of the labs are within normal limits. IMPRESSION: 1. Dysphagia/odynophagia for the last few days duration. No records of recent upper endoscopy that are available. Patient on Protonix as well as Carafate with no help in his symptoms. 2. Hematuria and bladder spasms. Dr. Martinez following the patient closely. RECOMMENDATIONS: 1. Will proceed with an upper endoscopy tomorrow. I discussed with him the risks, benefits, and complications of the procedure and he is agreeable to it. 2. Continue with Protonix and Carafate. Will follow him closely during his hospital. Thank you for this consultation. MMUCHEL / CHRISTINAN: [id number] /
[2019-05-21] MEDS: BELLADONNA-OPIUM 16.2-60 MG 1 EACH SUPP RECTAL PRN (14:25)
--- NOTE | 2019-05-21 16:34 | P.PN ---
Progress Note - Text Progress Note Date: 05/21/19 The patient's catheter was removed at 5 this morning for a voiding trial. He developed suprapubic discomfort 3 or 4 hours later and was bladder scanned at that time but the scan did not show a significant amount of urine in his bladder. A catheter was placed at that time which drained 300 mL of bloody urine and the patient suprapubic discomfort was all. Since that time he has continued to have grossly bloody urine with some small clots which are irrigated periodically from the bladder. I presumed that the bleeding occurred with the bladder distention at the start of the voiding trial. The catheter will be left in place and the bladder will be irrigated periodically as needed. At least at this point my recommendation would be to leave the catheter in place for at least 5-7 days prior to another voiding trial.
[2019-05-21 16:57] LABS: Glucose,Whole Blood 165 mg/dL (75-99)
--- NOTE | 2019-05-21 17:43 | PN ---
PROGRESS NOTE The patient is seen for followup for acute kidney injury. His renal function has improved. Creatinine has gone down to about 2.0 from 2.5 mg/dL. The patient is currently maintained on oral Lasix. He is not on any IV fluids. Patient was admitted to the hospital with severe anemia and hematuria. He has had cystoscopy with evacuation of clots. No significant complaints today. PHYSICAL EXAMINATION: On examination, blood pressure was 119/66, heart rate 100 per minute, patient is afebrile. Examination of the heart S1, S2. Examination of the lungs, bilateral breath sounds are heard. Decreased breath sounds at the bases. Abdomen is soft, nontender. Examination of lower extremities shows no significant edema. LABS: Sodium 139, potassium 4.5, chloride 108, BUN 57, serum creatinine 2.07. ASSESSMENT: 1. Acute kidney injury associated with severe anemia, currently nonoliguric and improved. May continue off IV fluids. Encourage increased oral intake. No nephrotoxic agents on board. Blood pressure is better. 2. Chronic kidney disease. Previous creatinine around 2 mg/dL in July of 2018, mostly from nephrosclerosis. Previous urinalysis did not show any significant proteinuria. 3. Hematuria associated with radiation cystitis, status post cystoscopy and evacuation of clots. 4. History of dysphagia. The patient will have an EGD tomorrow. PLAN: 1. Continue to encourage increased oral intake. 2. Repeat labs in a.m. Renal function not far from baseline. MMODL / IJN: [id number] /
[2019-05-21 19:51] LABS: Glucose,Whole Blood 129 mg/dL (75-99)
[2019-05-21] MEDS: TAMSULOSIN 0.4 MG CAP.ER.24H PO SCH (20:15)
[2019-05-21] MEDS: ATORVASTATIN 40 MG TAB PO SCH (20:15)
--- NOTE | 2019-05-21 20:35 | PN ---
PROGRESS NOTE Mr. Hill is complaining of abdominal discomfort. He has had bleeding with hematuria. However, cardiac-raphael he is stable. There is no overt heart failure. I am recommending 40 mg of Lasix to be given orally. No other intervention is necessary from a cardiac standpoint. Vitals are stable. S1, S2 heard normally but distantly. Short systolic murmur noted. Lungs reveal diminished air entry. Abdomen is soft. There is mild tenderness. Bowel sounds are normal. Rest of physical examination is unchanged. I will continue to see him as needed. MMODL / IJN: [id number] /
--- NOTE | 2019-05-21 22:50 | P.PN ---
Progress Note - Text Progress Note Date: 05/21/19 Interval history: This is a 78-year-old patient with an extensive medical history. Chronic stable medical conditions include atrial fibrillation, diabetes, hyperlipidemia, hypertension, Genaro arthritis, hypothyroid, etc. Patient about 4 weeks ago was seen by urologist Dr. Zavala out of [facility]. Patient had bladder scraping done. Since then progressively patient is having hematuria and more and more bladder spasms. Patient's status writhing in pain sometimes she describes. Because hematuria has pain persistent, his ECF sent him down here for further evaluation by urology. They were consulted earlier today. Patient only on Ditropan. Appetite is fair. No fever no chills. Patient's hemoglobin had dropped down to 7. A unit of blood have been given. No fever no chills patient admitted with postop hematuria and severe bladder spasms. Patient was taken to the OR on May 14. Several blood clots evacuated. 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 Patient having significant bladder spasm. Medications were adjusted by urology. Subsequently patient underwent pneumonia. Started and IV Zosyn. Hematuria is improving. patient went into congestive heart failure. Was started on IV Lasix. Also complained of odynophagia in the middle chest. Unclear winded EF last EGD. GIs on the case. Possible right parapneumonic effusion. Seen by pulmonary. Intervention radiology for thoracentesis. Today-this morning Overton catheter was taken out. For a trial of DC catheter. Patient started having bladder spasm. Overton catheter was placed. Bloody urine started again. Review of systems: Was done for constitutional, cardiovascular, GI, pulmonary. relevant finding as above Active Medications Hydrocodone Bitart/Acetaminophen ([place] 5-325) 1 each PO Q6H PRN PRN Reason: Pain Last Admin: 05/21/19 09:32 Dose: 1 each Documented by: Al Hydroxide/Mg Hydroxide (Maalox) 30 ml PO Q4HR PRN PRN Reason: GI Upset Last Admin: 05/18/19 16:24 Dose: 30 ml Documented by: Albuterol/Ipratropium (Duoneb 0.5 Mg-3 Mg/3 Ml Soln) 3 ml INHALATION RT-QID PRN PRN Reason: Shortness Of Breath Or Wheezing Last Admin: 05/17/19 19:53 Dose: 3 ml Documented by: Allopurinol (Zyloprim) 100 mg PO DAILY@0900 [facility] Last Admin: 05/21/19 09:31 Dose: 100 mg Documented by: Atorvastatin Calcium (Lipitor) 40 mg PO HS@2100 [facility] Last Admin: 05/21/19 20:15 Dose: 40 mg Documented by: Belladonna Alkaloids/Opium (B&O Suppository) 1 each RECTAL QID PRN PRN Reason: bladder spasm Last Admin: 05/21/19 14:25 Dose: 1 each Documented by: Calcium Carbonate/Glycine (Tums) 500 mg PO QID PRN PRN Reason: Heartburn Last Admin: 05/18/19 21:03 Dose: 500 mg Documented by: Ferrous Sulfate (Feosol) 325 mg PO BID@0900,2100 [facility] Last Admin: 05/21/19 20:15 Dose: 325 mg Documented by: Finasteride (Proscar) 5 mg PO DAILY@0900 [facility] Last Admin: 05/21/19 09:32 Dose: 5 mg Documented by: Furosemide (Lasix) 40 mg PO DAILY [facility] Last Admin: 05/21/19 09:31 Dose: 40 mg Documented by: Piperacillin Sod/Tazobactam (Sod 3.375 gm/ Sodium Chloride) 100 mls @ 25 mls/hr IVPB Q8HR [facility] Last Admin: 05/21/19 16:36 Dose: 25 mls/hr Documented by: Insulin Aspart (Novolog) 0 unit SQ ACHS [facility]; Protocol Last Admin: 05/21/19 19:59 Dose: Not Given Documented by: Isosorbide Mononitrate (Imdur) 30 mg PO DAILY@0900 [facility] Last Admin: 05/21/19 09:31 Dose: 30 mg Documented by: Levothyroxine Sodium (Synthroid) 75 mcg PO DAILY@0600 [facility] Last Admin: 05/21/19 05:47 Dose: 75 mcg Documented by: Levothyroxine Sodium (Synthroid) 200 mcg PO DAILY@0600 [facility] Last Admin: 05/21/19 05:47 Dose: 200 mcg Documented by: Metoprolol Tartrate (Lopressor) 12.5 mg PO TID [facility] Last Admin: 05/21/19 20:15 Dose: 12.5 mg Documented by: Naloxone HCl (Narcan) 0.2 mg IV Q2M PRN PRN Reason: Opioid Reversal Pantoprazole Sodium (Protonix) 40 mg PO AC-BID [facility] Last Admin: 05/21/19 16:36 Dose: 40 mg Documented by: Sucralfate (Carafate) 1 gm PO AC-TID [facility] Last Admin: 05/21/19 16:36 Dose: 1 gm Documented by: Tamsulosin HCl (Flomax) 0.4 mg PO HS@2100 [facility] Last Admin: 05/21/19 20:15 Dose: 0.4 mg Documented by: Trospium (Sanctura) 20 mg PO DAILY@0900 [facility] Last Admin: 05/21/19 09:31 Dose: 20 mg Documented by: Physical examination: VITAL SIGNS: 98.2, 1 or 2, 20, 11 8/64, 94% literss GENERAL:laying in bed, awake, uncomfortable EYES: Pupils equal. Conjunctiva pale HEENT: External appearance of nose and ears normal, oral cavity grossly normal. NECK: JVD not raised; masses not palpable. HEART: First and second heart sounds are normal; no edema. LUNGS: Respiratory rate increased, decreased breath sounds. ABDOMEN: Soft, nontender, liver spleen not palpable, no masses palpable. Overton catheter, with light pink urine PSYCH: Alert and oriented x3; mood and affect anxiousl. INVESTIGATIONS, reviewed in the clinical context: Potassium 4.5 bun 57 creatinine 2.07 Previous labs Chest x-ray film-personally reviewed by me shows right-sided infiltrate with possible effusion CT [id number] effusion Right ultrasound-6.7 cm pleural effusion . White count 13.8 hemoglobin 6.6 potassium 5.1 BUN 83 creatinine 2.21 BUN and creatinine was 67/2.42 and January of this year hemoglobin was 13.9 in January of this year 2-D echo-EF 40-45%, restrictive LV filling pattern, some wall motion abnormality, moderate aortic valve sclerosis, moderate mitral regurgitation, moderate tricuspid regurgitation, moderate pulmonary hypertension. Assessment: -Acute symptomatic blood loss anemia secondary to persistent hematuria. Patient has received 4 units of blood. On April 21 DC trial off Overton, resulted more pain. Overton was placed back. No more hematuria again. -Severe bladder spasms in a patient who recently had bladder intervention, much improved -Persistent recurrent hematuria in a patient with recent bladder intervention, -Acute congestive heart failure exacerbationfrom systolic and diastolic,dysfunction EF 40-45%., Improved -Moderate aortic valve sclerosis, moderate mitral mitral regurgitation, moderate tricuspid regurgitation-nonrheumatic -Secondary moderate probably hypertension from CHF -Diabetes mellitus type 2 -Hypotension from blood loss anemia -Essential hypertension -hypertensive heart disease -Hyperlipidemia -Primary osteoarthritis -Hypothyroid -Left renal cancer with left nephrectomy -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 Plan: Patient is scheduled for EGD tomorrow. Overton catheter has been placed back. Discussed with the Dr. Rsos from her memory. Also discussed with the nurse. Also communicate with GI. Total time spent today was about 45 minutes with over 25 minutes of discussion. Repeat labs in the morning.
[2019-05-22] MEDS: BELLADONNA-OPIUM 16.2-60 MG 1 EACH SUPP RECTAL PRN ×2 (03:36→12:03)
[2019-05-22] MEDS: LEVOTHYROXINE 75 MCG TAB PO SCH (06:14)
[2019-05-22] MEDS: PANTOPRAZOLE 40 MG TABLET PO SCH ×2 (06:14→17:47)
[2019-05-22] MEDS: SUCRALFATE 1 GM TAB PO SCH ×3 (06:14→17:47)
[2019-05-22] MEDS: LEVOTHYROXINE 100 MCG TAB PO SCH (06:14)
[2019-05-22] MEDS: INSULIN ASPART (NovoLOG) 100 UNIT/ML VIAL SQ SCH ×4 (06:36→21:20)
[2019-05-22 06:50] LABS: Glucose,Whole Blood 186 mg/dL (75-99)
[2019-05-22] MEDS ORDERED: SODIUM CHLORIDE 0.9% IRRIGATIO 3,000 ML IRRIGATION ONE (06:51)
[2019-05-22 07:23] LABS: Mean Platelet Volume 7.1; Platelet Count 148 k/uL (150-450)
[2019-05-22 07:25] LABS: INR 1.1 (<1.2)
[2019-05-22 08:27] LABS: Anisocytosis Slight; HCT 29.7 % (39.0-53.0); Hypochromasia Marked; MCH 31.2 pg (25.0-35.0); MCHC 29.1 g/dL (31.0-37.0); Macrocytosis Marked; Mean Platelet Volume 7.6; Platelet Count 153 k/uL (150-450); RBC 2.77 m/uL (4.30-5.90); RDW 18.4 % (11.5-15.5); WBC 5.4 k/uL (3.8-10.6)
[2019-05-22 08:28] LABS: Calcium 8.5 mg/dL (8.4-10.2); Potassium 4.5 mmol/L (3.5-5.1)
[2019-05-22 08:29] LABS: HGB 8.6 gm/dL (13.0-17.5); MCV 107.3 fL (80.0-100.0)
--- NOTE | 2019-05-22 09:20 | P.PN ---
Progress Note - Text Progress Note Date: 05/22/19 The patient continues to have gross hematuria. Unfortunately it does not appear that his bladder was adequately irrigated through the night as he has developed suprapubic discomfort from bladder distention. I removed his 16 [place] catheter and inserted a 20 [place] catheter. I irrigated out 200-300 cc of old clot. The bladder will be irrigated periodically to ensure that all clots have been removed. If his urine stays relatively clear the catheter will remain in place. If all clots have been removed but he continues with any significant active bleeding then a three-way catheter might be considered.
[2019-05-22] MEDS: ALLOPURINOL 100 MG TAB PO SCH (09:34)
[2019-05-22] MEDS: ISOSORBIDE MONONITRATE ER 30 MG TAB.ER.24H PO SCH (09:34)
[2019-05-22] MEDS: METOPROLOL TARTRATE 12.5 MG TAB PO SCH ×3 (09:34→21:19)
[2019-05-22] MEDS: FINASTERIDE 5 MG TAB PO SCH (09:34)
[2019-05-22] MEDS: FUROSEMIDE 40 MG TAB PO SCH (09:34)
[2019-05-22] MEDS: FERROUS SULFATE 325 MG TAB PO SCH ×2 (09:34→21:19)
[2019-05-22] MEDS: PIPERACILLIN-TAZOBACTAM 3.375 GM in SODIUM CHLORIDE 0.9% 100 ML IVPB SCH ×2 (09:35→17:37)
--- NOTE | 2019-05-22 10:22 | XR ---
EXAMINATION TYPE: XR chest 1V portable DATE OF EXAM: 05/22/2019 COMPARISON: 05/19/2019 INDICATION: Postthoracentesis, effusion TECHNIQUE: Single frontal view of the chest is obtained. FINDINGS: The heart size is mildly prominent. The pulmonary vasculature is normal. Effusion is present on the right. This appears loculated and relatively unchanged from comparison. No pneumothorax is evident. IMPRESSION: 1. Loculated right pleural fluid collection. 2. No pneumothorax is evident post thoracentesis.
--- NOTE | 2019-05-22 11:15 | US ---
Ultrasound-guided therapeutic and diagnostic thoracentesis DATE OF EXAM: 05/22/2019 CLINICAL HISTORY: Right pleural effusion The procedure was discussed with the patient. The risks, complications, benefits, and alternatives we re discussed and any questions were answered. Informed consent was obtained. The patient was placed supine on the ultrasound table and prepped and draped in the usual sterile fas hion. All elements of maximal barrier and sterile technique were utilized. Under ultrasound guidance, access into the pleural space was obtained, via the thoracentesis catheter system and direct ultrasound guidance. Ap proximately 0.4 liters of straw-colored fluid was removed. The patient was stable throughout the procedure and remained stable upon discharge from Department of Radiology. IMPRESSION: 1. Successful therapeutic and diagnostic thoracentesis under ultrasound guidance.
[2019-05-22 11:18] LABS: Glucose,Whole Blood 136 mg/dL (75-99)
--- NOTE | 2019-05-22 14:42 | P.PN ---
Subjective Progress Note Date: 05/22/19 Principal diagnosis: Healthcare associated pneumonia right side Parapneumonic effusion Pleural based mass anteriorly on the right side cannot be excluded Bilateral pleural effusion right more than the left Hematuria Morbid obesity Likely sleep disorder breathing and sleep apnea 05/22/2019, patient seen eval examined during the rounds labs reviewed medications reviewed 400 mL of straw-colored pleural fluid has been removed sent for cytology Gram stain and culture results are pending fluid appears small in amount with some element of organization patient is waiting for EGD later on today Objective - Vital Signs Vital signs: Vital Signs Temp 97.7 F 05/22/19 11:26 Pulse 98 05/22/19 11:29 Resp 16 05/22/19 11:29 BP 92/48 05/22/19 11:26 Pulse Ox 99 05/22/19 11:26 Intake & Output 05/21/19 05/22/19 05/22/19 18:59 06:59 18:59 Intake Total 1090 60 210 Output Total 1174 792 4903 Balance -510 500 4540 Weight 97.9 kg 102.7 kg Intake: IV 250 60 210 .9 @ 10 80 Invasive Line 5 30 Invasive Line 6 20 60 30 Piperacillin-Tazobactam 3 200 100 .375 gm In Sodium Chloride 0.9% 100 ml @ 25 mls/hr IVPB Q8HR [facility] Rx# :[id number] Oral 840 Output: Urine 4088 752 6473 Uretheral (Overton) 1200 4750 Other: Voiding Method Indwelling Catheter Indwelling Catheter Indwelling Catheter - Exam Constitutional General appearance: disheveled, morbidly obese - EENT Eyes: anicteric sclerae, EOMI, PERRLA, poor dentition, normal appearance ENT: normal oropharynx Ears: bilateral: normal - Neck Carotids: bilateral: upstroke normal Thyroid: bilateral: normal size - Respiratory Respiratory: right: dullness, bilateral: diminished ([place] on the right side compared to left side), negative: rales, rhonchi, wheezing - Cardiovascular Rhythm: regular Heart sounds: normal: S1, S2 - Gastrointestinal General gastrointestinal: distended, soft - Musculoskeletal Musculoskeletal: gait normal, generalized weakness, strength equal bilaterally - Psychiatric Psychiatric: A&O x's 3, appropriate affect, intact judgment & insight - Labs CBC & Chem 7: 05/22/19 06:57 05/22/19 06:57 Labs: Abnormal Lab Results - Last 24 Hours (Table) 05/21/19 05/21/19 05/22/19 Range/Units 16:56 19:49 06:30 RBC (4.30-5.90) m/uL Hgb (13.0-17.5) gm/dL Hct (39.0-53.0) % MCV (80.0-100.0) fL MCHC (31.0-37.0) g/dL RDW (11.5-15.5) % Plt Count (150-450) k/uL Macrocytosis BUN (9-20) mg/dL Creatinine (0.66-1.25) mg/dL Glucose (74-99) mg/dL POC Glucose (mg/dL) 165 H 129 H 186 H (75-99) mg/dL 05/22/19 05/22/19 05/22/19 Range/Units 06:57 06:57 06:57 RBC 2.77 L (4.30-5.90) m/uL Hgb 8.6 L D (13.0-17.5) gm/dL Hct 29.7 L (39.0-53.0) % MCV 107.3 H D (80.0-100.0) fL MCHC 29.1 L (31.0-37.0) g/dL RDW 18.4 H (11.5-15.5) % Plt Count 148 L (150-450) k/uL Macrocytosis Marked A BUN 51 H (9-20) mg/dL Creatinine 1.99 H (0.66-1.25) mg/dL Glucose 163 H (74-99) mg/dL POC Glucose (mg/dL) (75-99) mg/dL 05/22/19 Range/Units 11:15 RBC (4.30-5.90) m/uL Hgb (13.0-17.5) gm/dL Hct (39.0-53.0) % MCV (80.0-100.0) fL MCHC (31.0-37.0) g/dL RDW (11.5-15.5) % Plt Count (150-450) k/uL Macrocytosis BUN (9-20) mg/dL Creatinine (0.66-1.25) mg/dL Glucose (74-99) mg/dL POC Glucose (mg/dL) 136 H (75-99) mg/dL Microbiology - Last 24 Hours (Table) 05/16/19 11:30 Blood Culture - Final Blood No Growth after 144 hours Assessment and Plan Assessment: Healthcare associated pneumonia right side Pleural based mass anteriorly on the right side cannot be excluded Bilateral pleural effusion right more than the left status post thoracentesis on the right side 400 mL of straw-colored fluid removed Hematuria Morbid obesity Likely sleep disorder breathing and sleep apnea Plan: Agree with broad-spectrum antibiotic Deep breathing exercise incentive spirometry Reviewed x-rays computed tomography scan and ultrasound hard copies and report Status post a right thoracentesis awaiting culture reports and cytology Further recommendations pending plan of care as per clinical response of the pat ient Time with Patient: Greater than 30
[2019-05-22] MEDS ORDERED: PROPOFOL 10 MG/ML 20 ML VIAL IV ONE (14:59)
[2019-05-22] MEDS ORDERED: IV FLUID CONTINUATION 1,000 ML IV ONE ×2 (15:04)
--- NOTE | 2019-05-22 15:34 | P.PCN ---
Date of Procedure: 05/22/19 Description of Procedure: BRIEF HISTORY: 78-year-old male presenting with complaints of hematuria and bladder spasm who complained of symptoms of dysphagia and odynophagia. PROCEDURE PERFORMED: Esophagogastroduodenoscopy. PREOPERATIVE DIAGNOSIS: Esophageal dysphagia, odynophagia. ESTIMATED BLOOD LOSS: Minimal. IV sedation per anesthesia. PROCEDURE: After informed consent was obtained, the patient was brought into the endoscopy unit. IV sedation was administered by Anesthesia under continuous monitoring. Initially the Olympus GIF-190 video endoscope was inserted into the mouth. Esophagus intubated without any difficulty. It was gradually advanced into the stomach and duodenum and carefully examined. The bulb and the second part of the duodenum appeared normal, with biopsies taken. The scope at this time was withdrawn to the stomach, adequately insufflated with air, and upon careful examination, mucosa of the antrum, body, cardia and the fundus appeared normal, except for some mild scattered erythema in the antrum and body suggestive of mild gastritis with biopsies taken. The scope was then withdrawn into the esophagus. The GE junction was located at 39 cm from the incisors. Diffuse erythema and inflammation consistent with LA grade D esophagitis was noted starting at 15 cm from the incisors to the GE junction with biopsies taken. IMPRESSION: 1. LA grade D esophagitis, biopsied. 2. Biopsies of the antrum and body, and the duodenum. 3. Mild gastritis. RECOMMENDATIONS: The findings of this examination were discussed with the patient in the nursing staff. Okay to resume diet. Continue Protonix 40 mg twice daily. We will add Pepcid 20 mg daily at bedtime. Await pathology from biopsies. Otherwise no further intervention planned by the gastroenterology service, thank you for allowing us to participate in the care of this patient.
[2019-05-22 15:58] LABS: Appearance,BF Clear; Color,BF Yellow; Nucleated Cells, Body Fluid 2 /uL; RBC, Body Fluid 10 /uL
[2019-05-22] MEDS: TROSPIUM CHLORIDE 20 MG TABLET PO SCH (17:47)
[2019-05-22 17:49] LABS: Glucose,Whole Blood 147 mg/dL (75-99)
[2019-05-22 20:21] LABS: Glucose,Whole Blood 174 mg/dL (75-99)
[2019-05-22] MEDS: ATORVASTATIN 40 MG TAB PO SCH (21:19)
[2019-05-22] MEDS: TAMSULOSIN 0.4 MG CAP.ER.24H PO SCH (21:20)
[2019-05-22] MEDS: FAMOTIDINE 20 MG TAB PO SCH (21:20)
[2019-05-22 21:41] LABS: Total Protein, Body Fluid 667 mg/dL
--- NOTE | 2019-05-22 22:56 | P.PN ---
Progress Note - Text Progress Note Date: 05/22/19 Interval history: This is a 78-year-old patient with an extensive medical history. Chronic stable medical conditions include atrial fibrillation, diabetes, hyperlipidemia, hypertension, Genaro arthritis, hypothyroid, etc. Patient about 4 weeks ago was seen by urologist Dr. Zavala out of [facility]. Patient had bladder scraping done. Since then progressively patient is having hematuria and more and more bladder spasms. Patient's status writhing in pain sometimes she describes. Because hematuria has pain persistent, his ECF sent him down here for further evaluation by urology. They were consulted earlier today. Patient only on Ditropan. Appetite is fair. No fever no chills. Patient's hemoglobin had dropped down to 7. A unit of blood have been given. No fever no chills patient admitted with postop hematuria and severe bladder spasms. Patient was taken to the OR on May 14. Several blood clots evacuated. 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 Patient having significant bladder spasm. Medications were adjusted by urology. Subsequently patient underwent pneumonia. Started and IV Zosyn. Hematuria is improving. patient went into congestive heart failure. Was started on IV Lasix. Also complained of odynophagia in the middle chest. Unclear winded EF last EGD. GIs on the case. Possible right parapneumonic effusion. Seen by pulmonary. Intervention radiology for thoracentesis. Trial of DC Overton was done on May 21. Patient started having bladder spasms again. Overton was replaced. Again started hematuria. Being followed by urologdaisy. Today May 22 about 30 mL of bright status diagnostic thoracentesis was done of straw-colored fluid by interventional radiology. EKG done today showed- esophagitis Review of systems: Was done for constitutional, cardiovascular, GI, pulmonary. relevant finding as above Active Medications Hydrocodone Bitart/Acetaminophen ([place] 5-325) 1 each PO Q6H PRN PRN Reason: Pain Last Admin: 05/21/19 09:32 Dose: 1 each Documented by: Al Hydroxide/Mg Hydroxide (Maalox) 30 ml PO Q4HR PRN PRN Reason: GI Upset Last Admin: 05/18/19 16:24 Dose: 30 ml Documented by: Albuterol/Ipratropium (Duoneb 0.5 Mg-3 Mg/3 Ml Soln) 3 ml INHALATION RT-QID PRN PRN Reason: Shortness Of Breath Or Wheezing Last Admin: 05/17/19 19:53 Dose: 3 ml Documented by: Allopurinol (Zyloprim) 100 mg PO DAILY@0900 [facility] Last Admin: 05/22/19 09:34 Dose: 100 mg Documented by: Atorvastatin Calcium (Lipitor) 40 mg PO HS@2100 [facility] Last Admin: 05/22/19 21:19 Dose: 40 mg Documented by: Belladonna Alkaloids/Opium (B&O Suppository) 1 each RECTAL QID PRN PRN Reason: bladder spasm Last Admin: 05/22/19 12:03 Dose: 1 each Documented by: Calcium Carbonate/Glycine (Tums) 500 mg PO QID PRN PRN Reason: Heartburn Last Admin: 05/18/19 21:03 Dose: 500 mg Documented by: Famotidine (Pepcid) 20 mg PO HS [facility] Last Admin: 05/22/19 21:20 Dose: 20 mg Documented by: Ferrous Sulfate (Feosol) 325 mg PO BID@0900,2100 [facility] Last Admin: 05/22/19 21:19 Dose: 325 mg Documented by: Finasteride (Proscar) 5 mg PO DAILY@0900 [facility] Last Admin: 05/22/19 09:34 Dose: 5 mg Documented by: Furosemide (Lasix) 40 mg PO DAILY [facility] Last Admin: 05/22/19 09:34 Dose: 40 mg Documented by: Piperacillin Sod/Tazobactam (Sod 3.375 gm/ Sodium Chloride) 100 mls @ 25 mls/hr IVPB Q8HR [facility] Last Admin: 05/22/19 17:37 Dose: 25 mls/hr Documented by: Insulin Aspart (Novolog) 0 unit SQ [facility]; Protocol Last Admin: 05/22/19 21:20 Dose: 2 unit Documented by: Isosorbide Mononitrate (Imdur) 30 mg PO DAILY@0900 [facility] Last Admin: 05/22/19 09:34 Dose: 30 mg Documented by: Levothyroxine Sodium (Synthroid) 75 mcg PO DAILY@0600 [facility] Last Admin: 05/22/19 06:14 Dose: 75 mcg Documented by: Levothyroxine Sodium (Synthroid) 200 mcg PO DAILY@0600 [facility] Last Admin: 05/22/19 06:14 Dose: 200 mcg Documented by: Metoprolol Tartrate (Lopressor) 12.5 mg PO TID [facility] Last Admin: 05/22/19 21:19 Dose: 12.5 mg Documented by: Naloxone HCl (Narcan) 0.2 mg IV Q2M PRN PRN Reason: Opioid Reversal Pantoprazole Sodium (Protonix) 40 mg PO AC-BID [facility] Last Admin: 05/22/19 17:47 Dose: 40 mg Documented by: Sucralfate (Carafate) 1 gm PO AC-TID [facility] Last Admin: 05/22/19 17:47 Dose: 1 gm Documented by: Tamsulosin HCl (Flomax) 0.4 mg PO HS@2100 [facility] Last Admin: 05/22/19 21:20 Dose: 0.4 mg Documented by: Trospium (Sanctura) 20 mg PO DAILY@0900 [facility] Last Admin: 05/22/19 17:47 Dose: 20 mg Documented by: Physical examination: VITAL SIGNS: 97.7, 98, 16, 92 x 48, 99% room air GENERAL: Sitting up in bed, EYES: Pupils equal. Conjunctiva pale HEENT: External appearance of nose and ears normal, oral cavity grossly normal. NECK: JVD not raised; masses not palpable. HEART: First and second heart sounds are normal; no edema. LUNGS: Respiratory rate increased, decreased breath sounds. ABDOMEN: Soft, nontender, liver spleen not palpable, no masses palpable. Overton catheter, with light pink urine PSYCH: Alert and oriented x3; mood and affect anxious. INVESTIGATIONS, reviewed in the clinical context: White count 5.4 hemoglobin 8.6 potassium 4.5 creatinine 1.99 Previous labs Chest x-ray film-personally reviewed by me shows right-sided infiltrate with possible effusion CT [id number] effusion Right ultrasound-6.7 cm pleural effusion . White count 13.8 hemoglobin 6.6 potassium 5.1 BUN 83 creatinine 2.21 BUN and creatinine was 67/2.42 and January of this year hemoglobin was 13.9 in January of this year 2-D echo-EF 40-45%, restrictive LV filling pattern, some wall motion abnormality, moderate aortic valve sclerosis, moderate mitral regurgitation, moderate tricuspid regurgitation, moderate pulmonary hypertension. Assessment: -Acute symptomatic blood loss anemia secondary to persistent hematuria. Patient has received 4 units of blood. On April 21 DC trial off Overton, resulted more pain. Overton was placed back. No more hematuria again. -Severe bladder spasms in a patient who recently had bladder intervention, much improved -Persistent recurrent hematuria in a patient with recent bladder intervention, -Acute congestive heart failure exacerbationfrom systolic and diastolic,dysfunction EF 40-45%., Improved -Moderate aortic valve sclerosis, moderate mitral mitral regurgitation, moderate tricuspid regurgitation-nonrheumatic -Secondary moderate probably hypertension from CHF -Diabetes mellitus type 2 -Hypotension from blood loss anemia -Essential hypertension -hypertensive heart disease -Hyperlipidemia -Primary osteoarthritis -Hypothyroid -Left renal cancer with left nephrectomy -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 Plan: Nurse da silva called me about patient having more bladder spasms. i Have tried all different medications from my standpoint. IV pain medication narcotics are not a good choice. told the nurse to address with the urologist [employer] as they have been trying to address this problem of bladder spasm and bleeding for a few days.
[2019-05-23] MEDS: PIPERACILLIN-TAZOBACTAM 3.375 GM in SODIUM CHLORIDE 0.9% 100 ML IVPB SCH ×3 (00:32→15:39)
[2019-05-23] MEDS: SUCRALFATE 1 GM TAB PO SCH ×2 (06:26→11:52)
[2019-05-23] MEDS: INSULIN ASPART (NovoLOG) 100 UNIT/ML VIAL SQ SCH ×4 (06:26→20:59)
[2019-05-23] MEDS: LEVOTHYROXINE 100 MCG TAB PO SCH (06:26)
[2019-05-23] MEDS: LEVOTHYROXINE 75 MCG TAB PO SCH (06:26)
[2019-05-23] MEDS: PANTOPRAZOLE 40 MG TABLET PO SCH ×2 (06:26→17:47)
[2019-05-23 06:41] LABS: Glucose,Whole Blood 187 mg/dL (75-99)
[2019-05-23 07:33] LABS: Glucose,Whole Blood 126 mg/dL (75-99)
[2019-05-23] MEDS: FINASTERIDE 5 MG TAB PO SCH (08:17)
[2019-05-23] MEDS: TROSPIUM CHLORIDE 20 MG TABLET PO SCH (08:18)
[2019-05-23] MEDS: ALLOPURINOL 100 MG TAB PO SCH (08:18)
[2019-05-23] MEDS: FERROUS SULFATE 325 MG TAB PO SCH ×2 (08:18→20:53)
[2019-05-23] MEDS: METOPROLOL TARTRATE 12.5 MG TAB PO SCH ×3 (08:22→20:53)
[2019-05-23 08:24] LABS: Anisocytosis Slight; Basophils % (A) 1 %; Eosinophils # (A) 0.2 k/uL (0-0.7); Eosinophils % (A) 6 %; HCT 29.2 % (39.0-53.0); HGB 8.6 gm/dL (13.0-17.5); Hypochromasia Marked; Lymphocytes # (A) 0.4 k/uL (1.0-4.8); Lymphocytes % (A) 11 %; MCH 31.5 pg (25.0-35.0); MCHC 29.4 g/dL (31.0-37.0); MCV 106.8 fL (80.0-100.0); Macrocytosis Marked; Mean Platelet Volume 7.5; Monocytes # (A) 0.3 k/uL (0-1.0); Monocytes % (A) 8 %; Neutrophils # (A) 2.8 k/uL (1.3-7.7); Neutrophils % (A) 70 %; Platelet Count 168 k/uL (150-450); RBC 2.73 m/uL (4.30-5.90); RDW 18.3 % (11.5-15.5); WBC 3.9 k/uL (3.8-10.6)
[2019-05-23 08:33] LABS: Calcium 8.3 mg/dL (8.4-10.2)
[2019-05-23 08:36] LABS: Potassium 4.9 mmol/L (3.5-5.1)
[2019-05-23 09:10] LABS: Poikilocytosis (M) Present
[2019-05-23] MEDS: FUROSEMIDE 40 MG TAB PO SCH (11:52)
[2019-05-23 11:57] LABS: Glucose,Whole Blood 242 mg/dL (75-99)
--- NOTE | 2019-05-23 12:23 | P.DS ---
Providers Date of admission: 05/11/19 22:46 Expected date of discharge: 05/23/19 Attending physician: Alexy Titus Consults: 05/12/19 08:22 Consult Physician Routine Consulting Provider: Micky Fang Consult Reason/Comments: right pleural effusion, send fluid for cytology and cultures with gram stai Do you want consulting provider notified?: Yes 05/18/19 21:20 Consult Physician Routine Consulting Provider: Kenny Lewis Consult Reason/Comments: CHF Do you want consulting provider notified?: Yes 05/19/19 12:35 Consult Physician Routine Consulting Provider: Cecile Torres Consult Reason/Comments: ckd Do you want consulting provider notified?: Yes 05/19/19 22:00 Consult Physician Routine Consulting Provider: Piyush Ross Consult Reason/Comments: Pneumonia Do you want consulting provider notified?: Yes 05/20/19 13:14 Consult Physician Routine Consulting Provider: Kristin Carranza Consult Reason/Comments: EGD for painful midsternal swallowing Do you want consulting provider notified?: Yes Primary care physician: [facility] Course: Interval history: This is a 78-year-old patient with an extensive medical history. Chronic stable medical conditions include atrial fibrillation, diabetes, hyperlipidemia, hypertension, Genaro arthritis, hypothyroid, etc. Patient about 4 weeks ago was seen by urologist Dr. Zavala out of [facility]. Patient had bladder scraping done. Since then progressively patient is having hematuria and more and more bladder spasms. Patient's was writhing in pain. Because hematuria and bladder spasms-persistent, ECF sent him down here for further evaluation by urology. Patient only on Ditropan. Appetite is fair. No fever no chills. Patient's hemoglobin had dropped down to 7. A unit of blood was given. No fever no chills patient admitted with postop hematuria and severe bladder spasms. Patient was taken to the OR on May 14. Several blood clots evacuated. 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 Patient still having significant bladder spasm. Medications were adjusted by urology. Subsequently patient diagnosed with pneumonia. Started and IV Zosyn. Hematuria is improving. patient went into congestive heart failure. Was started on IV Lasix. Also complained of odynophagia in the middle chest. . Possible right parapneumonic effusion. Seen by pulmonary. Intervention radiology did thoracentesis and 30 mL of diagnostic fluid was removed.. Trial of DC Overton was done on May 21. Patient started having bladder spasms again. Overton was replaced. Again started hematuria. Today hematuria is greatly improved. On the light tinge in the urine. Breathing is much improved. Also had EGD that showed esophagitis.. Patient received a total of 4 units of blood. Today-patient doing better. Laying in bed. He is only light tinge in color. Breathing stable. Prognosis guarded. Eating fine. Discussion and discharge planning more than 35 minutes. Discussed with the patient. Discussed with vacation planner. Consultation: Dr. STEVE Lewis from cardiology Dr. Ross from pulmonary Dr. Briggs from urology Dr. Hatch from GI Physical examination: VITAL SIGNS: 97.8, 96, 18, 100/52, 98% on 2 L GENERAL: Sitting up in bed, comfortable EYES: Pupils equal. Conjunctiva pale HEENT: External appearance of nose and ears normal, oral cavity grossly normal. NECK: JVD not raised; masses not palpable. HEART: First and second heart sounds are normal; no edema. LUNGS: Respiratory rate increased, decreased breath sounds. ABDOMEN: Soft, nontender, liver spleen not palpable, no masses palpable. Overton catheter, with light pink urine PSYCH: Alert and oriented x3; mood and affect anxious. INVESTIGATIONS, reviewed in the clinical context: White count 3.9 hemoglobin 8.6 weight is 168 potassium 4.9 bun 50 creatinine 1.88 Previous labs Chest x-ray film-personally reviewed by me shows right-sided infiltrate with po ssible effusion CT [id number] effusion Right ultrasound-6.7 cm pleural effusion . White count 13.8 hemoglobin 6.6 potassium 5.1 BUN 83 creatinine 2.21 BUN and creatinine was 67/2.42 and Diana of this year hemoglobin was 13.9 in January of this year 2-D echo-EF 40-45%, restrictive LV filling pattern, some wall motion abnormality, moderate aortic valve sclerosis, moderate mitral regurgitation, moderate tricuspid regurgitation, moderate pulmonary hypertension. Assessment: -Acute symptomatic blood loss anemia secondary to persistent hematuria. Patient has received 4 units of blood. On April 21 DC trial off Overton, resulted more pain. Overton was placed back. No more hematuria again. -Severe bladder spasms in a patient who recently had bladder intervention, much improved -Persistent recurrent hematuria in a patient with recent bladder intervention, now resolved -Acute congestive heart failure exacerbationfrom systolic and diastolic,dysfunction EF 40-45%., Improved -Moderate aortic valve sclerosis, moderate mitral mitral regurgitation, moderate tricuspid regurgitation-nonrheumatic -Secondary moderate probably hypertension from CHF -Diabetes mellitus type 2 -Hypotension from blood loss anemia -Essential hypertension -hypertensive heart disease -Hyperlipidemia -Primary osteoarthritis -Hypothyroid -Left renal cancer with left nephrectomy -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 Disposition: F/[facility] Patient Condition at Discharge: Stable Plan - Discharge Summary Discharge Rx Participant: No New Discharge Prescriptions: New Amoxicillin/Potassium Clav [Augmentin 875-125 Tablet] 1 tab PO Q12HR #10 tab Metoprolol Tartrate [Lopressor] 12.5 mg PO TID tab Omeprazole [PriLOSEC] 20 mg PO AC-BID #60 cap Calcium Carbonate [Tums] 500 mg PO QID PRN chew PRN Reason: Heartburn Continue Tamsulosin [Flomax] 0.4 mg PO HS@2100 Levothyroxine Sodium [Synthroid] 200 mcg PO DAILY@0600 Finasteride [Proscar] 5 mg PO DAILY@0900 Isosorbide Mononitrate [Isosorbide Mononitrate ER] 30 mg PO DAILY@0900 Levothyroxine Sodium [Synthroid] 75 mcg PO DAILY@0600 Phenazopyridine [Pyridium] 200 mg PO BID PRN PRN Reason: BLADDER SPASMS INSULIN LISPRO (HumaLOG) [humaLOG] See Protocol SQ ACHS Ipratropium-Albuterol Nebulize [Duoneb 0.5 mg-3 mg/3 ml Soln] 3 ml INHALATION RT-TID Ferrous Sulfate [Iron (65 MG Elemental)] 325 mg PO BID@0900,2100 Fesoterodine Fumarate [Toviaz] 4 mg PO DAILY@0900 Oxybutynin Chloride [Ditropan XL] 5 mg PO ONCE Furosemide [Lasix] 40 mg PO DAILY@0600 Atorvastatin [Lipitor] 40 mg PO HS@2100 Allopurinol [Zyloprim] 100 mg PO DAILY@0900 HYDROcodone/APAP 5-325MG [[place] 5-325] 1 tab PO Q6H PRN #12 tab PRN Reason: Pain Changed Insulin Detemir [Levemir Flextouch] 20 units SQ HS #0 Discontinued Metoprolol Succinate [Toprol Xl] 100 mg PO DAILY@0900 predniSONE See Taper PO DIRECTED Aspirin EC [Ecotrin Low Dose] 81 mg PO HS@2100 Discharge Medication List Finasteride [Proscar] 5 mg PO DAILY@89902/25/18 [History] Levothyroxine Sodium [Synthroid] 200 mcg PO DAILY@59902/25/18 [History] Tamsulosin [Flomax] 0.4 mg PO HS@209902/25/18 [History] Isosorbide Mononitrate [Isosorbide Mononitrate ER] 30 mg PO DAILY@89908/05/18 [History] Levothyroxine Sodium [Synthroid] 75 mcg PO DAILY@59902/10/19 [History] Allopurinol [Zyloprim] 100 mg PO DAILY@89905/11/19 [History] Atorvastatin [Lipitor] 40 mg PO HS@209905/11/19 [History] Ferrous Sulfate [Iron (65 MG Elemental)] 325 mg PO BID@899,209905/11/19 [History] Fesoterodine Fumarate [Toviaz] 4 mg PO DAILY@89905/11/19 [History] Furosemide [Lasix] 40 mg PO DAILY@59905/11/19 [History] INSULIN LISPRO (HumaLOG) [humaLOG] See Protocol SQ ACHS 05/11/19 [History] Ipratropium-Albuterol Nebulize [Duoneb 0.5 mg-3 mg/3 ml Soln] 3 ml INHALATION RT-TID 05/11/19 [History] Oxybutynin Chloride [Ditropan XL] 5 mg PO ONCE 05/11/19 [History] Phenazopyridine [Pyridium] 200 mg PO BID PRN 05/11/19 [History] Amoxicillin/Potassium Clav [Augmentin 875-125 Tablet] 1 tab PO Q12HR #10 tab 05/23/19 [Rx] Calcium Carbonate [Tums] 500 mg PO QID PRN chew 05/23/19 [Rx] HYDROcodone/APAP 5-325MG [[place] 5-325] 1 tab PO Q6H PRN #12 tab 05/23/19 [Rx] Insulin Detemir [Levemir Flextouch] 20 units SQ HS #0 05/23/19 [Rx] Metoprolol Tartrate [Lopressor] 12.5 mg PO TID tab 05/23/19 [Rx] Omeprazole [PriLOSEC] 20 mg PO AC-BID #60 cap 05/23/19 [Rx] Follow up Appointment(s)/Referral(s): Osman Dunne MD [Primary Care Provider] - 1-2 days Piyush Ross MD [STAFF PHYSICIAN] - 1 Week Mariusz Briggs MD [STAFF PHYSICIAN] - 1 Week Activity/Diet/Wound Care/Special Instructions: Urology F/U appointment should be with Dr. Briggs rather than Dr. Carmona.\ Diet: Heart Healthy, Consistent Carbohydrates - please finely chop all food
--- NOTE | 2019-05-23 14:15 | PN ---
PROGRESS NOTE The patient is seen for followup for acute kidney injury. Patient's renal function has improved. Creatinine is down to 1.8 from around 2.5 at peak. He currently has an indwelling Overton catheter. The patient wants to get discharged. The patient was seen by Urology yesterday and had a 20-Lao catheter placed. The patient also had clots which were removed. He is not complaining of any pain today. PHYSICAL EXAMINATION: On examination, blood pressure was 92/55, heart rate 83 per minute. Patient is afebrile. EXAMINATION OF THE HEART: S1, S2. EXAMINATION OF THE LUNGS: Bilateral breath sounds are heard. Decreased breath sounds at bases. Abdomen is soft, nontender. Examination of lower extremities shows no significant edema. LABS: Labs show hemoglobin 8.6, sodium 139, potassium 4.9, BUN 50, creatinine 1.88. ASSESSMENT: 1. Acute kidney injury associated with severe anemia, possibly obstructive uropathy as well. Currently with Overton catheter draining good urine. 2. Chronic kidney disease, most likely from nephrosclerosis. Previous creatinine was around 2 in July of 2018. 3. Hematuria associated with radiation cystitis, status post cystoscopy. 4. Dysphagia, status post EGD, which showed grade D esophagitis, mild gastritis. The patient is maintained on Protonix and Pepcid. PLAN: Patient is stable for discharge from Nephrology standpoint. Continue with the Overton catheter. Continue with small dose of oral Lasix. MMODL / IJN: [id number] /
[2019-05-23] MEDS: ISOSORBIDE MONONITRATE ER 30 MG TAB.ER.24H PO SCH (14:34)
--- NOTE | 2019-05-23 17:07 | P.PN ---
Progress Note - Text Progress Note Date: 05/23/19 Interval history: This is a 78-year-old patient with an extensive medical history. Chronic stable medical conditions include atrial fibrillation, diabetes, hyperlipidemia, hypertension, Genaro arthritis, hypothyroid, etc. Patient about 4 weeks ago was seen by urologist Dr. Zavala out of [facility]. Patient had bladder scraping done. Since then progressively patient is having hematuria and more and more bladder spasms. Patient's status writhing in pain sometimes she describes. Because hematuria has pain persistent, his ECF sent him down here for further evaluation by urology. They were consulted earlier today. Patient only on Ditropan. Appetite is fair. No fever no chills. Patient's hemoglobin had dropped down to 7. A unit of blood have been given. No fever no chills patient admitted with postop hematuria and severe bladder spasms. Patient was taken to the OR on May 14. Several blood clots evacuated. 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 Patient having significant bladder spasm. Medications were adjusted by urology. Subsequently patient underwent pneumonia. Started and IV Zosyn. Hematuria is improving. patient went into congestive heart failure. Was started on IV Lasix. Also complained of odynophagia in the middle chest. Unclear winded EF last EGD. GIs on the case. Possible right parapneumonic effusion. Seen by pulmonary. Intervention radiology for thoracentesis. Trial of DC Overton was done on May 21. Patient started having bladder spasms again. Overton was replaced. Again started hematuria. Being followed by Dr. black. May 22 about 30 mL of bright status diagnostic thoracentesis was done of straw-colored fluid by interventional radiology. EKG done today showed-esophagitis Today-hematuria much improved. Nearly cleared. Bladder spasm improved. Tolerating a diet. Breathing improved. Review of systems: Was done for constitutional, cardiovascular, GI, pulmonary. relevant finding as above Active Medications Hydrocodone Bitart/Acetaminophen ([place] 5-325) 1 each PO Q6H PRN PRN Reason: Pain Last Admin: 05/21/19 09:32 Dose: 1 each Documented by: Al Hydroxide/Mg Hydroxide (Maalox) 30 ml PO Q4HR PRN PRN Reason: GI Upset Last Admin: 05/18/19 16:24 Dose: 30 ml Documented by: Albuterol/Ipratropium (Duoneb 0.5 Mg-3 Mg/3 Ml Soln) 3 ml INHALATION RT-QID PRN PRN Reason: Shortness Of Breath Or Wheezing Last Admin: 05/17/19 19:53 Dose: 3 ml Documented by: Allopurinol (Zyloprim) 100 mg PO DAILY@0900 [facility] Last Admin: 05/23/19 08:18 Dose: 100 mg Documented by: Atorvastatin Calcium (Lipitor) 40 mg PO HS@2100 [facility] Last Admin: 05/22/19 21:19 Dose: 40 mg Documented by: Belladonna Alkaloids/Opium (B&O Suppository) 1 each RECTAL QID PRN PRN Reason: bladder spasm Last Admin: 05/22/19 12:03 Dose: 1 each Documented by: Calcium Carbonate/Glycine (Tums) 500 mg PO QID PRN PRN Reason: Heartburn Last Admin: 05/18/19 21:03 Dose: 500 mg Documented by: Famotidine (Pepcid) 20 mg PO [facility] Last Admin: 05/22/19 21:20 Dose: 20 mg Documented by: Ferrous Sulfate (Feosol) 325 mg PO BID@0900,2100 [facility] Last Admin: 05/23/19 08:18 Dose: 325 mg Documented by: Finasteride (Proscar) 5 mg PO DAILY@0900 [facility] Last Admin: 05/23/19 08:17 Dose: 5 mg Documented by: Furosemide (Lasix) 40 mg PO DAILY [facility] Last Admin: 05/23/19 11:52 Dose: 40 mg Documented by: Insulin Aspart (Novolog) 0 unit SQ [facility]; Protocol Last Admin: 05/23/19 11:59 Dose: 3 unit Documented by: Isosorbide Mononitrate (Imdur) 30 mg PO DAILY@0900 [facility] Last Admin: 05/23/19 14:34 Dose: 30 mg Documented by: Levothyroxine Sodium (Synthroid) 75 mcg PO DAILY@0600 [facility] Last Admin: 05/23/19 06:26 Dose: 75 mcg Documented by: Levothyroxine Sodium (Synthroid) 200 mcg PO DAILY@0600 [facility] Last Admin: 05/23/19 06:26 Dose: 200 mcg Documented by: Metoprolol Tartrate (Lopressor) 12.5 mg PO TID [facility] Last Admin: 05/23/19 08:22 Dose: 12.5 mg Documented by: Naloxone HCl (Narcan) 0.2 mg IV Q2M PRN PRN Reason: Opioid Reversal Pantoprazole Sodium (Protonix) 40 mg PO AC-BID [facility] Last Admin: 05/23/19 06:26 Dose: 40 mg Documented by: Sucralfate (Carafate) 1 gm PO AC-TID [facility] Last Admin: 05/23/19 11:52 Dose: 1 gm Documented by: Tamsulosin HCl (Flomax) 0.4 mg PO HS@2100 [facility] Last Admin: 05/22/19 21:20 Dose: 0.4 mg Documented by: Trospium (Sanctura) 20 mg PO DAILY@0900 [facility] Last Admin: 05/23/19 08:18 Dose: 20 mg Documented by: Physical examination: VITAL SIGNS: 97.8, 96, 18, 100 over psych 52, 96% on 2 L GENERAL: Sitting up in bed, comfortable EYES: Pupils equal. Conjunctiva pale HEENT: External appearance of nose and ears normal, oral cavity grossly normal. NECK: JVD not raised; masses not palpable. HEART: First and second heart sounds are normal; no edema. LUNGS: Respiratory rate increased, decreased breath sounds. ABDOMEN: Soft, nontender, liver spleen not palpable, no masses palpable. Overton catheter, with light pink urine PSYCH: Alert and oriented x3; mood and affect anxious. INVESTIGATIONS, reviewed in the clinical context: White count 3.9-year-old woman 8.6 potassium 4.9 bun 50 creatinine 1.88 Previous labs Chest x-ray film-personally reviewed by me shows right-sided infiltrate with possible effusion CT [id number] effusion Right ultrasound-6.7 cm pleural effusion . White count 13.8 hemoglobin 6.6 potassium 5.1 BUN 83 creatinine 2.21 BUN and creatinine was 67/2.42 and January of this year hemoglobin was 13.9 in January of this year 2-D echo-EF 40-45%, restrictive LV filling pattern, some wall motion abnormality, moderate aortic valve sclerosis, moderate mitral regurgitation, moderate tricuspid regurgitation, moderate pulmonary hypertension. Assessment: -Acute symptomatic blood loss anemia secondary to persistent hematuria. Patient has received 4 units of blood. On April 21 DC trial off Overton, resulted more pain. Overton was placed back. Had repeat hematuria. Which is now living up. -Severe bladder spasms in a patient who recently had bladder intervention, much improved -Persistent recurrent hematuria in a patient with recent bladder intervention, improved. 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 -Odynophagia from esophagitis. Plan: Initially discharge was prepared for a possible discharge to ECF today. That was informed that preauthorization what happened today. Has discharge has been held. Hopefully patient can go on Saturday. Care was discussed with the patient. Switch to oral antibiotic.
[2019-05-23 17:29] LABS: Glucose,Whole Blood 176 mg/dL (75-99)
[2019-05-23] MEDS: AMOXIC-POT CLAV 875-125MG 1 EACH TAB PO SCH (20:53)
[2019-05-23] MEDS: TAMSULOSIN 0.4 MG CAP.ER.24H PO SCH (20:53)
[2019-05-23] MEDS: ATORVASTATIN 40 MG TAB PO SCH (20:53)
[2019-05-23] MEDS: FAMOTIDINE 20 MG TAB PO SCH (20:53)
[2019-05-23 20:57] LABS: Glucose,Whole Blood 152 mg/dL (75-99)
--- NOTE | 2019-05-23 22:04 | P.PN ---
Subjective Progress Note Date: 05/23/19 Principal diagnosis: Dysphagia, odynophagia Patient seen lying in bed reporting that urine has cleared up. Tolerating his diet. Decreased odynophagia. Objective - Vital Signs Vital signs: Vital Signs Temp 97.8 F 05/23/19 08:00 Pulse 80 05/23/19 11:48 Resp 17 05/23/19 11:48 BP 100/52 05/23/19 11:48 Pulse Ox 98 05/23/19 11:48 Intake & Output 05/22/19 05/23/19 05/23/19 18:59 06:59 18:59 Intake Total 740 80 240 Output Total 5200 2650 Balance -4460 -2570 240 Weight 107.5 kg Intake: IV 480 .9 @ 10 80 Invasive Line 6 50 Piperacillin-Tazobactam 3 100 .375 gm In Sodium Chloride 0.9% 100 ml @ 25 mls/hr IVPB Q8HR [facility] Rx# :[id number] Oral 260 80 240 Output: Urine 5200 2650 Uretheral (Overton) 5200 1350 Other: Voiding Method Indwelling Catheter Indwelling Catheter Indwelling Catheter # Voids 0 1 # Bowel Movements 0 - Exam On physical examination, patient appears comfortable in no apparent distress. HEAD: Normocephalic, atraumatic. EYES: No scleral icterus. No conjunctival injection. MOUTH: No lesions, tongue midline. NECK: Trachea midline, no gross abnormalities. CHEST: Decreased air entry in all lung miranda. ABDOMEN: Soft, obese. Bowel sounds are positive. No organomegaly. No guarding or rigidity. EXTREMITIES: No pedal edema. SKIN: No rashes, no jaundice. - Labs CBC & Chem 7: 05/23/19 07:57 05/23/19 07:57 Labs: Abnormal Lab Results - Last 24 Hours (Table) 05/22/19 05/22/19 05/23/19 Range/Units 17:43 20:20 06:22 RBC (4.30-5.90) m/uL Hgb (13.0-17.5) gm/dL Hct (39.0-53.0) % MCV (80.0-100.0) fL MCHC (31.0-37.0) g/dL RDW (11.5-15.5) % Lymphocytes # (1.0-4.8) k/uL Macrocytosis BUN (9-20) mg/dL Creatinine (0.66-1.25) mg/dL Glucose (74-99) mg/dL POC Glucose (mg/dL) 147 H 174 H 187 H (75-99) mg/dL Calcium (8.4-10.2) mg/dL 05/23/19 05/23/19 05/23/19 Range/Units 07:31 07:57 07:57 RBC 2.73 L (4.30-5.90) m/uL Hgb 8.6 L (13.0-17.5) gm/dL Hct 29.2 L (39.0-53.0) % MCV 106.8 H (80.0-100.0) fL MCHC 29.4 L (31.0-37.0) g/dL RDW 18.3 H (11.5-15.5) % Lymphocytes # 0.4 L (1.0-4.8) k/uL Macrocytosis Marked A BUN 50 H (9-20) mg/dL Creatinine 1.88 H (0.66-1.25) mg/dL Glucose 101 H (74-99) mg/dL POC Glucose (mg/dL) 126 H (75-99) mg/dL Calcium 8.3 L (8.4-10.2) mg/dL 05/23/19 Range/Units 11:55 RBC (4.30-5.90) m/uL Hgb (13.0-17.5) gm/dL Hct (39.0-53.0) % MCV (80.0-100.0) fL MCHC (31.0-37.0) g/dL RDW (11.5-15.5) % Lymphocytes # (1.0-4.8) k/uL Macrocytosis BUN (9-20) mg/dL Creatinine (0.66-1.25) mg/dL Glucose (74-99) mg/dL POC Glucose (mg/dL) 242 H (75-99) mg/dL Calcium (8.4-10.2) mg/dL Microbiology - Last 24 Hours (Table) 05/22/19 10:00 Gram Stain - Preliminary Pleural Fluid Body Fluid Culture - Preliminary 05/22/19 10:00 Acid Fast Bacilli Smear - Final Pleural Fluid Acid Fast Bacilli Culture - Preliminary 05/22/19 10:00 Fungal Culture - Preliminary Pleural Fluid 05/16/19 11:30 Blood Culture - Final Blood No Growth after 144 hours Assessment and Plan (1) Esophagitis determined by endoscopy Narrative/Plan: 6-year-old male presenting to the hospital with hematuria and spasm of the bladder who is seen for complaints of dysphagia and odynophagia and taken for EGD with findings of LA grade D esophagitis. Currently on PPI and H2 antagonist therapy with improved symptoms. Current Visit: Yes Status: Acute Code(s): K20.9 - ESOPHAGITIS, UNSPECIFIED SNOMED Code(s): 55202183 Plan: Supportive care Okay for chopped diet Continue Protonix 40 mg twice daily Continue Pepcid daily at bedtime Okay for discharge from gastroenterology standpoint Thank you for allowing us to participate in the care of the patient, the GI serv ice will stand by, please call us back with any questions or concerns
[2019-05-24 06:15] LABS: Glucose,Whole Blood 171 mg/dL (75-99)
[2019-05-24] MEDS: PANTOPRAZOLE 40 MG TABLET PO SCH ×2 (06:28→17:16)
[2019-05-24] MEDS: LEVOTHYROXINE 100 MCG TAB PO SCH (06:28)
[2019-05-24] MEDS: LEVOTHYROXINE 75 MCG TAB PO SCH (06:28)
[2019-05-24] MEDS: INSULIN ASPART (NovoLOG) 100 UNIT/ML VIAL SQ SCH ×4 (06:29→22:08)
[2019-05-24] MEDS: FERROUS SULFATE 325 MG TAB PO SCH ×2 (07:59→20:07)
[2019-05-24] MEDS: AMOXIC-POT CLAV 875-125MG 1 EACH TAB PO SCH ×2 (07:59→20:06)
[2019-05-24] MEDS: ALLOPURINOL 100 MG TAB PO SCH (07:59)
[2019-05-24] MEDS: ISOSORBIDE MONONITRATE ER 30 MG TAB.ER.24H PO SCH (07:59)
[2019-05-24] MEDS: METOPROLOL TARTRATE 12.5 MG TAB PO SCH ×3 (07:59→20:07)
[2019-05-24] MEDS: FINASTERIDE 5 MG TAB PO SCH (07:59)
[2019-05-24] MEDS: FUROSEMIDE 40 MG TAB PO SCH (07:59)
[2019-05-24] MEDS: TROSPIUM CHLORIDE 20 MG TABLET PO SCH (08:00)
--- NOTE | 2019-05-24 10:32 | P.PN ---
Subjective Progress Note Date: 05/24/19 Principal diagnosis: Healthcare associated pneumonia right side Parapneumonic effusion Pleural based mass anteriorly on the right side cannot be excluded Bilateral pleural effusion right more than the left Hematuria Morbid obesity Likely sleep disorder breathing and sleep apnea 05/24/2019, patient is more awake and alert breathing comfortably he remains on 2 L oxygen saturation is stable labs reviewed medications reviewed, cytology and pleural fluid remains pending, Gram stain is negative no leukocyte no bacteria are seen fungal and AFB cultures are pending so far no growth has been seen, last WBC count is within normal limit, patient has been appropriately placed on Augmentin feels that can be discharged to [facility] on oral Augmentin to finish 1 week of therapy will follow up on outpatient basis 05/22/2019, patient seen eval examined during the rounds labs reviewed medications reviewed 400 mL of straw-colored pleural fluid has been removed sent for cytology Gram stain and culture results are pending fluid appears small in amount with some element of organization patient is waiting for EGD later on today This is a 78-year-old male who was seen evaluated examined this patient originally admitted into the hospital with hematuria posterior the bladder biopsy and scraping, results of that is not available but however patient developed significant hematuria underwent cystoscopy for clots of blood were removed in [place] patient developed pneumonia on the right side a chest x-ray showed fairly large pleural effusion on the right side with some on the left side as well some evidence of air bronchograms sister pneumonia, patient is appropriately on Zosyn with presumption of healthcare associated pneumonia, he still short of breath he is on 2 L oxygen, his ultrasound showed a small to moderate pleural effusion on the right side very small effusion on the left side the thoracic wall appears to be 4 cm in size, the computed tomography scan of the chest showed early loculation cannot be excluded, possible atelectasis versus infiltrate anteriorly cannot be excluded, we'll consult interventional radiology for drainage of the pleural fluid which would be sent for cytology and culture Objective - Vital Signs Vital signs: Vital Signs Temp 97.3 F L 05/24/19 08:00 Pulse 96 05/24/19 08:00 Resp 18 05/24/19 08:00 BP 102/53 05/24/19 08:00 Pulse Ox 93 L 05/24/19 08:00 Intake & Output 05/23/19 05/24/19 05/24/19 18:59 06:59 18:59 Intake Total 440 360 Output Total 1500 Balance -1060 360 Weight 102.5 kg Intake: IV 200 Piperacillin-Tazobactam 3 200 .375 gm In Sodium Chloride 0.9% 100 ml @ 25 mls/hr IVPB Q8HR [facility] Rx# :[id number] Oral 240 360 Output: Urine 1500 Other: Voiding Method Indwelling Catheter Indwelling Catheter Indwelling Catheter # Bowel Movements 1 - Exam Constitutional General appearance: disheveled, morbidly obese - EENT Eyes: anicteric sclerae, EOMI, PERRLA, poor dentition, normal appearance ENT: normal oropharynx Ears: bilateral: normal - Neck Carotids: bilateral: upstroke normal Thyroid: bilateral: normal size - Respiratory Respiratory: Overall lung exam improved significantly compared to prior exam, bilateral: diminished ([place] on the right side compared to left side), negative: rales, rhonchi, wheezing - Cardiovascular Rhythm: regular Heart sounds: normal: S1, S2 - Gastrointestinal General gastrointestinal: distended, soft - Musculoskeletal Musculoskeletal: gait normal, generalized weakness, strength equal bilaterally - Psychiatric Psychiatric: A&O x's 3, appropriate affect, intact judgment & insight - Labs CBC & Chem 7: 05/23/19 07:57 05/23/19 07:57 Labs: Abnormal Lab Results - Last 24 Hours (Table) 05/23/19 05/23/19 05/23/19 Range/Units 11:55 17:28 20:56 POC Glucose (mg/dL) 242 H 176 H 152 H (75-99) mg/dL 05/24/19 Range/Units 06:14 POC Glucose (mg/dL) 171 H (75-99) mg/dL Microbiology - Last 24 Hours (Table) 05/22/19 10:00 Gram Stain - Preliminary Pleural Fluid Body Fluid Culture - Preliminary Assessment and Plan Assessment: Healthcare associated pneumonia right side Parapneumonic effusion Pleural based mass anteriorly on the right side cannot be excluded Bilateral pleural effusion right more than the left status post thoracentesis on the right side 400 mL of straw-colored fluid removed making it highly likely for fluid overload Hematuria Morbid obesity Likely sleep disorder breathing and sleep apnea Plan: Agree with broad-spectrum antibiotic, patient has been now switched to oral Deep breathing exercise incentive spirometry Reviewed x-rays computed tomography scan and ultrasound hard copies and report Status post a right thoracentesis awaiting cytology , so far cultures have been negative Agree with discharge planning on oral Augmentin follow-up on outpatient basis Further recommendations pending plan of care as per clinical response of the patient Time with Patient: Greater than 30
[2019-05-24 12:53] LABS: Glucose,Whole Blood 188 mg/dL (75-99)
[2019-05-24 17:04] LABS: Glucose,Whole Blood 234 mg/dL (75-99)
--- NOTE | 2019-05-24 18:37 | PN ---
PROGRESS NOTE Patient is seen for followup for acute on top of chronic kidney disease. His Overton catheter was recently changed. He does not have any further clots or hematuria. The patient denies any significant complaints. PHYSICAL EXAMINATION: On examination, blood pressure this morning was 102/53, heart rate 96 per minute, he is afebrile. Examination of the heart S1, S2. Examination of the lungs, bilateral breath sounds are heard. Abdomen is soft, non-tender. Examination of lower extremities shows no significant edema. LABS: From yesterday show serum creatinine 1.8 mg/dL. Potassium was 4.9, sodium 139. ASSESSMENT: 1. Acute kidney injury, mostly associated with severe anemia and possibly an element of obstructive uropathy, currently improving. 2. Chronic kidney disease secondary to nephrosclerosis. Previous creatinine around 2 in July of 2018. NKF Stage IIIB. 3. Hematuria associated with radiation cystitis, status post cystoscopy and removal of clots. 4. Dysphagia status post EGD which showed grade D esophagitis, mild gastritis, maintained on Protonix and Pepcid. PLAN: Continue with the Lasix 40 mg p.o. daily. Repeat labs in a.m. MMODL / IJN: [id number] /
[2019-05-24] MEDS: FAMOTIDINE 20 MG TAB PO SCH (20:06)
[2019-05-24] MEDS: TAMSULOSIN 0.4 MG CAP.ER.24H PO SCH (20:06)
[2019-05-24] MEDS: ATORVASTATIN 40 MG TAB PO SCH (20:07)
[2019-05-24 21:01] LABS: Glucose,Whole Blood 218 mg/dL (75-99)
--- NOTE | 2019-05-24 21:07 | P.PN ---
Progress Note - Text Progress Note Date: 05/24/19 Interval history: This is a 78-year-old patient with an extensive medical history. Chronic stable medical conditions include atrial fibrillation, diabetes, hyperlipidemia, hypertension, Genaro arthritis, hypothyroid, etc. Patient about 4 weeks ago was seen by urologist Dr. Zavala out of [facility]. Patient had bladder scraping done. Since then progressively patient is having hematuria and more and more bladder spasms. Patient's status writhing in pain sometimes she describes. Because hematuria has pain persistent, his ECF sent him down here for further evaluation by urology. They were consulted earlier today. Patient only on Ditropan. Appetite is fair. No fever no chills. Patient's hemoglobin had dropped down to 7. A unit of blood have been given. No fever no chills patient admitted with postop hematuria and severe bladder spasms. Patient was taken to the OR on May 14. Several blood clots evacuated. 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 Patient having significant bladder spasm. Medications were adjusted by urology. Subsequently patient underwent pneumonia. Started and IV Zosyn. Hematuria is improving. patient went into congestive heart failure. Was started on IV Lasix. Also complained of odynophagia in the middle chest. Unclear winded EF last EGD. GIs on the case. Possible right parapneumonic effusion. Seen by pulmonary. Intervention radiology for thoracentesis. Trial of DC Overton was done on May 21. Patient started having bladder spasms again. Overton was replaced. Again started hematuria. Being followed by Dr. black. May 22 about 30 mL of bright status diagnostic thoracentesis was done of straw-colored fluid by interventional radiology. EKG done today showed-esophagitis Today-doing well. Smiling. Tolerating a diet. Hematuria [place] clear. Breathing better. On oral and [place]. Review of systems: Was done for constitutional, cardiovascular, GI, pulmonary. relevant finding as above Active Medications Hydrocodone Bitart/Acetaminophen ([place] 5-325) 1 each PO Q6H PRN PRN Reason: Pain Last Admin: 05/21/19 09:32 Dose: 1 each Documented by: Al Hydroxide/Mg Hydroxide (Maalox) 30 ml PO Q4HR PRN PRN Reason: GI Upset Last Admin: 05/18/19 16:24 Dose: 30 ml Documented by: Albuterol/Ipratropium (Duoneb 0.5 Mg-3 Mg/3 Ml Soln) 3 ml INHALATION RT-QID PRN PRN Reason: Shortness Of Breath Or Wheezing Last Admin: 05/17/19 19:53 Dose: 3 ml Documented by: Allopurinol (Zyloprim) 100 mg PO DAILY@0900 [facility] Last Admin: 05/24/19 07:59 Dose: 100 mg Documented by: Amoxicillin/Clavulanate Potassium (Augmentin 875-125) 1 each PO Q12HR [facility] Last Admin: 05/24/19 20:06 Dose: 1 each Documented by: Atorvastatin Calcium (Lipitor) 40 mg PO HS@2100 [facility] Last Admin: 05/24/19 20:07 Dose: 40 mg Documented by: Belladonna Alkaloids/Opium (B&O Suppository) 1 each RECTAL QID PRN PRN Reason: bladder spasm Last Admin: 05/22/19 12:03 Dose: 1 each Documented by: Calcium Carbonate/Glycine (Tums) 500 mg PO QID PRN PRN Reason: Heartburn Last Admin: 05/18/19 21:03 Dose: 500 mg Documented by: Famotidine (Pepcid) 20 mg PO HS [facility] Last Admin: 05/24/19 20:06 Dose: 20 mg Documented by: Ferrous Sulfate (Feosol) 325 mg PO BID@0900,2100 [facility] Last Admin: 05/24/19 20:07 Dose: 325 mg Documented by: Finasteride (Proscar) 5 mg PO DAILY@0900 [facility] Last Admin: 05/24/19 07:59 Dose: 5 mg Documented by: Furosemide (Lasix) 40 mg PO DAILY [facility] Last Admin: 05/24/19 07:59 Dose: 40 mg Documented by: Insulin Aspart (Novolog) 0 unit SQ [facility]; Protocol Last Admin: 05/24/19 17:16 Dose: 3 unit Documented by: Isosorbide Mononitrate (Imdur) 30 mg PO DAILY@0900 [facility] Last Admin: 05/24/19 07:59 Dose: 30 mg Documented by: Levothyroxine Sodium (Synthroid) 75 mcg PO DAILY@0600 [facility] Last Admin: 05/24/19 06:28 Dose: 75 mcg Documented by: Levothyroxine Sodium (Synthroid) 200 mcg PO DAILY@0600 [facility] Last Admin: 05/24/19 06:28 Dose: 200 mcg Documented by: Metoprolol Tartrate (Lopressor) 12.5 mg PO TID [facility] Last Admin: 05/24/19 20:07 Dose: 12.5 mg Documented by: Naloxone HCl (Narcan) 0.2 mg IV Q2M PRN PRN Reason: Opioid Reversal Pantoprazole Sodium (Protonix) 40 mg PO AC-BID [facility] Last Admin: 05/24/19 17:16 Dose: 40 mg Documented by: Tamsulosin HCl (Flomax) 0.4 mg PO HS@2100 [facility] Last Admin: 05/24/19 20:06 Dose: 0.4 mg Documented by: Trospium (Sanctura) 20 mg PO DAILY@0900 [facility] Last Admin: 05/24/19 08:00 Dose: 20 mg Documented by: Physical examination: VITAL SIGNS: 98.1, 90, 17, 99/54, 99% on 2 L GENERAL: Sitting up in bed, comfortable EYES: Pupils equal. Conjunctiva pale HEENT: External appearance of nose and ears normal, oral cavity grossly normal. NECK: JVD not raised; masses not palpable. HEART: First and second heart sounds are normal; no edema. LUNGS: Respiratory rate increased, decreased breath sounds. ABDOMEN: Soft, nontender, liver spleen not palpable, no masses palpable. Overton catheter, with light pink urine PSYCH: Alert and oriented x3; mood and affect anxious. INVESTIGATIONS, reviewed in the clinical context: Accu-Cheks noted Previous labs Chest x-ray film-personally reviewed by me shows right-sided infiltrate with possible effusion CT [id number] effusion Right ultrasound-6.7 cm pleural effusion . White count 13.8 hemoglobin 6.6 potassium 5.1 BUN 83 creatinine 2.21 BUN and creatinine was 67/2.42 and Diana of this year hemoglobin was 13.9 in January of this year 2-D echo-EF 40-45%, restrictive LV filling pattern, some wall motion abnormality, moderate aortic valve sclerosis, moderate mitral regurgitation, moderate tricuspid regurgitation, moderate pulmonary hypertension. Assessment: -Acute symptomatic blood loss anemia secondary to persistent hematuria. Patient has received 4 units of blood. On April 21 DC trial off Overton, resulted more pain. Overton was placed back. Had repeat hematuria. Which is now living up. -Severe bladder spasms in a patient who recently had bladder intervention, much improved -Persistent recurrent hematuria in a patient with recent bladder intervention, improved. 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 -Odynophagia from esophagitis. Plan: Doing better. Care was discussed with the patient. She will go to the ECF tomorrow. On oral antibiotic.
[2019-05-25 06:05] LABS: Glucose,Whole Blood 136 mg/dL (75-99)
[2019-05-25 06:13] LABS: Anisocytosis Slight; HCT 28.2 % (39.0-53.0); HGB 8.3 gm/dL (13.0-17.5); Hypochromasia Marked; MCH 31.8 pg (25.0-35.0); MCHC 29.5 g/dL (31.0-37.0); MCV 107.5 fL (80.0-100.0); Macrocytosis Marked; Mean Platelet Volume 7.7; Platelet Count 217 k/uL (150-450); RBC 2.62 m/uL (4.30-5.90); WBC 5.6 k/uL (3.8-10.6)
[2019-05-25] MEDS: INSULIN ASPART (NovoLOG) 100 UNIT/ML VIAL SQ SCH ×3 (06:28→18:01)
[2019-05-25] MEDS: PANTOPRAZOLE 40 MG TABLET PO SCH (06:31)
[2019-05-25] MEDS: LEVOTHYROXINE 75 MCG TAB PO SCH (06:31)
[2019-05-25] MEDS: LEVOTHYROXINE 100 MCG TAB PO SCH (06:31)
[2019-05-25 06:38] LABS: Calcium 8.3 mg/dL (8.4-10.2); Potassium 4.4 mmol/L (3.5-5.1)
[2019-05-25] MEDS: METOPROLOL TARTRATE 12.5 MG TAB PO SCH ×2 (08:57→18:01)
[2019-05-25] MEDS: AMOXIC-POT CLAV 875-125MG 1 EACH TAB PO SCH ×2 (08:57→21:38)
[2019-05-25] MEDS: FUROSEMIDE 40 MG TAB PO SCH (08:57)
[2019-05-25] MEDS: ALLOPURINOL 100 MG TAB PO SCH (08:57)
[2019-05-25] MEDS: TROSPIUM CHLORIDE 20 MG TABLET PO SCH (08:57)
[2019-05-25] MEDS: ISOSORBIDE MONONITRATE ER 30 MG TAB.ER.24H PO SCH (08:57)
[2019-05-25] MEDS: FERROUS SULFATE 325 MG TAB PO SCH (08:57)
[2019-05-25] MEDS: FINASTERIDE 5 MG TAB PO SCH (08:57)
[2019-05-25 11:32] VITALS: BMI 25.0
--- NOTE | 2019-05-25 13:23 | PN ---
PROGRESS NOTE Patient is seen for followup for acute kidney injury on top of chronic kidney disease. He was admitted with hematuria after radiation. He has had cystoscopy, evacuation of clots. Overton catheter was changed. He has no further hematuria. Urine output is good. Renal function is stable with an improvement in creatinine down to 1.8 from peak of 2.5 mg/dL. The patient's baseline is about 1.7 mg/dL. He is currently n.p.o. for EGD. PHYSICAL EXAMINATION: On examination this morning, blood pressure was 117/59, heart rate of 78 per minute. Patient is afebrile. EXAMINATION OF THE HEART: S1, S2. EXAMINATION OF THE LUNGS: Bilateral breath sounds are heard. Abdomen is soft, nontender. Examination of lower extremities shows no evidence of edema. DATA LEAD EXAM: Grossly intact. LABS: Labs show sodium 137, potassium 4.4, chloride 102, BUN 38, creatinine 1.86, hemoglobin 8.3 g/dL. ASSESSMENT: 1. Acute kidney injury secondary to severe anemia as well as an element of obstructive uropathy, currently improved. 2. Hematuria, status post radiation with radiation cystitis, currently improved. 3. Benign prostatic hypertrophy, maintained on Flomax. 4. Chronic kidney disease stage 3B with a creatinine of about 1.7 previously, 1.7 to 2 mg/dL. 5. Dysphagia, status post EGD which showed grade D esophagitis, mild gastritis, currently maintained on Protonix and Pepcid. PLAN: Continue with current dose of oral Lasix. The patient is stable for discharge from Nephrology standpoint. MMODL / IJN: [id number] /
--- NOTE | 2019-05-25 20:42 | P.PN ---
Progress Note - Text Progress Note Date: 05/25/19 Interval history: This is a 78-year-old patient with an extensive medical history. Chronic stable medical conditions include atrial fibrillation, diabetes, hyperlipidemia, hypertension, Genaro arthritis, hypothyroid, etc. Patient about 4 weeks ago was seen by urologist Dr. Zavala out of [facility]. Patient had bladder scraping done. Since then progressively patient is having hematuria and more and more bladder spasms. Patient's status writhing in pain sometimes she describes. Because hematuria has pain persistent, his ECF sent him down here for further evaluation by urology. They were consulted earlier today. Patient only on Ditropan. Appetite is fair. No fever no chills. Patient's hemoglobin had dropped down to 7. A unit of blood have been given. No fever no chills patient admitted with postop hematuria and severe bladder spasms. Patient was taken to the OR on May 14. Several blood clots evacuated. 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 Patient having significant bladder spasm. Medications were adjusted by urology. Subsequently patient underwent pneumonia. Started and IV Zosyn. Hematuria is improving. patient went into congestive heart failure. Was started on IV Lasix. Also complained of odynophagia in the middle chest. Unclear winded EF last EGD. GIs on the case. Possible right parapneumonic effusion. Seen by pulmonary. Intervention radiology for thoracentesis. Trial of DC Overton was done on May 21. Patient started having bladder spasms again. Overton was replaced. Again started hematuria. Being followed by Dr. black. May 22 about 30 mL of bright status diagnostic thoracentesis was done of straw-colored fluid by interventional radiology. EKG done today showed-esophagitis Today-. No new issues. Tolerating diet. Comfortable. Breathing is good. Awaiting TC to ECF. Review of systems: Was done for constitutional, cardiovascular, GI, pulmonary. relevant finding as above Active Medications Hydrocodone Bitart/Acetaminophen ([place] 5-325) 1 each PO Q6H PRN PRN Reason: Pain Last Admin: 05/21/19 09:32 Dose: 1 each Documented by: Al Hydroxide/Mg Hydroxide (Maalox) 30 ml PO Q4HR PRN PRN Reason: GI Upset Last Admin: 05/18/19 16:24 Dose: 30 ml Documented by: Albuterol/Ipratropium (Duoneb 0.5 Mg-3 Mg/3 Ml Soln) 3 ml INHALATION RT-QID PRN PRN Reason: Shortness Of Breath Or Wheezing Last Admin: 05/17/19 19:53 Dose: 3 ml Documented by: Allopurinol (Zyloprim) 100 mg PO DAILY@0900 [facility] Last Admin: 05/25/19 08:57 Dose: 100 mg Documented by: Amoxicillin/Clavulanate Potassium (Augmentin 875-125) 1 each PO Q12HR [facility] Last Admin: 05/25/19 08:57 Dose: 1 each Documented by: Atorvastatin Calcium (Lipitor) 40 mg PO HS@2100 [facility] Last Admin: 05/24/19 20:07 Dose: 40 mg Documented by: Belladonna Alkaloids/Opium (B&O Suppository) 1 each RECTAL QID PRN PRN Reason: bladder spasm Last Admin: 05/22/19 12:03 Dose: 1 each Documented by: Calcium Carbonate/Glycine (Tums) 500 mg PO QID PRN PRN Reason: Heartburn Last Admin: 05/18/19 21:03 Dose: 500 mg Documented by: Famotidine (Pepcid) 20 mg PO HS [facility] Last Admin: 05/24/19 20:06 Dose: 20 mg Documented by: Ferrous Sulfate (Feosol) 325 mg PO BID@0900,2100 [facility] Last Admin: 05/25/19 08:57 Dose: 325 mg Documented by: Finasteride (Proscar) 5 mg PO DAILY@0900 [facility] Last Admin: 05/25/19 08:57 Dose: 5 mg Documented by: Furosemide (Lasix) 40 mg PO DAILY [facility] Last Admin: 05/25/19 08:57 Dose: 40 mg Documented by: Insulin Aspart (Novolog) 0 unit SQ [facility]; Protocol Last Admin: 05/25/19 18:01 Dose: Not Given Documented by: Isosorbide Mononitrate (Imdur) 30 mg PO DAILY@0900 [facility] Last Admin: 05/25/19 08:57 Dose: 30 mg Documented by: Levothyroxine Sodium (Synthroid) 75 mcg PO DAILY@0600 [facility] Last Admin: 05/25/19 06:31 Dose: 75 mcg Documented by: Levothyroxine Sodium (Synthroid) 200 mcg PO DAILY@0600 [facility] Last Admin: 05/25/19 06:31 Dose: 200 mcg Documented by: Metoprolol Tartrate (Lopressor) 12.5 mg PO TID [facility] Last Admin: 05/25/19 18:01 Dose: Not Given Documented by: Naloxone HCl (Narcan) 0.2 mg IV Q2M PRN PRN Reason: Opioid Reversal Pantoprazole Sodium (Protonix) 40 mg PO AC-BID [facility] Last Admin: 05/25/19 06:31 Dose: 40 mg Documented by: Tamsulosin HCl (Flomax) 0.4 mg PO HS@2100 [facility] Last Admin: 05/24/19 20:06 Dose: 0.4 mg Documented by: Trospium (Sanctura) 20 mg PO DAILY@0900 [facility] Last Admin: 05/25/19 08:57 Dose: 20 mg Documented by: Physical examination: VITAL SIGNS: 97.1, 101, 18, 11 7/59, 90% on 2 L GENERAL: Sitting up in bed, comfortable EYES: Pupils equal. Conjunctiva pale HEENT: External appearance of nose and ears normal, oral cavity grossly normal. NECK: JVD not raised; masses not palpable. HEART: First and second heart sounds are normal; no edema. LUNGS: Respiratory rate increased, decreased breath sounds. ABDOMEN: Soft, nontender, liver spleen not palpable, no masses palpable. Overton catheter, with light pink urine PSYCH: Alert and oriented x3; mood and affect anxious. INVESTIGATIONS, reviewed in the clinical context: white count 5.6 hemoglobin 8.3 potassium 4.4 bun 38 creatinine 1.86 Previous labs Chest x-ray film-personally reviewed by me shows right-sided infiltrate with possible effusion CT [id number] effusion Right ultrasound-6.7 cm pleural effusion . White count 13.8 hemoglobin 6.6 potassium 5.1 BUN 83 creatinine 2.21 BUN and creatinine was 67/2.42 and January of this year hemoglobin was 13.9 in January of this year 2-D echo-EF 40-45%, restrictive LV filling pattern, some wall motion abnormality, moderate aortic valve sclerosis, moderate mitral regurgitation, moderate tricuspid regurgitation, moderate pulmonary hypertension. Assessment: -Acute symptomatic blood loss anemia secondary to persistent hematuria. Patient has received 4 units of blood. On April 21 DC trial off Overton, resulted more pain. Overton was placed back. Had repeat hematuria. Which is now living up. -Severe bladder spasms in a patient who recently had bladder intervention, much improved -Persistent recurrent hematuria in a patient with recent bladder intervention, improved. 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 -Odynophagia from esophagitis. Plan: stable. Continue current medication plan. Spoke to renal social worker. patient needs peer to peer Review.for DC tto rehab.
[2019-05-25 20:47] LABS: Glucose,Whole Blood 191 mg/dL (75-99)
[2019-05-25] MEDS: FAMOTIDINE 20 MG TAB PO SCH (21:38)
[2019-05-25] MEDS: HYDROcodone/APAP 5-325MG 1 EACH TAB PO PRN (21:38)
[2019-05-25] MEDS: ATORVASTATIN 40 MG TAB PO SCH (21:38)
[2019-05-25] MEDS: TAMSULOSIN 0.4 MG CAP.ER.24H PO SCH (21:38)
[2019-05-25] MEDS ORDERED: MELATONIN 3 MG TABLET PO SCH (21:45)
[2019-05-26 06:41] LABS: Glucose,Whole Blood 148 mg/dL (75-99)
[2019-05-26] MEDS: INSULIN ASPART (NovoLOG) 100 UNIT/ML VIAL SQ SCH ×3 (07:23→11:44)
[2019-05-26] MEDS: FERROUS SULFATE 325 MG TAB PO SCH ×2 (07:23→07:54)
[2019-05-26] MEDS: PANTOPRAZOLE 40 MG TABLET PO SCH ×2 (07:23→07:53)
[2019-05-26] MEDS: METOPROLOL TARTRATE 12.5 MG TAB PO SCH ×3 (07:24→15:42)
[2019-05-26 07:36] LABS: Glucose,Whole Blood 159 mg/dL (75-99)
[2019-05-26] MEDS: LEVOTHYROXINE 100 MCG TAB PO SCH (07:52)
[2019-05-26] MEDS: AMOXIC-POT CLAV 875-125MG 1 EACH TAB PO SCH (07:53)
[2019-05-26] MEDS: ALLOPURINOL 100 MG TAB PO SCH (07:53)
[2019-05-26] MEDS: ISOSORBIDE MONONITRATE ER 30 MG TAB.ER.24H PO SCH (07:53)
[2019-05-26] MEDS: FINASTERIDE 5 MG TAB PO SCH (07:53)
[2019-05-26] MEDS: LEVOTHYROXINE 75 MCG TAB PO SCH (07:53)
[2019-05-26] MEDS: FUROSEMIDE 40 MG TAB PO SCH (07:54)
[2019-05-26] MEDS: TROSPIUM CHLORIDE 20 MG TABLET PO SCH (09:12)
[2019-05-26 11:08] LABS: Glucose,Whole Blood 137 mg/dL (75-99)
--- NOTE | 2019-05-26 12:10 | P.DS ---
Providers Date of admission: 05/11/19 22:46 Expected date of discharge: 05/26/19 Attending physician: Alexy Titus Consults: 05/12/19 08:22 Consult Physician Routine Consulting Provider: Micky Fang Consult Reason/Comments: right pleural effusion, send fluid for cytology and cultures with gram stai Do you want consulting provider notified?: Yes 05/18/19 21:20 Consult Physician Routine Consulting Provider: Kenny Lewis Consult Reason/Comments: CHF Do you want consulting provider notified?: Yes 05/19/19 12:35 Consult Physician Routine Consulting Provider: Cecile Torres Consult Reason/Comments: ckd Do you want consulting provider notified?: Yes 05/19/19 22:00 Consult Physician Routine Consulting Provider: Piyush Ross Consult Reason/Comments: Pneumonia Do you want consulting provider notified?: Yes Primary care physician: Osman Dunne Hospital Course: Hospital course: This is a 78-year-old patient with an extensive medical history. Chronic stable medical conditions include atrial fibrillation, diabetes, hyperlipidemia, hypertension, osteoarthritis, hypothyroid, etc. Patient about 4 weeks ago was seen by urologist Dr. Zavala out of [facility]. Patient had bladder biopsy done, because of hematuria.. Since then progressively patient is having hematuria and more and more bladder spasms. Patient's was writhing in pain. Because hematuria and bladder spasms-persistent, ECF sent him down here for further evaluation by urology. Patient only on Ditropan. Appetite is fair. No fever no chills. Patient's hemoglobin had dropped down to 7. Initially A unit of blood was given. No fever no chills patient admitted with postop hematuria and severe bladder spasms. Patient was taken to the OR on May 14. Several blood clots evacuated. 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 Patient still having significant bladder spasm. Medications were adjusted by urology. Subsequently patient diagnosed with pneumonia. Started and IV Zosyn. Hematuria is improving. patient went into congestive heart failure. Was started on IV Lasix. Also complained of odynophagia in the middle chest. . Possible right parapneumonic effusion. Seen by pulmonary. Intervention radiology did thoracentesis and 30 mL of diagnostic fluid was removed.. Trial of DC Overton was done on May 21. Patient started having bladder spasms again. Overton was replaced. Again started hematuria. Eventually nearly cleared up. hematuria is greatly improved. Only light pink tinge in the urine. Breathing is much improved. Also had EGD that showed esophagitis.. Patient received a total of 4 units of blood. Breathing is much improved. Stable. Tolerating a diet. Did work with PT OT. Today-laying in bed. Comfortable. Did talk to the patient. I spoke on the phone to his insurance company telephone #[phone] Hathaway. Did give him. Due to the patient. She is discharged to [facility] has been approved. Spoke to the social service technician. Discussion and discharge planning more than 35 minutes Consultation: Dr. STEVE Lewis from cardiology Dr. Ross from pulmonary Dr. Briggs from urology Dr. Hatch from GI Physical examination: VITAL SIGNS: 97.8, 93, 20, 108 over a 65, 94% on 2 L GENERAL: Propped up in bed, comfortable EYES: Pupils equal. Conjunctiva pale HEENT: External appearance of nose and ears normal, oral cavity grossly normal. NECK: JVD not raised; masses not palpable. HEART: First and second heart sounds are normal; no edema. LUNGS: Respiratory rate normal, decreased breath sounds. ABDOMEN: Soft, nontender, liver spleen not palpable, no masses palpable. Overton catheter, with light pink urine PSYCH: Alert and oriented x3; mood and affect anxious. INVESTIGATIONS, reviewed in the clinical context: White count 5.6 hemoglobin 8.3 potassium 4.4 creatinine 1.86 Previous labs Chest x-ray film-personally reviewed by me shows right-sided infiltrate with possible effusion CT [id number] effusion Right ultrasound-6.7 cm pleural effusion . White count 13.8 hemoglobin 6.6 potassium 5.1 BUN 83 creatinine 2.21 BUN and creatinine was 67/2.42 and Diana of this year hemoglobin was 13.9 in January of this year 2-D echo-EF 40-45%, restrictive LV filling pattern, some wall motion abnormality, moderate aortic valve sclerosis, moderate mitral regurgitation, moderate tricuspid regurgitation, moderate pulmonary hypertension. Discharge diagnosis: -Acute symptomatic blood loss anemia secondary to persistent hematuria. Patient has received 4 units of blood. On April 21 DC trial off Overton, resulted more pain. Overton was placed back. Hematuria nearly cleared up.. -Severe bladder spasms in a patient who recently had bladder biopsy, much improved -Persistent recurrent hematuria in a patient with recent bladder biopsy, now resolved -Acute congestive heart failure exacerbationfrom systolic and diastolic,dysfunction EF 40-45%., Improved -Moderate aortic valve sclerosis, moderate mitral mitral regurgitation, moderate tricuspid regurgitation-nonrheumatic -Secondary moderate pulmonary hypertension from CHF -Diabetes mellitus type 2 -Hypotension from blood loss anemia -Essential hypertension -hypertensive heart disease -Hyperlipidemia -Primary osteoarthritis -Hypothyroid -Left renal cancer with left nephrectomy -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 Disposition: ECF/[facility] Patient Condition at Discharge: Stable Plan - Discharge Summary Discharge Rx Participant: No New Discharge Prescriptions: New Amoxicillin/Potassium Clav [Augmentin 875-125 Tablet] 1 tab PO Q12HR #10 tab Metoprolol Tartrate [Lopressor] 12.5 mg PO TID tab Omeprazole [PriLOSEC] 20 mg PO AC-BID #60 cap Calcium Carbonate [Tums] 500 mg PO QID PRN chew PRN Reason: Heartburn Continue Tamsulosin [Flomax] 0.4 mg PO HS@2100 Levothyroxine Sodium [Synthroid] 200 mcg PO DAILY@0600 Finasteride [Proscar] 5 mg PO DAILY@0900 Isosorbide Mononitrate [Isosorbide Mononitrate ER] 30 mg PO DAILY@0900 Levothyroxine Sodium [Synthroid] 75 mcg PO DAILY@0600 Phenazopyridine [Pyridium] 200 mg PO BID PRN PRN Reason: BLADDER SPASMS INSULIN LISPRO (HumaLOG) [humaLOG] See Protocol SQ ACHS Ipratropium-Albuterol Nebulize [Duoneb 0.5 mg-3 mg/3 ml Soln] 3 ml INHALATION RT-TID Ferrous Sulfate [Iron (65 MG Elemental)] 325 mg PO BID@0900,2100 Fesoterodine Fumarate [Toviaz] 4 mg PO DAILY@0900 Oxybutynin Chloride [Ditropan XL] 5 mg PO ONCE Furosemide [Lasix] 40 mg PO DAILY@0600 Atorvastatin [Lipitor] 40 mg PO HS@2100 Allopurinol [Zyloprim] 100 mg PO DAILY@0900 HYDROcodone/APAP 5-325MG [Cheriton 5-325] 1 tab PO Q6H PRN #12 tab PRN Reason: Pain Changed Insulin Detemir [Levemir Flextouch] 20 units SQ HS #0 Discontinued Metoprolol Succinate [Toprol Xl] 100 mg PO DAILY@0900 predniSONE See Taper PO DIRECTED Aspirin EC [Ecotrin Low Dose] 81 mg PO HS@2100 Discharge Medication List Finasteride [Proscar] 5 mg PO DAILY@89902/25/18 [History] Levothyroxine Sodium [Synthroid] 200 mcg PO DAILY@59902/25/18 [History] Tamsulosin [Flomax] 0.4 mg PO HS@209902/25/18 [History] Isosorbide Mononitrate [Isosorbide Mononitrate ER] 30 mg PO DAILY@89908/05/18 [History] Levothyroxine Sodium [Synthroid] 75 mcg PO DAILY@59902/10/19 [History] Allopurinol [Zyloprim] 100 mg PO DAILY@89905/11/19 [History] Atorvastatin [Lipitor] 40 mg PO HS@209905/11/19 [History] Ferrous Sulfate [Iron (65 MG Elemental)] 325 mg PO BID@899,209905/11/19 [History] Fesoterodine Fumarate [Toviaz] 4 mg PO DAILY@89905/11/19 [History] Furosemide [Lasix] 40 mg PO DAILY@59905/11/19 [History] INSULIN LISPRO (HumaLOG) [humaLOG] See Protocol SQ ACHS 05/11/19 [History] Ipratropium-Albuterol Nebulize [Duoneb 0.5 mg-3 mg/3 ml Soln] 3 ml INHALATION RT-TID 05/11/19 [History] Oxybutynin Chloride [Ditropan XL] 5 mg PO ONCE 05/11/19 [History] Phenazopyridine [Pyridium] 200 mg PO BID PRN 05/11/19 [History] Amoxicillin/Potassium Clav [Augmentin 875-125 Tablet] 1 tab PO Q12HR #10 tab 05/23/19 [Rx] Calcium Carbonate [Tums] 500 mg PO QID PRN chew 05/23/19 [Rx] HYDROcodone/APAP 5-325MG [Cheriton 5-325] 1 tab PO Q6H PRN #12 tab 05/23/19 [Rx] Insulin Detemir [Levemir Flextouch] 20 units SQ HS #0 05/23/19 [Rx] Metoprolol Tartrate [Lopressor] 12.5 mg PO TID tab 05/23/19 [Rx] Omeprazole [PriLOSEC] 20 mg PO AC-BID #60 cap 05/23/19 [Rx] Follow up Appointment(s)/Referral(s): Osman Dunne MD [Primary Care Provider] - 1-2 days Mariusz Briggs MD [STAFF PHYSICIAN] - 1 Week Piyush Ross MD [STAFF PHYSICIAN] - 1 Week Activity/Diet/Wound Care/Special Instructions: Urology F/U appointment should be with Dr. Briggs rather than Dr. Carmona.\ Diet: Heart Healthy, Consistent Carbohydrates - please finely chop all food
--- NOTE | 2019-05-26 12:24 | P.PN ---
Subjective Progress Note Date: 05/26/19 Principal diagnosis: Healthcare associated pneumonia right side Parapneumonic effusion Pleural based mass anteriorly on the right side cannot be excluded Bilateral pleural effusion right more than the left Hematuria Morbid obesity Likely sleep disorder breathing and sleep apnea May 26 2019, he shouldn't seen evaluated examined during the rounds labs reviewed medications reviewed care plan discussed with the patient at length the cytology has been negative and pleural fluid cultures all of them negative so far, oxygen saturation 94% on 2 L patient is being planned for discharge on oral antibiotics follow up on outpatient basis 05/24/2019, patient is more awake and alert breathing comfortably he remains on 2 L oxygen saturation is stable labs reviewed medications reviewed, cytology and pleural fluid remains pending, Gram stain is negative no leukocyte no bacteria are seen fungal and AFB cultures are pending so far no growth has been seen, last WBC count is within normal limit, patient has been appropriately placed on Augmentin feels that can be discharged to [facility] on oral Augmentin to finish 1 week of therapy will follow up on outpatient basis 05/22/2019, patient seen eval examined during the rounds labs reviewed medications reviewed 400 mL of straw-colored pleural fluid has been removed sent for cytology Gram stain and culture results are pending fluid appears small in amount with some element of organization patient is waiting for EGD later on to day This is a 78-year-old male who was seen evaluated examined this patient originally admitted into the hospital with hematuria posterior the bladder biopsy and scraping, results of that is not available but however patient developed significant hematuria underwent cystoscopy for clots of blood were removed in [place] patient developed pneumonia on the right side a chest x-ray showed fairly large pleural effusion on the right side with some on the left side as well some evidence of air bronchograms sister pneumonia, patient is appropriately on Zosyn with presumption of healthcare associated pneumonia, he still short of breath he is on 2 L oxygen, his ultrasound showed a small to moderate pleural effusion on the right side very small effusion on the left side the thoracic wall appears to be 4 cm in size, the computed tomography scan of the chest showed early loculation cannot be excluded, possible atelectasis versus infiltrate anteriorly cannot be excluded, we'll consult interventional radiology for drainage of the pleural fluid which would be sent for cytology and culture Objective - Vital Signs Vital signs: Vital Signs Temp 97.8 F 05/26/19 07:30 Pulse 93 05/26/19 07:30 Resp 20 05/26/19 07:30 BP 108/65 05/26/19 07:30 Pulse Ox 94 L 05/26/19 07:30 Intake & Output 05/25/19 05/26/19 05/26/19 18:59 06:59 18:59 Intake Total 474 Output Total 650 3400 600 Balance -176 -3400 -600 Weight 83.5 kg 93.5 kg Intake: Oral 474 Output: Urine 650 3400 600 Other: Voiding Method Indwelling Catheter Indwelling Catheter Indwelling Catheter # Voids 1 - Exam Constitutional General appearance: disheveled, morbidly obese - EENT Eyes: anicteric sclerae, EOMI, PERRLA, poor dentition, normal appearance ENT: normal oropharynx Ears: bilateral: normal - Neck Carotids: bilateral: upstroke normal Thyroid: bilateral: normal size - Respiratory Respiratory: Overall lung exam improved significantly compared to prior exam, bilateral: diminished ([place] on the right side compared to left side), negative: rales, rhonchi, wheezing - Cardiovascular Rhythm: regular Heart sounds: normal: S1, S2 - Gastrointestinal General gastrointestinal: distended, soft - Musculoskeletal Musculoskeletal: gait normal, generalized weakness, strength equal bilaterally - Psychiatric Psychiatric: A&O x's 3, appropriate affect, intact judgment & insight - Labs CBC & Chem 7: 05/25/19 05:34 05/25/19 05:34 Labs: Abnormal Lab Results - Last 24 Hours (Table) 05/25/19 05/26/19 05/26/19 Range/Units 20:46 06:40 07:30 POC Glucose (mg/dL) 191 H 148 H 159 H (75-99) mg/dL 05/26/19 Range/Units 11:06 POC Glucose (mg/dL) 137 H (75-99) mg/dL Microbiology - Last 24 Hours (Table) 05/22/19 10:00 Gram Stain - Final Pleural Fluid Body Fluid Culture - Final Assessment and Plan Assessment: Healthcare associated pneumonia right side Parapneumonic effusion cultures have been negative Pleural based mass anteriorly on the right side cannot be excluded likely non- neoplastic Bilateral pleural effusion right more than the left status post thoracentesis on the right side 400 mL of straw-colored fluid removed making it highly likely for fluid overload Hematuria Morbid obesity Likely sleep disorder breathing and sleep apnea Plan: Agree with broad-spectrum antibiotic, patient has been on oral biotics Deep breathing exercise incentive spirometry Reviewed x-rays computed tomography scan and ultrasound hard copies and report Status post a right thoracentesis awaiting cytology , so far cultures have been negative Agree with discharge planning on oral Augmentin follow-up on outpatient basis Further recommendations pending plan of care as per clinical response of the patient Time with Patient: Greater than 30
[2019-05-26 13:39] VITALS: BP 112/66; PULSE 101; RESP 14; TEMP 97.5
--- NOTE | 2019-05-26 19:29 | PN ---
PROGRESS NOTE Patient is seen for followup for acute kidney injury and chronic kidney disease. He is currently stable. There are plans for discharge. PHYSICAL EXAMINATION: On examination, blood pressure this morning 108/65, heart rate 93 per minute. He is afebrile. Examination of the heart S1, S2. Examination of the lungs, bilateral breath sounds are heard. Abdomen is soft, nontender. Examination of lower extremities shows no evidence of edema. LABS: From yesterday show creatinine 1.86, sodium 137, potassium 4.4, hemoglobin 8.3. ASSESSMENT: 1. Acute kidney injury, prerenal versus an element of obstructive uropathy, currently improved. 2. Hematuria post radiation with radiation cystitis, now resolved. 3. Chronic kidney disease stage 3B with creatinine baseline 1.7-2 mg/dL. 4. Dysphagia status post EGD which showed grade D esophagitis, mild gastritis. PLAN: Patient is stable for discharge. Repeat labs as outpatient. MMODL / IJN: [id number] /
--- NOTE | 2019-05-28 10:21 | CDI ---
Documentation Clarification Form Date: 05/28/2019 10:01:16 AM From: Suma Palmer RN CCDS Admit Date: 05/11/2019 10:46:00 PM Patient Name: Kamar Hill Visit Number: [id number] Discharge Date: 05/26/2019 4:35:00 PM ATTENTION: The Clinical Documentation Specialists (CDI) and [facility] Coding Staff appreciate your assistance in clarifying documentation. Please respond to the clarification below the line at the bottom and electronically sign. The CDI & [facility] Coding staff will review the response and follow-up if needed. Please note: Queries are made part of the Legal Health Record. If you have any questions, please contact the author of this message via ITS. Dr. Alexy Titus Conflicting documentation has been found in the medical record: Your Discharge Summary Persistent recurrent hematuria in a patient with recent bladder biopsy, now resolved. Per your request to query Urology Response Dr. 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 Medical History Prostate Cancer; bladder spasms; 4 weeks prior bladder scraping at [facility], Left renal Cancer; Clinical Indicators: Treatment: Cystoscopy with evacuation of blood clots, 4 units RBC transfused In your opinion, what is the most clinically appropriate diagnosis for this patient? 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
== END 2019-05-26 16:35 | DRG 919 ==
LOC: EC 20:02 → 4MS4W 22:46 → 4SSUR 05-12 10:32 → 3SCARD 05-17 23:36 → 4MS4W 05-26 07:01 → 3SCARD 05-26 07:10 → 4MS4W 05-26 07:12
PROVIDERS: ADMIT Hospitalist; ATTEND Hospitalist
PROC: 30233N1 Transfusion of Nonautologous Red Blood Cells into Peripheral Vein, Percutaneous Approach (ICD-10-PCS; 2019-05-11)
PROC: 0TCB8ZZ Extirpation of Matter from Bladder, Via Natural or Artificial Opening Endoscopic (ICD-10-PCS; principal; 2019-05-14 09:35)
PROC: 0DB98ZX Excision of Duodenum, Via Natural or Artificial Opening Endoscopic, Diagnostic (ICD-10-PCS; 2019-05-22)
PROC: 0DB78ZX Excision of Stomach, Pylorus, Via Natural or Artificial Opening Endoscopic, Diagnostic (ICD-10-PCS; 2019-05-22)
PROC: 0DB68ZX Excision of Stomach, Via Natural or Artificial Opening Endoscopic, Diagnostic (ICD-10-PCS; 2019-05-22)
PROC: 0DB58ZX Excision of Esophagus, Via Natural or Artificial Opening Endoscopic, Diagnostic (ICD-10-PCS; 2019-05-22)
PROC: 0W993ZX Drainage of Right Pleural Cavity, Percutaneous Approach, Diagnostic (ICD-10-PCS; 2019-05-22)
DX: N99.820 Postprocedural hemorrhage of a genitourinary system organ or structure following a genitourinary system procedure (principal); I50.43 Acute on chronic combined systolic (congestive) and diastolic (congestive) heart failure; J18.9 Pneumonia, unspecified organism; N30.41 Irradiation cystitis with hematuria; N17.9 Acute kidney failure, unspecified; D62 Acute posthemorrhagic anemia; I13.0 Hypertensive heart and chronic kidney disease with heart failure and stage 1 through stage 4 chronic kidney disease, or unspecified chronic kidney disease; J90 Pleural effusion, not elsewhere classified; N41.0 Acute prostatitis; I48.19 Other persistent atrial fibrillation; N18.3 Chronic kidney disease, stage 3 (moderate); N32.89 Other specified disorders of bladder; N40.1 Benign prostatic hyperplasia with lower urinary tract symptoms; Z85.46 Personal history of malignant neoplasm of prostate; Z85.528 Personal history of other malignant neoplasm of kidney; E03.9 Hypothyroidism, unspecified; E11.22 Type 2 diabetes mellitus with diabetic chronic kidney disease; E66.01 Morbid (severe) obesity due to excess calories; Z68.28 Body mass index [BMI] 28.0-28.9, adult; E78.5 Hyperlipidemia, unspecified; E87.5 Hyperkalemia; F17.210 Nicotine dependence, cigarettes, uncomplicated; G47.30 Sleep apnea, unspecified; I08.3 Combined rheumatic disorders of mitral, aortic and tricuspid valves; I25.10 Atherosclerotic heart disease of native coronary artery without angina pectoris; I25.2 Old myocardial infarction; I27.20 Pulmonary hypertension, unspecified; K20.9 Esophagitis, unspecified; K29.70 Gastritis, unspecified, without bleeding; M19.90 Unspecified osteoarthritis, unspecified site; N13.9 Obstructive and reflux uropathy, unspecified; R13.14 Dysphagia, pharyngoesophageal phase; Y84.2 Radiological procedure and radiotherapy as the cause of abnormal reaction of the patient, or of later complication, without mention of misadventure at the time of the procedure; Y95 Nosocomial condition; Z79.4 Long term (current) use of insulin; Z79.890 Hormone replacement therapy; Z79.899 Other long term (current) drug therapy; Z80.42 Family history of malignant neoplasm of prostate; Z83.3 Family history of diabetes mellitus; Z90.5 Acquired absence of kidney; Z92.3 Personal history of irradiation; Z95.5 Presence of coronary angioplasty implant and graft; Z90.79 Acquired absence of other genital organ(s); Z82.49 Family history of ischemic heart disease and other diseases of the circulatory system; I95.9 Hypotension, unspecified; T66.XXXS Radiation sickness, unspecified, sequela
CPT/HCPCS: 32555; 36415; 36430; 43239; 51798; 71045; 71046; 71250; 76604; 80048; 80053; 81001; 82272; 83605; 83615; 83880; 84145; 84157; 85025; 85027; 85049; 85610; 85730; 86850; 86900; 86901; 86920; 87040; 87070; 87102; 87116; 87205; 87206; 88108; 88305; 88312; 88341; 88342; 89050; 93005; 93306; 94640; 94760; 99285

== ENCOUNTER 2019-06-05 01:16 | Inpatient (IN) | payer MEDICARE ==
--- NOTE | 2019-06-05 01:35 | ED ---
General Adult HPI - General Chief complaint: Urogenital Stated complaint: Urogenital Time Seen by Provider: 06/05/19 01:19 Source: patient, EMS Mode of arrival: EMS Limitations: no limitations - History of Present Illness Initial comments: This patient is an 78-year-old man transferred from longterm for suprapubic pain and obstruction of the patient's Overton catheter drainage. He reportedly has had his catheter changed twice today as it has become obstructed secondary to blood clots. The patient is complaining of suprapubic discomfort and of ur ine draining around his catheter. Patient denies chest pain or dyspnea. Onset/Timin -: days(s) Location: abdomen Radiation: non-radiation Quality: other Consistency: constant Improves with: none Worsens with: none Associated Symptoms: denies other symptoms - Related Data Home Medications Medication Instructions Recorded Confirmed Finasteride [Proscar] 5 mg PO DAILY@89902/25/18 05/11/19 Levothyroxine Sodium [Synthroid] 200 mcg PO DAILY@59902/25/18 05/11/19 Tamsulosin [Flomax] 0.4 mg PO HS@209902/25/18 05/11/19 Isosorbide Mononitrate [Isosorbide 30 mg PO DAILY@89908/05/18 05/11/19 Mononitrate ER] Levothyroxine Sodium [Synthroid] 75 mcg PO DAILY@59902/10/19 05/11/19 Allopurinol [Zyloprim] 100 mg PO DAILY@89905/11/19 05/11/19 Atorvastatin [Lipitor] 40 mg PO HS@209905/11/19 05/11/19 Ferrous Sulfate [Iron (65 MG 325 mg PO BID@899,209905/11/19 05/11/19 Elemental)] Fesoterodine Fumarate [Toviaz] 4 mg PO DAILY@89905/11/19 05/11/19 Furosemide [Lasix] 40 mg PO DAILY@59905/11/19 05/11/19 INSULIN LISPRO (HumaLOG) [humaLOG] See Protocol SQ ACHS 05/11/19 05/11/19 Ipratropium-Albuterol Nebulize 3 ml INHALATION RT-TID 05/11/19 05/11/19 [Duoneb 0.5 mg-3 mg/3 ml Soln] Oxybutynin Chloride [Ditropan XL] 5 mg PO ONCE 05/11/19 05/11/19 Phenazopyridine [Pyridium] 200 mg PO BID PRN 05/11/19 05/11/19 Previous Rx's Medication Instructions Recorded Amoxicillin/Potassium Clav 1 tab PO Q12HR #10 tab 05/23/19 [Augmentin 875-125 Tablet] Calcium Carbonate [Tums] 500 mg PO QID PRN chew 05/23/19 HYDROcodone/APAP 5-325MG [[place] 1 tab PO Q6H PRN #12 tab 05/23/19 5-325] Insulin Detemir [Levemir Flextouch] 20 units SQ HS #0 05/23/19 Metoprolol Tartrate [Lopressor] 12.5 mg PO TID tab 05/23/19 Omeprazole [PriLOSEC] 20 mg PO AC-BID #60 cap 05/23/19 Allergies Allergy/AdvReac Type Severity Reaction Status Date / Time iodine Allergy Rash/Hives Verified 06/05/19 01:23 Review of Systems ROS Statement: Those systems with pertinent positive or pertinent negative responses have been documented in the HPI. ROS Other: All systems not noted in ROS Statement are negative. Constitutional: Denies: fever Respiratory: Denies: cough, dyspnea Cardiovascular: Denies: chest pain, syncope Gastrointestinal: Reports: as per HPI, abdominal pain. Denies: nausea, vomiting, diarrhea, constipation Genitourinary: Reports: hematuria, other (Overton catheter obstruction). Denies: testicular pain Musculoskeletal: Denies: back pain Skin: Denies: rash Neurological: Denies: headache Hematological/Lymphatic: Denies: easy bleeding Past Medical History Past Medical History: Atrial Fibrillation, Cancer, Heart Failure, Diabetes Mellitus, Hyperlipidemia, Hypertension, Myocardial Infarction ([place]), Osteoarthritis (OA), Prostate Disorder, Renal Disease, Thyroid Disorder Additional Past Medical History / Comment(s): Ischemic heart disease, chronic CHF, pulmonary edema, 2011 L renal cancer with L nephrectomy-pt states he had mets to his liver and R lower lobe of his lung-treated by a "special" medication that worked with his immune system and was cured, 2018 had prostate cancer with 2 months of radiation therapy and eventual TURP-pt states cured, has been havi ng bladder spasms for one month, IDDM type II, CKD stage III, muscle weakness, hypothyroid Last Myocardial Infarction Date:: History of Any Multi-Drug Resistant Organisms: None Reported Past Surgical History: Heart Catheterization With Stent Additional Past Surgical History / Comment(s): left nephrectomy, TURP, cystoscopies/cauterization and evacuation of clots, ORIF R hip, Past Anesthesia/Blood Transfusion Reactions: No Reported Reaction Date of Last Stent Placement:: 2017 Past Psychological History: No Psychological Hx Reported Smoking Status: Current every day smoker Past Alcohol Use History: None Reported Past Drug Use History: None Reported - Past Family History Father Family Medical History: Cancer Additional Family Medical History / Comment(s): Father had prostate cancer. He lived to be 92 yrs old. Mother Family Medical History: Diabetes Mellitus Additional Family Medical History / Comment(s): Mother lived to be 84 yrs old. Family Additional Family Medical History / Comment(s): Patient reports history of heart disease General Exam Limitations: no limitations General appearance: alert, in distress Head exam: Present: atraumatic, normocephalic Eye exam: Present: normal appearance. Absent: scleral icterus, conjunctival injection ENT exam: Present: normal oropharynx Neck exam: Present: normal inspection Respiratory exam: Present: normal lung sounds bilaterally. Absent: respiratory distress, wheezes, rales, rhonchi, stridor Cardiovascular Exam: Present: regular rate, normal rhythm, normal heart sounds. Absent: systolic murmur, diastolic murmur, rubs, gallop GI/Abdominal exam: Present: soft, tenderness (Suprapubic discomfort). Absent: distended, guarding, rebound, rigid exam: Present: other (There is an indwelling Overton catheter with clots in the drain tube). Absent: scrotal swelling Extremities exam: Present: normal inspection, normal capillary refill. Absent: pedal edema, calf tenderness Neurological exam: Present: alert Skin exam: Present: warm, dry, intact, pallor. Absent: normal color, rash Course Vital Signs 06/05/19 06/05/19 06/05/19 01:19 03:26 03:30 Temperature 98 F Pulse Rate 95 88 84 Respiratory 18 16 16 Rate Blood Pressure 105/66 108/65 108/65 O2 Sat by Pulse 99 98 98 Oximetry Medical Decision Making - Lab Data Result diagrams: 06/05/19 01:35 06/05/19 01:35 Lab Results 06/05/19 06/05/19 06/05/19 Range/Units 00:36 01:35 01:35 WBC 8.9 (3.8-10.6) k/uL RBC 2.29 L (4.30-5.90) m/uL Hgb 6.9 L* (13.0-17.5) gm/dL Hct 22.8 L (39.0-53.0) % MCV 99.5 D (80.0-100.0) fL MCH 30.1 (25.0-35.0) pg MCHC 30.2 L (31.0-37.0) g/dL RDW 16.8 H (11.5-15.5) % Plt Count 316 (150-450) k/uL Neutrophils % 79 % Lymphocytes % 9 % Monocytes % 6 % Eosinophils % 2 % Basophils % 1 % Neutrophils # 7.0 (1.3-7.7) k/uL Lymphocytes # 0.8 L (1.0-4.8) k/uL Monocytes # 0.6 (0-1.0) k/uL Eosinophils # 0.2 (0-0.7) k/uL Basophils # 0.1 (0-0.2) k/uL Hypochromasia Slight Anisocytosis Slight Macrocytosis Slight PT (9.0-12.0) sec INR (<1.2) APTT (22.0-30.0) sec Sodium 136 L (137-145) mmol/L Potassium 3.8 (3.5-5.1) mmol/L Chloride 101 (98-107) mmol/L Carbon Dioxide 29 (22-30) mmol/L Anion Gap 6 mmol/L BUN 43 H (9-20) mg/dL Creatinine 1.84 H (0.66-1.25) mg/dL Est GFR (CKD-EPI)AfAm 39 (>60 ml/min/1.73 sqM) Est GFR (CKD-EPI)NonAf 34 (>60 ml/min/1.73 sqM) Glucose 50 L (74-99) mg/dL Calcium 8.3 L (8.4-10.2) mg/dL Urine Color Red Urine Appearance Turbid (Clear) Urine RBC >182 H (0-5) /hpf Urine WBC 170 H (0-5) /hpf Urine WBC Clumps Few H (None) /hpf Urine Bacteria Rare H (None) /hpf 06/05/19 Range/Units 01:35 WBC (3.8-10.6) k/uL RBC (4.30-5.90) m/uL Hgb (13.0-17.5) gm/dL Hct (39.0-53.0) % MCV (80.0-100.0) fL MCH (25.0-35.0) pg MCHC (31.0-37.0) g/dL RDW (11.5-15.5) % Plt Count (150-450) k/uL Neutrophils % % Lymphocytes % % Monocytes % % Eosinophils % % Basophils % % Neutrophils # (1.3-7.7) k/uL Lymphocytes # (1.0-4.8) k/uL Monocytes # (0-1.0) k/uL Eosinophils # (0-0.7) k/uL Basophils # (0-0.2) k/uL Hypochromasia Anisocytosis Macrocytosis PT 12.8 H (9.0-12.0) sec INR 1.2 H (<1.2) APTT 27.7 (22.0-30.0) sec Sodium (137-145) mmol/L Potassium (3.5-5.1) mmol/L Chloride (98-107) mmol/L Carbon Dioxide (22-30) mmol/L Anion Gap mmol/L BUN (9-20) mg/dL Creatinine (0.66-1.25) mg/dL Est GFR (CKD-EPI)AfAm (>60 ml/min/1.73 sqM) Est GFR (CKD-EPI)NonAf (>60 ml/min/1.73 sqM) Glucose (74-99) mg/dL Calcium (8.4-10.2) mg/dL Urine Color Urine Appearance (Clear) Urine RBC (0-5) /hpf Urine WBC (0-5) /hpf Urine WBC Clumps (None) /hpf Urine Bacteria (None) /hpf Disposition Clinical Impression: Urinary retention, Anemia, Urinary tract infection, Obstructed Overton catheter Disposition: ADMITTED IP TO THIS HOSP Condition: Poor Referrals: Osman Dunne MD [Primary Care Provider] - 1-2 days
[2019-06-05 01:56] LABS: Anisocytosis Slight; Basophils # (A) 0.1 k/uL (0-0.2); Basophils % (A) 1 %; Eosinophils # (A) 0.2 k/uL (0-0.7); Eosinophils % (A) 2 %; HCT 22.8 % (39.0-53.0); Hypochromasia Slight; Lymphocytes # (A) 0.8 k/uL (1.0-4.8); Lymphocytes % (A) 9 %; MCH 30.1 pg (25.0-35.0); MCHC 30.2 g/dL (31.0-37.0); Macrocytosis Slight; Mean Platelet Volume 6.7; Monocytes # (A) 0.6 k/uL (0-1.0); Monocytes % (A) 6 %; Neutrophils % (A) 79 %; Platelet Count 316 k/uL (150-450); RBC 2.29 m/uL (4.30-5.90); RDW 16.8 % (11.5-15.5); WBC 8.9 k/uL (3.8-10.6)
[2019-06-05 02:00] LABS: Calcium 8.3 mg/dL (8.4-10.2); Potassium 3.8 mmol/L (3.5-5.1)
[2019-06-05 02:01] LABS: INR 1.2 (<1.2); Partial Thromboplastin Time 27.7 sec (22.0-30.0); Prothrombin Time 12.8 sec (9.0-12.0)
[2019-06-05 02:05] LABS: Bacteria,Urine Rare /hpf
[2019-06-05 02:12] LABS: Appearance,Urine Turbid (Clear); Color,Urine Red
[2019-06-05 02:13] LABS: RBC,Urine >182 /hpf (0-5)
[2019-06-05 02:21] LABS: MCV 99.5 fL (80.0-100.0)
[2019-06-05 02:22] LABS: HGB 6.9 gm/dL (13.0-17.5)
[2019-06-05] MEDS ORDERED: LEVOFLOXACIN 750MG-D5W PMX 750 MG in DEXTROSE/WATER 1 150ML.BAG IVPB STA (03:45)
[2019-06-05] MEDS ORDERED: ACETAMINOPHEN TAB 325 MG TAB PO PRN (05:25)
[2019-06-05] MEDS ORDERED: NALOXONE 0.4 MG/ML 1 ML VIAL IV PRN (05:25)
[2019-06-05] MEDS: SODIUM CHLORIDE 0.9% 1,000 ML IV SCH (05:30)
[2019-06-05] MEDS: HYDROcodone/APAP 5-325MG 1 EACH TAB PO PRN ×3 (06:20→20:54)
[2019-06-05] MEDS: FUROSEMIDE 40 MG TAB PO SCH (06:21)
[2019-06-05] MEDS: LEVOTHYROXINE 75 MCG TAB PO SCH (06:21)
[2019-06-05] MEDS: LEVOTHYROXINE 100 MCG TAB PO SCH (06:21)
[2019-06-05] MEDS: IPRATROPIUM-ALBUTEROL 3 ML NEB INHALATION SCH ×3 (07:25→20:09)
[2019-06-05 07:45] LABS: Glucose,Whole Blood 29 mg/dL (75-99)
[2019-06-05 07:45] LABS: Glucose,Whole Blood 28 mg/dL (75-99)
[2019-06-05 07:48] LABS: Glucose,Whole Blood 55 mg/dL (75-99)
[2019-06-05 07:57] LABS: Glucose,Whole Blood 62 mg/dL (75-99)
[2019-06-05] MEDS ORDERED: DEXTROSE 10 % IN WATER 250 ML IV ONE (08:00)
[2019-06-05 08:13] LABS: Glucose,Whole Blood 70 mg/dL (75-99)
[2019-06-05] MEDS ORDERED: CALCIUM CARBONATE 500 MG CHEWABLE PO PRN (09:00)
[2019-06-05] MEDS ORDERED: PHENAZOPYRIDINE 200 MG TAB PO PRN (09:00)
[2019-06-05] MEDS: ISOSORBIDE MONONITRATE ER 30 MG TAB.ER.24H PO SCH (09:09)
[2019-06-05] MEDS: METOPROLOL TARTRATE 12.5 MG TAB PO SCH ×2 (09:09→17:09)
[2019-06-05] MEDS: ALLOPURINOL 100 MG TAB PO SCH (09:14)
[2019-06-05] MEDS: FERROUS SULFATE 325 MG TAB PO SCH (09:14)
[2019-06-05] MEDS: PANTOPRAZOLE 40 MG TABLET PO SCH ×2 (09:14→17:09)
[2019-06-05] MEDS: AMOXIC-POT CLAV 875-125MG 1 EACH TAB PO SCH (09:15)
[2019-06-05] MEDS: FINASTERIDE 5 MG TAB PO SCH (09:15)
[2019-06-05] MEDS: TROSPIUM CHLORIDE 20 MG TABLET PO SCH (09:15)
[2019-06-05 09:45] LABS: Glucose,Whole Blood 88 mg/dL (75-99)
[2019-06-05 11:38] LABS: Glucose,Whole Blood 116 mg/dL (75-99)
[2019-06-05] MEDS: DEXTROSE 5% IN WATER 1,000 ML IV SCH ×2 (12:35→22:27)
--- NOTE | 2019-06-05 16:20 | P.GSCN ---
History of Present Illness Consult date: 06/05/19 History of present illness: This is an 78-year-old gentleman who was admitted to the hospital with anemia and Overton catheter obstruction. The patient is known to for prostate cancer. Actually the patient had his prostate cancer treated with radiation therapy done in [place]. He was under the urologic care of a Dr. Zavala. The patient had decided to switch to another urologist. He had seen Dr. Briggs before and Dr. barfield originally saw him when he is in the hospital. He had cystoscopy and evacuation of clot for clot retention. He has radiation c ystitis. There is no active bleeding by the time Dr. Briggs did the cystoscopy. The patient had a TURP many years ago. 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 He has been in the [facility]. Brought back because of catheter problems. His not even seen Dr. Briggs in follow-up to determine the cause and treatment for his urine retention. Review of Systems All systems: negative - Constitutional Denies fever, Denies weight loss - EENT Eyes: denies blurred vision Ears, nose, mouth and throat: Denies dysphagia - Cardiovascular Denies chest pain, Denies shortness of breath - Respiratory Denies cough, Denies 7 - Gastrointestinal Reports as per HPI - Genitourinary Denies dysuria, Denies hematuria - Integumentary Denies rash, Denies unusual bruising - Neurological Denies headaches, Denies syncope - Hematologic/Lymphatic Denies easy bleeding, Denies easy bruising Past Medical History Past Medical History: Atrial Fibrillation, Cancer, Heart Failure, Diabetes Mellitus, Hyperlipidemia, Hypertension, Myocardial Infarction ([place]), Osteoarthritis (OA), Prostate Disorder, Renal Disease, Thyroid Disorder Additional Past Medical History / Comment(s): Ischemic heart disease, chronic CHF, pulmonary edema, 2011 L renal cancer with L nephrectomy-pt states he had mets to his liver and R lower lobe of his lung-treated by a "special" medication that worked with his immune system and was cured, 2017 had prostate cancer with 2 months of radiation therapy and eventual TURP-pt states cured, has been having bladder spasms for one month, IDDM type II, CKD stage III, muscle weakness, hypothyroid Last Myocardial Infarction Date:: History of Any Multi-Drug Resistant Organisms: None Reported Past Surgical History: Heart Catheterization With Stent Additional Past Surgical History / Comment(s): left nephrectomy, TURP, cystoscopies/cauterization and evacuation of clots, ORIF R hip, Past Anesthesia/Blood Transfusion Reactions: No Reported Reaction Date of Last Stent Placement:: 2017 Past Psychological History: No Psychological Hx Reported Additional Psychological History / Comment(s): Pt currently at [facility]. He states he is ambulating with a walker and sometimes using a wheelchair. He states he uses oxygen prn. His spouse 5 weeks ago. Smoking Status: Former smoker Past Alcohol Use History: None Reported Additional Past Alcohol Use History / Comment(s): Pt started smoking small cigars in 3. He was a heavy drinker but quit in 1998. Past Drug Use History: None Reported - Past Family History Father Family Medical History: Cancer Additional Family Medical History / Comment(s): Father had prostate cancer. He lived to be 92 yrs old. Mother Family Medical History: Diabetes Mellitus Additional Family Medical History / Comment(s): Mother lived to be 84 yrs old. Family Additional Family Medical History / Comment(s): Patient reports history of heart disease Medications and Allergies Home Medications Medication Instructions Recorded Confirmed Type Finasteride [Proscar] 5 mg PO DAILY@0900 02/25/18 06/05/19 History Levothyroxine Sodium [Synthroid] 200 mcg PO DAILY@59902/25/18 06/05/19 History Tamsulosin [Flomax] 0.4 mg PO HS@209902/25/18 06/05/19 History Isosorbide Mononitrate [Isosorbide 30 mg PO DAILY@89908/05/18 06/05/19 History Mononitrate ER] Levothyroxine Sodium [Synthroid] 75 mcg PO DAILY@0602/10/19 06/05/19 History Allopurinol [Zyloprim] 100 mg PO DAILY@89905/11/19 06/05/19 History Atorvastatin [Lipitor] 40 mg PO HS@209905/11/19 06/05/19 History Ferrous Sulfate [Iron (65 MG 325 mg PO BID@0900,209905/11/19 06/05/19 History Elemental)] Furosemide [Lasix] 40 mg PO DAILY@0605/11/19 06/05/19 History INSULIN LISPRO (HumaLOG) [humaLOG] See Protocol SQ ACHS 05/11/19 06/05/19 History Ipratropium-Albuterol Nebulize 3 ml INHALATION RT-Q8H 05/11/19 06/05/19 History [Duoneb 0.5 mg-3 mg/3 ml Soln] Phenazopyridine [Pyridium] 200 mg PO BID PRN 05/11/19 06/05/19 History HYDROcodone/APAP 5-325MG [Alexander 1 tab PO Q6H PRN #12 tab 05/23/19 06/05/19 Rx 5-325] Omeprazole [PriLOSEC] 20 mg PO AC-BID #60 cap 05/23/19 06/05/19 Rx Calcium Carbonate [Calcium] 600 mg PO QID PRN 06/05/19 06/05/19 History Insulin Detemir [Levemir Flextouch] 10 units SQ BID@0900,2100 06/05/19 06/05/19 History Loperamide [Imodium] 2 - 4 mg PO QID PRN 06/05/19 06/05/19 History Metoprolol Tartrate [Lopressor] 12.5 mg PO TID@0600,1400,2200 06/05/19 06/05/19 History Tolterodine Tartrate [Tolterodine 2 mg PO DAILY@0900 06/05/19 06/05/19 History Tartrate ER] Allergies Allergy/AdvReac Type Severity Reaction Status Date / Time iodine Allergy Rash/Hives Verified 06/05/19 07:38 Surgical - Exam Vital Signs Temp Pulse Resp BP Pulse Ox 98 F 95 18 105/66 99 06/05/19 01:19 06/05/19 01:19 06/05/19 01:19 06/05/19 01:19 06/05/19 01:19 - General well developed, well nourished, severe distress - Eyes PERRL - ENT no hearing loss - Neck no masses - Respiratory normal expansion, normal respiratory effort - Cardiovascular Tachycardic Rhythm: regular - Abdomen Abdomen: tender - Genitourinary Indwelling catheter that is not draining. He has suprapubic fullness consistent with clot urinary retention. There is blood emanating around the catheter. The catheter 16-Bengali. - Psychiatric oriented to time, oriented to person, oriented to place, speech is normal, memory intact Results - Labs 06/05/19 01:35 06/05/19 01:35 Abnormal Lab Results - Last 24 Hours (Table) 06/05/19 06/05/19 06/05/19 Range/Units 00:36 01:35 01:35 RBC 2.29 L (4.30-5.90) m/uL Hgb 6.9 L* (13.0-17.5) gm/dL Hct 22.8 L (39.0-53.0) % MCHC 30.2 L (31.0-37.0) g/dL RDW 16.8 H (11.5-15.5) % Lymphocytes # 0.8 L (1.0-4.8) k/uL PT (9.0-12.0) sec INR (<1.2) Sodium 136 L (137-145) mmol/L BUN 43 H (9-20) mg/dL Creatinine 1.84 H (0.66-1.25) mg/dL Glucose 50 L (74-99) mg/dL POC Glucose (mg/dL) (75-99) mg/dL Calcium 8.3 L (8.4-10.2) mg/dL Urine RBC >182 H (0-5) /hpf Urine WBC 170 H (0-5) /hpf Urine WBC Clumps Few H (None) /hpf Urine Bacteria Rare H (None) /hpf Crossmatch 06/05/19 06/05/19 06/05/19 Range/Units 01:35 01:35 07:31 RBC (4.30-5.90) m/uL Hgb (13.0-17.5) gm/dL Hct (39.0-53.0) % MCHC (31.0-37.0) g/dL RDW (11.5-15.5) % Lymphocytes # (1.0-4.8) k/uL PT 12.8 H (9.0-12.0) sec INR 1.2 H (<1.2) Sodium (137-145) mmol/L BUN (9-20) mg/dL Creatinine (0.66-1.25) mg/dL Glucose (74-99) mg/dL POC Glucose (mg/dL) 28 L (75-99) mg/dL Calcium (8.4-10.2) mg/dL Urine RBC (0-5) /hpf Urine WBC (0-5) /hpf Urine WBC Clumps (None) /hpf Urine Bacteria (None) /hpf Crossmatch See Detail 06/05/19 06/05/19 06/05/19 Range/Units 07:33 07:46 07:55 RBC (4.30-5.90) m/uL Hgb (13.0-17.5) gm/dL Hct (39.0-53.0) % MCHC (31.0-37.0) g/dL RDW (11.5-15.5) % Lymphocytes # (1.0-4.8) k/uL PT (9.0-12.0) sec INR (<1.2) Sodium (137-145) mmol/L BUN (9-20) mg/dL Creatinine (0.66-1.25) mg/dL Glucose (74-99) mg/dL POC Glucose (mg/dL) 29 L 55 L 62 L (75-99) mg/dL Calcium (8.4-10.2) mg/dL Urine RBC (0-5) /hpf Urine WBC (0-5) /hpf Urine WBC Clumps (None) /hpf Urine Bacteria (None) /hpf Crossmatch 06/05/19 06/05/19 Range/Units 08:11 11:37 RBC (4.30-5.90) m/uL Hgb (13.0-17.5) gm/dL Hct (39.0-53.0) % MCHC (31.0-37.0) g/dL RDW (11.5-15.5) % Lymphocytes # (1.0-4.8) k/uL PT (9.0-12.0) sec INR (<1.2) Sodium (137-145) mmol/L BUN (9-20) mg/dL Creatinine (0.66-1.25) mg/dL Glucose (74-99) mg/dL POC Glucose (mg/dL) 70 L 116 H (75-99) mg/dL Calcium (8.4-10.2) mg/dL Urine RBC (0-5) /hpf Urine WBC (0-5) /hpf Urine WBC Clumps (None) /hpf Urine Bacteria (None) /hpf Crossmatch Microbiology - Last 24 Hours (Table) 06/05/19 00:36 Urine Culture - Preliminary Urine,Voided Diabetes panel 06/05/19 Range/Units 01:35 Sodium 136 L (137-145) mmol/L Potassium 3.8 (3.5-5.1) mmol/L Chloride 101 (98-107) mmol/L Carbon Dioxide 29 (22-30) mmol/L BUN 43 H (9-20) mg/dL Creatinine 1.84 H (0.66-1.25) mg/dL Glucose 50 L (74-99) mg/dL Calcium 8.3 L (8.4-10.2) mg/dL Calcium panel 06/05/19 Range/Units 01:35 Calcium 8.3 L (8.4-10.2) mg/dL Pituitary panel 06/05/19 Range/Units 01:35 Sodium 136 L (137-145) mmol/L Potassium 3.8 (3.5-5.1) mmol/L Chloride 101 (98-107) mmol/L Carbon Dioxide 29 (22-30) mmol/L BUN 43 H (9-20) mg/dL Creatinine 1.84 H (0.66-1.25) mg/dL Glucose 50 L (74-99) mg/dL Calcium 8.3 L (8.4-10.2) mg/dL Adrenal panel 06/05/19 Range/Units 01:35 Sodium 136 L (137-145) mmol/L Potassium 3.8 (3.5-5.1) mmol/L Chloride 101 (98-107) mmol/L Carbon Dioxide 29 (22-30) mmol/L BUN 43 H (9-20) mg/dL Creatinine 1.84 H (0.66-1.25) mg/dL Glucose 50 L (74-99) mg/dL Calcium 8.3 L (8.4-10.2) mg/dL Assessment and Plan Assessment: Impression: Clot urinary retention. Hematuria secondary radiation cystitis and catheter irritation. Multiple medical medical illnesses. Plan: Catheter irrigation possible endoscopic intervention.
--- NOTE | 2019-06-05 16:23 | P.PCN ---
Date of Procedure: 06/05/19 Preoperative Diagnosis: Clot urinary retention Postoperative Diagnosis: Same Procedure(s) Performed: Exchange Overton catheter, irrigation of large volume of clot, placement of 20- Indonesian, 30 mL balloon three-way catheter for irrigation. Surgeon: Asher Martinez Pathology: none sent Condition: stable Disposition: floor Indications for Procedure: The patient is in clot urinary retention. I'll irrigate the catheter. Description of Procedure: At the bedside I use a Zak syringe and irrigate the 16-Indonesian catheter. It is not irrigating freely due to the small size. I thus removed the catheter and prepped and draped the patient sterilely placed a 20-Indonesian 2-way catheter with 5 mL balloon into the bladder. I then over the next 45 minutes irrigate a large volume of relatively fresh clot. At the end of the procedure there does not appear to be any clot remaining in the bladder but there is still pink urine suggesting some persistent oozing of the bladder which I suspect is the case. I thus removed the 20-Indonesian coud-tip catheter and placed a 20-Indonesian three-way catheter, 30 mL balloon over a Mandarin guide into the bladder. I then hooked it up to irrigation with water to keep the bloody urine from clotting and to allow the bladder bleeding to subside. Impression clot urinary retention secondary to radiation cystitis. Recommendation: I will make the patient nothing by mouth. We'll continue with irrigation. We will see how he does overnight. If the bleeding subsides and no intervention is required during this hospitalization then at some point in time and the patient will have to decide how they want to handle his urine retention.
[2019-06-05] MEDS ORDERED: SODIUM CHLORIDE 0.9% IRRIGATIO 3,000 ML IRRIGATION ONE ×3 (16:59→19:59)
[2019-06-05 17:20] LABS: Glucose,Whole Blood 110 mg/dL (75-99)
--- NOTE | 2019-06-05 21:01 | P.HPIM ---
History of Present Illness H&P Date: 06/05/19 Chief Complaint: Hematuria with blood clots had difficulty passage of urine History of presenting complaint: This is a 78-year-old patient with an extensive medical history. Chronic stable medical conditions include atrial fibrillation, diabetes, hyperlipidemia, hypertension, osteoarthritis, hypothyroid, esophagitis, radiation cystitis, etc. Patient about 8 weeks ago was seen by urologist Dr. Zavala out of [facility]. Patient had bladder scraping done. Since then progressively patient is having hematuria and more and more bladder spasms. Patient was in the hospital from May 11 through May 26.. patient was then admitted with postop hematuria and severe bladder spasms. Patient was taken to the OR on May 14. Several blood clots evacuated. 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 Was having significant bladder spasm. Medications were adjusted by urology. Subsequently patient diagnosed with pneumonia. Received IV Zosyn. patient went into congestive heart failure. Received IV Lasix. Also complained of odynophagia in the middle chest. . Possible right parapneumonic effusion. Seen by pulmonary. Intervention radiology did thoracentesis and 30 mL of diagnostic fluid was removed.. Trial of DC Overton was done on May 21. Patient started having bladder spasms again. Overton was replaced. Again started hematuria. Eventually nearly cleared up. hematuria is greatly improved. Also had EGD that showed esophagitis.. Patient received a total of 4 units of blood. By the time of discharge patient doing well. Urinary cleared up nicely. Does no pain. Was tolerating diet. Patient now again presents with difficulty urination increasing bladder spasms blood clots. No fever no chills. This is going on for last 2 days. Urology was consulted. Review of systems: GEN.: Tired EYES: None HEENT: Decreased hearing NECK: None RESPIRATORY: None CARDIOVASCULAR: None GASTROINTESTINAL: None GENITOURINARY: As above MUSCULOSKELETAL: Pain in joints LYMPHATICS: None HEMATOLOGICAL: None PSYCHIATRY: [Anxious NEUROLOGICAL: None Social history: Lives at [facility]. Became a recently. Does use a cane. Was a heavy drinker 10/07/1998. Has been smoking small cigars since 1952 Physical examination: VITAL SIGNS: 98, 95, 18, 105/66, 99 % on 2 L GENERAL: BMI 31.2, laying in bed to bit uncomfortable EYES: Pupils equal. Conjunctiva pale HEENT: External appearance of nose and ears normal, oral cavity grossly normal. NECK: JVD not raised; masses not palpable. HEART: First and second heart sounds are normal; no edema. LUNGS: Respiratory rate increased, decreased breath sounds. ABDOMEN: Soft, nontender, liver spleen not palpable, no masses palpable. PSYCH: Alert and oriented x3; mood and affect anxiousl. NEUROLOGICAL: Cranial nerves grossly intact; no facial asymmetry, power and sensation grossly intact. LYMPHATICS: No lymph nodes palpable in the axilla and neck MUSCULAR skeletal: Evidence of OA in the hands INVESTIGATIONS, reviewed in the clinical context: White count 8.9 and hemoglobin 6.9 potassium 3.8 bun 43 creatinine 1.84 Creatinine was 1.86 on May 25. Hemoglobin was 8.3 on May 25 BUN and creatinine was 67/2.42 and January of this year hemoglobin was 13.9 in January this year Assessment: -Acute symptomatic blood loss anemia secondary to persistent hematuria. Patient has received 4 units of blood. On the last admission without recurrence of hematuria.. -Severe bladder spasms in a patient who recently had bladder biopsy, much improved -Persistent recurrent hematuria in a patient from radiation cystitis -Chronic congestive heart failure exacerbationfrom systolic and diastolic,dysfunction EF 40-45%., -Moderate aortic valve sclerosis, moderate mitral mitral regurgitation, moderate tricuspid regurgitation-nonrheumatic -Secondary moderate pulmonary hypertension from CHF -Diabetes mellitus type 2 -Essential hypertension -hypertensive heart disease -Hyperlipidemia -Primary osteoarthritis -Hypothyroid -Left renal cancer with left nephrectomy -Chronic kidney disease stage III from nephrosclerosis -Hypothyroid -Chronic nicotine dependence patient cigarette smoker -Right pleural effusion with diagnostic thoracentesis on the last admission -Chronic esophagitis, Plan: Care was discussed with the patient. Urology was consulted. Home medications are reviewed. Keep a close eye on hemoglobin. Her unit of blood was ordered earlier. Await input from neurology. Care was discussed with the patient. Patient understandably is a bit upset about the course of the events to the last few days due to his bladder intervention. Past Medical History Past Medical History: Atrial Fibrillation, Cancer, Heart Failure, Diabetes Mellitus, Hyperlipidemia, Hypertension, Myocardial Infarction ([place]), Osteoarthritis (OA), Prostate Disorder, Renal Disease, Thyroid Disorder Additional Past Medical History / Comment(s): Ischemic heart disease, chronic CHF, pulmonary edema, 2012 L renal cancer with L nephrectomy-pt states he had mets to his liver and R lower lobe of his lung-treated by a "special" medication that worked with his immune system and was cured, 2018 had prostate cancer with 2 months of radiation therapy and eventual TURP-pt states cured, has been having bladder spasms for one month, IDDM type II, CKD stage III, muscle weakness, hypothyroid Last Myocardial Infarction Date:: History of Any Multi-Drug Resistant Organisms: None Reported Past Surgical History: Heart Catheterization With Stent Additional Past Surgical History / Comment(s): left nephrectomy, TURP, cystoscopies/cauterization and evacuation of clots, ORIF R hip, Past Anesthesia/Blood Transfusion Reactions: No Reported Reaction Date of Last Stent Placement:: 2017 Past Psychological History: No Psychological Hx Reported Additional Psychological History / Comment(s): Pt currently at [facility]. He states he is ambulating with a walker and sometimes using a wheelchair. He states he uses oxygen prn. His spouse 5 weeks ago. Smoking Status: Former smoker Past Alcohol Use History: None Reported Additional Past Alcohol Use History / Comment(s): Pt started smoking small cigars in 1953. He was a heavy drinker but quit in 1998. Past Drug Use History: None Reported - Past Family History Father Family Medical History: Cancer Additional Family Medical History / Comment(s): Father had prostate cancer. He lived to be 92 yrs old. Mother Family Medical History: Diabetes Mellitus Additional Family Medical History / Comment(s): Mother lived to be 84 yrs old. Family Additional Family Medical History / Comment(s): Patient reports history of heart disease Medications and Allergies Home Medications Medication Instructions Recorded Confirmed Type Finasteride [Proscar] 5 mg PO DAILY@0902/25/18 06/05/19 History Levothyroxine Sodium [Synthroid] 200 mcg PO DAILY@59902/25/18 06/05/19 History Tamsulosin [Flomax] 0.4 mg PO HS@209902/25/18 06/05/19 History Isosorbide Mononitrate [Isosorbide 30 mg PO DAILY@0908/05/18 06/05/19 History Mononitrate ER] Levothyroxine Sodium [Synthroid] 75 mcg PO DAILY@59902/10/19 06/05/19 History Allopurinol [Zyloprim] 100 mg PO DAILY@0900 05/11/19 06/05/19 History Atorvastatin [Lipitor] 40 mg PO HS@209905/11/19 06/05/19 History Ferrous Sulfate [Iron (65 MG 325 mg PO BID@0900,2100 05/11/19 06/05/19 History Elemental)] Furosemide [Lasix] 40 mg PO DAILY@0600 05/11/19 06/05/19 History INSULIN LISPRO (HumaLOG) [humaLOG] See Protocol SQ ACHS 05/11/19 06/05/19 History Ipratropium-Albuterol Nebulize 3 ml INHALATION RT-Q8H 05/11/19 06/05/19 History [Duoneb 0.5 mg-3 mg/3 ml Soln] Phenazopyridine [Pyridium] 200 mg PO BID PRN 05/11/19 06/05/19 History HYDROcodone/APAP 5-325MG [Eure 1 tab PO Q6H PRN #12 tab 05/23/19 06/05/19 Rx 5-325] Omeprazole [PriLOSEC] 20 mg PO AC-BID #60 cap 05/23/19 06/05/19 Rx Calcium Carbonate [Calcium] 600 mg PO QID PRN 06/05/19 06/05/19 History Insulin Detemir [Levemir Flextouch] 10 units SQ BID@0900,2100 06/05/19 06/05/19 History Loperamide [Imodium] 2 - 4 mg PO QID PRN 06/05/19 06/05/19 History Metoprolol Tartrate [Lopressor] 12.5 mg PO TID@0600,1400,2200 06/05/19 06/05/19 History Tolterodine Tartrate [Tolterodine 2 mg PO DAILY@0900 06/05/19 06/05/19 History Tartrate ER] Allergies Allergy/AdvReac Type Severity Reaction Status Date / Time iodine Allergy Rash/Hives Verified 06/05/19 07:38 Physical Exam Vitals: Vital Signs Temp Pulse Pulse Pulse Pulse Resp BP 06/05/19 20:25 108 H 06/05/19 20:00 97.9 F 14 06/05/19 14:53 98.1 F 103 H 16 06/05/19 12:33 98.2 F 93 15 104/58 06/05/19 10:22 97.4 F L 109 H 15 105/57 06/05/19 09:52 97.7 F 97 18 104/58 06/05/19 09:42 97.5 F L 96 15 90/72 06/05/19 08:57 56 L 06/05/19 07:40 100 06/05/19 07:28 100 06/05/19 07:20 107 H 16 06/05/19 06:03 99 16 06/05/19 06:00 100 18 06/05/19 05:46 97.9 F 89 18 118/76 06/05/19 03:30 84 16 108/65 06/05/19 03:26 88 16 108/65 06/05/19 01:19 98 F 95 18 105/66 BP Pulse Ox 06/05/19 20:25 06/05/19 20:00 92/54 95 06/05/19 14:53 95/61 100 06/05/19 12:33 98 06/05/19 10:22 97 06/05/19 09:52 100 06/05/19 09:42 96 06/05/19 08:57 101/53 06/05/19 07:40 06/05/19 07:28 94 L 06/05/19 07:20 103/60 94 L 06/05/19 06:03 109/70 96 06/05/19 06:00 06/05/19 05:46 100 06/05/19 03:30 98 06/05/19 03:26 98 06/05/19 01:19 99 Intake and Output 06/05/19 06/05/19 06/05/19 06:59 14:59 22:59 Intake Total 310 Output Total 976 640 2057 Balance -400 60 -9100 Intake: Blood Product 310 Rc As-1 Unit 310 [id number] Output: Urine 785 770 0153 Uretheral (Overton) 400 Other: Voiding Method Indwelling Catheter Indwelling Catheter Weight 104.326 kg Results CBC & Chem 7: 06/05/19 01:35 06/05/19 01:35 Labs: Abnormal Lab Results - Last 24 Hours (Table) 06/05/19 06/05/19 06/05/19 Range/Units 00:36 01:35 01:35 RBC 2.29 L (4.30-5.90) m/uL Hgb 6.9 L* (13.0-17.5) gm/dL Hct 22.8 L (39.0-53.0) % MCHC 30.2 L (31.0-37.0) g/dL RDW 16.8 H (11.5-15.5) % Lymphocytes # 0.8 L (1.0-4.8) k/uL PT (9.0-12.0) sec INR (<1.2) Sodium 136 L (137-145) mmol/L BUN 43 H (9-20) mg/dL Creatinine 1.84 H (0.66-1.25) mg/dL Glucose 50 L (74-99) mg/dL POC Glucose (mg/dL) (75-99) mg/dL Calcium 8.3 L (8.4-10.2) mg/dL Urine RBC >182 H (0-5) /hpf Urine WBC 170 H (0-5) /hpf Urine WBC Clumps Few H (None) /hpf Urine Bacteria Rare H (None) /hpf Crossmatch 06/05/19 06/05/19 06/05/19 Range/Units 01:35 01:35 07:31 RBC (4.30-5.90) m/uL Hgb (13.0-17.5) gm/dL Hct (39.0-53.0) % MCHC (31.0-37.0) g/dL RDW (11.5-15.5) % Lymphocytes # (1.0-4.8) k/uL PT 12.8 H (9.0-12.0) sec INR 1.2 H (<1.2) Sodium (137-145) mmol/L BUN (9-20) mg/dL Creatinine (0.66-1.25) mg/dL Glucose (74-99) mg/dL POC Glucose (mg/dL) 28 L (75-99) mg/dL Calcium (8.4-10.2) mg/dL Urine RBC (0-5) /hpf Urine WBC (0-5) /hpf Urine WBC Clumps (None) /hpf Urine Bacteria (None) /hpf Crossmatch See Detail 06/05/19 06/05/19 06/05/19 Range/Units 07:33 07:46 07:55 RBC (4.30-5.90) m/uL Hgb (13.0-17.5) gm/dL Hct (39.0-53.0) % MCHC (31.0-37.0) g/dL RDW (11.5-15.5) % Lymphocytes # (1.0-4.8) k/uL PT (9.0-12.0) sec INR (<1.2) Sodium (137-145) mmol/L BUN (9-20) mg/dL Creatinine (0.66-1.25) mg/dL Glucose (74-99) mg/dL POC Glucose (mg/dL) 29 L 55 L 62 L (75-99) mg/dL Calcium (8.4-10.2) mg/dL Urine RBC (0-5) /hpf Urine WBC (0-5) /hpf Urine WBC Clumps (None) /hpf Urine Bacteria (None) /hpf Crossmatch 06/05/19 06/05/19 06/05/19 Range/Units 08:11 11:37 17:19 RBC (4.30-5.90) m/uL Hgb (13.0-17.5) gm/dL Hct (39.0-53.0) % MCHC (31.0-37.0) g/dL RDW (11.5-15.5) % Lymphocytes # (1.0-4.8) k/uL PT (9.0-12.0) sec INR (<1.2) Sodium (137-145) mmol/L BUN (9-20) mg/dL Creatinine (0.66-1.25) mg/dL Glucose (74-99) mg/dL POC Glucose (mg/dL) 70 L 116 H 110 H (75-99) mg/dL Calcium (8.4-10.2) mg/dL Urine RBC (0-5) /hpf Urine WBC (0-5) /hpf Urine WBC Clumps (None) /hpf Urine Bacteria (None) /hpf Crossmatch Microbiology - Last 24 Hours (Table) 06/05/19 00:36 Urine Culture - Preliminary Urine,Voided Thrombosis Risk Factor Assmnt - Choose All That Apply Any of the Below Risk Factors Present?: Yes Each Factor Represents 1 point: Acute [place], Obesity (BMI >25) Each Risk Factor Represents 3 Points: Age 75 years or older Thrombosis Risk Factor Assessment Total Risk Factor Score: 5 Thrombosis Risk Factor Assessment Level: High Risk
--- NOTE | 2019-06-05 21:31 | P.PN ---
Progress Note - Text Progress Note Date: 06/05/19 the patient continues to bleed HE has clotted the catheter despite continuous bladder irrigation I will take him to the or for irrigation of clot and fulgaration of bleeding
[2019-06-05 21:50] LABS: Glucose,Whole Blood 150 mg/dL (75-99)
[2019-06-05 22:25] LABS: Glucose,Whole Blood 152 mg/dL (75-99)
[2019-06-05] MEDS ORDERED: SUCCINYLCHOLINE CHLORIDE 100 MG/5 ML SYR IV ONE (22:25)
[2019-06-05] MEDS ORDERED: PHENYLEPHRINE-0.9% NACL SYG 1 MG/10 ML SYRINGE ONE (22:25)
[2019-06-05] MEDS ORDERED: ePHEDrine SULFATE/0.9% NACL/PF 50 MG/5 ML SYRINGE IV ONE (22:25)
[2019-06-05] MEDS ORDERED: ALBUMIN HUMAN 5% (25gm) 500 ML VIAL IVPB ONE (22:25)
[2019-06-05] MEDS ORDERED: fentaNYL (PF) 50 MCG/ML 2 ML AMP ONE (22:25)
[2019-06-05] MEDS ORDERED: PROPOFOL 10 MG/ML 20 ML VIAL IV ONE (22:25)
[2019-06-05] MEDS: INSULIN DETEMIR (LEVEMIR) 100 UNIT/ML SYR SQ SCH (22:27)
[2019-06-05] MEDS ORDERED: IV FLUID CONTINUATION 200 ML IV ONE (22:27)
[2019-06-05] MEDS ORDERED: SODIUM CHLORIDE 0.9% 500 ML 500 ML IV ONE ×2 (22:49→23:16)
--- NOTE | 2019-06-05 23:40 | P.OP ---
Date of Procedure: 06/05/19 Preoperative Diagnosis: clot urine retention, prostate cancer sp radiation therapy Postoperative Diagnosis: Same, necrotic prostatic fossa, extensive prostatic cancer with prostatic bleeding, radiation cystoscopy prostatitis Procedure(s) Performed: Cystoscopy, evacuation of large amount of blood clot, fulguration of bladder bleeding, resection of necrotic prostate as well as regrowth of prostate cancer to control bleeding. Fulguration of prostatic bleeding. Anesthesia: ANJEL Surgeon: Asher Martinez Pathology: other (Prostate) Condition: stable Disposition: PACU Indications for Procedure: The patient is an 78-year-old gentleman with a diagnosis of prostate cancer treated at an outside institution with the radiation therapy. He has switched his urologic care to he saw several years ago. He was in the hospital recently and had clot urine retention. He did cystoscopy evacuation of clot but no active bleeding was identified. He was readmitted to the hospital this morning again with clot urinary retention and anemia and a hemoglobin of 6.9. He was given 2 units of blood. I saw the patient and absence. Spent about an hour this afternoon irrigating the bladder free of clots. He started bleeding again this afternoon and re-obstructed a three-way catheter that I had placed. He does comes to the operating suite for evacuation of clot and fulguration of bleeding. Description of Procedure: The patient was brought to the operating suite. He is given a general endotracheal anesthesia. The Overton catheter was removed. A sterile prep and drape was administered. I introduced the 25-Estonian sheath and direct vision obturator and Foroblique lens and the urethra is normal the prostatic urethra shows anterior lobe obstruction a very necrotic prostate. The cancer extends into the bladder. There is active bleeding at the bladder neck. There is radiation cystitis. 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 There is irregular dense prostatic cancerous necrotic tissue throughout the prostatic fossa. I irrigated thoroughly the bladder free of clots with the JujuCeliro evacuator. I then with a rollerball electrode cauterize tissue at the bladder neck a. It became evident to prevent this from recurring again immediately has gone have to resect tissue. The Oliveira 25-Estonian loop I resect tissue primarily anterior and left lateral. I fulgurate tissue at the bladder neck. Hopefully this will allow less bleeding. I then rollerball electrode the entire prostatic fossa. At this point in time I terminate the procedure. I introduced a 20-Estonian 3 catheter over a mandrin guide into the bladder. Clear with a light irrigation. The patient is awake and returned recovery in guarded condition. Impression gross hematuria with clot urinary retention due to radiation therapy, necrotic prostatic cancerous tissue, radiation cystoscopy prostatitis. Active bleeding was approximately 50 mL. I irrigated about a liter of old blood out of the bladder.
--- NOTE | 2019-06-05 23:53 | P.PN ---
Progress Note - Text Progress Note Date: 06/05/19 The patient was slow to arouse from anesthesia. Per the anesthesiologist and special procedures nurse his anesthetic response was that of hypotension secondary to anemia. He had an intraoperative hemoglobin 5.5. He is getting 2 units of blood and will be transferred to the intensive care unit. He seems to be responding to fluid resuscitation. His urine remains clear. His condition is guarded.
[2019-06-06 00:30] LABS: Glucose,Whole Blood 192 mg/dL (75-99)
[2019-06-06] MEDS: AMOXIC-POT CLAV 875-125MG 1 EACH TAB PO SCH ×3 (01:07→21:52)
[2019-06-06] MEDS: ATORVASTATIN 40 MG TAB PO SCH ×2 (01:07→21:52)
[2019-06-06] MEDS: TAMSULOSIN 0.4 MG CAP.ER.24H PO SCH ×2 (01:07→21:52)
[2019-06-06] MEDS: FERROUS SULFATE 325 MG TAB PO SCH ×3 (01:07→21:52)
[2019-06-06] MEDS: METOPROLOL TARTRATE 12.5 MG TAB PO SCH ×4 (01:08→21:52)
[2019-06-06] MEDS ORDERED: SODIUM CHLORIDE 0.9% IRRIGATIO 3,000 ML IRRIGATION ONE (01:30)
[2019-06-06 01:36] LABS: Glucose,Whole Blood 190 mg/dL (75-99)
[2019-06-06] MEDS ORDERED: SODIUM CHLORIDE 0.9% IRRIGATIO 3,000 ML IRRIGATION SCH (03:00)
[2019-06-06] MEDS: SODIUM CHLORIDE 0.9% 1,000 ML IV SCH (03:17)
[2019-06-06 04:40] LABS: Anisocytosis Slight; HCT 26.5 % (39.0-53.0); Hypochromasia Moderate; MCH 31.3 pg (25.0-35.0); MCHC 31.8 g/dL (31.0-37.0); MCV 98.4 fL (80.0-100.0); Macrocytosis Slight; Mean Platelet Volume 5.9; Platelet Count 241 k/uL (150-450); Poikilocytosis Slight; RDW 16.6 % (11.5-15.5)
[2019-06-06 04:50] LABS: HGB 8.4 gm/dL (13.0-17.5)
[2019-06-06 04:56] LABS: Potassium 4.3 mmol/L (3.5-5.1)
[2019-06-06] MEDS: PANTOPRAZOLE 40 MG TABLET PO SCH ×2 (06:16→17:50)
[2019-06-06] MEDS: LEVOTHYROXINE 100 MCG TAB PO SCH (06:16)
[2019-06-06] MEDS: LEVOTHYROXINE 75 MCG TAB PO SCH (06:16)
[2019-06-06] MEDS: FUROSEMIDE 40 MG TAB PO SCH (06:16)
[2019-06-06 06:54] LABS: Glucose,Whole Blood 172 mg/dL (75-99)
[2019-06-06] MEDS: IPRATROPIUM-ALBUTEROL 3 ML NEB INHALATION SCH ×3 (07:02→19:03)
[2019-06-06] MEDS: ALLOPURINOL 100 MG TAB PO SCH (08:47)
[2019-06-06] MEDS: TROSPIUM CHLORIDE 20 MG TABLET PO SCH (08:47)
[2019-06-06] MEDS: ISOSORBIDE MONONITRATE ER 30 MG TAB.ER.24H PO SCH (10:14)
[2019-06-06] MEDS: FINASTERIDE 5 MG TAB PO SCH (10:14)
--- NOTE | 2019-06-06 10:28 | P.PN ---
Subjective Progress Note Date: 06/06/19 The patient underwent cystoscopy, evacuation of clot, fulguration of bleeding and resection of necrotic prostate tissue last night. His urine is clear this morning. He is feels much better. After transfusion his hemoglobin was 8.4. I will discontinue his bladder irrigation. From a urologic standpoint he can be transferred to the floor. We'll continue to monitor his situation. I explained to him that he has a very difficult situation with a necrotic prostate for radiation therapy and probable persistence of his prostate cancer. Objective - Vital Signs Vital signs: Vital Signs Temp 97.7 F 06/06/19 08:00 Pulse 93 06/06/19 10:00 Resp 21 06/06/19 10:00 BP 99/64 06/06/19 10:00 Pulse Ox 97 06/06/19 10:00 Intake & Output 06/05/19 06/06/19 06/06/19 18:59 06:59 18:59 Intake Total 310 1470 80 Output Total 7950 7290 305 Balance -0882 -5820 -225 Weight 103.1 kg Intake: IV 700 60 Sodium Chloride 0.9% 1, 60 000 ml @ 20 mls/hr IV . Q24H [facility] Rx#:[id number] Intake, IV Titration 100 20 Amount Sodium Chloride 0.9% 500 100 20 ml 500 ml @ 0 mls/hr IV . [facility] Rx#: [id number] Oral 50 Blood Product 310 620 Rc As-1 Unit 310 [id number] Rc As-1 Unit 310 [id number] Rc As-1 Unit 310 [id number] Output: Urine 7950 7240 305 Uretheral (Overton) 2450 Estimated Blood Loss 50 Other: Voiding Method Indwelling Catheter Indwelling Catheter Indwelling Catheter - Labs CBC & Chem 7: 06/06/19 04:28 06/06/19 04:28 Labs: Abnormal Lab Results - Last 24 Hours (Table) 06/05/19 06/05/19 06/05/19 Range/Units 01:35 11:37 17:19 RBC (4.30-5.90) m/uL Hgb (13.0-17.5) gm/dL Hct (39.0-53.0) % RDW (11.5-15.5) % Sodium (137-145) mmol/L BUN (9-20) mg/dL Creatinine (0.66-1.25) mg/dL Glucose (74-99) mg/dL POC Glucose (mg/dL) 116 H 110 H (75-99) mg/dL Calcium (8.4-10.2) mg/dL Crossmatch See Detail 06/05/19 06/05/19 06/06/19 Range/Units 21:40 22:24 00:28 RBC (4.30-5.90) m/uL Hgb (13.0-17.5) gm/dL Hct (39.0-53.0) % RDW (11.5-15.5) % Sodium (137-145) mmol/L BUN (9-20) mg/dL Creatinine (0.66-1.25) mg/dL Glucose (74-99) mg/dL POC Glucose (mg/dL) 150 H 152 H 192 H (75-99) mg/dL Calcium (8.4-10.2) mg/dL Crossmatch 06/06/19 06/06/19 06/06/19 Range/Units 01:34 04:28 04:28 RBC 2.70 L (4.30-5.90) m/uL Hgb 8.4 L D (13.0-17.5) gm/dL Hct 26.5 L (39.0-53.0) % RDW 16.6 H (11.5-15.5) % Sodium 133 L (137-145) mmol/L BUN 42 H (9-20) mg/dL Creatinine 1.79 H (0.66-1.25) mg/dL Glucose 162 H (74-99) mg/dL POC Glucose (mg/dL) 190 H (75-99) mg/dL Calcium 8.0 L (8.4-10.2) mg/dL Crossmatch 06/06/19 Range/Units 06:52 RBC (4.30-5.90) m/uL Hgb (13.0-17.5) gm/dL Hct (39.0-53.0) % RDW (11.5-15.5) % Sodium (137-145) mmol/L BUN (9-20) mg/dL Creatinine (0.66-1.25) mg/dL Glucose (74-99) mg/dL POC Glucose (mg/dL) 172 H (75-99) mg/dL Calcium (8.4-10.2) mg/dL Crossmatch Microbiology - Last 24 Hours (Table) 06/05/19 00:36 Urine Culture - Preliminary Urine,Voided
[2019-06-06 11:39] LABS: Glucose,Whole Blood 158 mg/dL (75-99)
[2019-06-06 12:02] LABS: Glucose,Whole Blood 132 mg/dL (75-99)
[2019-06-06 16:30] LABS: Glucose,Whole Blood 142 mg/dL (75-99)
--- NOTE | 2019-06-06 17:15 | P.PN ---
Progress Note - Text Progress Note Date: 06/06/19 Chief Complaint: Hematuria with blood clots had difficulty passage of urine History of presenting complaint: This is a 78-year-old patient with an extensive medical history. Chronic stable medical conditions include atrial fibrillation, diabetes, hyperlipidemia, hypert ension, osteoarthritis, hypothyroid, esophagitis, radiation cystitis, etc. Patient about 8 weeks ago was seen by urologist Dr. Zavala out of [facility]. Patient had bladder scraping done. Since then progressively patient is having hematuria and more and more bladder spasms. Patient was in the hospital from May 11 through May 26.. patient was then admitted with postop hematuria and severe bladder spasms. Patient was taken to the OR on May 14. Several blood clots evacuated. 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 Was having significant bladder spasm. Medications were adjusted by urology. Subsequently patient diagnosed with pneumonia. Received IV Zosyn. patient went into congestive heart failure. Received IV Lasix. Also complained of odynophagia in the middle chest. . Possible right parapneumonic effusion. Seen by pulmonary. Intervention radiology did thoracentesis and 30 mL of diagnostic fluid was removed.. Trial of DC Overton was done on May 21. Patient started having bladder spasms again. Overton was replaced. Again started hematuria. Eventually nearly cleared up. hematuria is greatly improved. Also had EGD that showed esophagitis.. Patient received a total of 4 units of blood. By the time of discharge patient doing well. Urinary cleared up nicely. Does no pain. Was tolerating diet. Patient now again presents with difficulty urination increasing bladder spasms blood clots. No fever no chills. This is going on for last 2 days. Urology was consulted. On June 05-patient was several significant bleeding, blood clot was removed at the bedside. And bladder irrigation was carried out. Late in the evening for the same problem patient was taken over the or and fulguration cystoscopy was done of the bladder and cancer tissue was removed. Bleeding is completely stopped. Bladder spasm much improved. Today-laying in bed. More comfortable. Did tolerate some diet. No further bleeding. Consultation: Dr. Roman from neurology Active Medications Acetaminophen (Tylenol Tab) 650 mg PO Q6HR PRN PRN Reason: Mild Pain or Fever > 100.5 Hydrocodone Bitart/Acetaminophen ([place] 5-325) 1 each PO Q6H PRN PRN Reason: Pain Last Admin: 06/05/19 20:54 Dose: 1 each Documented by: Albuterol/Ipratropium (Duoneb 0.5 Mg-3 Mg/3 Ml Soln) 3 ml INHALATION RT-TID REPLACED BY [facility] Last Admin: 06/06/19 13:31 Dose: 3 ml Documented by: Allopurinol (Zyloprim) 100 mg PO DAILY@0900 REPLACED BY [facility] Last Admin: 06/06/19 08:47 Dose: 100 mg Documented by: Amoxicillin/Clavulanate Potassium (Augmentin [id number]) 1 each PO Q12HR REPLACED BY [facility] Last Admin: 06/06/19 08:47 Dose: 1 each Documented by: Atorvastatin Calcium (Lipitor) 40 mg PO HS@2100 REPLACED BY [facility] Last Admin: 06/06/19 01:07 Dose: Not Given Documented by: Calcium Carbonate/Glycine (Tums) 500 mg PO QID PRN PRN Reason: Heartburn Ferrous Sulfate (Feosol) 325 mg PO BID@0900,2100 REPLACED BY [facility] Last Admin: 06/06/19 08:47 Dose: 325 mg Documented by: Finasteride (Proscar) 5 mg PO DAILY@0900 REPLACED BY [facility] Last Admin: 06/06/19 10:14 Dose: 5 mg Documented by: Furosemide (Lasix) 40 mg PO DAILY@0600 REPLACED BY [facility] Last Admin: 06/06/19 06:16 Dose: 40 mg Documented by: Sodium Chloride (Saline 0.9%) 1,000 mls @ 20 mls/hr IV .Q24H REPLACED BY [facility] Last Admin: 06/06/19 03:17 Dose: 20 mls/hr Documented by: Levofloxacin 750 mg/ IV (Solution) 150 mls @ 100 mls/hr IVPB Q48H REPLACED BY [facility] Insulin Detemir (Levemir) 20 unit SQ [facility] Last Admin: 06/05/19 22:27 Dose: Not Given Documented by: Isosorbide Mononitrate (Imdur) 30 mg PO DAILY@0900 REPLACED BY [facility] Last Admin: 06/06/19 10:14 Dose: Not Given Documented by: Levothyroxine Sodium (Synthroid) 200 mcg PO DAILY@0630 REPLACED BY [facility] Last Admin: 06/06/19 06:16 Dose: 200 mcg Documented by: Levothyroxine Sodium (Synthroid) 75 mcg PO DAILY@0630 REPLACED BY [facility] Last Admin: 06/06/19 06:16 Dose: 75 mcg Documented by: Metoprolol Tartrate (Lopressor) 12.5 mg PO TID REPLACED BY [facility] Last Admin: 06/06/19 08:47 Dose: 12.5 mg Documented by: Naloxone HCl (Narcan) 0.2 mg IV Q2M PRN PRN Reason: Opioid Reversal Pantoprazole Sodium (Protonix) 40 mg PO AC-BID REPLACED BY [facility] Last Admin: 06/06/19 06:16 Dose: 40 mg Documented by: Phenazopyridine HCl (Pyridium) 200 mg PO BID PRN PRN Reason: BLADDER SPASMS Last Admin: 06/05/19 09:15 Dose: 200 mg Documented by: Tamsulosin HCl (Flomax) 0.4 mg PO HS@2100 REPLACED BY [facility] Last Admin: 06/06/19 01:07 Dose: Not Given Documented by: Trospium (Sanctura) 20 mg PO DAILY@0900 REPLACED BY [facility] Last Admin: 06/06/19 08:47 Dose: 20 mg Documented by: Physical examination: VITAL SIGNS: 97.7, 99, 12, 11 5/69, 92% on 4 L GENERAL: Sitting in bed, awake more comfortable today EYES: Pupils equal. Conjunctiva pale HEENT: External appearance of nose and ears normal, oral cavity grossly normal. NECK: JVD not raised; masses not palpable. HEART: First and second heart sounds are normal; no edema. LUNGS: Respiratory rate increased, decreased breath sounds. ABDOMEN: Soft, nontender, liver spleen not palpable, no masses palpable. PSYCH: Alert and oriented x3; mood and affect anxiousl. INVESTIGATIONS, reviewed in the clinical context: White count 9 hemoglobin 8.4 platelets 241 potassium 4.3 bun 42 crit 1.79 Previous testing White count 8.9 and hemoglobin 6.9 potassium 3.8 bun 43 creatinine 1.84 Creatinine was 1.86 on May 25. Hemoglobin was 8.3 on May 25 BUN and creatinine was 67/2.42 and January of this year hemoglobin was 13.9 in January of this year Assessment: -Acute symptomatic blood loss anemia secondary to persistent hematuria. Patient has received 4 units of blood.,On the last admission .. Patient had a repeat cystoscopy found to have necrotic prostatic fossa, extensive prostate cancer with prostatectomy bleeding and radiation cystoscopy prostatitis, followed by a questionable large amount of blood clot, fulguration of the bladder bleeding, resection of the necrotic prostate. -Severe bladder spasms in a patient who recently had bladder biopsy, improved -Persistent recurrent hematuria in a patient from radiation cystitis, improved -Chronic congestive heart failure exacerbationfrom systolic and diastolic,dysfunction EF 40-45%., -Moderate aortic valve sclerosis, moderate mitral mitral regurgitation, moderate tricuspid regurgitation-nonrheumatic -Secondary moderate pulmonary hypertension from CHF -Diabetes mellitus type 2 -Essential hypertension -hypertensive heart disease -Hyperlipidemia -Primary osteoarthritis -Hypothyroid -Left renal cancer with left nephrectomy -Chronic kidney disease stage III from nephrosclerosis -Hypothyroid -Chronic nicotine dependence patient cigarette smoker -Right pleural effusion with diagnostic thoracentesis on the last admission -Chronic esophagitis, Plan: Discussed with the patient. Much more pleased. Spoke to the nurse. She cannot return to the [facility] as patient will need authorization.. Other medications to continue.
[2019-06-06 21:00] LABS: Glucose,Whole Blood 235 mg/dL (75-99)
[2019-06-06] MEDS: INSULIN DETEMIR (LEVEMIR) 100 UNIT/ML SYR SQ SCH (22:05)
[2019-06-07] MEDS: HYDROcodone/APAP 5-325MG 1 EACH TAB PO PRN ×2 (00:58→22:56)
[2019-06-07] MEDS: SODIUM CHLORIDE 0.9% 1,000 ML IV SCH (04:29)
[2019-06-07] MEDS: LEVOTHYROXINE 100 MCG TAB PO SCH (05:56)
[2019-06-07] MEDS: FUROSEMIDE 40 MG TAB PO SCH (05:56)
[2019-06-07] MEDS: LEVOTHYROXINE 75 MCG TAB PO SCH (05:56)
[2019-06-07] MEDS ORDERED: LEVOFLOXACIN 750MG-D5W PMX 750 MG in DEXTROSE/WATER 1 150ML.BAG IVPB SCH (06:00)
[2019-06-07] MEDS: IPRATROPIUM-ALBUTEROL 3 ML NEB INHALATION SCH ×3 (07:07→20:41)
[2019-06-07 07:15] LABS: Glucose,Whole Blood 126 mg/dL (75-99)
[2019-06-07] MEDS: ISOSORBIDE MONONITRATE ER 30 MG TAB.ER.24H PO SCH (07:46)
[2019-06-07] MEDS: ALLOPURINOL 100 MG TAB PO SCH (07:47)
[2019-06-07] MEDS: AMOXIC-POT CLAV 875-125MG 1 EACH TAB PO SCH ×2 (07:47→20:49)
[2019-06-07] MEDS: PANTOPRAZOLE 40 MG TABLET PO SCH ×2 (07:47→17:16)
[2019-06-07] MEDS: METOPROLOL TARTRATE 12.5 MG TAB PO SCH ×3 (07:47→20:49)
[2019-06-07] MEDS: TROSPIUM CHLORIDE 20 MG TABLET PO SCH (07:47)
[2019-06-07] MEDS: FINASTERIDE 5 MG TAB PO SCH (07:47)
[2019-06-07] MEDS: FERROUS SULFATE 325 MG TAB PO SCH ×2 (07:47→20:49)
--- NOTE | 2019-06-07 07:58 | P.PN ---
Subjective Progress Note Date: 06/07/19 The patient is in his second postoperative day from cystoscopy evacuation of clot fulguration of bleeding and resection of prosthetic tissue. Feeling much better. The urine remains sleek clear. He is not having the pain. The urine is clear I will pull the catheter out in the morning for a voiding trial. If he voids [facility] Objective - Vital Signs Vital signs: Vital Signs Temp 96.9 F L 06/07/19 05:00 Pulse 100 06/07/19 07:20 Resp 18 06/07/19 05:00 BP 92/54 06/07/19 05:00 Pulse Ox 98 06/07/19 05:00 Intake & Output 06/06/19 06/07/19 06/07/19 18:59 06:59 18:59 Intake Total 430 250 Output Total 305 400 Balance 125 -150 Intake: IV 60 Sodium Chloride 0.9% 1, 60 000 ml @ 20 mls/hr IV . Q24H [facility] Rx#:[id number] Intake, IV Titration 20 Amount Sodium Chloride 0.9% 500 20 ml 500 ml @ 0 mls/hr IV . [facility] Rx#: [id number] Oral 350 250 Output: Urine 305 400 Other: Voiding Method Indwelling Catheter Indwelling Catheter - Labs CBC & Chem 7: 06/06/19 04:28 06/06/19 04:28 Labs: Abnormal Lab Results - Last 24 Hours (Table) 06/05/19 06/06/19 06/06/19 Range/Units 01:35 11:37 12:00 POC Glucose (mg/dL) 158 H 132 H (75-99) mg/dL Crossmatch See Detail 06/06/19 06/06/19 06/07/19 Range/Units 16:29 20:50 06:57 POC Glucose (mg/dL) 142 H 235 H 126 H (75-99) mg/dL Crossmatch Microbiology - Last 24 Hours (Table) 06/05/19 00:36 Urine Culture - Final Urine,Voided
[2019-06-07 11:38] LABS: Glucose,Whole Blood 127 mg/dL (75-99)
[2019-06-07 16:38] LABS: Glucose,Whole Blood 219 mg/dL (75-99)
[2019-06-07] MEDS: TAMSULOSIN 0.4 MG CAP.ER.24H PO SCH (20:49)
[2019-06-07] MEDS: ATORVASTATIN 40 MG TAB PO SCH (20:49)
[2019-06-07 20:51] LABS: Glucose,Whole Blood 185 mg/dL (75-99)
[2019-06-07] MEDS: INSULIN DETEMIR (LEVEMIR) 100 UNIT/ML SYR SQ SCH (20:52)
--- NOTE | 2019-06-07 23:37 | P.PN ---
Progress Note - Text Progress Note Date: 06/07/19 Chief Complaint: Hematuria with blood clots had difficulty passage of urine History of presenting complaint: This is a 78-year-old patient with an extensive medical history. Chronic stable medical conditions include atrial fibrillation, diabetes, hyperlipidemia, hypert ension, osteoarthritis, hypothyroid, esophagitis, radiation cystitis, etc. Patient about 8 weeks ago was seen by urologist Dr. Zavala out of [facility]. Patient had bladder scraping done. Since then progressively patient is having hematuria and more and more bladder spasms. Patient was in the hospital from May 11 through May 26.. patient was then admitted with postop hematuria and severe bladder spasms. Patient was taken to the OR on May 14. Several blood clots evacuated. 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 Was having significant bladder spasm. Medications were adjusted by urology. Subsequently patient diagnosed with pneumonia. Received IV Zosyn. patient went into congestive heart failure. Received IV Lasix. Also complained of odynophagia in the middle chest. . Possible right parapneumonic effusion. Seen by pulmonary. Intervention radiology did thoracentesis and 30 mL of diagnostic fluid was removed.. Trial of DC Overton was done on May 21. Patient started having bladder spasms again. Overton was replaced. Again started hematuria. Eventually nearly cleared up. hematuria is greatly improved. Also had EGD that showed esophagitis.. Patient received a total of 4 units of blood. By the time of discharge patient doing well. Urinary cleared up nicely. Does no pain. Was tolerating diet. Patient now again presents with difficulty urination increasing bladder spasms blood clots. No fever no chills. This is going on for last 2 days. Urology was consulted. On June 05-patient was several significant bleeding, blood clot was removed at the bedside. And bladder irrigation was carried out. Late in the evening for the same problem patient was taken over the or and fulguration cystoscopy was done of the bladder and cancer tissue was removed. Bleeding is completely stopped. Bladder spasm much improved. Today-Laying in bed. Comfortable. No new issues. No bladder spasm. Eating fine... Consultation: Dr. Roman from neurology Review of systems: Was done for constitutional, cardiovascular, GI, pulmonary. relevant finding as above Active Medications Acetaminophen (Tylenol Tab) 650 mg PO Q6HR PRN PRN Reason: Mild Pain or Fever > 100.5 Hydrocodone Bitart/Acetaminophen ([place] 5-325) 1 each PO Q6H PRN PRN Reason: Pain Last Admin: 06/07/19 22:56 Dose: 1 each Documented by: Albuterol/Ipratropium (Duoneb 0.5 Mg-3 Mg/3 Ml Soln) 3 ml INHALATION RT-TID [facility] Last Admin: 06/07/19 20:41 Dose: 3 ml Documented by: Allopurinol (Zyloprim) 100 mg PO DAILY@0900 [facility] Last Admin: 06/07/19 07:47 Dose: 100 mg Documented by: Amoxicillin/Clavulanate Potassium (Augmentin [id number]) 1 each PO Q12HR [facility] Last Admin: 06/07/19 20:49 Dose: 1 each Documented by: Atorvastatin Calcium (Lipitor) 40 mg PO HS@2100 [facility] Last Admin: 06/07/19 20:49 Dose: 40 mg Documented by: Calcium Carbonate/Glycine (Tums) 500 mg PO QID PRN PRN Reason: Heartburn Ferrous Sulfate (Feosol) 325 mg PO BID@0900,2100 [facility] Last Admin: 06/07/19 20:49 Dose: 325 mg Documented by: Finasteride (Proscar) 5 mg PO DAILY@0900 [facility] Last Admin: 06/07/19 07:47 Dose: 5 mg Documented by: Furosemide (Lasix) 40 mg PO DAILY@0600 [facility] Last Admin: 06/07/19 05:56 Dose: 40 mg Documented by: Insulin Detemir (Levemir) 20 unit SQ HS [facility] Last Admin: 06/07/19 20:52 Dose: 20 unit Documented by: Isosorbide Mononitrate (Imdur) 30 mg PO DAILY@0900 [facility] Last Admin: 06/07/19 07:46 Dose: Not Given Documented by: Levothyroxine Sodium (Synthroid) 200 mcg PO DAILY@0630 [facility] Last Admin: 06/07/19 05:56 Dose: 200 mcg Documented by: Levothyroxine Sodium (Synthroid) 75 mcg PO DAILY@0630 [facility] Last Admin: 06/07/19 05:56 Dose: 75 mcg Documented by: Metoprolol Tartrate (Lopressor) 12.5 mg PO TID [facility] Last Admin: 06/07/19 20:49 Dose: 12.5 mg Documented by: Naloxone HCl (Narcan) 0.2 mg IV Q2M PRN PRN Reason: Opioid Reversal Pantoprazole Sodium (Protonix) 40 mg PO AC-BID [facility] Last Admin: 06/07/19 17:16 Dose: 40 mg Documented by: Phenazopyridine HCl (Pyridium) 200 mg PO BID PRN PRN Reason: BLADDER SPASMS Last Admin: 06/05/19 09:15 Dose: 200 mg Documented by: Tamsulosin HCl (Flomax) 0.4 mg PO HS@2100 [facility] Last Admin: 06/07/19 20:49 Dose: 0.4 mg Documented by: Trospium (Sanctura) 20 mg PO DAILY@0900 [facility] Last Admin: 06/07/19 07:47 Dose: 20 mg Documented by: Physical examination: VITAL SIGNS: 97.6, 88, 18, 99/53, 99% on 4 L GENERAL: Laying bed, comfortable EYES: Pupils equal. Conjunctiva pale HEENT: External appearance of nose and ears normal, oral cavity grossly normal. NECK: JVD not raised; masses not palpable. HEART: First and second heart sounds are normal; no edema. LUNGS: Respiratory rate increased, decreased breath sounds. ABDOMEN: Soft, nontender, liver spleen not palpable, no masses palpable. PSYCH: Alert and oriented x3; mood and affect anxiousl. INVESTIGATIONS, reviewed in the clinical context: Accu-Cheks noted Previous testing White count 8.9 and hemoglobin 6.9 potassium 3.8 bun 43 creatinine 1.84 Creatinine was 1.86 on May 25. Hemoglobin was 8.3 on May 25 BUN and creatinine was 67/2.42 and January of this year hemoglobin was 13.9 in January of this year Assessment: -Acute symptomatic blood loss anemia secondary to persistent hematuria. Patient has received 4 units of blood.,On the last admission .. Patient had a repeat cystoscopy found to have necrotic prostatic fossa, extensive prostate cancer with prostatectomy bleeding and radiation cystoscopy prostatitis, followed by a questionable large amount of blood clot, fulguration of the bladder bleeding, resection of the necrotic prostate. -Severe bladder spasms in a patient who recently had bladder biopsy, improved -Persistent recurrent hematuria in a patient from radiation cystitis, improved -Chronic congestive heart failure exacerbationfrom systolic and diastolic,dysfunction EF 40-45%., -Moderate aortic valve sclerosis, moderate mitral mitral regurgitation, moderate tricuspid regurgitation-nonrheumatic -Secondary moderate pulmonary hypertension from CHF -Diabetes mellitus type 2 -Essential hypertension -hypertensive heart disease -Hyperlipidemia -Primary osteoarthritis -Hypothyroid -Left renal cancer with left nephrectomy -Chronic kidney disease stage III from nephrosclerosis -Hypothyroid -Chronic nicotine dependence patient cigarette smoker -Right pleural effusion with diagnostic thoracentesis on the last admission -Chronic esophagitis, Plan: Doing well. Dr. Roman will do a DC trial of the Overton catheter in the morning. Patient to be discharged tomorrow. Discharge plan is on the case.
[2019-06-08] MEDS: FUROSEMIDE 40 MG TAB PO SCH (06:04)
[2019-06-08] MEDS: LEVOTHYROXINE 75 MCG TAB PO SCH (06:04)
[2019-06-08] MEDS: LEVOTHYROXINE 100 MCG TAB PO SCH (06:04)
[2019-06-08 07:12] LABS: Glucose,Whole Blood 114 mg/dL (75-99)
[2019-06-08] MEDS: METOPROLOL TARTRATE 12.5 MG TAB PO SCH ×4 (08:37→22:01)
[2019-06-08] MEDS: PANTOPRAZOLE 40 MG TABLET PO SCH ×2 (08:37→17:51)
[2019-06-08] MEDS: FERROUS SULFATE 325 MG TAB PO SCH ×2 (08:37→21:57)
[2019-06-08] MEDS: ISOSORBIDE MONONITRATE ER 30 MG TAB.ER.24H PO SCH (08:37)
[2019-06-08] MEDS: FINASTERIDE 5 MG TAB PO SCH (08:38)
[2019-06-08] MEDS: AMOXIC-POT CLAV 875-125MG 1 EACH TAB PO SCH ×2 (08:38→21:57)
[2019-06-08] MEDS: TROSPIUM CHLORIDE 20 MG TABLET PO SCH (08:38)
--- NOTE | 2019-06-08 08:39 | P.PN ---
Subjective Progress Note Date: 06/08/19 The patient's in the hospital with gross hematuria, clot urinary retention, anemia secondary to the hematuria secondary to radiation prostatitis and cystitis. He had radiation therapy for prostate cancer. He has done well after identified and evacuation of clot and fulguration of bleeding and resection of prostatic tissue on Saturday. His urine remains clear this cath ago will be removed and we'll see how he voids. He was in retention after the last evacuation by one month ago. I did do some resection of the necrotic prostatic tissue to see if he would able to void. There wasn't significant anterior flap in the mid prostate that could've been obstructing. He otherwise as well as vital signs are stable. Objective - Vital Signs Vital signs: Vital Signs Temp 97.3 F L 06/08/19 05:05 Pulse 94 06/08/19 05:05 Resp 20 06/08/19 05:05 BP 98/62 06/08/19 05:05 Pulse Ox 97 06/08/19 05:05 Intake & Output 06/07/19 06/08/19 06/08/19 18:59 06:59 18:59 Intake Total 1050 Output Total 400 350 Balance 650 -350 Intake: Oral 1050 Output: Urine 400 350 Other: Voiding Method Indwelling Catheter Indwelling Catheter # Bowel Movements 0 - Labs CBC & Chem 7: 06/06/19 04:28 06/06/19 04:28 Labs: Abnormal Lab Results - Last 24 Hours (Table) 06/05/19 06/07/19 06/07/19 Range/Units 01:35 11:36 16:29 POC Glucose (mg/dL) 127 H 219 H (75-99) mg/dL Crossmatch See Detail 06/07/19 06/08/19 Range/Units 20:50 07:06 POC Glucose (mg/dL) 185 H 114 H (75-99) mg/dL Crossmatch
[2019-06-08] MEDS: IPRATROPIUM-ALBUTEROL 3 ML NEB INHALATION SCH ×3 (08:43→19:58)
[2019-06-08 11:58] LABS: Glucose,Whole Blood 100 mg/dL (75-99)
--- NOTE | 2019-06-08 12:40 | P.DS ---
Providers Date of admission: 06/05/19 05:27 Expected date of discharge: 06/08/19 Attending physician: Alexy Titus Consults: 06/05/19 12:17 Consult Physician Routine Consulting Provider: Asher Martinez Consult Reason/Comments: mariano cath obstruction Do you want consulting provider notified?: Yes [facility]: Chief Complaint: Hematuria with blood clots had difficulty passage of urine Hospital course: This is a 78-year-old patient with an extensive medical history. Chronic stable medical conditions include atrial fibrillation, diabetes, hyperlipidemia, hypertension, osteoarthritis, hypothyroid, esophagitis, radiation cystitis, etc. Patient about 8 weeks ago was seen by urologist Dr. Zavala out of [facility]. Patient had bladder scraping done. Since then progressively patient is having hematuria and more and more bladder spasms. Patient was in the hospital from May 11 through May 26.. patient was then admitted with postop hematuria and severe bladder spasms. Patient was taken to the OR on May 14. Several blood clots evacuated. 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 Was having significant bladder spasm. Medications were adjusted by urology. Subsequently patient diagnosed with pneumonia. Received IV Zosyn. patient went into congestive heart failure. Received IV Lasix. Also complained of odynophagia in the middle chest. . Possible right parapneumonic effusion. Seen by pulmonary. Intervention radiology did thoracentesis and 30 mL of diagno stic fluid was removed.. Trial of DC Mariano was done on May 21. Patient started having bladder spasms again. Mariano was replaced. Again started hematuria. Eventually nearly cleared up. hematuria is greatly improved. Also had EGD that showed esophagitis.. Patient received a total of 4 units of blood. By the time of discharge patient doing well. Urinary cleared up nicely. Does no pain. Was tolerating diet. Patient now again presents with difficulty urination increasing bladder spasms blood clots. No fever no chills. This is going on for last 2 days. Urology was consulted. On June 05-patient was several significant bleeding, blood clot was removed at the bedside. And bladder irrigation was carried out. Late in the evening for the same problem patient was taken over the or and fulguration cystoscopy was done of the bladder and cancer tissue was removed. Bleeding is completely stopped. Bladder spasm much improved. Today-Mariano catheter was discontinued. The patient has since brought 50 mL. If patient makes good urine and he can go without the catheter. He will follow-up with Dr. Briggs. Care was discussed with the patient and the nurse. Discussion and discharge planning more than 35 minutes Consultation: Dr. Roman from urology Physical examination: VITAL SIGNS: 97.3, 94, 20, 98/62, 97% on 4 L GENERAL: Sitting up in a chair, comfortable EYES: Pupils equal. Conjunctiva pale HEENT: External appearance of nose and ears normal, oral cavity grossly normal. NECK: JVD not raised; masses not palpable. HEART: First and second heart sounds are normal; no edema. LUNGS: Respiratory rate increased, decreased breath sounds. ABDOMEN: Soft, nontender, liver spleen not palpable, no masses palpable. PSYCH: Alert and oriented x3; mood and affect anxiousl. INVESTIGATIONS, reviewed in the clinical context: Hemoglobin 8.4 142 creatinine 1.7 Previous testing White count 8.9 and hemoglobin 6.9 potassium 3.8 bun 43 creatinine 1.84 Creatinine was 1.86 on May 25. Hemoglobin was 8.3 on May 25 BUN and creatinine was 67/2.42 and January of this year hemoglobin was 13.9 in January of this year Discharge diagnosis: -Acute symptomatic blood loss anemia secondary to persistent hematuria. Patient has received 4 units of blood,On the last admission .Patient had a repeat cystoscopy found to have necrotic prostatic fossa, extensive prostate cancer wi th prostatectomy bleeding and radiation cystoscopy prostatitis, followed by extraction of large amount of blood clot, fulguration of the bladder bleeding, resection of the necrotic prostate. All bleeding is stopped. -Severe bladder spasms in a patient who recently had bladder biopsy, improved -Persistent recurrent hematuria in a patient from radiation cystitis, improved -Chronic congestive heart failure exacerbationfrom systolic and diastolic,dysfunction EF 40-45%., -Moderate aortic valve sclerosis, moderate mitral mitral regurgitation, moderate tricuspid regurgitation-nonrheumatic -Secondary moderate pulmonary hypertension from CHF -Diabetes mellitus type 2 -Essential hypertension -hypertensive heart disease -Hyperlipidemia -Primary osteoarthritis -Hypothyroid -Left renal cancer with left nephrectomy -Chronic kidney disease stage III from nephrosclerosis -Hypothyroid -Chronic nicotine dependence patient cigarette smoker -Right pleural effusion with diagnostic thoracentesis on the last admission -Chronic esophagitis, Disposition: ECF Patient Condition at Discharge: Stable Plan - Discharge Summary Discharge Rx Participant: No New Discharge Prescriptions: No Action Tamsulosin [Flomax] 0.4 mg PO HS@2100 Levothyroxine Sodium [Synthroid] 200 mcg PO DAILY@0600 Finasteride [Proscar] 5 mg PO DAILY@0900 Isosorbide Mononitrate [Isosorbide Mononitrate ER] 30 mg PO DAILY@0900 Levothyroxine Sodium [Synthroid] 75 mcg PO DAILY@0600 Phenazopyridine [Pyridium] 200 mg PO BID PRN PRN Reason: BLADDER SPASMS INSULIN LISPRO (HumaLOG) [humaLOG] See Protocol SQ ACHS Ipratropium-Albuterol Nebulize [Duoneb 0.5 mg-3 mg/3 ml Soln] 3 ml INHALATION RT-Q8H Ferrous Sulfate [Iron (65 MG Elemental)] 325 mg PO BID@0900,2099 Furosemide [Lasix] 40 mg PO DAILY@0600 Atorvastatin [Lipitor] 40 mg PO HS@2100 Allopurinol [Zyloprim] 100 mg PO DAILY@0900 Omeprazole [PriLOSEC] 20 mg PO AC-BID #60 cap HYDROcodone/APAP 5-325MG [[place] 5-325] 1 tab PO Q6H PRN #12 tab PRN Reason: Pain Calcium Carbonate [Calcium] 600 mg PO QID PRN PRN Reason: Heartburn Insulin Detemir [Levemir Flextouch] 10 units SQ BID@0900,2099 Loperamide [Imodium] 2 - 4 mg PO QID PRN PRN Reason: Loose Stool Metoprolol Tartrate [Lopressor] 12.5 mg PO TID@0600,1400,2200 Tolterodine Tartrate [Tolterodine Tartrate ER] 2 mg PO DAILY@0900 Discharge Medication List Finasteride [Proscar] 5 mg PO DAILY@0900 02/25/18 [History] Levothyroxine Sodium [Synthroid] 200 mcg PO DAILY@0602/25/18 [History] Tamsulosin [Flomax] 0.4 mg PO HS@2100 02/25/18 [History] Isosorbide Mononitrate [Isosorbide Mononitrate ER] 30 mg PO DAILY@0900 08/05/18 [History] Levothyroxine Sodium [Synthroid] 75 mcg PO DAILY@0600 19 [History] Allopurinol [Zyloprim] 100 mg PO DAILY@89905/11/19 [History] Atorvastatin [Lipitor] 40 mg PO HS@209905/11/19 [History] Ferrous Sulfate [Iron (65 MG Elemental)] 325 mg PO BID@899,209905/11/19 [History] Furosemide [Lasix] 40 mg PO DAILY@0605/11/19 [History] INSULIN LISPRO (HumaLOG) [humaLOG] See Protocol SQ ACHS 05/11/19 [History] Ipratropium-Albuterol Nebulize [Duoneb 0.5 mg-3 mg/3 ml Soln] 3 ml INHALATION RT-Q8H 05/11/19 [History] Phenazopyridine [Pyridium] 200 mg PO BID PRN 05/11/19 [History] HYDROcodone/APAP 5-325MG [[place] 5-325] 1 tab PO Q6H PRN #12 tab 05/23/19 [Rx] Omeprazole [PriLOSEC] 20 mg PO AC-BID #60 cap 05/23/19 [Rx] Calcium Carbonate [Calcium] 600 mg PO QID PRN 06/05/19 [History] Insulin Detemir [Levemir Flextouch] 10 units SQ BID@899,209906/05/19 [History] Loperamide [Imodium] 2 - 4 mg PO QID PRN 06/05/19 [History] Metoprolol Tartrate [Lopressor] 12.5 mg PO TID@0600,1400,2200 06/05/19 [History] Tolterodine Tartrate [Tolterodine Tartrate ER] 2 mg PO DAILY@89906/05/19 [History] Follow up Appointment(s)/Referral(s): Osman Dunne MD [Primary Care Provider] - 1-2 days
[2019-06-08 17:09] LABS: Glucose,Whole Blood 191 mg/dL (75-99)
[2019-06-08] MEDS: ALLOPURINOL 100 MG TAB PO SCH (17:51)
[2019-06-08 20:36] LABS: Glucose,Whole Blood 188 mg/dL (75-99)
[2019-06-08] MEDS: ATORVASTATIN 40 MG TAB PO SCH (21:57)
[2019-06-08] MEDS: TAMSULOSIN 0.4 MG CAP.ER.24H PO SCH (21:57)
[2019-06-08] MEDS: INSULIN DETEMIR (LEVEMIR) 100 UNIT/ML SYR SQ SCH (21:57)
[2019-06-09] MEDS: LEVOTHYROXINE 100 MCG TAB PO SCH (05:19)
[2019-06-09] MEDS: LEVOTHYROXINE 75 MCG TAB PO SCH (05:20)
[2019-06-09] MEDS: FUROSEMIDE 40 MG TAB PO SCH (05:20)
[2019-06-09] MEDS: METOPROLOL TARTRATE 12.5 MG TAB PO SCH ×3 (07:01→19:51)
[2019-06-09] MEDS: ISOSORBIDE MONONITRATE ER 30 MG TAB.ER.24H PO SCH (07:01)
[2019-06-09 07:13] LABS: Glucose,Whole Blood 120 mg/dL (75-99)
[2019-06-09] MEDS: AMOXIC-POT CLAV 875-125MG 1 EACH TAB PO SCH ×2 (07:28→19:51)
[2019-06-09] MEDS: ALLOPURINOL 100 MG TAB PO SCH (07:28)
[2019-06-09] MEDS: TROSPIUM CHLORIDE 20 MG TABLET PO SCH (07:28)
[2019-06-09] MEDS: FERROUS SULFATE 325 MG TAB PO SCH ×2 (07:28→19:51)
[2019-06-09] MEDS: FINASTERIDE 5 MG TAB PO SCH (07:28)
[2019-06-09] MEDS: PANTOPRAZOLE 40 MG TABLET PO SCH ×2 (07:28→15:59)
[2019-06-09] MEDS: IPRATROPIUM-ALBUTEROL 3 ML NEB INHALATION SCH ×3 (08:10→21:05)
[2019-06-09 11:43] LABS: Glucose,Whole Blood 72 mg/dL (75-99)
--- NOTE | 2019-06-09 13:50 | P.PN ---
Progress Note - Text Progress Note Date: 06/09/19 The patient is afebrile. He failed a voiding trial and his catheter was reinserted. His urine is grossly clear. He can be discharged to a care home with the catheter in place. He should have a voiding trial in one week. The care home can contact me to arrange for this.
[2019-06-09 17:09] LABS: Glucose,Whole Blood 240 mg/dL (75-99)
[2019-06-09] MEDS: ATORVASTATIN 40 MG TAB PO SCH (19:52)
[2019-06-09] MEDS: TAMSULOSIN 0.4 MG CAP.ER.24H PO SCH (19:52)
[2019-06-09 20:21] LABS: Glucose,Whole Blood 268 mg/dL (75-99)
[2019-06-09] MEDS: HYDROcodone/APAP 5-325MG 1 EACH TAB PO PRN (21:45)
[2019-06-09] MEDS: INSULIN DETEMIR (LEVEMIR) 100 UNIT/ML SYR SQ SCH (21:46)
[2019-06-09] MEDS ORDERED: FUROSEMIDE 10 MG/ML 4 ML VIAL IV STA (22:47)
--- NOTE | 2019-06-09 23:24 | P.PN ---
Progress Note - Text Progress Note Date: 06/08/19 Chief Complaint: Hematuria with blood clots had difficulty passage of urine History of presenting complaint: This is a 78-year-old patient with an extensive medical history. Chronic stable medical conditions include atrial fibrillation, diabetes, hyperlipidemia, hypert ension, osteoarthritis, hypothyroid, esophagitis, radiation cystitis, etc. Patient about 8 weeks ago was seen by urologist Dr. Zavala out of [facility]. Patient had bladder scraping done. Since then progressively patient is having hematuria and more and more bladder spasms. Patient was in the hospital from May 11 through May 26.. patient was then admitted with postop hematuria and severe bladder spasms. Patient was taken to the OR on May 14. Several blood clots evacuated. 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 Was having significant bladder spasm. Medications were adjusted by urology. Subsequently patient diagnosed with pneumonia. Received IV Zosyn. patient went into congestive heart failure. Received IV Lasix. Also complained of odynophagia in the middle chest. . Possible right parapneumonic effusion. Seen by pulmonary. Intervention radiology did thoracentesis and 30 mL of diagnostic fluid was removed.. Trial of DC Overton was done on May 21. Patient started having bladder spasms again. Overton was replaced. Again started hematuria. Eventually nearly cleared up. hematuria is greatly improved. Also had EGD that showed esophagitis.. Patient received a total of 4 units of blood. By the time of discharge patient doing well. Urinary cleared up nicely. Does no pain. Was tolerating diet. Patient now again presents with difficulty urination increasing bladder spasms blood clots. No fever no chills. This is going on for last 2 days. Urology was consulted. On June 05-patient was several significant bleeding, blood clot was removed at the bedside. And bladder irrigation was carried out. Late in the evening for the same problem patient was taken over the or and fulguration cystoscopy was done of the bladder and cancer tissue was removed. Bleeding is completely stopped. Bladder spasm much improved. Today-stable. No new issues. Making urine. Overton has been discontinued. Pending discharge. Consultation: Dr. Roman from neurology Review of systems: Was done for constitutional, cardiovascular, GI, pulmonary. relevant finding as above Current medications are reviewed from today's electronic records. Physical examination: VITAL SIGNS: 98.2, 94, 18, 11 4/68, N percent on 4 L GENERAL: Sitting upon a chair, comfortable EYES: Pupils equal. Conjunctiva pale HEENT: External appearance of nose and ears normal, oral cavity grossly normal. NECK: JVD not raised; masses not palpable. HEART: First and second heart sounds are normal; no edema. LUNGS: Respiratory rate increased, decreased breath sounds. ABDOMEN: Soft, nontender, liver spleen not palpable, no masses palpable. PSYCH: Alert and oriented x3; mood and affect anxiousl. INVESTIGATIONS, reviewed in the clinical context: Accu-Cheks noted Previous testing White count 8.9 and hemoglobin 6.9 potassium 3.8 bun 43 creatinine 1.84 Creatinine was 1.86 on May 25. Hemoglobin was 8.3 on May 25 BUN and creatinine was 67/2.42 and January of this year hemoglobin was 13.9 in January this Assessment: -Acute symptomatic blood loss anemia secondary to persistent hematuria. Patient has received 4 units of blood.,On the last admission .. Patient had a repeat cystoscopy found to have necrotic prostatic fossa, extensive prostate cancer with prostatectomy bleeding and radiation cystoscopy prostatitis, followed by a questionable large amount of blood clot, fulguration of the bladder bleeding, resection of the necrotic prostate. 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 Patient making urine. Patient pending preauthorization for discharge to the ECF.
--- NOTE | 2019-06-09 23:27 | P.PN ---
Progress Note - Text Progress Note Date: 06/09/19 Chief Complaint: Hematuria with blood clots had difficulty passage of urine History of presenting complaint: This is a 78-year-old patient with an extensive medical history. Chronic stable medical conditions include atrial fibrillation, diabetes, hyperlipidemia, hypert ension, osteoarthritis, hypothyroid, esophagitis, radiation cystitis, etc. Patient about 8 weeks ago was seen by urologist Dr. Zavala out of [facility]. Patient had bladder scraping done. Since then progressively patient is having hematuria and more and more bladder spasms. Patient was in the hospital from May 11 through May 26.. patient was then admitted with postop hematuria and severe bladder spasms. Patient was taken to the OR on May 14. Several blood clots evacuated. 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 Was having significant bladder spasm. Medications were adjusted by urology. Subsequently patient diagnosed with pneumonia. Received IV Zosyn. patient went into congestive heart failure. Received IV Lasix. Also complained of odynophagia in the middle chest. . Possible right parapneumonic effusion. Seen by pulmonary. Intervention radiology did thoracentesis and 30 mL of diagnostic fluid was removed.. Trial of DC Overton was done on May 21. Patient started having bladder spasms again. Overton was replaced. Again started hematuria. Eventually nearly cleared up. hematuria is greatly improved. Also had EGD that showed esophagitis.. Patient received a total of 4 units of blood. By the time of discharge patient doing well. Urinary cleared up nicely. Does no pain. Was tolerating diet. Patient now again presents with difficulty urination increasing bladder spasms blood clots. No fever no chills. This is going on for last 2 days. Urology was consulted. On June 05-patient was several significant bleeding, blood clot was removed at the bedside. And bladder irrigation was carried out. Late in the evening for the same problem patient was taken over the or and fulguration cystoscopy was done of the bladder and cancer tissue was removed. Bleeding is completely stopped. Bladder spasm much improved. On June 08 Overton catheter was discontinued. Patient failed a voiding trial. Catheter was reinserted.. Today-Sitting upon a chair. Comfortable. Tolerated diet. Overton catheter had to be reinserted yesterday. Consultation: Dr. oRman from neurology Review of systems: Was done for constitutional, cardiovascular, GI, pulmonary. relevant finding as above Active Medications Acetaminophen (Tylenol Tab) 650 mg PO Q6HR PRN PRN Reason: Mild Pain or Fever > 100.5 Hydrocodone Bitart/Acetaminophen (Venet[place] 5-325) 1 each PO Q6H PRN PRN Reason: Pain Last Admin: 06/09/19 21:45 Dose: 1 each Documented by: Albuterol/Ipratropium (Duoneb 0.5 Mg-3 Mg/3 Ml Soln) 3 ml INHALATION RT-TID [facility] Last Admin: 06/09/19 21:05 Dose: 3 ml Documented by: Allopurinol (Zyloprim) 100 mg PO DAILY@0900 [facility] Last Admin: 06/09/19 07:28 Dose: 100 mg Documented by: Amoxicillin/Clavulanate Potassium (Augmentin [id number]) 1 each PO Q12HR [facility] Last Admin: 06/09/19 19:51 Dose: 1 each Documented by: Atorvastatin Calcium (Lipitor) 40 mg PO HS@2100 [facility] Last Admin: 06/09/19 19:52 Dose: 40 mg Documented by: Calcium Carbonate/Glycine (Tums) 500 mg PO QID PRN PRN Reason: Heartburn Ferrous Sulfate (Feosol) 325 mg PO BID@0900,2100 [facility] Last Admin: 06/09/19 19:51 Dose: 325 mg Documented by: Finasteride (Proscar) 5 mg PO DAILY@0900 [facility] Last Admin: 06/09/19 07:28 Dose: 5 mg Documented by: Furosemide (Lasix) 40 mg PO DAILY@0600 [facility] Last Admin: 06/09/19 05:20 Dose: 40 mg Documented by: Furosemide (Lasix) 40 mg IV ONCE ONE Stop: 06/10/19 06:01 Insulin Detemir (Levemir) 20 unit SQ [facility] Last Admin: 06/09/19 21:46 Dose: 20 unit Documented by: Isosorbide Mononitrate (Imdur) 30 mg PO DAILY@0900 [facility] Last Admin: 06/09/19 07:01 Dose: Not Given Documented by: Levothyroxine Sodium (Synthroid) 200 mcg PO DAILY@0630 [facility] Last Admin: 06/09/19 05:19 Dose: 200 mcg Documented by: Levothyroxine Sodium (Synthroid) 75 mcg PO DAILY@0630 [facility] Last Admin: 06/09/19 05:20 Dose: 75 mcg Documented by: Metoprolol Tartrate (Lopressor) 12.5 mg PO TID [facility] Last Admin: 06/09/19 19:51 Dose: 12.5 mg Documented by: Naloxone HCl (Narcan) 0.2 mg IV Q2M PRN PRN Reason: Opioid Reversal Pantoprazole Sodium (Protonix) 40 mg PO AC-BID [facility] Last Admin: 06/09/19 15:59 Dose: 40 mg Documented by: Phenazopyridine HCl (Pyridium) 200 mg PO BID PRN PRN Reason: BLADDER SPASMS Last Admin: 06/05/19 09:15 Dose: 200 mg Documented by: Tamsulosin HCl (Flomax) 0.4 mg PO HS@2100 [facility] Last Admin: 06/09/19 19:52 Dose: 0.4 mg Documented by: Trospium (Sanctura) 20 mg PO DAILY@0900 [facility] Last Admin: 06/09/19 07:28 Dose: 20 mg Documented by: Physical examination: VITAL SIGNS: 97.8, 63, 18, 10 7 x 62, 91% on 2 L GENERAL: Sitting upon a chair, comfortable EYES: Pupils equal. Conjunctiva pale HEENT: External appearance of nose and ears normal, oral cavity grossly normal. NECK: JVD not raised; masses not palpable. HEART: First and second heart sounds are normal; no edema. LUNGS: Respiratory rate increased, decreased breath sounds. ABDOMEN: Soft, nontender, liver spleen not palpable, no masses palpable. Overton catheter in place PSYCH: Alert and oriented x3; mood and affect anxiousl. INVESTIGATIONS, reviewed in the clinical context: Accu-Cheks noted Previous testing White count 8.9 and hemoglobin 6.9 potassium 3.8 bun 43 creatinine 1.84 Creatinine was 1.86 on May 25. Hemoglobin was 8.3 on May 25 BUN and creatinine was 67/2.42 and January of this year hemoglobin was 13.9 in January of this year Assessment: -Acute symptomatic blood loss anemia secondary to persistent hematuria. Patient has received 4 units of blood.,On the last admission .. Patient had a repeat cystoscopy found to have necrotic prostatic fossa, extensive prostate cancer with prostatectomy bleeding and radiation cystoscopy prostatitis, followed by a questionable large amount of blood clot, fulguration of the bladder bleeding, resection of the necrotic prostate. 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 Patient pending preauthorization to go to the ECF.
[2019-06-10] MEDS: FUROSEMIDE 40 MG TAB PO SCH ×2 (01:54→07:07)
[2019-06-10] MEDS: LEVOTHYROXINE 100 MCG TAB PO SCH (05:44)
[2019-06-10] MEDS: LEVOTHYROXINE 75 MCG TAB PO SCH (05:45)
[2019-06-10 05:52] VITALS: RESP 18
[2019-06-10] MEDS ORDERED: FUROSEMIDE 10 MG/ML 4 ML VIAL IV ONE (06:00)
[2019-06-10] MEDS: METOPROLOL TARTRATE 12.5 MG TAB PO SCH (07:06)
[2019-06-10 07:07] LABS: Glucose,Whole Blood 157 mg/dL (75-99)
[2019-06-10] MEDS: PANTOPRAZOLE 40 MG TABLET PO SCH (07:07)
[2019-06-10] MEDS: ISOSORBIDE MONONITRATE ER 30 MG TAB.ER.24H PO SCH (07:07)
[2019-06-10] MEDS: FERROUS SULFATE 325 MG TAB PO SCH (07:07)
[2019-06-10] MEDS: AMOXIC-POT CLAV 875-125MG 1 EACH TAB PO SCH (07:07)
[2019-06-10] MEDS: FINASTERIDE 5 MG TAB PO SCH (07:07)
[2019-06-10] MEDS: ALLOPURINOL 100 MG TAB PO SCH (07:07)
[2019-06-10] MEDS: TROSPIUM CHLORIDE 20 MG TABLET PO SCH (07:09)
[2019-06-10] MEDS: IPRATROPIUM-ALBUTEROL 3 ML NEB INHALATION SCH ×2 (07:31→13:36)
[2019-06-10 09:17] LABS: Calcium 8.3 mg/dL (8.4-10.2); Potassium 4.2 mmol/L (3.5-5.1)
[2019-06-10 12:02] LABS: Glucose,Whole Blood 196 mg/dL (75-99)
--- NOTE | 2019-06-10 13:10 | P.DS ---
Providers Date of admission: 06/05/19 05:27 Expected date of discharge: 06/10/19 Attending physician: Alexy Titus Consults: 06/05/19 12:17 Consult Physician Routine Consulting Provider: Asher Martinez Consult Reason/Comments: mariano cath obstruction Do you want consulting provider notified?: Yes Primary care physician: [facility] Course: Chief Complaint: Hematuria with blood clots had difficulty passage of urine History of presenting complaint: This is a 78-year-old patient with an extensive medical history. Chronic stable medical conditions include atrial fibrillation, diabetes, hyperlipidemia, hypertension, osteoarthritis, hypothyroid, esophagitis, radiation cystitis, etc. Patient about 8 weeks ago was seen by urologist Dr. Zavala out of [facility]. Patient had bladder scraping done. Since then progressively patient is having hematuria and more and more bladder spasms. Patient was in the hospital from May 11 through May 26.. patient was then admitted with postop hematuria and severe bladder spasms. Patient was taken to the OR on May 14. Several blood clots evacuated. 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 Was having significant bladder spasm. Medications were adjusted by urology. Subsequently patient diagnosed with pneumonia. Received IV Zosyn. patient went into congestive heart failure. Received IV Lasix. Also complained of odynophagia in the middle chest. . Possible right parapneumonic effusion. Seen by pulmonary. Intervention radiology did thoracentesis and 30 mL of diagnostic fluid was removed.. Trial of DC Mariano was done on May 21. Patient started having bladder spasms again. Mariano was replaced. Again started hematuria. Eventually nearly cleared up. hematuria is greatly improved. Also had EGD that showed esophagitis.. Patient received a total of 4 units of blood. By the time of discharge patient doing well. Urinary cleared up nicely. Does no pain. Was tolerating diet. Patient now again presents with difficulty urination increasing bladder spasms blood clots. No fever no chills. This is going on for last 2 days. Urology was consulted. On June 05-patient was several significant bleeding, blood clot was removed at the bedside. And bladder irrigation was carried out. Late in the evening for the same problem patient was taken over the or and fulguration cystoscopy was done of the bladder and cancer tissue was removed. Bleeding is completely stopped. Bladder spasm much improved. On June 08 Mariano catheter was discontinued. Patient failed a voiding trial. Catheter was reinserted.. Today-comfortable. Sitting up. Breathing stable. Did tolerate his diet. Spoke on the phone to Dr. Hathaway from [facility] for preauthorization. Spoke to the social media coordinator Megan. Patient will be going to [facility]. Discussion and discharge planning more than 35 minutes Consultation: Dr. Roman from urology Physical examination: VITAL SIGNS: 97.3, 96, 18, 105/58, 97% on 4 L GENERAL: Sitting upon a chair, comfortable EYES: Pupils equal. Conjunctiva pale HEENT: External appearance of nose and ears normal, oral cavity grossly normal. NECK: JVD not raised; masses not palpable. HEART: First and second heart sounds are normal; no edema. LUNGS: Respiratory rate normal, decreased breath sounds. ABDOMEN: Soft, nontender, liver spleen not palpable, no masses palpable. Mariano catheter in place PSYCH: Alert and oriented x3; mood and affect anxiousl. INVESTIGATIONS, reviewed in the clinical context: Potassium 4.2 145 creatinine 1.99 Previous testing White count 8.9 and hemoglobin 6.9 potassium 3.8 bun 43 creatinine 1.84 Creatinine was 1.86 on May 25. Hemoglobin was 8.3 on May 25 BUN and creatinine was 67/2.42 and January of this year hemoglobin was 13.9 in January of this year Discharge diagnosis: -Acute symptomatic blood loss anemia secondary to persistent hematuria. Patient has received 4 units of blood.,On the last admission .. Patient had a repeat cystoscopy found to have necrotic prostatic fossa, extensive prostate cancer with prostatectomy bleeding and radiation cystoscopy prostatitis, followed by a questionable large amount of blood clot, fulguration of the bladder bleeding, resection of the necrotic prostate. -Severe bladder spasms in a patient who recently had bladder biopsy, improved -Persistent recurrent hematuria in a patient from radiation cystitis, improved -Chronic congestive heart failure exacerbationfrom systolic and diastolic,dysfunction EF 40-45%., -Moderate aortic valve sclerosis, moderate mitral mitral regurgitation, moderate tricuspid regurgitation-nonrheumatic -Secondary moderate pulmonary hypertension from CHF -Diabetes mellitus type 2 -Essential hypertension -hypertensive heart disease -Hyperlipidemia -Primary osteoarthritis -Hypothyroid -Left renal cancer with left nephrectomy -Chronic kidney disease stage III from nephrosclerosis -Hypothyroid -Chronic nicotine dependence patient cigarette smoker -Right pleural effusion with diagnostic thoracentesis on the last admission -Chronic esophagitis, Disposition: [facility] Patient Condition at Discharge: Stable Plan - Discharge Summary Discharge Rx Participant: No New Discharge Prescriptions: New Amoxic-Pot Clav 875-125Mg [Augmentin 875-125] 1 each PO Q12HR #10 tab Trospium Chloride [Sanctura] 20 mg PO DAILY@0900 tablet Continue Tamsulosin [Flomax] 0.4 mg PO HS@2100 Levothyroxine Sodium [Synthroid] 200 mcg PO DAILY@0600 Finasteride [Proscar] 5 mg PO DAILY@0900 Isosorbide Mononitrate [Isosorbide Mononitrate ER] 30 mg PO DAILY@0900 Levothyroxine Sodium [Synthroid] 75 mcg PO DAILY@0600 Phenazopyridine [Pyridium] 200 mg PO BID PRN PRN Reason: BLADDER SPASMS INSULIN LISPRO (HumaLOG) [humaLOG] See Protocol SQ ACHS Ipratropium-Albuterol Nebulize [Duoneb 0.5 mg-3 mg/3 ml Soln] 3 ml INHALATION RT-Q8H Ferrous Sulfate [Iron (65 MG Elemental)] 325 mg PO BID@0900,2100 Furosemide [Lasix] 40 mg PO DAILY@0600 Atorvastatin [Lipitor] 40 mg PO HS@2100 Allopurinol [Zyloprim] 100 mg PO DAILY@0900 Omeprazole [PriLOSEC] 20 mg PO AC-BID #60 cap Calcium Carbonate [Calcium] 600 mg PO QID PRN PRN Reason: Heartburn Loperamide [Imodium] 2 - 4 mg PO QID PRN PRN Reason: Loose Stool Metoprolol Tartrate [Lopressor] 12.5 mg PO TID@0600,1400,2200 Tolterodine Tartrate [Tolterodine Tartrate ER] 2 mg PO DAILY@0900 HYDROcodone/APAP 5-325MG [Roosevelt 5-325] 1 tab PO Q6H PRN #12 tab PRN Reason: Pain Changed Insulin Detemir [Levemir Flextouch] 20 units SQ HS #0 Discharge Medication List Finasteride [Proscar] 5 mg PO DAILY@0900 02/25/18 [History] Levothyroxine Sodium [Synthroid] 200 mcg PO DAILY@0600 02/25/18 [History] Tamsulosin [Flomax] 0.4 mg PO HS@209902/25/18 [History] Isosorbide Mononitrate [Isosorbide Mononitrate ER] 30 mg PO DAILY@0908/05/18 [History] Levothyroxine Sodium [Synthroid] 75 mcg PO DAILY@0602/10/19 [History] Allopurinol [Zyloprim] 100 mg PO DAILY@89905/11/19 [History] Atorvastatin [Lipitor] 40 mg PO HS@209905/11/19 [History] Ferrous Sulfate [Iron (65 MG Elemental)] 325 mg PO BID@0900,209905/11/19 [History] Furosemide [Lasix] 40 mg PO DAILY@59905/11/19 [History] INSULIN LISPRO (HumaLOG) [humaLOG] See Protocol SQ ACHS 05/11/19 [History] Ipratropium-Albuterol Nebulize [Duoneb 0.5 mg-3 mg/3 ml Soln] 3 ml INHALATION RT-Q8H 05/11/19 [History] Phenazopyridine [Pyridium] 200 mg PO BID PRN 05/11/19 [History] Omeprazole [PriLOSEC] 20 mg PO AC-BID #60 cap 05/23/19 [Rx] Calcium Carbonate [Calcium] 600 mg PO QID PRN 06/05/19 [History] Loperamide [Imodium] 2 - 4 mg PO QID PRN 06/05/19 [History] Metoprolol Tartrate [Lopressor] 12.5 mg PO TID@0600,1400,2200 06/05/19 [History] Tolterodine Tartrate [Tolterodine Tartrate ER] 2 mg PO DAILY@0906/05/19 [History] Amoxic-Pot Clav 875-125Mg [Augmentin 875-125] 1 each PO Q12HR #10 tab 06/10/19 [Rx] HYDROcodone/APAP 5-325MG [Roosevelt 5-325] 1 tab PO Q6H PRN #12 tab 06/10/19 [Rx] Insulin Detemir [Levemir Flextouch] 20 units SQ HS #0 06/10/19 [Rx] Trospium Chloride [Sanctura] 20 mg PO DAILY@0900 tablet 06/10/19 [Rx] Follow up Appointment(s)/Referral(s): Osman Dunne MD [Primary Care Provider] - 1-2 days Mariusz Briggs MD [STAFF PHYSICIAN] - 2 Weeks
[2019-06-10 13:31] VITALS: BP 118/64; PULSE 71; TEMP 97.9
== END 2019-06-10 16:06 | DRG 713 ==
LOC: EC 01:16 → 4SSUR 05:27 → 2SICU 06-06 00:25 → 4MS4W 06-06 15:01
PROVIDERS: ADMIT Hospitalist; ATTEND Hospitalist
PROC: 0V508ZZ Destruction of Prostate, Via Natural or Artificial Opening Endoscopic (ICD-10-PCS; 2019-06-05)
PROC: 0T5C8ZZ Destruction of Bladder Neck, Via Natural or Artificial Opening Endoscopic (ICD-10-PCS; 2019-06-05)
PROC: 0TCB8ZZ Extirpation of Matter from Bladder, Via Natural or Artificial Opening Endoscopic (ICD-10-PCS; 2019-06-05)
PROC: 30233N1 Transfusion of Nonautologous Red Blood Cells into Peripheral Vein, Percutaneous Approach (ICD-10-PCS; 2019-06-05)
PROC: 0T2BX0Z Change Drainage Device in Bladder, External Approach (ICD-10-PCS; 2019-06-05)
PROC: 3E1K78Z Irrigation of Genitourinary Tract using Irrigating Substance, Via Natural or Artificial Opening (ICD-10-PCS; 2019-06-05)
PROC: 0VB08ZZ Excision of Prostate, Via Natural or Artificial Opening Endoscopic (ICD-10-PCS; principal; 2019-06-05 10:30)
DX: C61 Malignant neoplasm of prostate (principal); I50.43 Acute on chronic combined systolic (congestive) and diastolic (congestive) heart failure; N30.41 Irradiation cystitis with hematuria; D62 Acute posthemorrhagic anemia; I13.0 Hypertensive heart and chronic kidney disease with heart failure and stage 1 through stage 4 chronic kidney disease, or unspecified chronic kidney disease; Z85.528 Personal history of other malignant neoplasm of kidney; Z90.5 Acquired absence of kidney; E03.9 Hypothyroidism, unspecified; E11.22 Type 2 diabetes mellitus with diabetic chronic kidney disease; E78.5 Hyperlipidemia, unspecified; F17.210 Nicotine dependence, cigarettes, uncomplicated; I08.3 Combined rheumatic disorders of mitral, aortic and tricuspid valves; I25.2 Old myocardial infarction; I27.20 Pulmonary hypertension, unspecified; I48.91 Unspecified atrial fibrillation; K20.9 Esophagitis, unspecified; M19.91 Primary osteoarthritis, unspecified site; N18.3 Chronic kidney disease, stage 3 (moderate); N32.89 Other specified disorders of bladder; N41.9 Inflammatory disease of prostate, unspecified; R13.10 Dysphagia, unspecified; T83.091A Other mechanical complication of indwelling urethral catheter, initial encounter; Y73.8 Miscellaneous gastroenterology and urology devices associated with adverse incidents, not elsewhere classified; Y84.2 Radiological procedure and radiotherapy as the cause of abnormal reaction of the patient, or of later complication, without mention of misadventure at the time of the procedure; Z79.4 Long term (current) use of insulin; Z79.890 Hormone replacement therapy; Z79.899 Other long term (current) drug therapy; Z80.42 Family history of malignant neoplasm of prostate; Z83.3 Family history of diabetes mellitus; Z92.3 Personal history of irradiation; F10.11 Alcohol abuse, in remission; Z87.01 Personal history of pneumonia (recurrent); Z87.440 Personal history of urinary (tract) infections
CPT/HCPCS: 36415; 36430; 51702; 80048; 81001; 83735; 85025; 85027; 85610; 85730; 86850; 86900; 86901; 86920; 87086; 88305; 94640; 94760; 96365; 96366; 99285

== ENCOUNTER 2019-06-23 18:16 | Inpatient (IN) | payer MEDICARE ==
[2019-06-23] MEDS ORDERED: IPRATROPIUM-ALBUTEROL 3 ML NEB INHALATION STA (18:47)
[2019-06-23 19:01] LABS: Anisocytosis Slight; Basophils # (A) 0.1 k/uL (0-0.2); Basophils % (A) 1 %; Eosinophils # (A) 0.5 k/uL (0-0.7); Eosinophils % (A) 5 %; HCT 30.7 % (39.0-53.0); HGB 9.4 gm/dL (13.0-17.5); Hypochromasia Marked; Lymphocytes % (A) 11 %; MCH 30.1 pg (25.0-35.0); MCHC 30.6 g/dL (31.0-37.0); MCV 98.6 fL (80.0-100.0); Macrocytosis Slight; Mean Platelet Volume 6.8; Monocytes # (A) 0.6 k/uL (0-1.0); Monocytes % (A) 7 %; Neutrophils # (A) 6.8 k/uL (1.3-7.7); Neutrophils % (A) 74 %; Platelet Count 297 k/uL (150-450); RBC 3.11 m/uL (4.30-5.90); RDW 16.5 % (11.5-15.5); WBC 9.2 k/uL (3.8-10.6)
[2019-06-23 19:08] LABS: INR 1.3 (<1.2); Partial Thromboplastin Time 27.3 sec (22.0-30.0); Prothrombin Time 13.6 sec (9.0-12.0)
[2019-06-23 19:10] LABS: Albumin 2.8 g/dL (3.5-5.0); Calcium 8.7 mg/dL (8.4-10.2); Potassium 4.2 mmol/L (3.5-5.1); Total Bilirubin 0.7 mg/dL (0.2-1.3); Total Protein 6.1 g/dL (6.3-8.2)
[2019-06-23 19:29] LABS: ABG Base Excess 4.5 mmol/L; ABG HCO3 29 mmol/L (21-25); ABG Oxygen Saturation 84.2 % (94-97); ABG PCO2 44 mmHg (35-45); ABG PH 7.43 (7.35-7.45); ABG TCO2 30 mmol/L (19-24); Allen Test Performed? Yes
[2019-06-23 19:30] LABS: ABG PO2 47 mmHg (83-108)
--- NOTE | 2019-06-23 20:04 | ED ---
General Adult HPI - General Chief complaint: Shortness of Breath Stated complaint: COPD Time Seen by Provider: 06/23/19 18:20 Source: EMS Mode of arrival: EMS Limitations: altered mental status - History of Present Illness Initial comments: The patient is an 78-year-old male with past medical history of A. fib, diabetes, hypertension who presents the emergency department from [facility] on the [place]. He does have multiple additional medical conditions and is a poor historian. I did review the patient's transfer record. They state that they transferred him to her facility because of altered mental status and hypoxia. He normally wears 3.5 L of oxygen at all times. He states that he was desatting into the 80s with increased work of breathing. The patient became more altered. He does arrive to me and does follow commands. He is answering questions appropriately. Does seem to be a very poor historian. He does admit to increased work of breathing when asked. Denies any chest pain. No cough, fevers or chills. Denies any headaches or visual changes. No blunt head trauma. He is concerned about the blood in his Mariano. There is a small amount of blood streaking. Patient's history is reviewed and demonstrates the patient has had gross hematuria with history of blood transfusion. He denies ripping or tearing sensation to his back. No abdominal pain. No changes in his bowel habits. Remainder of the HPI is limited because of the patient's aggressive state and inability to provide a history - Related Data Home Medications Medication Instructions Recorded Confirmed Finasteride [Proscar] 5 mg PO DAILY@89902/25/18 06/23/19 Levothyroxine Sodium [Synthroid] 200 mcg PO DAILY@59902/25/18 06/23/19 Tamsulosin [Flomax] 0.4 mg PO HS@209902/25/18 06/23/19 Isosorbide Mononitrate [Isosorbide 30 mg PO DAILY@89908/05/18 06/23/19 Mononitrate ER] Levothyroxine Sodium [Synthroid] 75 mcg PO DAILY@59902/10/19 06/23/19 Allopurinol [Zyloprim] 100 mg PO DAILY@89905/11/19 06/23/19 Atorvastatin [Lipitor] 40 mg PO HS@209905/11/19 06/23/19 Ferrous Sulfate [Iron (65 MG 325 mg PO BID@0900,2100 05/11/19 06/23/19 Elemental)] Furosemide [Lasix] 40 mg PO DAILY@0600 05/11/19 06/23/19 Ipratropium-Albuterol Nebulize 3 ml INHALATION RT-Q8H 05/11/19 06/23/19 [Duoneb 0.5 mg-3 mg/3 ml Soln] Phenazopyridine [Pyridium] 200 mg PO BID PRN 05/11/19 06/23/19 Calcium Carbonate [Calcium] 600 mg PO QID PRN 06/05/19 06/23/19 Loperamide [Imodium] 2 - 4 mg PO QID PRN 06/05/19 06/23/19 Metoprolol Tartrate [Lopressor] 12.5 mg PO TID@0600,1400,2200 06/05/19 06/23/19 Tolterodine Tartrate [Tolterodine 2 mg PO DAILY@0900 06/05/19 06/23/19 Tartrate ER] INSULIN LISPRO (HumaLOG) [HumaLOG] 3 unit SQ AC-TID 06/23/19 06/23/19 Insulin Degludec [Tresiba 10 units SQ DAILY@0800 06/23/19 06/23/19 Flextouch U-100] Omeprazole [PriLOSEC] 20 mg PO BID@0600,1700 06/23/19 06/23/19 Previous Rx's Medication Instructions Recorded HYDROcodone/APAP 5-325MG [Edison 1 tab PO Q6H PRN #12 tab 06/10/19 5-325] Trospium Chloride [Sanctura] 20 mg PO DAILY@0900 tablet 06/10/19 Allergies Allergy/AdvReac Type Severity Reaction Status Date / Time iodine Allergy Rash/Hives Verified 06/23/19 20:37 Review of Systems ROS Statement: Those systems with pertinent positive or pertinent negative responses have been documented in the HPI. ROS Other: All systems not noted in ROS Statement are negative. Past Medical History Past Medical History: Atrial Fibrillation, Cancer, Heart Failure, Diabetes Mellitus, Hyperlipidemia, Hypertension, Myocardial Infarction (AK), Osteoarthritis (OA), Prostate Disorder, Renal Disease, Thyroid Disorder Additional Past Medical History / Comment(s): Ischemic heart disease, chronic CHF, pulmonary edema, 2012 L renal cancer with L nephrectomy-pt states he had mets to his liver and R lower lobe of his lung-treated by a "special" medication that worked with his immune system and was cured, 2018 had prostate cancer with 2 months of radiation therapy and eventual TURP-pt states cured, has been having bladder spasms for one month, IDDM type II, CKD stage III, muscle weakness, hypothyroid Last Myocardial Infarction Date:: History of Any Multi-Drug Resistant Organisms: None Reported Past Surgical History: Heart Catheterization With Stent Additional Past Surgical History / Comment(s): left nephrectomy, TURP, cystoscopies/cauterization and evacuation of clots, ORIF R hip, Past Anesthesia/Blood Transfusion Reactions: No Reported Reaction Date of Last Stent Placement:: 2017 Past Psychological History: No Psychological Hx Reported Smoking Status: Former smoker Past Alcohol Use History: None Reported Past Drug Use History: None Reported - Past Family History Father Family Medical History: Cancer Additional Family Medical History / Comment(s): Father had prostate cancer. He lived to be 92 yrs old. Mother Family Medical History: Diabetes Mellitus Additional Family Medical History / Comment(s): Mother lived to be 84 yrs old. Family Additional Family Medical History / Comment(s): Patient reports history of heart disease General Exam Limitations: altered mental status General appearance: alert, in no apparent distress, other (aggressive) Head exam: Present: atraumatic, normocephalic Eye exam: Present: PERRL, EOMI ENT exam: Present: mucous membranes dry, TM's normal bilaterally Neck exam: Present: normal inspection. Absent: tenderness, meningismus Respiratory exam: Present: rales, decreased breath sounds. Absent: respiratory distress, wheezes, rhonchi, stridor, chest wall tenderness, accessory muscle use Cardiovascular Exam: Present: tachycardia, irregular rhythm GI/Abdominal exam: Present: soft. Absent: distended, tenderness, guarding, rebound, rigid exam: Present: normal inspection, other (mariano bag in place. No drainage arou nd tube) Extremities exam: Present: normal inspection, pedal edema Back exam: Present: normal inspection. Absent: tenderness Neurological exam: Present: alert, other (follows commands. Is not ambulatory in the ED. ) Psychiatric exam: Present: agitated Skin exam: Present: warm, dry, intact Course Vital Signs 06/23/19 06/23/19 06/23/19 18:18 18:22 19:41 Temperature 98.0 F Pulse Rate 109 H 99 Respiratory 16 22 18 Rate Blood Pressure 97/64 O2 Sat by Pulse 93 L Oximetry 06/23/19 06/23/19 21:56 22:20 Temperature 98.0 F 98.0 F Pulse Rate 97 82 Respiratory 20 18 Rate Blood Pressure 108/71 103/64 O2 Sat by Pulse 100 96 Oximetry EKG Findings - EKG Comments: EKG Findings:: EKG demonstrates atrial fibrillation with a rapid ventricular response of 108. QRS 82. QTC 466. There are no acute ST segment elevations or depressions concerning for ischemic changes. Q waves in lead 3. Medical Decision Making - Medical Decision Making Upon arrival the patient was placed into room 10. I do attempt to obtain a history on the patient however he is a poor historian. He is aggressive with me. He states he is tired of having blood work performed and being in the hospital. I do attempt to calm the patient and reassure him. I did review the patient's hospital record. He is currently saturating 93% on 2 L. He is placed on 5 L nasal cannula with improvement of his saturation to 99%. I did recommend laboratory studies and a chest x-ray. The patient did receive a breathing treatment by EMS. I did order a repeat treatment here. I ordered an ABG because the patient's altered mental status. Laboratory studies demonstrate a hemoglobin of 9.4. This is improved from the patient's previous value. INR is 1.3. Blood gas does demonstrate a pCO2 of 44 with a pO2 of 47. Bicarb is 29. O2 sat is 84%. Because of this, the patient is placed on a nonrebreather. CMP demonstrates a creatinine of 1.9 which is near the patient's baseline. BNP is elevated at 12,500. First troponin is negative. UA demonstrates 172 red blood cells and greater than 182 white blood cells. No bacteria present. Chest x-ray demonstrates congestive heart failure with increased pleural fluid. Because of this I did provide the patient with 80 mg of Lasix. I called and discussed the case with Dr. Titus who accepted admission for the patient. I will consult cardiology. The patient remained in stable condition and was transported to floor in stable condition. - Lab Data Result diagrams: 06/23/19 18:37 06/26/19 06:05 Lab Results 06/23/19 06/23/19 06/23/19 Range/Units 18:37 18:37 18:37 WBC 9.2 (3.8-10.6) k/uL RBC 3.11 L (4.30-5.90) m/uL Hgb 9.4 L (13.0-17.5) gm/dL Hct 30.7 L (39.0-53.0) % MCV 98.6 (80.0-100.0) fL MCH 30.1 (25.0-35.0) pg MCHC 30.6 L (31.0-37.0) g/dL RDW 16.5 H (11.5-15.5) % Plt Count 297 (150-450) k/uL Neutrophils % 74 % Lymphocytes % 11 % Monocytes % 7 % Eosinophils % 5 % Basophils % 1 % Neutrophils # 6.8 (1.3-7.7) k/uL Lymphocytes # 1.0 (1.0-4.8) k/uL Monocytes # 0.6 (0-1.0) k/uL Eosinophils # 0.5 (0-0.7) k/uL Basophils # 0.1 (0-0.2) k/uL Hypochromasia Marked Anisocytosis Slight Macrocytosis Slight PT (9.0-12.0) sec INR (<1.2) APTT (22.0-30.0) sec Sample Site ABG pH (7.35-7.45) ABG pCO2 (35-45) mmHg ABG pO2 (83-108) mmHg ABG HCO3 (21-25) mmol/L ABG Total CO2 (19-24) mmol/L ABG O2 Saturation (94-97) % ABG Base Excess mmol/L Antonio Test FiO2 % Sodium 141 (137-145) mmol/L Potassium 4.2 (3.5-5.1) mmol/L Chloride 107 (98-107) mmol/L Carbon Dioxide 25 (22-30) mmol/L Anion Gap 9 mmol/L BUN 42 H (9-20) mg/dL Creatinine 1.91 H (0.66-1.25) mg/dL Est GFR (CKD-EPI)AfAm 37 (>60 ml/min/1.73 sqM) Est GFR (CKD-EPI)NonAf 32 (>60 ml/min/1.73 sqM) Glucose 112 H (74-99) mg/dL Plasma Lactic Acid Amado (0.7-2.0) mmol/L Calcium 8.7 (8.4-10.2) mg/dL Total Bilirubin 0.7 (0.2-1.3) mg/dL AST 20 (17-59) U/L ALT 15 L (21-72) U/L Alkaline Phosphatase 104 (38-126) U/L Creatine Kinase 30 L (55-170) U/L Troponin I <0.012 (0.000-0.034) ng/mL NT-Pro-B Natriuret Pep pg/mL Total Protein 6.1 L (6.3-8.2) g/dL Albumin 2.8 L (3.5-5.0) g/dL TSH 0.092 L (0.465-4.680) mIU/L Free T4 2.07 (0.78-2.19) ng/dL 06/23/19 06/23/19 06/23/19 Range/Units 18:37 18:37 18:37 WBC (3.8-10.6) k/uL RBC (4.30-5.90) m/uL Hgb (13.0-17.5) gm/dL Hct (39.0-53.0) % MCV (80.0-100.0) fL MCH (25.0-35.0) pg MCHC (31.0-37.0) g/dL RDW (11.5-15.5) % Plt Count (150-450) k/uL Neutrophils % % Lymphocytes % % Monocytes % % Eosinophils % % Basophils % % Neutrophils # (1.3-7.7) k/uL Lymphocytes # (1.0-4.8) k/uL Monocytes # (0-1.0) k/uL Eosinophils # (0-0.7) k/uL Basophils # (0-0.2) k/uL Hypochromasia Anisocytosis Macrocytosis PT 13.6 H (9.0-12.0) sec INR 1.3 H (<1.2) APTT 27.3 (22.0-30.0) sec Sample Site ABG pH (7.35-7.45) ABG pCO2 (35-45) mmHg ABG pO2 (83-108) mmHg ABG HCO3 (21-25) mmol/L ABG Total CO2 (19-24) mmol/L ABG O2 Saturation (94-97) % ABG Base Excess mmol/L Antonio Test FiO2 % Sodium (137-145) mmol/L Potassium (3.5-5.1) mmol/L Chloride (98-107) mmol/L Carbon Dioxide (22-30) mmol/L Anion Gap mmol/L BUN (9-20) mg/dL Creatinine (0.66-1.25) mg/dL Est GFR (CKD-EPI)AfAm (>60 ml/min/1.73 sqM) Est GFR (CKD-EPI)NonAf (>60 ml/min/1.73 sqM) Glucose (74-99) mg/dL Plasma Lactic Acid Amado 1.2 (0.7-2.0) mmol/L Calcium (8.4-10.2) mg/dL Total Bilirubin (0.2-1.3) mg/dL AST (17-59) U/L ALT (21-72) U/L Alkaline Phosphatase (38-126) U/L Creatine Kinase (55-170) U/L Troponin I (0.000-0.034) ng/mL NT-Pro-B Natriuret Pep 32583 pg/mL Total Protein (6.3-8.2) g/dL Albumin (3.5-5.0) g/dL TSH (0.465-4.680) mIU/L Free T4 (0.78-2.19) ng/dL 06/23/19 Range/Units 19:25 WBC (3.8-10.6) k/uL RBC (4.30-5.90) m/uL Hgb (13.0-17.5) gm/dL Hct (39.0-53.0) % MCV (80.0-100.0) fL MCH (25.0-35.0) pg MCHC (31.0-37.0) g/dL RDW (11.5-15.5) % Plt Count (150-450) k/uL Neutrophils % % Lymphocytes % % Monocytes % % Eosinophils % % Basophils % % Neutrophils # (1.3-7.7) k/uL Lymphocytes # (1.0-4.8) k/uL Monocytes # (0-1.0) k/uL Eosinophils # (0-0.7) k/uL Basophils # (0-0.2) k/uL Hypochromasia Anisocytosis Macrocytosis PT (9.0-12.0) sec INR (<1.2) APTT (22.0-30.0) sec Sample Site r rad ABG pH 7.43 (7.35-7.45) ABG pCO2 44 (35-45) mmHg ABG pO2 47 L* (83-108) mmHg ABG HCO3 29 H (21-25) mmol/L ABG Total CO2 30 H (19-24) mmol/L ABG O2 Saturation 84.2 L (94-97) % ABG Base Excess 4.5 mmol/L Antonio Test Yes FiO2 40 % Sodium (137-145) mmol/L Potassium (3.5-5.1) mmol/L Chloride (98-107) mmol/L Carbon Dioxide (22-30) mmol/L Anion Gap mmol/L BUN (9-20) mg/dL Creatinine (0.66-1.25) mg/dL Est GFR (CKD-EPI)AfAm (>60 ml/min/1.73 sqM) Est GFR (CKD-EPI)NonAf (>60 ml/min/1.73 sqM) Glucose (74-99) mg/dL Plasma Lactic Acid Amado (0.7-2.0) mmol/L Calcium (8.4-10.2) mg/dL Total Bilirubin (0.2-1.3) mg/dL AST (17-59) U/L ALT (21-72) U/L Alkaline Phosphatase (38-126) U/L Creatine Kinase (55-170) U/L Troponin I (0.000-0.034) ng/mL NT-Pro-B Natriuret Pep pg/mL Total Protein (6.3-8.2) g/dL Albumin (3.5-5.0) g/dL TSH (0.465-4.680) mIU/L Free T4 (0.78-2.19) ng/dL Disposition Clinical Impression: Congestive heart failure, Hypoxia, Chronic atrial fibrillation Disposition: ADMITTED IP TO THIS HOSP Condition: Serious Is patient prescribed a controlled substance at d/c from ED?: No Decision to Admit Reason: Admit from EC Decision Date: 06/23/19 Decision Time: 21:46
--- NOTE | 2019-06-23 20:12 | XR ---
EXAMINATION TYPE: XR chest 2V DATE OF EXAM: 06/23/2019 COMPARISON: 05/22/2019 HISTORY: Short of breath TECHNIQUE: Frontal and lateral views of the chest are obtained. FINDINGS: There is moderate size right pleural effusion. Heart appears enlarged. There is pulmonary vascular congestion. There are chest leads. IMPRESSION: There is evidence of congestive heart failure with increased pleural fluid compared to l ast exam.
[2019-06-23] MEDS ORDERED: FUROSEMIDE 10 MG/ML 10 ML VIAL IV STA ×2 (21:20→21:31)
[2019-06-23] MEDS ORDERED: NALOXONE 0.4 MG/ML 1 ML VIAL IV PRN (21:42)
[2019-06-23] MEDS ORDERED: CALCIUM CARBONATE 500 MG CHEWABLE PO PRN (21:44)
[2019-06-23 21:45] LABS: T4, Free (Free Thyroxine) 2.07 ng/dL (0.78-2.19)
[2019-06-23 22:53] LABS: Appearance,Urine Cloudy (Clear); Bilirubin,Urine Negative (Negative); Blood,Urine Moderate (Negative); Color,Urine Yellow; Glucose,Urine (UA) Negative (Negative); Hyaline Casts,Urine 22 /lpf (0-2); Ketones,Urine Negative (Negative); Leukocyte Esterase,Urine Large (Negative); Mucus,Urine Rare /hpf; Nitrite,Urine Negative (Negative); PH, Urine 7.5 (5.0-8.0); Protein,Urine 2+ (Negative); RBC,Urine 172 /hpf (0-5); Specific Gravity,Urine 1.016 (1.001-1.035); Urobilinogen,Urine <2.0 mg/dL (<2.0)
[2019-06-23] MEDS: METOPROLOL TARTRATE 12.5 MG TAB PO SCH (23:42)
[2019-06-24] MEDS: IPRATROPIUM-ALBUTEROL 3 ML NEB INHALATION SCH ×4 (01:02→16:31)
[2019-06-24 06:20] LABS: Glucose,Whole Blood 99 mg/dL (75-99)
[2019-06-24] MEDS: LEVOTHYROXINE 75 MCG TAB PO SCH (06:44)
[2019-06-24] MEDS: METOPROLOL TARTRATE 12.5 MG TAB PO SCH ×3 (06:44→20:16)
[2019-06-24] MEDS: LEVOTHYROXINE 100 MCG TAB PO SCH (06:44)
[2019-06-24] MEDS: PANTOPRAZOLE 40 MG TABLET PO SCH (06:44)
[2019-06-24] MEDS: INSULIN DETEMIR (LEVEMIR) 100 UNIT/ML SYR SQ SCH (06:45)
[2019-06-24] MEDS: INSULIN ASPART (NovoLOG) 100 UNIT/ML VIAL SQ SCH ×3 (06:45→17:15)
[2019-06-24] MEDS ORDERED: INSULIN DETEMIR (LEVEMIR) 100 UNIT/ML SYR SQ SCH (07:00)
[2019-06-24] MEDS: FERROUS SULFATE 325 MG TAB PO SCH ×2 (08:50→20:17)
[2019-06-24] MEDS: ISOSORBIDE MONONITRATE ER 30 MG TAB.ER.24H PO SCH (08:50)
[2019-06-24] MEDS: ALLOPURINOL 100 MG TAB PO SCH (08:50)
[2019-06-24] MEDS ORDERED: TROSPIUM CHLORIDE 20 MG TABLET PO SCH (09:00)
[2019-06-24 11:46] LABS: Glucose,Whole Blood 76 mg/dL (75-99)
[2019-06-24] MEDS: OXYBUTYNIN XL 5 MG TAB.ER.24 PO SCH (12:09)
[2019-06-24] MEDS: TROSPIUM CHLORIDE 20 MG TABLET PO SCH (12:09)
[2019-06-24] MEDS: FINASTERIDE 5 MG TAB PO SCH (12:09)
[2019-06-24] MEDS ORDERED: FUROSEMIDE 10 MG/ML 10 ML VIAL IV STA (14:23)
[2019-06-24] MEDS: HYDROcodone/APAP 5-325MG 1 EACH TAB PO PRN (16:34)
[2019-06-24] MEDS: FUROSEMIDE 100 MG in SODIUM CHLORIDE 0.9% 90 ML IV SCH ×2 (16:34→23:30)
[2019-06-24 17:06] LABS: Glucose,Whole Blood 122 mg/dL (75-99)
--- NOTE | 2019-06-24 20:09 | P.HPIM ---
History of Present Illness H&P Date: 06/24/19 Chief Complaint: Short of breath History of presenting complaint: This is a 78-year-old patient with an extensive medical history. Chronic stable medical conditions include atrial fibrillation, diabetes, hyperlipidemia, hypertension, osteoarthritis, hypothyroid, esophagitis, radiation cystitis,anosognosia etc. Patient. Weeks ago seen by urologist Dr. Zavala out of [facility]. Patient had bladder scraping done. Since then progressively patient is having hematuria and more and more bladder spasms. Patient was in the hospital from May 11 through May 26.. patient was then admitted with postop hematuria and severe bladder spasms. Patient was taken to the OR on May 14. Several blood clots evacuated. 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 Was having significant bladder spasm. Medications were adjusted by urology. Subsequently patient diagnosed with pneumonia. Received IV Zosyn. patient went into congestive heart failure. Received IV Lasix. Also complained of odynophagia in the middle chest. . Possible right parapneumonic effusion. Seen by pulmonary. Intervention radiology did thoracentesis and 30 mL of diagnostic fluid was removed.. Trial of DC Overton was done on May 21. Patient started having bladder spasms again. Overton was replaced. Again started hematuria. Eventually nearly cleared up. hematuria is greatly improved. Also had EGD that showed esophagitis.. Patient received a total of 4 units of blood. By the time of discharge patient doing well. Urinary cleared up nicely. Again patient presented June 05 with significant blood clots per urethra. Patient was again taken to the or and fulguration cystoscopy was done and cancer tissues removed. Patient is discharged on June 08. With a Overton catheter. Patient now presented to the ER being hypoxic short of breath normally has 3.5 L of oxygen. Also short of breath. Checks x-ray did show pulmonary edema. Spoke to from the ER asked her to to give IV Lasix 2 doses.. This morning. Short of breath. Tired. Not much of an appetite. Review of systems: GEN.: Tired EYES: None HEENT: Decreased hearing NECK: None RESPIRATORY: Short of breath, slight cough CARDIOVASCULAR: None GASTROINTESTINAL: None GENITOURINARY: Overton catheter MUSCULOSKELETAL: Pain in joints LYMPHATICS: None HEMATOLOGICAL: None PSYCHIATRY: [Anxious NEUROLOGICAL: None Social history: Lives at [facility]. Became a recently. Does use a cane. Was a heavy drinker 10/07/1998. Has been smoking small cigars since 89 Physical examination: VITAL SIGNS: 98, 109, 16, 97/64, 93% on 2 L GENERAL: BMI 28.7, laying in bed, awake slightly short of breath EYES: Pupils equal. Conjunctiva pale HEENT: External appearance of nose and ears normal, oral cavity grossly normal. NECK: JVD possibly raised; masses not palpable. HEART: Heart sounds irregular; no edema present. LUNGS: Respiratory rate increased, decreased breath sounds. Basilar crackles ABDOMEN: Soft, nontender, liver spleen not palpable, no masses palpable. PSYCH: Alert and oriented x3; mood and affect anxiousl. NEUROLOGICAL: Cranial nerves grossly intact; no facial asymmetry, power and sensation grossly intact. LYMPHATICS: No lymph nodes palpable in the axilla and neck MUSCULAR skeletal: Evidence of OA in the hands INVESTIGATIONS, reviewed in the clinical context: White count 9.2 hemoglobin 9.4 platelets 297 Arterial blood gases-pO2 47 pCO2 of 30 potassium 4.2 bun 42 creatinine 1.91 Chest x-ray film personally reviewed by me-pulmonary edema with fluid in the fissure Assessment: -Acute on chronic congestive 40 exacerbation from systolic dysfunction EF 40-45% -bladder spasms recurrent -radiation cystitis, with recurrent hematuria -Moderate aortic valve sclerosis, moderate mitral mitral regurgitation, moderate tricuspid regurgitation-nonrheumatic -Secondary moderate pulmonary hypertension from CHF -Diabetes mellitus type 2 -Essential hypertension -hypertensive heart disease -Hyperlipidemia -Primary osteoarthritis -Hypothyroid -Left renal cancer with left nephrectomy -Chronic kidney disease stage III from nephrosclerosis -Hypothyroid -Chronic nicotine dependence patient cigarette smoker -Right pleural effusion with diagnostic thoracentesis in the past -Chronic esophagitis, -anosognosia Plan: Cardiology was consulted. We'll start the patient on Lasix drip 10 mg an hour. Strict I's and O's. Home medications to be continued. Follow electrolytes closely Prognosis guarded. Care was discussed with the patient. Prognosis guarded. Care was discussed with the. Past Medical History Past Medical History: Atrial Fibrillation, Cancer, Heart Failure, Diabetes Mellitus, Hyperlipidemia, Hypertension, Myocardial Infarction ([place]), Osteoarthritis (OA), Prostate Disorder, Renal Disease, Thyroid Disorder Additional Past Medical History / Comment(s): Ischemic heart disease, chronic CHF, pulmonary edema, 2012 L renal cancer with L nephrectomy-pt states he had mets to his liver and R lower lobe of his lung-treated by a "special" medication that worked with his immune system and was cured, 2018 had prostate cancer with 2 months of radiation therapy and eventual TURP-pt states cured, has been having bladder spasms for one month, IDDM type II, CKD stage III, muscle weakness, hypothyroid Last Myocardial Infarction Date:: History of Any Multi-Drug Resistant Organisms: None Reported Past Surgical History: Heart Catheterization With Stent Additional Past Surgical History / Comment(s): left nephrectomy, TURP, cystoscopies/cauterization and evacuation of clots, ORIF R hip, Past Anesthesia/Blood Transfusion Reactions: No Reported Reaction Date of Last Stent Placement:: 2017 Past Psychological History: No Psychological Hx Reported Additional Psychological History / Comment(s): Pt currently at [facility]. He states he is ambulating with a walker and sometimes using a wheelchair. He states he uses oxygen prn. His spouse 5 weeks ago. Smoking Status: Former smoker Past Alcohol Use History: None Reported Additional Past Alcohol Use History / Comment(s): Pt started smoking small c igars in 1953. He was a heavy drinker but quit in 1998. Past Drug Use History: None Reported - Past Family History Father Family Medical History: Cancer Additional Family Medical History / Comment(s): Father had prostate cancer. He lived to be 92 yrs old. Mother Family Medical History: Diabetes Mellitus Additional Family Medical History / Comment(s): Mother lived to be 84 yrs old. Family Additional Family Medical History / Comment(s): Patient reports history of heart disease Medications and Allergies Home Medications Medication Instructions Recorded Confirmed Type Finasteride [Proscar] 5 mg PO DAILY@89902/25/18 06/23/19 History Levothyroxine Sodium [Synthroid] 200 mcg PO DAILY@59902/25/18 06/23/19 History Tamsulosin [Flomax] 0.4 mg PO HS@209902/25/18 06/23/19 History Isosorbide Mononitrate [Isosorbide 30 mg PO DAILY@0908/05/18 06/23/19 History Mononitrate ER] Levothyroxine Sodium [Synthroid] 75 mcg PO DAILY@59902/10/19 06/23/19 History Allopurinol [Zyloprim] 100 mg PO DAILY@0900 05/11/19 06/23/19 History Atorvastatin [Lipitor] 40 mg PO HS@209905/11/19 06/23/19 History Ferrous Sulfate [Iron (65 MG 325 mg PO BID@0900,2100 05/11/19 06/23/19 History Elemental)] Furosemide [Lasix] 40 mg PO DAILY@0600 05/11/19 06/23/19 History Ipratropium-Albuterol Nebulize 3 ml INHALATION RT-Q8H 05/11/19 06/23/19 History [Duoneb 0.5 mg-3 mg/3 ml Soln] Phenazopyridine [Pyridium] 200 mg PO BID PRN 05/11/19 06/23/19 History Calcium Carbonate [Calcium] 600 mg PO QID PRN 06/05/19 06/23/19 History Loperamide [Imodium] 2 - 4 mg PO QID PRN 06/05/19 06/23/19 History Metoprolol Tartrate [Lopressor] 12.5 mg PO TID@0600,1400,2200 06/05/19 06/23/19 History Tolterodine Tartrate [Tolterodine 2 mg PO DAILY@0900 06/05/19 06/23/19 History Tartrate ER] HYDROcodone/APAP 5-325MG [[place] 1 tab PO Q6H PRN #12 tab 06/10/19 06/23/19 Rx 5-325] Trospium Chloride [Sanctura] 20 mg PO DAILY@0900 tablet 06/10/19 06/23/19 Rx INSULIN LISPRO (HumaLOG) [HumaLOG] 3 unit SQ AC-TID 06/23/19 06/23/19 History Insulin Degludec [Tresiba 10 units SQ DAILY@0800 06/23/19 06/23/19 History Flextouch U-100] Omeprazole [PriLOSEC] 20 mg PO BID@0600,1700 06/23/19 06/23/19 History Allergies Allergy/AdvReac Type Severity Reaction Status Date / Time iodine Allergy Rash/Hives Verified 06/23/19 20:37 Physical Exam Vitals: Vital Signs Temp Pulse Pulse Resp BP BP Pulse Ox 06/24/19 08:46 90 18 06/24/19 08:44 97.8 F 90 18 93/55 97 06/24/19 04:00 98.0 F 101 H 94 18 94/56 97 06/24/19 03:49 101 H 06/24/19 00:00 99.1 F 92 18 93/51 94 L 06/23/19 22:20 98.0 F 82 18 103/64 96 06/23/19 21:56 98.0 F 97 20 108/71 100 06/23/19 19:41 99 18 06/23/19 18:22 22 06/23/19 18:18 98.0 F 109 H 16 97/64 93 L Intake and Output 06/23/19 06/24/19 06/24/19 22:59 06:59 14:59 Other: Voiding Method Indwelling Catheter Indwelling Catheter # Voids 1 # Bowel Movements 5 Weight 95.254 kg 96 kg 96 kg Results CBC & Chem 7: 06/23/19 18:37 06/23/19 18:37 Labs: Abnormal Lab Results - Last 24 Hours (Table) 06/23/19 06/23/19 06/23/19 Range/Units 18:37 18:37 18:37 RBC 3.11 L (4.30-5.90) m/uL Hgb 9.4 L (13.0-17.5) gm/dL Hct 30.7 L (39.0-53.0) % MCHC 30.6 L (31.0-37.0) g/dL RDW 16.5 H (11.5-15.5) % PT 13.6 H (9.0-12.0) sec INR 1.3 H (<1.2) ABG pO2 (83-108) mmHg ABG HCO3 (21-25) mmol/L ABG Total CO2 (19-24) mmol/L ABG O2 Saturation (94-97) % BUN 42 H (9-20) mg/dL Creatinine 1.91 H (0.66-1.25) mg/dL Glucose 112 H (74-99) mg/dL ALT 15 L (21-72) U/L Creatine Kinase 30 L (55-170) U/L Total Protein 6.1 L (6.3-8.2) g/dL Albumin 2.8 L (3.5-5.0) g/dL TSH 0.092 L (0.465-4.680) mIU/L Urine Protein (Negative) Urine Blood (Negative) Ur Leukocyte Esterase (Negative) Urine RBC (0-5) /hpf Urine WBC (0-5) /hpf Hyaline Casts (0-2) /lpf Urine Mucus (None) /hpf 06/23/19 06/23/19 Range/Units 19:25 21:54 RBC (4.30-5.90) m/uL Hgb (13.0-17.5) gm/dL Hct (39.0-53.0) % MCHC (31.0-37.0) g/dL RDW (11.5-15.5) % PT (9.0-12.0) sec INR (<1.2) ABG pO2 47 L* (83-108) mmHg ABG HCO3 29 H (21-25) mmol/L ABG Total CO2 30 H (19-24) mmol/L ABG O2 Saturation 84.2 L (94-97) % BUN (9-20) mg/dL Creatinine (0.66-1.25) mg/dL Glucose (74-99) mg/dL ALT (21-72) U/L Creatine Kinase (55-170) U/L Total Protein (6.3-8.2) g/dL Albumin (3.5-5.0) g/dL TSH (0.465-4.680) mIU/L Urine Protein 2+ H (Negative) Urine Blood Moderate H (Negative) Ur Leukocyte Esterase Large H (Negative) Urine RBC 172 H (0-5) /hpf Urine WBC >182 H (0-5) /hpf Hyaline Casts 22 H (0-2) /lpf Urine Mucus Rare H (None) /hpf Thrombosis Risk Factor Assmnt - Choose All That Apply Any of the Below Risk Factors Present?: Yes Each Factor Represents 1 point: Acute ME, Obesity (BMI >25) Each Risk Factor Represents 3 Points: Age 75 years or older Thrombosis Risk Factor Assessment Total Risk Factor Score: 5 Thrombosis Risk Factor Assessment Level: High Risk
[2019-06-24] MEDS: ATORVASTATIN 40 MG TAB PO SCH (20:16)
[2019-06-24] MEDS: TAMSULOSIN 0.4 MG CAP.ER.24H PO SCH (20:17)
[2019-06-24] MEDS ORDERED: INSULIN GLARGINE HUM REC ANLOG 20 UNIT SQ SCH (21:00)
[2019-06-24 21:01] LABS: Glucose,Whole Blood 127 mg/dL (75-99)
[2019-06-25] MEDS: IPRATROPIUM-ALBUTEROL 3 ML NEB INHALATION SCH ×4 (04:18→23:52)
[2019-06-25 06:45] LABS: Calcium 8.2 mg/dL (8.4-10.2); Potassium 4.3 mmol/L (3.5-5.1)
[2019-06-25] MEDS: LEVOTHYROXINE 75 MCG TAB PO SCH (07:01)
[2019-06-25] MEDS: PANTOPRAZOLE 40 MG TABLET PO SCH (07:01)
[2019-06-25] MEDS: METOPROLOL TARTRATE 12.5 MG TAB PO SCH ×3 (07:01→20:27)
[2019-06-25] MEDS: LEVOTHYROXINE 100 MCG TAB PO SCH (07:01)
[2019-06-25] MEDS: INSULIN DETEMIR (LEVEMIR) 100 UNIT/ML SYR SQ SCH (07:07)
[2019-06-25] MEDS: INSULIN ASPART (NovoLOG) 100 UNIT/ML VIAL SQ SCH ×3 (08:41→17:01)
[2019-06-25] MEDS: ALLOPURINOL 100 MG TAB PO SCH (08:41)
[2019-06-25] MEDS: FINASTERIDE 5 MG TAB PO SCH (08:41)
[2019-06-25] MEDS: TROSPIUM CHLORIDE 20 MG TABLET PO SCH (08:41)
[2019-06-25] MEDS: OXYBUTYNIN XL 5 MG TAB.ER.24 PO SCH (08:41)
[2019-06-25] MEDS: FERROUS SULFATE 325 MG TAB PO SCH ×2 (08:41→20:27)
[2019-06-25] MEDS: ISOSORBIDE MONONITRATE ER 30 MG TAB.ER.24H PO SCH (08:41)
[2019-06-25] MEDS: FUROSEMIDE 100 MG in SODIUM CHLORIDE 0.9% 90 ML IV SCH ×2 (12:22→20:23)
[2019-06-25 12:57] LABS: Glucose,Whole Blood 43 mg/dL (75-99)
[2019-06-25 13:01] LABS: Glucose,Whole Blood 43 mg/dL (75-99)
[2019-06-25 13:20] LABS: Glucose,Whole Blood 42 mg/dL (75-99)
[2019-06-25 13:23] LABS: Glucose,Whole Blood 64 mg/dL (75-99)
[2019-06-25 13:40] LABS: Glucose,Whole Blood 49 mg/dL (75-99)
[2019-06-25 13:52] LABS: Glucose,Whole Blood 36 mg/dL (75-99)
[2019-06-25 14:20] LABS: Glucose,Whole Blood 125 mg/dL (75-99)
--- NOTE | 2019-06-25 15:31 | P.CRDCN ---
History of Present Illness Consult date: 06/25/19 Requesting physician: Alexy Titus Chief complaint: Mental status changes and hypoxia History of present illness: This is a pleasant 78-year-old gentleman most of the history was obtained from the medical record as the patient is not able to give a detailed history. He has a known history of chronic atrial fibrillation, renal cancer, patient only has one kidney, diastolic heart failure, diabetes, hypertension, hyperlipidemia, prostate cancer history, hypothyroidism, presented to the hospital from the extended care facility he resides at because of mental status changes and severe hypoxia. Chest x-ray on presentation here showed evidence of congestive heart failure with increased pleural fluid compared with last exam. EKG on presentation here showed atrial fibrillation with a moderately rapid vent ricular response. Blood pressure 92/50, heart rate in the 90s, 98% on 3 L. White blood cell count 9.2, hemoglobin 9.4, platelet count 297. Blood gases were performed on arrival here, pH 7.43, pO2 47, HCO3 29, total CO2 30, O2 saturation 84.2. Sodium 141, potassium 4.2, BUN 42, creatinine 1.9, plasma lactic acid 1.2, troponins negative 3, BNP level XII,D. TSH 0.9 to, free T4 2 0.07. Positive UTI. C. diff was negative. Past Medical History Past Medical History: Atrial Fibrillation, Cancer, Heart Failure, Diabetes Mellitus, Hyperlipidemia, Hypertension, Myocardial Infarction ([place]), Osteoarthritis (OA), Prostate Disorder, Renal Disease, Thyroid Disorder Additional Past Medical History / Comment(s): Ischemic heart disease, chronic CHF, pulmonary edema, 2011 L renal cancer with L nephrectomy-pt states he had mets to his liver and R lower lobe of his lung-treated by a "special" medication that worked with his immune system and was cured, 2018 had prostate cancer with 2 months of radiation therapy and eventual TURP-pt states cured, has been having bladder spasms for one month, IDDM type II, CKD stage III, muscle weakness, hypothyroid Last Myocardial Infarction Date:: History of Any Multi-Drug Resistant Organisms: None Reported Past Surgical History: Heart Catheterization With Stent Additional Past Surgical History / Comment(s): left nephrectomy, TURP, cystoscopies/cauterization and evacuation of clots, ORIF R hip, Past Anesthesia/Blood Transfusion Reactions: No Reported Reaction Date of Last Stent Placement:: 2017 Past Psychological History: No Psychological Hx Reported Additional Psychological History / Comment(s): Pt currently at [facility]. He states he is ambulating with a walker and sometimes using a wheelchair. He states he uses oxygen prn. His spouse 5 weeks ago. Smoking Status: Former smoker Past Alcohol Use History: None Reported Additional Past Alcohol Use History / Comment(s): Pt started smoking small cigars in 1953. He was a heavy drinker but quit in 1998. Past Drug Use History: None Reported - Past Family History Father Family Medical History: Cancer Additional Family Medical History / Comment(s): Father had prostate cancer. He lived to be 92 yrs old. Mother Family Medical History: Diabetes Mellitus Additional Family Medical History / Comment(s): Mother lived to be 84 yrs old. Family Additional Family Medical History / Comment(s): Patient reports history of heart disease Medications and Allergies Home Medications Medication Instructions Recorded Confirmed Type Finasteride [Proscar] 5 mg PO DAILY@89902/25/18 06/23/19 History Levothyroxine Sodium [Synthroid] 200 mcg PO DAILY@59902/25/18 06/23/19 History Tamsulosin [Flomax] 0.4 mg PO HS@209902/25/18 06/23/19 History Isosorbide Mononitrate [Isosorbide 30 mg PO DAILY@89908/05/18 06/23/19 History Mononitrate ER] Levothyroxine Sodium [Synthroid] 75 mcg PO DAILY@59902/10/19 06/23/19 History Allopurinol [Zyloprim] 100 mg PO DAILY@89905/11/19 06/23/19 History Atorvastatin [Lipitor] 40 mg PO HS@209905/11/19 06/23/19 History Ferrous Sulfate [Iron (65 MG 325 mg PO BID@09,209905/11/19 06/23/19 History Elemental)] Furosemide [Lasix] 40 mg PO DAILY@59905/11/19 06/23/19 History Ipratropium-Albuterol Nebulize 3 ml INHALATION RT-Q8H 05/11/19 06/23/19 History [Duoneb 0.5 mg-3 mg/3 ml Soln] Phenazopyridine [Pyridium] 200 mg PO BID PRN 05/11/19 06/23/19 History Calcium Carbonate [Calcium] 600 mg PO QID PRN 06/05/19 06/23/19 History Loperamide [Imodium] 2 - 4 mg PO QID PRN 06/05/19 06/23/19 History Metoprolol Tartrate [Lopressor] 12.5 mg PO TID@0600,1400,2200 06/05/19 06/23/19 History Tolterodine Tartrate [Tolterodine 2 mg PO DAILY@0900 06/05/19 06/23/19 History Tartrate ER] HYDROcodone/APAP 5-325MG [[place] 1 tab PO Q6H PRN #12 tab 06/10/19 06/23/19 Rx 5-325] Trospium Chloride [Sanctura] 20 mg PO DAILY@0900 tablet 06/10/19 06/23/19 Rx INSULIN LISPRO (HumaLOG) [HumaLOG] 3 unit SQ AC-TID 06/23/19 06/23/19 History Insulin Degludec [Tresiba 10 units SQ DAILY@0800 06/23/19 06/23/19 History Flextouch U-100] Omeprazole [PriLOSEC] 20 mg PO BID@0600,1700 06/23/19 06/23/19 History Allergies Allergy/AdvReac Type Severity Reaction Status Date / Time iodine Allergy Rash/Hives Verified 06/23/19 20:37 Physical Exam Vitals: Vital Signs Temp Pulse Pulse Resp BP Pulse Ox 06/25/19 12:00 103 H 16 92/53 98 06/25/19 11:16 16 06/25/19 08:52 108 H 06/25/19 08:47 100 06/25/19 08:00 104 H 16 99/64 98 06/25/19 03:35 98.6 F 103 H 18 88/53 91 L 06/25/19 00:00 101 H 18 94/55 95 06/24/19 20:00 98.6 F 101 H 20 102/56 94 L 06/24/19 16:11 97.5 F L 103 H 22 107/65 95 Intake and Output 06/24/19 06/25/19 06/25/19 22:59 06:59 14:59 Intake Total 444 69.333 500 Output Total 600 600 Balance 444 -530.667 -100 Intake: Intake, IV Titration 69.333 100 Amount Furosemide 100 mg In 69.333 100 Sodium Chloride 0.9% 90 ml @ 10 MG/HR 10 mls/hr IV .Q10H YOSHI Rx#: [id number] Oral 444 400 Output: Urine 600 600 Uretheral ([place]) 600 600 Other: Voiding Method Indwelling Catheter Indwelling Catheter Indwelling Catheter Weight 102 kg PHYSICAL EXAMINATION: GENERAL: 77-year-old gentleman in no acute distress at the time of my examination HEENT: Head is atraumatic, normocephalic. Pupils equal, round. Sclera anicteric. Conjunctiva are clear. Mucous membranes of the mouth are moist. Neck is supple. There is no elevated jugular venous pressure. No carotid bruit is heard. HEART EXAMINATION: Heart S1 and S2 irregularly irregular systolic murmur is heard. CHEST EXAMINATION: Lungs reveal diminished air entry to bilateral bases. ABDOMEN: Soft, nontender. Bowel sounds are heard. No organomegaly noted. EXTREMITIES: 2+ peripheral pulses with evidence of peripheral edema and no calf tenderness noted. NEUROLOGIC patient is awake, alert and oriented 3 . . Results 06/23/19 18:37 06/25/19 06:05 Comprehensive Metabolic Panel 06/25/19 Range/Units 06:05 Sodium 140 (137-145) mmol/L Potassium 4.3 (3.5-5.1) mmol/L Chloride 109 H (98-107) mmol/L Carbon Dioxide 27 (22-30) mmol/L BUN 43 H (9-20) mg/dL Creatinine 1.83 H (0.66-1.25) mg/dL Glucose 171 H (74-99) mg/dL Calcium 8.2 L (8.4-10.2) mg/dL Current Medications Generic Name Dose Route Start Last Admin Trade Name Freq PRN Reason Stop Dose Admin Hydrocodone Bitart/Acetaminophen 1 each 06/23/19 21:44 06/24/19 16:34 [place] 5-325 PO 1 each Q6H PRN Administration Pain Albuterol/Ipratropium 3 ml 06/24/19 16:00 06/25/19 08:45 Duoneb 0.5 Mg-3 Mg/3 Ml Soln INHALATION 3 ml RT-Q8H YOSHI Administration Allopurinol 100 mg 06/24/19 09:00 06/25/19 08:41 Zyloprim PO 100 mg DAILY@0900 [facility] Administration Atorvastatin Calcium 40 mg 06/24/19 21:00 06/24/19 20:16 Lipitor PO 40 mg HS@2100 [facility] Administration Calcium Carbonate/Glycine 500 mg 06/23/19 21:44 Tums PO QID PRN Heartburn Ferrous Sulfate 325 mg 06/24/19 09:00 06/25/19 08:41 Feosol PO 325 mg BID@0900,2100 [facility] Administration Finasteride 5 mg 06/24/19 09:00 06/25/19 08:41 Proscar PO 5 mg DAILY@0900 [facility] Administration Furosemide 100 mg/ Sodium 100 mls @ 10 mls/hr 06/24/19 14:30 06/25/19 12:22 Chloride IV 10 mg/hr .Q10H YOSHI 10 mls/hr Administration 10 MG/HR Insulin Aspart 3 unit 06/24/19 07:30 06/25/19 14:14 Novolog SQ Not Given AC-TID [facility] Insulin Detemir 10 unit 06/24/19 07:00 06/25/19 07:07 Levemir SQ 10 unit DAILY@0700 [facility] Administration Isosorbide Mononitrate 30 mg 06/24/19 09:00 06/25/19 08:41 Imdur PO 30 mg DAILY@0900 [facility] Administration Levothyroxine Sodium 75 mcg 06/24/19 06:00 06/25/19 07:01 Synthroid PO 75 mcg DAILY@0600 [facility] Administration Levothyroxine Sodium 200 mcg 06/24/19 06:00 06/25/19 07:01 Synthroid PO 200 mcg DAILY@0600 [facility] Administration Metoprolol Tartrate 12.5 mg 06/23/19 22:00 06/25/19 07:01 Lopressor PO 12.5 mg TID@0600,1400,2200 [facility] Administration Naloxone HCl 0.2 mg 06/23/19 21:42 Narcan IV Q2M PRN Opioid Reversal Oxybutynin Chloride 5 mg 06/24/19 10:45 06/25/19 08:41 Ditropan Xl PO 5 mg DAILY@0900 [facility] Administration Pantoprazole Sodium 40 mg 06/24/19 06:00 06/25/19 07:01 Protonix PO 40 mg DAILY@0600 YOSHI Administration Tamsulosin HCl 0.4 mg 06/24/19 21:00 06/24/19 20:17 Flomax PO 0.4 mg HS@2100 YOSHI Administration Trospium 20 mg 06/24/19 11:15 06/25/19 08:41 Sanctura PO 20 mg DAILY@0900 YOSHI Administration Intake and Output 06/24/19 06/25/19 06/25/19 22:59 06:59 14:59 Intake Total 444 69.333 500 Output Total 600 600 Balance 444 -530.667 -100 Intake: Intake, IV Titration 69.333 100 Amount Furosemide 100 mg In 69.333 100 Sodium Chloride 0.9% 90 ml @ 10 MG/HR 10 mls/hr IV .Q10H [facility] Rx#: [id number] Oral 444 400 Output: Urine 600 600 Uretheral ([place]) 600 600 Other: Voiding Method Indwelling Catheter Indwelling Catheter Indwelling Catheter Weight 102 kg 06/23/19 18:37 06/25/19 06:05 EKG Interpretations (text) EKG shows atrial fibrillation with a moderately rapid ventricular response Assessment and Plan Plan: Assessment and plan #1 systolic congestive heart failure acute on chronic #2 chronic persistent atrial fibrillation #3 hypertension #4 hyperlipidemia #5 history of prostate and kidney cancer status post left nephrectomy #6 nicotine dependence #7 UTI Plan Echocardiogram with Doppler study was performed in April which revealed an ejection fraction of 40-45%, LA is severely dilated, moderate MR, moderate TR, moderate pulmonary hypertension. Lasix drip has been initiated at 10 mg per hour which we will continue, he is also on metoprolol 12-1/2 mg one tablet by mouth 3 times a day. We will discontinue the Imdur, his blood pressure is 88-90 systolic. Currently not on an RACHEL inhibitor because of abnormal renal function continue to monitor intake and output along with daily weights and daily lytes BUN and creatinine. DNP note has been reviewed, I agree with a documented findings and plan of care. Patient was seen and examined.
[2019-06-25] MEDS ORDERED: GLUCAGON 1 MG/ML VIAL IM STA (16:00)
[2019-06-25 16:57] LABS: Glucose,Whole Blood 119 mg/dL (75-99)
[2019-06-25] MEDS: HYDROcodone/APAP 5-325MG 1 EACH TAB PO PRN (20:26)
[2019-06-25] MEDS: ATORVASTATIN 40 MG TAB PO SCH (20:27)
[2019-06-25] MEDS: TAMSULOSIN 0.4 MG CAP.ER.24H PO SCH (20:27)
[2019-06-25 21:15] LABS: Glucose,Whole Blood 202 mg/dL (75-99)
[2019-06-25] MEDS ORDERED: HALOPERIDOL LACTATE 5 MG/ML 1 ML VIAL IM PRN (21:57)
[2019-06-25] MEDS ORDERED: HALOPERIDOL LACTATE 5 MG/ML 1 ML VIAL IM STA (22:00)
--- NOTE | 2019-06-25 22:52 | P.PN ---
Progress Note - Text Progress Note Date: 06/25/19 Chief Complaint: Short of breath History of presenting complaint: This is a 78-year-old patient with an extensive medical history. Chronic stable medical conditions include atrial fibrillation, diabetes, hyperlipidemia, hypertension, osteoarthritis, hypothyroid, esophagitis, radiation cystitis,anosognosia etc. Patient. Weeks ago seen by urologist Dr. Zavala out of [facility]. Patient had bladder scraping done. Since then progressively patient is having hematuria and more and more bladder spasms. Patient was in the hospital from May 11 through May 26.. patient was then admitted with postop hematuria and severe bladder spasms. Patient was taken to the OR on May 14. Several blood clots evacuated. 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 Was having significant bladder spasm. Medications were adjusted by urology. Subsequently patient diagnosed with pneumonia. Received IV Zosyn. patient went into congestive heart failure. Received IV Lasix. Also complained of odynophagia in the middle chest. . Possible right parapneumonic effusion. Seen by pulmonary. Intervention radiology did thoracentesis and 30 mL of diagnostic fluid was removed.. Trial of DC Overton was done on May 21. Patient started having bladder spasms again. Overton was replaced. Again started hematuria. Eventually nearly cleared up. hematuria is greatly improved. Also had EGD that showed esophagitis.. Patient received a total of 4 units of blood. By the time of discharge patient doing well. Urinary cleared up nicely. Again patient presented June 05 with significant blood clots per urethra. Patient was again taken to the or and fulguration cystoscopy was done and cancer tissues removed. Patient is discharged on June 08. With a Overton catheter. Patient now presented to the ER being hypoxic short of breath normally has 3.5 L of oxygen. Also short of breath. Checks x-ray did show pulmonary edema. Spoke to from the ER asked her to to give IV Lasix 2 doses.. This morning. Short of breath. Tired. Not much of an appetite. today-. Acute congestive heart failure exacerbation. Patient refused to see cardiology. Patient always acts out at times. Was put on Lasix drip yesterday.not eating well. Patient has a poor insight about his medical condition. Often times will state he is doing fine. Does not really help. Review of systems: Was done for constitutional, cardiovascular, GI, pulmonary. relevant finding as above Active Medications Hydrocodone Bitart/Acetaminophen ([place] 5-325) 1 each PO Q6H PRN PRN Reason: Pain Last Admin: 06/25/19 20:26 Dose: 1 each Documented by: Albuterol/Ipratropium (Duoneb 0.5 Mg-3 Mg/3 Ml Soln) 3 ml INHALATION RT-Q8H [facility] Last Admin: 06/25/19 15:41 Dose: 3 ml Documented by: Allopurinol (Zyloprim) 100 mg PO DAILY@0900 [facility] Last Admin: 06/25/19 08:41 Dose: 100 mg Documented by: Atorvastatin Calcium (Lipitor) 40 mg PO HS@2100 [facility] Last Admin: 06/25/19 20:27 Dose: 40 mg Documented by: Calcium Carbonate/Glycine (Tums) 500 mg PO QID PRN PRN Reason: Heartburn Ferrous Sulfate (Feosol) 325 mg PO BID@0900,2100 [facility] Last Admin: 06/25/19 20:27 Dose: 325 mg Documented by: Finasteride (Proscar) 5 mg PO DAILY@0900 [facility] Last Admin: 06/25/19 08:41 Dose: 5 mg Documented by: Insulin Aspart (Novolog) 3 unit SQ AC-TID [facility] Last Admin: 06/25/19 17:01 Dose: Not Given Documented by: Insulin Detemir (Levemir) 10 unit SQ DAILY@0700 [facility] Last Admin: 06/25/19 07:07 Dose: 10 unit Documented by: Isosorbide Mononitrate (Imdur) 30 mg PO DAILY@0900 [facility] Last Admin: 06/25/19 08:41 Dose: 30 mg Documented by: Levothyroxine Sodium (Synthroid) 75 mcg PO DAILY@0600 [facility] Last Admin: 06/25/19 07:01 Dose: 75 mcg Documented by: Levothyroxine Sodium (Synthroid) 200 mcg PO DAILY@06 [facility] Last Admin: 06/25/19 07:01 Dose: 200 mcg Documented by: Metoprolol Tartrate (Lopressor) 12.5 mg PO TID@0600,1400,2200 [facility] Last Admin: 06/25/19 20:27 Dose: 12.5 mg Documented by: Naloxone HCl (Narcan) 0.2 mg IV Q2M PRN PRN Reason: Opioid Reversal Oxybutynin Chloride (Ditropan Xl) 5 mg PO DAILY@0900 [facility] Last Admin: 06/25/19 08:41 Dose: 5 mg Documented by: Pantoprazole Sodium (Protonix) 40 mg PO DAILY@0600 [facility] Last Admin: 06/25/19 07:01 Dose: 40 mg Documented by: Tamsulosin HCl (Flomax) 0.4 mg PO HS@2100 [facility] Last Admin: 06/25/19 20:27 Dose: 0.4 mg Documented by: Trospium (Sanctura) 20 mg PO DAILY@0900 [facility] Last Admin: 06/25/19 08:41 Dose: 20 mg Documented by: Physical examination: VITAL SIGNS: afebrile, 98, 16, 90-53, 98% on 3 L GENERAL: laying in bed, tired EYES: Pupils equal. Conjunctiva pale HEENT: External appearance of nose and ears normal, oral cavity grossly normal. NECK: JVD possibly raised; masses not palpable. HEART: Heart sounds irregular; no edema present. LUNGS: Respiratory rate increased, decreased breath sounds. Basilar crackles ABDOMEN: Soft, nontender, liver spleen not palpable, no masses palpable. PSYCH:answering some questions. Doesn't feel a communicating NEUROLOGICAL: Cranial nerves grossly intact; no facial asymmetry, power and sensation grossly intact. MUSCULAR skeletal: Evidence of OA in the hands INVESTIGATIONS, reviewed in the clinical context: Potassium 4.3 bun 43 creatinine 1.83 Previous testing White count 9.2 hemoglobin 9.4 platelets 297 Arterial blood gases-pO2 47 pCO2 of 30 potassium 4.2 bun 42 creatinine 1.91 Chest x-ray film personally reviewed by me-pulmonary edema with fluid in the fissure Assessment: -Acute on chronic congestive 40 exacerbation from systolic dysfunction EF 40- 45%call with some improvement -bladder spasms recurrent, controlled -radiation cystitis, with recurrent hematuria, controlled -Moderate aortic valve sclerosis, moderate mitral mitral regurgitation, moderate tricuspid regurgitation-nonrheumatic -Secondary moderate pulmonary hypertension from CHF -Diabetes mellitus type 2 -Essential hypertension -hypertensive heart disease -Hyperlipidemia -Primary osteoarthritis -Hypothyroid -Left renal cancer with left nephrectomy -Chronic kidney disease stage III from nephrosclerosis -Hypothyroid -Chronic nicotine dependence patient cigarette smoker -Right pleural effusion with diagnostic thoracentesis in the past -Chronic esophagitis, -anosognosia Plan: patient is difficult to manage. he willsometimes argue with the staff. Oral intake is not good. Options are limited..
[2019-06-26] MEDS: LEVOTHYROXINE 75 MCG TAB PO SCH (05:43)
[2019-06-26] MEDS: PANTOPRAZOLE 40 MG TABLET PO SCH (05:43)
[2019-06-26] MEDS: LEVOTHYROXINE 100 MCG TAB PO SCH (05:43)
[2019-06-26] MEDS: METOPROLOL TARTRATE 12.5 MG TAB PO SCH ×3 (05:43→20:28)
[2019-06-26 06:33] LABS: Calcium 8.4 mg/dL (8.4-10.2); Potassium 4.2 mmol/L (3.5-5.1)
[2019-06-26 07:13] LABS: Glucose,Whole Blood 131 mg/dL (75-99)
[2019-06-26] MEDS: INSULIN ASPART (NovoLOG) 100 UNIT/ML VIAL SQ SCH ×3 (08:21→17:03)
[2019-06-26] MEDS: IPRATROPIUM-ALBUTEROL 3 ML NEB INHALATION SCH ×3 (08:44→23:56)
[2019-06-26] MEDS ORDERED: risperiDONE 0.25 MG TAB PO SCH ×2 (09:00→21:00)
[2019-06-26] MEDS: FINASTERIDE 5 MG TAB PO SCH (09:41)
[2019-06-26] MEDS: ALLOPURINOL 100 MG TAB PO SCH (09:41)
[2019-06-26] MEDS: OXYBUTYNIN XL 5 MG TAB.ER.24 PO SCH (09:41)
[2019-06-26] MEDS: TROSPIUM CHLORIDE 20 MG TABLET PO SCH (09:41)
[2019-06-26] MEDS: ISOSORBIDE MONONITRATE ER 30 MG TAB.ER.24H PO SCH (09:41)
[2019-06-26] MEDS: FERROUS SULFATE 325 MG TAB PO SCH ×2 (09:41→20:27)
--- NOTE | 2019-06-26 10:42 | PN ---
PROGRESS NOTE Kamar is an 78-year-old gentleman who is admitted to hospital with acute exacerbation of chronic systolic heart failure. He became quite confused and combative last night. Now has a sitter at bedside and is sleeping. Has mild leg edema. Also has scrotal edema. He is in persistent atrial fibrillation. PHYSICAL EXAMINATION: On exam, patient is afebrile. Heart rate is 108 beats per minute. Blood pressure is 117/57. O2 sat is 98%. Chest exam reveals diminished air entry with occasional rhonchi. Heart exam reveals first and second heart sounds, irregular rhythm and a systolic murmur at the apex. Abdomen is soft. Exam of extremities reveals bilateral edema. LABS: Labs show a BUN of 44, creatinine is 2.1. The patient is on Lopressor, Lipitor, insulin, Synthroid, and nebulizers. Patient is currently on Lasix drip, I am going to cut it down to 5 mg an hour drip. MMODL / IJN: [id number] /
[2019-06-26 11:14] VITALS: BMI 31.6
[2019-06-26] MEDS: INSULIN DETEMIR (LEVEMIR) 100 UNIT/ML SYR SQ SCH (12:11)
[2019-06-26 12:13] LABS: Glucose,Whole Blood 178 mg/dL (75-99)
--- NOTE | 2019-06-26 15:57 | P.PN ---
Progress Note - Text Progress Note Date: 06/26/19 Chief Complaint: Short of breath History of presenting complaint: This is a 78-year-old patient with an extensive medical history. Chronic stable medical conditions include atrial fibrillation, diabetes, hyperlipidemia, hypertension, osteoarthritis, hypothyroid, esophagitis, radiation cystitis,anosognosia etc. Patient. Weeks ago seen by urologist Dr. Zavala out of [facility]. Patient had bladder scraping done. Since then progressively patient is having hematuria and more and more bladder spasms. Patient was in the hospital from May 11 through May 26.. patient was then admitted with postop hematuria and severe bladder spasms. Patient was taken to the OR on May 14. Several blood clots evacuated. 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 Was having significant bladder spasm. Medications were adjusted by urology. Subsequently patient diagnosed with pneumonia. Received IV Zosyn. patient went into congestive heart failure. Received IV Lasix. Also complained of odynophagia in the middle chest. . Possible right parapneumonic effusion. Seen by pulmonary. Intervention radiology did thoracentesis and 30 mL of diagnostic fluid was removed.. Trial of DC Overton was done on May 21. Patient started having bladder spasms again. Overton was replaced. Again started hematuria. Eventually nearly cleared up. hematuria is greatly improved. Also had EGD that showed esophagitis.. Patient received a total of 4 units of blood. By the time of discharge patient doing well. Urinary cleared up nicely. Again patient presented June 05 with significant blood clots per urethra. Patient was again taken to the or and fulguration cystoscopy was done and cancer tissues removed. Patient is discharged on June 08. With a Overton catheter. Patient now presented to the ER being hypoxic short of breath normally has 3.5 L of oxygen. Also short of breath. Checks x-ray did show pulmonary edema. Spoke to from the ER asked her to to give IV Lasix 2 doses.. This morning. Short of breath. Tired. Not much of an appetite. Acute congestive heart failure exacerbation. . Was put on Lasix drip yesterday.-Did make good urine. Today-Lasix drip was stopped last night. Patient was started on Risperdal. Doing better this morning. Oral intake has been fluctuating. Often times does not eat. Review of systems: Was done for constitutional, cardiovascular, GI, pulmonary. relevant finding as above Active Medications Hydrocodone Bitart/Acetaminophen ([place] 5-325) 1 each PO Q6H PRN PRN Reason: Pain Last Admin: 06/25/19 20:26 Dose: 1 each Documented by: Albuterol/Ipratropium (Duoneb 0.5 Mg-3 Mg/3 Ml Soln) 3 ml INHALATION RT-Q8H [facility] Last Admin: 06/26/19 08:44 Dose: Not Given Documented by: Allopurinol (Zyloprim) 100 mg PO DAILY@0900 [facility] Last Admin: 06/26/19 09:41 Dose: 100 mg Documented by: Atorvastatin Calcium (Lipitor) 40 mg PO HS@2100 [facility] Last Admin: 06/25/19 20:27 Dose: 40 mg Documented by: Calcium Carbonate/Glycine (Tums) 500 mg PO QID PRN PRN Reason: Heartburn Ferrous Sulfate (Feosol) 325 mg PO BID@0900,2100 [facility] Last Admin: 06/26/19 09:41 Dose: 325 mg Documented by: Finasteride (Proscar) 5 mg PO DAILY@0900 [facility] Last Admin: 06/26/19 09:41 Dose: 5 mg Documented by: Furosemide (Lasix) 40 mg IV Q8HR [facility] Insulin Aspart (Novolog) 3 unit SQ AC-TID [facility] Last Admin: 06/26/19 12:31 Dose: Not Given Documented by: Insulin Detemir (Levemir) 10 unit SQ DAILY@0700 [facility] Last Admin: 06/26/19 12:11 Dose: Not Given Documented by: Isosorbide Mononitrate (Imdur) 30 mg PO DAILY@0900 [facility] Last Admin: 06/26/19 09:41 Dose: 30 mg Documented by: Levothyroxine Sodium (Synthroid) 75 mcg PO DAILY@0600 [facility] Last Admin: 06/26/19 05:43 Dose: 75 mcg Documented by: Levothyroxine Sodium (Synthroid) 200 mcg PO DAILY@0600 [facility] Last Admin: 06/26/19 05:43 Dose: 200 mcg Documented by: Metoprolol Tartrate (Lopressor) 12.5 mg PO TID@0600,1400,2200 [facility] Last Admin: 06/26/19 05:43 Dose: 12.5 mg Documented by: Naloxone HCl (Narcan) 0.2 mg IV Q2M PRN PRN Reason: Opioid Reversal Oxybutynin Chloride (Ditropan Xl) 5 mg PO DAILY@0900 [facility] Last Admin: 06/26/19 09:41 Dose: 5 mg Documented by: Pantoprazole Sodium (Protonix) 40 mg PO DAILY@0600 [facility] Last Admin: 06/26/19 05:43 Dose: 40 mg Documented by: Risperidone (Risperdal) 0.125 mg PO DAILY [facility] Last Admin: 06/26/19 09:41 Dose: 0.125 mg Documented by: Risperidone (Risperdal) 0.5 mg PO HS [facility] Tamsulosin HCl (Flomax) 0.4 mg PO HS@2100 [facility] Last Admin: 06/25/19 20:27 Dose: 0.4 mg Documented by: Trospium (Sanctura) 20 mg PO DAILY@0900 [facility] Last Admin: 06/26/19 09:41 Dose: 20 mg Documented by: Physical examination: VITAL SIGNS: 98.2, 105, 20, 89/52, 90% 4 L GENERAL: laying in bed, tired, awake EYES: Pupils equal. Conjunctiva pale HEENT: External appearance of nose and ears normal, oral cavity grossly normal. NECK: JVD possibly raised; masses not palpable. HEART: Heart sounds irregular; no edema present. LUNGS: Respiratory rate increased, decreased breath sounds. ABDOMEN: Soft, nontender, liver spleen not palpable, no masses palpable. PSYCH:answering some questions. INVESTIGATIONS, reviewed in the clinical context: BUN 44 creatinine 2.11 Previous testing White count 9.2 hemoglobin 9.4 platelets 297 Arterial blood gases-pO2 47 pCO2 of 30 potassium 4.2 bun 42 creatinine 1.91 Chest x-ray film personally reviewed by me-pulmonary edema with fluid in the fissure Assessment: -Acute on chronic congestive 40 exacerbation from systolic dysfunction EF 40- 45%call with some improvement. -bladder spasms recurrent, controlled -radiation cystitis, with recurrent hematuria, controlled -Moderate aortic valve sclerosis, moderate mitral mitral regurgitation, moderate tricuspid regurgitation-nonrheumatic -Secondary moderate pulmonary hypertension from CHF -Diabetes mellitus type 2 -Essential hypertension -hypertensive heart disease -Hyperlipidemia -Primary osteoarthritis -Hypothyroid -Left renal cancer with left nephrectomy -Chronic kidney disease stage III from nephrosclerosis -Hypothyroid -Chronic nicotine dependence patient cigarette smoker -Right pleural effusion with diagnostic thoracentesis in the past -Chronic esophagitis, -anosognosia Plan: Patient doing better after started on Risperdal. Seen by cardiology today. Put on Lasix 40 mg every 8. Oral intakes to low. Repeat labs. Repeat chest x-ray. Prognosis guarded.
[2019-06-26] MEDS: FUROSEMIDE 10 MG/ML 4 ML VIAL IV SCH ×2 (17:03→23:40)
[2019-06-26 17:22] LABS: Glucose,Whole Blood 241 mg/dL (75-99)
--- NOTE | 2019-06-26 17:23 | XR ---
EXAMINATION TYPE: XR chest 1V portable DATE OF EXAM: 06/26/2019 COMPARISON: 06/23/2019 HISTORY: Follow-up for congestive heart failure TECHNIQUE: Single frontal view of the chest is obtained. FINDINGS: There is a worsening right pleural effusion with only small amount remaining aerated right midlung. Stable small left pleural effusion and severe interstitial edema. Cardia mediastinal silhou ette is obscured. IMPRESSION: Worsening fluid overload with large right pleural effusion and small left pleural effusi on. Severe interstitial edema.
[2019-06-26] MEDS: TAMSULOSIN 0.4 MG CAP.ER.24H PO SCH (20:27)
[2019-06-26] MEDS: ATORVASTATIN 40 MG TAB PO SCH (20:28)
[2019-06-26 20:49] LABS: Glucose,Whole Blood 154 mg/dL (75-99)
[2019-06-27] MEDS ORDERED: DEXTROSE 5% IN WATER 250 ML BAG IV ONE (03:14)
[2019-06-27] MEDS ORDERED: NOREPINEPHRINE 1 MG/ML 4 ML VIAL IV ONE (03:14)
[2019-06-27] MEDS ORDERED: EPINEPHrine 10 ML SYRINGE (0.1 MG/ML) ONE (03:14)
[2019-06-27] MEDS ORDERED: SODIUM BICARB 8.4% 50 ML SYR (1 MEQ/ML) ONE (03:14)
[2019-06-27 03:17] LABS: Glucose,Whole Blood 240 mg/dL (75-99)
[2019-06-27 03:46] LABS: Glucose,Whole Blood 234 mg/dL (75-99)
[2019-06-27 04:04] VITALS: RESP 6
[2019-06-27 04:06] VITALS: BP 39/27; PULSE 47; TEMP 98
[2019-06-27] MEDS ORDERED: ARTIFICIAL TEARS-HYPROMELLOSE DROPS 15 ML BTL BOTH EYES PRN (04:07)
[2019-06-27] MEDS ORDERED: ATROPINE OPHTH SOLN 1% 5ML BTL SUBLINGUAL PRN (04:07)
[2019-06-27] MEDS ORDERED: LORazepam 2 MG/ML INJ IV PRN (04:07)
[2019-06-27] MEDS ORDERED: MORPHINE SULFATE (100 MG/2 ML) 100 MG in SODIUM CHLORIDE 0.9% 100 ML IV SCH (04:15)
[2019-06-27] MEDS ORDERED: SCOPOLAMINE 1.5MG/72HR PATCH TRANSDERM SCH (04:15)
--- NOTE | 2019-06-27 05:43 | ED ---
CPR HPI - General Chief Complaint: Cardiac Arrest/CPR Stated Complaint: COPD Source: RN/MD Limitations: altered mental status - History of Present Illness Initial Comments: I responded to a CODE BLUE on the floor. Per nursing staff the patient been awake and talking approximately 15 minutes prior, upon their evaluation patient was found be pulseless and apneic CPR was initiated. A brief review of the patient's chart revealed that he had been admitted to the hospital for acute on chronic respiratory failure, CHF exacerbation, chronic kidney disease. - Related Data Home Medications Medication Instructions Recorded Confirmed Finasteride [Proscar] 5 mg PO DAILY@89902/25/18 06/23/19 Levothyroxine Sodium [Synthroid] 200 mcg PO DAILY@59902/25/18 06/23/19 Tamsulosin [Flomax] 0.4 mg PO HS@209902/25/18 06/23/19 Isosorbide Mononitrate [Isosorbide 30 mg PO DAILY@89908/05/18 06/23/19 Mononitrate ER] Levothyroxine Sodium [Synthroid] 75 mcg PO DAILY@59902/10/19 06/23/19 Allopurinol [Zyloprim] 100 mg PO DAILY@89905/11/19 06/23/19 Atorvastatin [Lipitor] 40 mg PO HS@209905/11/19 06/23/19 Ferrous Sulfate [Iron (65 MG 325 mg PO BID@0900,209905/11/19 06/23/19 Elemental)] Furosemide [Lasix] 40 mg PO DAILY@59905/11/19 06/23/19 Ipratropium-Albuterol Nebulize 3 ml INHALATION RT-Q8H 05/11/19 06/23/19 [Duoneb 0.5 mg-3 mg/3 ml Soln] Phenazopyridine [Pyridium] 200 mg PO BID PRN 05/11/19 06/23/19 Calcium Carbonate [Calcium] 600 mg PO QID PRN 06/05/19 06/23/19 Loperamide [Imodium] 2 - 4 mg PO QID PRN 06/05/19 06/23/19 Metoprolol Tartrate [Lopressor] 12.5 mg PO TID@0600,1400,2200 06/05/19 06/23/19 Tolterodine Tartrate [Tolterodine 2 mg PO DAILY@0900 06/05/19 06/23/19 Tartrate ER] INSULIN LISPRO (HumaLOG) [HumaLOG] 3 unit SQ AC-TID 06/23/19 06/23/19 Insulin Degludec [Tresiba 10 units SQ DAILY@0800 06/23/19 06/23/19 Flextouch U-100] Omeprazole [PriLOSEC] 20 mg PO BID@0600,1700 06/23/19 06/23/19 Previous Rx's Medication Instructions Recorded HYDROcodone/APAP 5-325MG [[place] 1 tab PO Q6H PRN #12 tab 06/10/19 5-325] Trospium Chloride [Sanctura] 20 mg PO DAILY@0900 tablet 06/10/19 Allergies Allergy/AdvReac Type Severity Reaction Status Date / Time iodine Allergy Rash/Hives Verified 06/23/19 20:37 Review of Systems ROS Statement: Those systems with pertinent positive or pertinent negative responses have been documented in the HPI. ROS Other: All systems not noted in ROS Statement are negative. Past Medical History Past Medical History: Atrial Fibrillation, Cancer, Heart Failure, Diabetes Mellitus, Hyperlipidemia, Hypertension, Myocardial Infarction ([place]), Osteoarthritis (OA), Prostate Disorder, Renal Disease, Thyroid Disorder Additional Past Medical History / Comment(s): Ischemic heart disease, chronic CHF, pulmonary edema, 2011 L renal cancer with L nephrectomy-pt states he had mets to his liver and R lower lobe of his lung-treated by a "special" medication that worked with his immune system and was cured, 2018 had prostate cancer with 2 months of radiation therapy and eventual TURP-pt states cured, has been having bladder spasms for one month, IDDM type II, CKD stage III, muscle weakness, hypothyroid Last Myocardial Infarction Date:: History of Any Multi-Drug Resistant Organisms: None Reported Past Surgical History: Heart Catheterization With Stent Additional Past Surgical History / Comment(s): left nephrectomy, TURP, cystoscopies/cauterization and evacuation of clots, ORIF R hip, Past Anesthesia/Blood Transfusion Reactions: No Reported Reaction Date of Last Stent Placement:: 2017 Past Psychological History: No Psychological Hx Reported Additional Psychological History / Comment(s): Pt currently at [facility]. He states he is ambulating with a walker and sometimes using a wheelchair. He states he uses oxygen prn. His spouse 5 weeks ago. Smoking Status: Former smoker Past Alcohol Use History: None Reported Additional Past Alcohol Use History / Comment(s): Pt started smoking small cigars in 1952. He was a heavy drinker but quit in 1998. Past Drug Use History: None Reported - Past Family History Father Family Medical History: Cancer Additional Family Medical History / Comment(s): Father had prostate cancer. He lived to be 92 yrs old. Mother Family Medical History: Diabetes Mellitus Additional Family Medical History / Comment(s): Mother lived to be 84 yrs old. Family Additional Family Medical History / Comment(s): Patient reports history of heart disease General Exam - General Exam Comments Initial Comments: Physical Exam GENERAL: Unresponsive CPR in progress HENT: Normocephalic, Atraumatic. EYES: Pupils 5 mm fixed and dilated PULMONARY: Apenic Respirations assisted by BVM CARDIOVASCULAR: Asystole Cool Extremities ABDOMEN: Obese SKIN: Pale : Significant scrotal edema NEUROLOGIC: Unresponsive MUSCULOSKELETAL: Lower extremity edema PSYCHIATRIC: Unresponsive Limitations: altered mental status Course Vital Signs 06/23/19 06/23/19 06/23/19 18:18 18:22 19:41 Temperature 98.0 F Pulse Rate 109 H 99 Respiratory 16 22 18 Rate Blood Pressure 97/64 O2 Sat by Pulse 93 L Oximetry 06/23/19 06/23/19 21:56 22:20 Temperature 98.0 F 98.0 F Pulse Rate 97 82 Respiratory 20 18 Rate Blood Pressure 108/71 103/64 O2 Sat by Pulse 100 96 Oximetry Procedures - Intubation Laryngoscope: María Size: 4 ET Tube Size: 8 ET Tube Uncuffed: No Tube Secured Location: lips Tube Placement Confirmation: visualized tube passing through cords, equal breath sounds bilaterally, no breath sounds over epigastrium, confirmation by capnometry Patient Tolerated Procedure: no complications Intubation Complications: none Medical Decision Making - Medical Decision Making I arrived to the floor for a cardiac arrest The patient was pulseless and apneic, CPR was in progress Patient was coded per ACLS protocols At approximately 3:18 AM I established definitive airway RN Lucrecia spoke with the patient's daughter who stated that the patient would like to be DO NOT RESUSCITATE and would not want to be kept alive by machines. At 321 resuscitation efforts were ceased however at that time was found that the patient had a pulse, patient was hypotensive. I recommended that the patient have an norepinephrine drip initiated, chest x-ray to confirm ET tube placement, repeat labs and transfer to ICU. - Lab Data Result diagrams: 06/23/19 18:37 06/26/19 06:05 Lab Results 06/23/19 06/23/19 06/23/19 Range/Units 18:37 18:37 18:37 WBC 9.2 (3.8-10.6) k/uL RBC 3.11 L (4.30-5.90) m/uL Hgb 9.4 L (13.0-17.5) gm/dL Hct 30.7 L (39.0-53.0) % MCV 98.6 (80.0-100.0) fL MCH 30.1 (25.0-35.0) pg MCHC 30.6 L (31.0-37.0) g/dL RDW 16.5 H (11.5-15.5) % Plt Count 297 (150-450) k/uL Neutrophils % 74 % Lymphocytes % 11 % Monocytes % 7 % Eosinophils % 5 % Basophils % 1 % Neutrophils # 6.8 (1.3-7.7) k/uL Lymphocytes # 1.0 (1.0-4.8) k/uL Monocytes # 0.6 (0-1.0) k/uL Eosinophils # 0.5 (0-0.7) k/uL Basophils # 0.1 (0-0.2) k/uL Hypochromasia Marked Anisocytosis Slight Macrocytosis Slight PT (9.0-12.0) sec INR (<1.2) APTT (22.0-30.0) sec Sample Site ABG pH (7.35-7.45) ABG pCO2 (35-45) mmHg ABG pO2 (83-108) mmHg ABG HCO3 (21-25) mmol/L ABG Total CO2 (19-24) mmol/L ABG O2 Saturation (94-97) % ABG Base Excess mmol/L Antonio Test FiO2 % Sodium 141 (137-145) mmol/L Potassium 4.2 (3.5-5.1) mmol/L Chloride 107 (98-107) mmol/L Carbon Dioxide 25 (22-30) mmol/L Anion Gap 9 mmol/L BUN 42 H (9-20) mg/dL Creatinine 1.91 H (0.66-1.25) mg/dL Est GFR (CKD-EPI)AfAm 37 (>60 ml/min/1.73 sqM) Est GFR (CKD-EPI)NonAf 32 (>60 ml/min/1.73 sqM) Glucose 112 H (74-99) mg/dL Plasma Lactic Acid Amado (0.7-2.0) mmol/L Calcium 8.7 (8.4-10.2) mg/dL Total Bilirubin 0.7 (0.2-1.3) mg/dL AST 20 (17-59) U/L ALT 15 L (21-72) U/L Alkaline Phosphatase 104 (38-126) U/L Creatine Kinase 30 L (55-170) U/L Troponin I <0.012 (0.000-0.034) ng/mL NT-Pro-B Natriuret Pep pg/mL Total Protein 6.1 L (6.3-8.2) g/dL Albumin 2.8 L (3.5-5.0) g/dL TSH 0.092 L (0.465-4.680) mIU/L Free T4 2.07 (0.78-2.19) ng/dL 06/23/19 06/23/19 06/23/19 Range/Units 18:37 18:37 18:37 WBC (3.8-10.6) k/uL RBC (4.30-5.90) m/uL Hgb (13.0-17.5) gm/dL Hct (39.0-53.0) % MCV (80.0-100.0) fL MCH (25.0-35.0) pg MCHC (31.0-37.0) g/dL RDW (11.5-15.5) % Plt Count (150-450) k/uL Neutrophils % % Lymphocytes % % Monocytes % % Eosinophils % % Basophils % % Neutrophils # (1.3-7.7) k/uL Lymphocytes # (1.0-4.8) k/uL Monocytes # (0-1.0) k/uL Eosinophils # (0-0.7) k/uL Basophils # (0-0.2) k/uL Hypochromasia Anisocytosis Macrocytosis PT 13.6 H (9.0-12.0) sec INR 1.3 H (<1.2) APTT 27.3 (22.0-30.0) sec Sample Site ABG pH (7.35-7.45) ABG pCO2 (35-45) mmHg ABG pO2 (83-108) mmHg ABG HCO3 (21-25) mmol/L ABG Total CO2 (19-24) mmol/L ABG O2 Saturation (94-97) % ABG Base Excess mmol/L Antonio Test FiO2 % Sodium (137-145) mmol/L Potassium (3.5-5.1) mmol/L Chloride (98-107) mmol/L Carbon Dioxide (22-30) mmol/L Anion Gap mmol/L BUN (9-20) mg/dL Creatinine (0.66-1.25) mg/dL Est GFR (CKD-EPI)AfAm (>60 ml/min/1.73 sqM) Est GFR (CKD-EPI)NonAf (>60 ml/min/1.73 sqM) Glucose (74-99) mg/dL Plasma Lactic Acid Amado 1.2 (0.7-2.0) mmol/L Calcium (8.4-10.2) mg/dL Total Bilirubin (0.2-1.3) mg/dL AST (17-59) U/L ALT (21-72) U/L Alkaline Phosphatase (38-126) U/L Creatine Kinase (55-170) U/L Troponin I (0.000-0.034) ng/mL NT-Pro-B Natriuret Pep 13938 pg/mL Total Protein (6.3-8.2) g/dL Albumin (3.5-5.0) g/dL TSH (0.465-4.680) mIU/L Free T4 (0.78-2.19) ng/dL 06/23/19 Range/Units 19:25 WBC (3.8-10.6) k/uL RBC (4.30-5.90) m/uL Hgb (13.0-17.5) gm/dL Hct (39.0-53.0) % MCV (80.0-100.0) fL MCH (25.0-35.0) pg MCHC (31.0-37.0) g/dL RDW (11.5-15.5) % Plt Count (150-450) k/uL Neutrophils % % Lymphocytes % % Monocytes % % Eosinophils % % Basophils % % Neutrophils # (1.3-7.7) k/uL Lymphocytes # (1.0-4.8) k/uL Monocytes # (0-1.0) k/uL Eosinophils # (0-0.7) k/uL Basophils # (0-0.2) k/uL Hypochromasia Anisocytosis Macrocytosis PT (9.0-12.0) sec INR (<1.2) APTT (22.0-30.0) sec Sample Site r rad ABG pH 7.43 (7.35-7.45) ABG pCO2 44 (35-45) mmHg ABG pO2 47 L* (83-108) mmHg ABG HCO3 29 H (21-25) mmol/L ABG Total CO2 30 H (19-24) mmol/L ABG O2 Saturation 84.2 L (94-97) % ABG Base Excess 4.5 mmol/L Antonio Test Yes FiO2 40 % Sodium (137-145) mmol/L Potassium (3.5-5.1) mmol/L Chloride (98-107) mmol/L Carbon Dioxide (22-30) mmol/L Anion Gap mmol/L BUN (9-20) mg/dL Creatinine (0.66-1.25) mg/dL Est GFR (CKD-EPI)AfAm (>60 ml/min/1.73 sqM) Est GFR (CKD-EPI)NonAf (>60 ml/min/1.73 sqM) Glucose (74-99) mg/dL Plasma Lactic Acid Amado (0.7-2.0) mmol/L Calcium (8.4-10.2) mg/dL Total Bilirubin (0.2-1.3) mg/dL AST (17-59) U/L ALT (21-72) U/L Alkaline Phosphatase (38-126) U/L Creatine Kinase (55-170) U/L Troponin I (0.000-0.034) ng/mL NT-Pro-B Natriuret Pep pg/mL Total Protein (6.3-8.2) g/dL Albumin (3.5-5.0) g/dL TSH (0.465-4.680) mIU/L Free T4 (0.78-2.19) ng/dL Disposition Clinical Impression: Congestive heart failure, Hypoxia, Chronic atrial fibrillation Disposition: ADMITTED IP TO THIS HOSP Condition: Serious
--- NOTE | 2019-07-01 21:52 | P.DS ---
Providers Date of admission: 06/23/19 21:42 Expected date of discharge: 07/02/19 (Patient ) Attending physician: Alexy Titus Consults: 06/23/19 21:42 Consult Physician Urgent Consulting Provider: [facility] Consult Reason/Comments: AECHF, hypoxic resp failure Do you want consulting provider notified?: Yes 06/27/19 04:09 Consult Physician Stat Consulting Provider: Amalia Ayoub Consult Reason/Comments: icu placement Do you want consulting provider notified?: Yes Primary care physician: [facility] Course: Chief Complaint: Short of breath Hospital course: This is a 78-year-old patient with an extensive medical history. Chronic stable medical conditions include atrial fibrillation, diabetes, hyperlipidemia, hypertension, osteoarthritis, hypothyroid, esophagitis, radiation cystitis,anosognosia etc. Patient. Weeks ago seen by urologist Dr. Zavala out of [facility]. Patient had bladder scraping done. Since then progressively patient is having hematuria and more and more bladder spasms. Patient was in the hospital from May 11 through May 26.. patient was then admitted with postop hematuria and severe bladder spasms. Patient was taken to the OR on May 14. Several blood clots evacuated. 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 Was having significant bladder spasm. Medications were adjusted by urology. Subsequently patient diagnosed with pneumonia. Received IV Zosyn. patient went into congestive heart failure. Received IV Lasix. Also complained of odynophagia in the middle chest. . Possible right parapneumonic effusion. Seen by pulmonary. Intervention radiology did thoracentesis and 30 mL of diagnostic fluid was removed.. Trial of DC Overton was done on May 21. Patient started having bladder spasms again. Overton was replaced. Again started hematuria. Eventually nearly cleared up. hematuria is greatly improved. Also had EGD that showed esophagitis.. Patient received a total of 4 units of blood. By the time of discharge patient doing well. Urinary cleared up nicely. Again patient presented June 05 with significant blood clots per urethra. Patient was again taken to the or and fulguration cystoscopy was done and cancer tissues removed. Patient is discharged on June 08. With a Overton catheter. Patient now presented to the ER being hypoxic short of breath normally has 3.5 L of oxygen. Also short of breath. Checks x-ray did show pulmonary edema. Spoke to from the ER asked her to to give IV Lasix 2 doses.. This morning. Short of breath. Tired. Not much of an appetite. Acute congestive heart failure exacerbation. . Was put on Lasix drip yesterday.-Did make good urine. Patient is put on Risperdal. Which he responded well. Patient had a cardiac arrest. Succumbed to the same. Consultation: Dr. Zoraida miller from cardiology INVESTIGATIONS, reviewed in the clinical context: BUN 44 creatinine 2.11 Previous testing White count 9.2 hemoglobin 9.4 platelets 297 Arterial blood gases-pO2 47 pCO2 of 30 potassium 4.2 bun 42 creatinine 1.91 Chest x-ray film personally reviewed by me-pulmonary edema with fluid in the fissure Assessment: -Acute on chronic congestive 40 exacerbation from systolic dysfunction EF 40- 45%call with some improvement. -bladder spasms recurrent, controlled -radiation cystitis, with recurrent hematuria, controlled -Moderate aortic valve sclerosis, moderate mitral mitral regurgitation, moderate tricuspid regurgitation-nonrheumatic -Secondary moderate pulmonary hypertension from CHF -Diabetes mellitus type 2 -Essential hypertension -hypertensive heart disease -Hyperlipidemia -Primary osteoarthritis -Hypothyroid -Left renal cancer with left nephrectomy -Chronic kidney disease stage III from nephrosclerosis -Hypothyroid -Chronic nicotine dependence patient cigarette smoker -Right pleural effusion with diagnostic thoracentesis in the past -Chronic esophagitis, -anosognosia Disposition: Patient Probable cause of : Coronary artery disease Plan - Discharge Summary Discharge Rx Participant: No New Discharge Prescriptions: No Action Tamsulosin [Flomax] 0.4 mg PO HS@2100 Levothyroxine Sodium [Synthroid] 200 mcg PO DAILY@0600 Finasteride [Proscar] 5 mg PO DAILY@0900 Isosorbide Mononitrate [Isosorbide Mononitrate ER] 30 mg PO DAILY@0900 Levothyroxine Sodium [Synthroid] 75 mcg PO DAILY@0600 Phenazopyridine [Pyridium] 200 mg PO BID PRN PRN Reason: BLADDER SPASMS Ipratropium-Albuterol Nebulize [Duoneb 0.5 mg-3 mg/3 ml Soln] 3 ml INHALATION RT-Q8H Ferrous Sulfate [Iron (65 MG Elemental)] 325 mg PO BID@0900,2100 Furosemide [Lasix] 40 mg PO DAILY@0600 Atorvastatin [Lipitor] 40 mg PO HS@2099 Allopurinol [Zyloprim] 100 mg PO DAILY@09 Calcium Carbonate [Calcium] 600 mg PO QID PRN PRN Reason: Heartburn Loperamide [Imodium] 2 - 4 mg PO QID PRN PRN Reason: Loose Stool Metoprolol Tartrate [Lopressor] 12.5 mg PO TID@0600,1400,2200 Tolterodine Tartrate [Tolterodine Tartrate ER] 2 mg PO DAILY@0900 Trospium Chloride [Sanctura] 20 mg PO DAILY@0900 tablet HYDROcodone/APAP 5-325MG [[place] 5-325] 1 tab PO Q6H PRN #12 tab PRN Reason: Pain Omeprazole [PriLOSEC] 20 mg PO BID@0600,1700 INSULIN LISPRO (HumaLOG) [HumaLOG] 3 unit SQ AC-TID Insulin Degludec [Tresiba Flextouch U-100] 10 units SQ DAILY@0800 Discharge Medication List Finasteride [Proscar] 5 mg PO DAILY@0902/25/18 [History] Levothyroxine Sodium [Synthroid] 200 mcg PO DAILY@59902/25/18 [History] Tamsulosin [Flomax] 0.4 mg PO HS@209902/25/18 [History] Isosorbide Mononitrate [Isosorbide Mononitrate ER] 30 mg PO DAILY@89908/05/18 [History] Levothyroxine Sodium [Synthroid] 75 mcg PO DAILY@59902/10/19 [History] Allopurinol [Zyloprim] 100 mg PO DAILY@89905/11/19 [History] Atorvastatin [Lipitor] 40 mg PO HS@209905/11/19 [History] Ferrous Sulfate [Iron (65 MG Elemental)] 325 mg PO BID@899,209905/11/19 [History] Furosemide [Lasix] 40 mg PO DAILY@59905/11/19 [History] Ipratropium-Albuterol Nebulize [Duoneb 0.5 mg-3 mg/3 ml Soln] 3 ml INHALATION RT-Q8H 05/11/19 [History] Phenazopyridine [Pyridium] 200 mg PO BID PRN 05/11/19 [History] Calcium Carbonate [Calcium] 600 mg PO QID PRN 06/05/19 [History] Loperamide [Imodium] 2 - 4 mg PO QID PRN 06/05/19 [History] Metoprolol Tartrate [Lopressor] 12.5 mg PO TID@0600,1400,2200 06/05/19 [History] Tolterodine Tartrate [Tolterodine Tartrate ER] 2 mg PO DAILY@0900 06/05/19 [History] HYDROcodone/APAP 5-325MG [[place] 5-325] 1 tab PO Q6H PRN #12 tab 06/10/19 [Rx] Trospium Chloride [Sanctura] 20 mg PO DAILY@0900 tablet 06/10/19 [Rx] INSULIN LISPRO (HumaLOG) [HumaLOG] 3 unit SQ AC-TID 06/23/19 [History] Insulin Degludec [Tresiba Flextouch U-100] 10 units SQ DAILY@0800 06/23/19 [History] Omeprazole [PriLOSEC] 20 mg PO BID@0600,1700 06/23/19 [History] Follow up Appointment(s)/Referral(s): Osman Dunne MD [Primary Care Provider] - 1-2 days Discharge Disposition: - Preliminary Cause of Preliminary Cause of : Coronary artery disease
== END 2019-06-27 04:19 | disposition expired | DRG 291 ==
LOC: EC 18:16 → 3SCARD 21:42 → 2SICU 06-27 03:35
PROVIDERS: ADMIT Hospitalist; ATTEND Hospitalist
PROC: 5A1935Z Respiratory Ventilation, Less than 24 Consecutive Hours (ICD-10-PCS; principal; 2019-06-23)
PROC: 0BH18EZ Insertion of Endotracheal Airway into Trachea, Via Natural or Artificial Opening Endoscopic (ICD-10-PCS; principal; 2019-06-23)
DX: I13.0 Hypertensive heart and chronic kidney disease with heart failure and stage 1 through stage 4 chronic kidney disease, or unspecified chronic kidney disease (principal); I50.23 Acute on chronic systolic (congestive) heart failure; J96.21 Acute and chronic respiratory failure with hypoxia; I48.19 Other persistent atrial fibrillation; E03.9 Hypothyroidism, unspecified; E11.22 Type 2 diabetes mellitus with diabetic chronic kidney disease; E78.5 Hyperlipidemia, unspecified; F17.210 Nicotine dependence, cigarettes, uncomplicated; I08.1 Rheumatic disorders of both mitral and tricuspid valves; I25.10 Atherosclerotic heart disease of native coronary artery without angina pectoris; I25.2 Old myocardial infarction; I27.20 Pulmonary hypertension, unspecified; I46.9 Cardiac arrest, cause unspecified; J44.9 Chronic obstructive pulmonary disease, unspecified; K20.9 Esophagitis, unspecified; M19.91 Primary osteoarthritis, unspecified site; Z66 Do not resuscitate; N18.3 Chronic kidney disease, stage 3 (moderate); Y84.2 Radiological procedure and radiotherapy as the cause of abnormal reaction of the patient, or of later complication, without mention of misadventure at the time of the procedure; Z51.5 Encounter for palliative care; Z79.4 Long term (current) use of insulin; Z79.890 Hormone replacement therapy; Z79.899 Other long term (current) drug therapy; Z80.42 Family history of malignant neoplasm of prostate; Z83.3 Family history of diabetes mellitus; Z85.46 Personal history of malignant neoplasm of prostate; Z85.528 Personal history of other malignant neoplasm of kidney; Z90.5 Acquired absence of kidney; Z88.3 Allergy status to other anti-infective agents
CPT/HCPCS: 36415; 36600; 71045; 71046; 80048; 80053; 81001; 82550; 82805; 83605; 83880; 84439; 84443; 84484; 85025; 85610; 85730; 87086; 87324; 93005; 94640; 94760; 99285